=== PATIENT | male | born 1950 | race Caucasian/White ===

== ENCOUNTER 2018-04-21 23:20 | Inpatient (IN) | payer OTHER, MEDICARE ==
[2018-04-21 23:46] LABS: POC GLUCOSE 156 mg/dL (70-99)
[2018-04-22] MEDS ORDERED: DEXTROSE 50% 25 GM / 50ML DISP.SYRIN. IV ×2 (04:45→09:15)
[2018-04-22] MEDS: ACETAMINOPHEN 500 MG TABLET PO ×3 (06:00→17:38)
[2018-04-22 08:31] LABS: POC GLUCOSE 125 mg/dL (70-99)
[2018-04-22] MEDS: amLODIPine BESYLATE 10 MG TABLET PO (09:04)
[2018-04-22] MEDS: DOCUSATE SODIUM 100 MG CAPSULE. PO ×2 (09:04→21:00)
[2018-04-22] MEDS: EZETIMIBE 10 MG TABLET. PO (09:04)
[2018-04-22] MEDS: ASPIRIN CHEWABLE 81 MG TABLET. PO (09:04)
[2018-04-22] MEDS: CARVEDILOL 12.5 MG TABLET. PO ×2 (09:05→16:56)
[2018-04-22] MEDS: CYANOCOBALAMIN (VITAMIN B-12) 1,000 MCG TABLET. PO (09:05)
[2018-04-22] MEDS: FUROSEMIDE 80 MG TABLET. PO ×2 (09:05→16:00)
[2018-04-22] MEDS: POTASSIUM CHLORIDE 20 MEQ TABLET.ER. PO (09:05)
[2018-04-22] MEDS: TRIAMCINOLONE ACETONIDE 0.1% TOPICAL CREAM 15GM TUBE. TP ×2 (09:06→22:13)
[2018-04-22] MEDS: INSULIN GLARGINE 300 UNITS/3 ML INSULN.PEN. SQ ×2 (09:12→22:11)
[2018-04-22] MEDS: IV NORMAL SALINE 1000ML BAG 1,000 ML IV ×2 (09:27→19:19)
[2018-04-22 09:35] LABS: ADD MAN DIFF? NO
[2018-04-22 09:39] LABS: BASO % 1 % (0-3); EOS # 0.2 x10^3/uL (0.0-0.7); EOS % 2 % (0-3); HEMATOCRIT 33.8 % (39.0-53.0); HEMOGLOBIN 11.4 g/dL (13.0-17.5); LYMPH # 2.3 x10^3/uL (1.0-4.8); LYMPH % 24 % (24-48); MEAN CORPUSCULAR HEMOGLOBIN 31 pg (25-35); MEAN CORPUSCULAR HGB CONC 34 g/dL (31-37); MEAN CORPUSCULAR VOLUME 91 fL (79-100); MONO # 0.9 x10^3/uL (0.0-1.1); MONO % 9 % (0-9); NEUT # 6.2 x10^3uL (1.8-7.7); NEUT % 64 % (31-73); PLATELET COUNT 192 x10^3/uL (140-400); RED BLOOD COUNT 3.73 x10^6/uL (4.30-5.70); RED CELL DISTRIBUTION WIDTH 14.5 % (11.5-14.5); WHITE BLOOD COUNT 9.7 x10^3/uL (4.0-11.0)
[2018-04-22 09:47] LABS: INR 1.2 (0.8-1.1); PROTHROMBIN TIME PATIENT 14.5 SEC (11.7-14.0)
[2018-04-22 09:53] LABS: ANION GAP 9 (6-14); BLOOD UREA NITROGEN 51 mg/dL (8-26); BUN/CREATININE RATIO 28 (6-20); CALCIUM 8.7 mg/dL (8.5-10.1); CARBON DIOXIDE 28 mmol/L (21-32); CHLORIDE 101 mmol/L (98-107); CREATININE 1.8 mg/dL (0.7-1.3); GFR 37.9; GLUCOSE 151 mg/dL (70-99); POTASSIUM 4.1 mmol/L (3.5-5.1); SODIUM 138 mmol/L (136-145)
[2018-04-22 09:58] LABS: ALBUMIN 2.8 g/dL (3.4-5.0); ALBUMIN/GLOBULIN RATIO 0.7 (1.0-1.7); ALK PHOS 139 U/L (46-116); ALT (SGPT) 204 U/L (16-63); AST (SGOT) 136 U/L (15-37); LIPASE 81 U/L (73-393); TOTAL BILIRUBIN 2.9 mg/dL (0.2-1.0); TOTAL PROTEIN 6.6 g/dL (6.4-8.2)
[2018-04-22] MEDS: MEROPENEM 500 MG in IV NORMAL SALINE 50ML 50 ML IV ×3 (10:22→22:13)
[2018-04-22 11:30] LABS: POC GLUCOSE 137 mg/dL (70-99)
[2018-04-22] MEDS: INSULIN LISPRO 300 UNITS/3 ML INSULN.PEN. SQ ×2 (11:31→16:56)
[2018-04-22 16:47] LABS: POC GLUCOSE 134 mg/dL (70-99)
[2018-04-22 20:42] LABS: POC GLUCOSE 200 mg/dL (70-99)
[2018-04-22] MEDS: diphenhydrAMINE HCL 25 MG CAPSULE PO (22:03)
[2018-04-22] MEDS: LACTOBACILLUS RHAMNOSUS GG 1 CAPSULE. PO (22:03)
[2018-04-23] MEDS: MEROPENEM 500 MG in IV NORMAL SALINE 50ML 50 ML IV ×3 (05:07→21:18)
[2018-04-23] MEDS: ACETAMINOPHEN 500 MG TABLET PO ×3 (05:07→11:44)
[2018-04-23] MEDS: IV NORMAL SALINE 1000ML BAG 1,000 ML IV ×2 (05:11→19:53)
[2018-04-23 05:15] LABS: HEMATOCRIT 35.7 % (39.0-53.0); MEAN CORPUSCULAR HEMOGLOBIN 30 pg (25-35); MEAN CORPUSCULAR HGB CONC 34 g/dL (31-37); MEAN CORPUSCULAR VOLUME 90 fL (79-100); PLATELET COUNT 207 x10^3/uL (140-400); RED BLOOD COUNT 3.94 x10^6/uL (4.30-5.70); RED CELL DISTRIBUTION WIDTH 14.5 % (11.5-14.5); WHITE BLOOD COUNT 7.2 x10^3/uL (4.0-11.0)
[2018-04-23 05:42] LABS: ALBUMIN 2.6 g/dL (3.4-5.0); ALBUMIN/GLOBULIN RATIO 0.6 (1.0-1.7); ALK PHOS 180 U/L (46-116); ALT (SGPT) 180 U/L (16-63); ANION GAP 7 (6-14); AST (SGOT) 93 U/L (15-37); BLOOD UREA NITROGEN 44 mg/dL (8-26); BUN/CREATININE RATIO 29 (6-20); CALCIUM 8.5 mg/dL (8.5-10.1); CARBON DIOXIDE 30 mmol/L (21-32); CHLORIDE 102 mmol/L (98-107); CREATININE 1.5 mg/dL (0.7-1.3); GFR 46.8; GLUCOSE 93 mg/dL (70-99); POTASSIUM 3.9 mmol/L (3.5-5.1); SODIUM 139 mmol/L (136-145); TOTAL BILIRUBIN 2.6 mg/dL (0.2-1.0); TOTAL PROTEIN 6.7 g/dL (6.4-8.2)
[2018-04-23 07:41] LABS: POC GLUCOSE 66 mg/dL (70-99)
[2018-04-23] MEDS: INSULIN LISPRO 300 UNITS/3 ML INSULN.PEN. SQ ×3 (08:00→17:00)
[2018-04-23] MEDS: LACTOBACILLUS RHAMNOSUS GG 1 CAPSULE. PO ×2 (08:42→21:18)
[2018-04-23] MEDS: CYANOCOBALAMIN (VITAMIN B-12) 1,000 MCG TABLET. PO (08:43)
[2018-04-23] MEDS: POTASSIUM CHLORIDE 20 MEQ TABLET.ER. PO (08:43)
[2018-04-23] MEDS: EZETIMIBE 10 MG TABLET. PO (08:43)
[2018-04-23] MEDS: CARVEDILOL 12.5 MG TABLET. PO ×2 (08:44→18:03)
[2018-04-23] MEDS: FUROSEMIDE 80 MG TABLET. PO ×2 (08:44→18:02)
[2018-04-23] MEDS: amLODIPine BESYLATE 10 MG TABLET PO (08:44)
[2018-04-23] MEDS: SPIRONOLACTONE 25 MG TABLET PO (08:44)
[2018-04-23] MEDS: DOCUSATE SODIUM 100 MG CAPSULE. PO ×2 (08:44→21:18)
[2018-04-23] MEDS: TRIAMCINOLONE ACETONIDE 0.1% TOPICAL CREAM 15GM TUBE. TP ×2 (08:44→21:18)
[2018-04-23] MEDS: ASPIRIN CHEWABLE 81 MG TABLET. PO (08:44)
[2018-04-23] MEDS: INSULIN GLARGINE 300 UNITS/3 ML INSULN.PEN. SQ ×2 (08:52→21:26)
[2018-04-23 10:33] LABS: HEPATITIS A AB(IGM) Reactive (Nonreactive)
[2018-04-23 11:07] LABS: POC GLUCOSE 103 mg/dL (70-99)
[2018-04-23] MEDS: ACETAMINOPHEN 325 MG TABLET. PO (14:59)
[2018-04-23 17:02] LABS: POC GLUCOSE 128 mg/dL (70-99)
[2018-04-23 20:50] LABS: POC GLUCOSE 177 mg/dL (70-99)
[2018-04-23] MEDS: ALBUTEROL SULFATE 2.5 MG/3 ML NEBU. NEB (20:53)
[2018-04-23] MEDS: BUDESONIDE 0.5 MG/2 ML NEBU. NEB (20:53)
[2018-04-23] MEDS: diphenhydrAMINE HCL 25 MG CAPSULE PO (21:18)
[2018-04-24] MEDS: ACETAMINOPHEN 325 MG TABLET. PO (02:00)
[2018-04-24 05:15] LABS: ALBUMIN 2.9 g/dL (3.4-5.0); ALBUMIN/GLOBULIN RATIO 0.6 (1.0-1.7); ALK PHOS 277 U/L (46-116); ALT (SGPT) 196 U/L (16-63); ANION GAP 7 (6-14); AST (SGOT) 120 U/L (15-37); BLOOD UREA NITROGEN 30 mg/dL (8-26); BUN/CREATININE RATIO 25 (6-20); CALCIUM 8.9 mg/dL (8.5-10.1); CARBON DIOXIDE 28 mmol/L (21-32); CHLORIDE 103 mmol/L (98-107); CREATININE 1.2 mg/dL (0.7-1.3); GFR 60.6; GLUCOSE 96 mg/dL (70-99); SODIUM 138 mmol/L (136-145); TOTAL BILIRUBIN 2.9 mg/dL (0.2-1.0); TOTAL PROTEIN 7.4 g/dL (6.4-8.2)
[2018-04-24] MEDS: IV NORMAL SALINE 1000ML BAG 1,000 ML IV ×2 (06:04→12:00)
[2018-04-24] MEDS: MEROPENEM 500 MG in IV NORMAL SALINE 50ML 50 ML IV ×4 (06:05→23:06)
[2018-04-24] MEDS: BUDESONIDE 0.5 MG/2 ML NEBU. NEB ×2 (07:00→17:36)
[2018-04-24] MEDS: ALBUTEROL SULFATE 2.5 MG/3 ML NEBU. NEB ×4 (07:00→17:37)
[2018-04-24] MEDS ORDERED: DEXTROSE ORAL GEL 15 GM TUBE. ×2 (07:51→08:00)
[2018-04-24 07:52] LABS: POC GLUCOSE 90 mg/dL (70-99)
[2018-04-24] MEDS: POTASSIUM CHLORIDE 20 MEQ TABLET.ER. PO (08:00)
[2018-04-24] MEDS: CARVEDILOL 12.5 MG TABLET. PO ×2 (08:00→17:00)
[2018-04-24] MEDS: INSULIN LISPRO 300 UNITS/3 ML INSULN.PEN. SQ ×3 (08:00→17:00)
[2018-04-24] MEDS: TRIAMCINOLONE ACETONIDE 0.1% TOPICAL CREAM 15GM TUBE. TP ×2 (09:00→20:28)
[2018-04-24] MEDS: FUROSEMIDE 80 MG TABLET. PO ×2 (09:00→16:00)
[2018-04-24] MEDS: EZETIMIBE 10 MG TABLET. PO (09:00)
[2018-04-24] MEDS: INSULIN GLARGINE 300 UNITS/3 ML INSULN.PEN. SQ ×2 (09:00→20:43)
[2018-04-24] MEDS: amLODIPine BESYLATE 10 MG TABLET PO (09:00)
[2018-04-24] MEDS: DOCUSATE SODIUM 100 MG CAPSULE. PO ×2 (09:00→20:28)
[2018-04-24] MEDS: SPIRONOLACTONE 25 MG TABLET PO (09:00)
[2018-04-24] MEDS: ASPIRIN CHEWABLE 81 MG TABLET. PO (09:00)
[2018-04-24] MEDS: CYANOCOBALAMIN (VITAMIN B-12) 1,000 MCG TABLET. PO (09:00)
[2018-04-24] MEDS: LACTOBACILLUS RHAMNOSUS GG 1 CAPSULE. PO ×2 (09:00→20:27)
[2018-04-24 11:56] LABS: POC GLUCOSE 105 mg/dL (70-99)
[2018-04-24 17:07] LABS: POC GLUCOSE 154 mg/dL (70-99)
[2018-04-24 20:11] LABS: POC GLUCOSE 160 mg/dL (70-99)
[2018-04-24] MEDS: diphenhydrAMINE HCL 25 MG CAPSULE PO (20:28)
[2018-04-25] MEDS: IV NORMAL SALINE 1000ML BAG 1,000 ML IV ×2 (05:11→09:42)
[2018-04-25] MEDS: MEROPENEM 500 MG in IV NORMAL SALINE 50ML 50 ML IV (05:11)
[2018-04-25 05:25] LABS: HEMATOCRIT 37.6 % (39.0-53.0); HEMOGLOBIN 12.8 g/dL (13.0-17.5); MEAN CORPUSCULAR HEMOGLOBIN 31 pg (25-35); MEAN CORPUSCULAR HGB CONC 34 g/dL (31-37); MEAN CORPUSCULAR VOLUME 91 fL (79-100); PLATELET COUNT 284 x10^3/uL (140-400); RED BLOOD COUNT 4.15 x10^6/uL (4.30-5.70); RED CELL DISTRIBUTION WIDTH 14.7 % (11.5-14.5); WHITE BLOOD COUNT 7.4 x10^3/uL (4.0-11.0)
[2018-04-25 05:40] LABS: ALBUMIN 2.9 g/dL (3.4-5.0); ALBUMIN/GLOBULIN RATIO 0.6 (1.0-1.7); ALK PHOS 340 U/L (46-116); ALT (SGPT) 204 U/L (16-63); ANION GAP 7 (6-14); AST (SGOT) 111 U/L (15-37); BLOOD UREA NITROGEN 25 mg/dL (8-26); BUN/CREATININE RATIO 23 (6-20); CALCIUM 9.2 mg/dL (8.5-10.1); CARBON DIOXIDE 28 mmol/L (21-32); CHLORIDE 104 mmol/L (98-107); CREATININE 1.1 mg/dL (0.7-1.3); GLUCOSE 89 mg/dL (70-99); POTASSIUM 3.7 mmol/L (3.5-5.1); SODIUM 139 mmol/L (136-145); TOTAL BILIRUBIN 2.4 mg/dL (0.2-1.0); TOTAL PROTEIN 7.5 g/dL (6.4-8.2)
[2018-04-25] MEDS: INSULIN LISPRO 300 UNITS/3 ML INSULN.PEN. SQ ×2 (08:00→12:00)
[2018-04-25 08:14] LABS: POC GLUCOSE 138 mg/dL (70-99)
[2018-04-25] MEDS ORDERED: ALBUTEROL SULFATE 2.5 MG/3 ML NEBU. NEB (08:45)
[2018-04-25] MEDS: DOCUSATE SODIUM 100 MG CAPSULE. PO (09:40)
[2018-04-25] MEDS: CYANOCOBALAMIN (VITAMIN B-12) 1,000 MCG TABLET. PO (09:40)
[2018-04-25] MEDS: SPIRONOLACTONE 25 MG TABLET PO (09:40)
[2018-04-25] MEDS: ASPIRIN CHEWABLE 81 MG TABLET. PO (09:40)
[2018-04-25] MEDS: FUROSEMIDE 80 MG TABLET. PO (09:40)
[2018-04-25] MEDS: amLODIPine BESYLATE 10 MG TABLET PO (09:41)
[2018-04-25] MEDS: CARVEDILOL 12.5 MG TABLET. PO (09:41)
[2018-04-25] MEDS: LACTOBACILLUS RHAMNOSUS GG 1 CAPSULE. PO (09:41)
[2018-04-25] MEDS: EZETIMIBE 10 MG TABLET. PO (09:42)
[2018-04-25] MEDS: POTASSIUM CHLORIDE 20 MEQ TABLET.ER. PO (09:42)
[2018-04-25] MEDS: TRIAMCINOLONE ACETONIDE 0.1% TOPICAL CREAM 15GM TUBE. TP (09:43)
[2018-04-25] MEDS: INSULIN GLARGINE 300 UNITS/3 ML INSULN.PEN. SQ (09:48)
[2018-04-25 12:00] LABS: POC GLUCOSE 152 mg/dL (70-99)
== END 2018-04-25 14:30 | disposition home or self-care (01) | DRG 441 ==
LOC: 5 SOUTH 23:20
PROVIDERS: Internal Medicine
PROC: 5A09357 Assistance with Respiratory Ventilation, Less than 24 Consecutive Hours, Continuous Positive Airway Pressure (ICD-10-PCS; principal; 2018-04-24)
PROC: 5A09357 Assistance with Respiratory Ventilation, Less than 24 Consecutive Hours, Continuous Positive Airway Pressure (ICD-10-PCS; 2018-04-25)
DX: B15.9 Hepatitis A without hepatic coma (principal); N17.0 Acute kidney failure with tubular necrosis; I50.32 Chronic diastolic (congestive) heart failure; I69.354 Hemiplegia and hemiparesis following cerebral infarction affecting left non-dominant side; I13.0 Hypertensive heart and chronic kidney disease with heart failure and stage 1 through stage 4 chronic kidney disease, or unspecified chronic kidney disease; Z68.43 Body mass index [BMI] 50.0-59.9, adult; J44.9 Chronic obstructive pulmonary disease, unspecified; E78.00 Pure hypercholesterolemia, unspecified; I25.10 Atherosclerotic heart disease of native coronary artery without angina pectoris; D72.829 Elevated white blood cell count, unspecified; F02.80 Dementia in other diseases classified elsewhere, unspecified severity, without behavioral disturbance, psychotic disturbance, mood disturbance, and anxiety; G30.9 Alzheimer's disease, unspecified; E11.22 Type 2 diabetes mellitus with diabetic chronic kidney disease; N18.3 Chronic kidney disease, stage 3 (moderate); M19.90 Unspecified osteoarthritis, unspecified site; F32.9 Major depressive disorder, single episode, unspecified; K21.9 Gastro-esophageal reflux disease without esophagitis; E66.01 Morbid (severe) obesity due to excess calories; E11.42 Type 2 diabetes mellitus with diabetic polyneuropathy; K82.8 Other specified diseases of gallbladder; R56.9 Unspecified convulsions; K76.0 Fatty (change of) liver, not elsewhere classified; E78.5 Hyperlipidemia, unspecified; R07.89 Other chest pain; G47.33 Obstructive sleep apnea (adult) (pediatric); Z82.49 Family history of ischemic heart disease and other diseases of the circulatory system; I25.2 Old myocardial infarction; Z95.5 Presence of coronary angioplasty implant and graft; Z90.49 Acquired absence of other specified parts of digestive tract; Z88.0 Allergy status to penicillin; Z88.8 Allergy status to other drugs, medicaments and biological substances; Z88.1 Allergy status to other antibiotic agents; Z91.041 Radiographic dye allergy status; Z79.82 Long term (current) use of aspirin; Z79.4 Long term (current) use of insulin; Z79.899 Other long term (current) drug therapy; Z95.1 Presence of aortocoronary bypass graft; Z98.49 Cataract extraction status, unspecified eye; Z87.891 Personal history of nicotine dependence; Z80.9 Family history of malignant neoplasm, unspecified
CPT/HCPCS: 36415; 76705; 78226; 80053; 82962; 83690; 85025; 85027; 85610; 86709; 87040; 87086; 94640; 95811; 96374; A9537; J1815; J2185; J7030; J7613; J7626; Q0163

== ENCOUNTER → 2018-07-06 | Outpatient (CLI) | payer OTHER ==
[2018-04-24 07:00] VITALS: BP 172/78
[~2018-07-06] MED LIST: ACET1TAB33 PO; ACET325T9 PO; ACET500T68 PO; ALBU2.5V14 NEB; ALBU2.5V5 NEB; AMLO10TA6 PO; ASPI-482 PO; ASPI-630 PO; ASPI325T11 PO; BENZ-8 PO; BENZ100C PO; BUDE0.5A NEB; BUDE0.5A3 IH; BUDE10.2 IH; CARV25TA2 PO; CETI10TA16 PO; CLON0.2T PO; CLOP75TA PO; CYAN10005 PO; DIPH25CA58 PO; DOCU-109 PO; DOCU100C28 PO; DONE10TA7 PO; DOXY100T PO; EZET10TA18 PO; FURO20TA3 PO; FURO40TA4 PO; FURO80TA3 PO; GABA-586 PO; GADOBUTROL 7.5 MMOL/7.5 ML VIAL IV ONE; HYDR-2868 PO; HYDR-971 PO; INSU100C4 SQ; INSU100I13 SQ; INSU100I17 SQ; INSU100V13 SQ; ISOS60TA2 PO; LEVE500T56 PO; LEVE750T41 PO; LEVO500T8 PO; LOSA100T7 PO; MAGN200T PO; MELO7.5T29 PO; METF10007 PO; METH-37 PO; MULT-208 PO; NITR0.4T22 SL; OMEP20CA9 PO; OMEP20TA8 PO; ONDA4TAB11 PO; PANT40TA5 PO; PARO40TA3 PO; PHEN100C PO; POLY255P PO; POTA20TA82 PO; PROAIR HFA8.5 GM INH; SPIR25TA5 PO; TRAZ-85 PO; TRIA15CR2 TP; TRIA15CR3 TP
--- NOTE | 2018-07-06 14:27 | KCIC ---
MRI Brain with and without contrast History: Seizures starting in February 2017 Technique: Multiplanar, multi sequential pre and postcontrast MR imaging was performed of the brain. Contrast: 14 cc Gadavist Comparison: None Findings: There is motion degradation. There is no evidence of recent infarct or cytotoxic edema. Ventricular size is within normal limits. There is mild generalized supratentorial involutional change.There is no significant midline shift, intraaxial mass effect, or focal abnormal extra-axial fluid collection. There is minimal T2 and FLAIR hyperintense signal abnormality of the supratentorial white matter bilaterally greatest of the frontal parietal lobes. There is focus of hemosiderin deposition of the left paracentral anterior tolu. There is moderate T2 and FLAIR hyperintense signal abnormality of the tolu. There is no nodular parenchymal or leptomeningeal enhancement. There is preservation of the major intracranial flow-voids at the skull base. The cerebellar tonsils are normal in location. There is no significant abnormality of the pineal gland or pituitary gland. There is severe mucosal thickening of the sphenoid sinus, patchy minimal mucosal thickening of the maxillary sinuses. There has been lens surgery bilaterally. There is mild fluid and thickening bilateral mastoid air cells inferiorly. There is preserved marrow signal of the clivus. Impression: 1. There is no evidence of recent infarct or abnormal intracranial enhancement. Minimal nonspecific T2 and FLAIR hyperintense signal abnormality of the supratentorial parenchyma and to a greater degree of the tolu may be due to chronic microvascular ischemic disease in a patient this age. There is small focus of old microhemorrhage of the left paracentral anterior tolu. There is mild supratentorial involutional change. 2. There is severe sphenoid sinus mucosal thickening. There is mild fluid and thickening of bilateral mastoid air cells. Electronically signed by: Dick Ceja MD (07/06/2018 2:23 PM) [facility] [id number]
== END | disposition home or self-care (01) ==
LOC: KCIC MRI 12:53
PROVIDERS: ATTEND Internal Medicine
DX: G40.89 Other seizures (principal); J32.3 Chronic sphenoidal sinusitis; J44.9 Chronic obstructive pulmonary disease, unspecified; I10 Essential (primary) hypertension; E11.9 Type 2 diabetes mellitus without complications
CPT/HCPCS: 70553

== ENCOUNTER 2018-12-04 21:47 | Inpatient (IN) | payer MEDICARE, OTHER ==
[~2018-12-04] VITALS: Ht 182.9 cm; Wt 174.6 kg
[~2018-12-04 21:47] MED LIST changes: +ALBU2.5V8 INH; -AMLO10TA6 PO; +AMLO10TA8 PO; -GABA-586 PO; +GABA300C18 PO; -GADOBUTROL 7.5 MMOL/7.5 ML VIAL IV ONE; +HYDR-3164 PO; -HYDR-971 PO; +LOSA100T14 PO; -LOSA100T7 PO; +OMEP20CA10 PO; -OMEP20CA9 PO; -POLY255P PO; +POLY255P11 PO; -PROAIR HFA8.5 GM INH; +TRAZ-118 PO; -TRAZ-85 PO
--- NOTE | 2018-12-04 22:07 | PHYS DOC ---
Past Medical History Past Medical History: CHF, COPD, CVA, Diabetes-Type II, High Cholesterol, Heart Disease, Hypertension, [place], Seizure, Stroke, Other Additional Past Medical Histor: SLEEP APNEA,NEUROPATHY, morbid obesity (ALEXANDER DAWKINS APRN) Past Surgical History: Angioplasty, Appendectomy, Other Additional Past Surgical Histo: HERNIA-MULTIPLE,PERICARDIAL WINDOW,CARDIAC STENTS, PTCA (ALEXANDER DAWKINS APRN) Alcohol Use: Sober Drug Use: None (ALEXANDER DAWKINS APRN) Adult General Chief Complaint Chief Complaint: SYNCOPE HPI HPI Patient is a 67 year old male with a history of multiple medical problems including diabetes, hypertension, CHF, kidney disease, among other illnesses who presents to the ED today to be evaluated for syncope and fall. Patient states his legs gave out today when he was ambulating with his walker, he states he fell down and passed out twice. Patient states EMS reported he had "seizure-like activity" too. Patient states he has history of seizure like activities. He states he takes over 20 pills and does not know if he is taking any seizure medications. Patient denies any pain, denies any shortness of breath. He states his legs usually give out and the daughter is always available to help him but today she was not at home. Denies any neck pain. He is morbidly obese (ALEXANDER DAWKINS APRN) Review of Systems Review of Systems Constitutional: Denies fever or chills [] Eyes: Denies change in visual acuity, redness, or eye pain [] HENT: Denies nasal congestion or sore throat [] Respiratory: Denies cough or shortness of breath [] Cardiovascular: No additional information not addressed in HPI [] GI: Denies abdominal pain, nausea, vomiting, bloody stools or diarrhea [] : Denies dysuria or hematuria [] Musculoskeletal: Reports falling. Denies back pain or joint pain [] Integument: Denies rash or skin lesions [] Neurologic: Reports syncope. Denies headache, focal weakness or sensory changes [] All other systems were reviewed and found to be within normal limits, except as documented in this note. (ALEXANDER DAWKINS APRN) Allergies Allergies Allergies Coded Allergies Type Severity Reaction Last Updated Verified Iodinated Contrast- Oral and IV Dye Allergy Intermediate hives 04/23/18 Yes Penicillins Allergy Intermediate "PASSES OUT" 04/22/18 Yes Pvxazwk-Jgg-Sox Reductase Inhibitor Allergy Intermediate 04/22/18 Yes erythromycin base Allergy Intermediate 04/22/18 Yes iodine Allergy Intermediate 04/22/18 Yes lisinopril Allergy Intermediate 04/22/18 Yes niacin Allergy Intermediate 04/22/18 Yes sertraline Allergy Intermediate 04/22/18 Yes simvastatin Allergy Intermediate 04/22/18 Yes fluvastatin Adverse Reaction Intermediate muscle cramping 04/23/18 Yes pravastatin Adverse Reaction Intermediate muscle cramping 04/23/18 Yes rosuvastatin Adverse Reaction Intermediate muscle cramping 04/23/18 Yes (REMY GARZA MD) Physical Exam Physical Exam Constitutional: Morbidly obese patient. Well developed, well nourished, no acute distress, non-toxic appearance. [] HENT: Normocephalic, atraumatic, bilateral external ears normal, oropharynx moist, no oral exudates, nose normal. [] Eyes: PERRLA, EOMI, conjunctiva normal, no discharge. [] Neck: Normal range of motion, no tenderness, supple, no stridor. [] Cardiovascular:Heart rate regular rhythm, no murmur [] Lungs & Thorax: Bilateral breath sounds clear to auscultation [] Abdomen: Morbidly obese abdomen. Two old healed surgical incisions noted on the abdomen one midline lower abdomen and the other one on the right lower abdomen. Bowel sounds normal, soft, no tenderness, no masses, no pulsatile masses. [] Skin: Warm, dry, no erythema, no rash. [] Back: No tenderness, no CVA tenderness. [] Extremities: No tenderness, no cyanosis, no clubbing, ROM intact, no edema. [] Neurologic: Alert and oriented X 3, normal motor function, normal sensory function, no focal deficits noted. Cranial nerves II through XII intact Psychologic: Affect normal, judgement normal, mood normal. [] (ALEXANDER DAWKINS APRN) Current Patient Data Vital Signs Vital Signs Date Time Temp Pulse Resp B/P (MAP) Pulse Ox O2 Delivery O2 Flow Rate FiO2 12/04/18 23:30 94 26 184/72 (109) Room Air 12/04/18 22:57 96 12/04/18 21:50 97.9 97.9 (REMY GARZA MD) Lab Values Laboratory Tests Test 12/04/18 22:00 12/04/18 23:30 White Blood Count 8.9 x10^3/uL (4.0-11.0) Red Blood Count 4.12 x10^6/uL (4.30-5.70) L Hemoglobin 12.4 g/dL (13.0-17.5) L Hematocrit 37.2 % (39.0-53.0) L Mean Corpuscular Volume 90 fL (79-100) Mean Corpuscular Hemoglobin 30 pg (25-35) Mean Corpuscular Hemoglobin Concent 33 g/dL (31-37) Red Cell Distribution Width 13.2 % (11.5-14.5) Platelet Count 237 x10^3/uL (140-400) Neutrophils (%) (Auto) 55 % (31-73) Lymphocytes (%) (Auto) 31 % (24-48) Monocytes (%) (Auto) 10 % (0-9) H Eosinophils (%) (Auto) 3 % (0-3) Basophils (%) (Auto) 1 % (0-3) Neutrophils # (Auto) 4.9 x10^3uL (1.8-7.7) Lymphocytes # (Auto) 2.7 x10^3/uL (1.0-4.8) Monocytes # (Auto) 0.9 x10^3/uL (0.0-1.1) Eosinophils # (Auto) 0.3 x10^3/uL (0.0-0.7) Basophils # (Auto) 0.1 x10^3/uL (0.0-0.2) Prothrombin Time 12.0 SEC (11.7-14.0) Prothrombin Time INR 0.9 (0.8-1.1) Sodium Level 138 mmol/L (136-145) Potassium Level 4.1 mmol/L (3.5-5.1) Chloride Level 100 mmol/L (98-107) Carbon Dioxide Level 32 mmol/L (21-32) Anion Gap 6 (6-14) Blood Urea Nitrogen 29 mg/dL (8-26) H Creatinine 1.2 mg/dL (0.7-1.3) Estimated GFR (Cockcroft-Gault) 60.6 BUN/Creatinine Ratio 24 (6-20) H Glucose Level 357 mg/dL (70-99) H Lactic Acid Level 2.1 mmol/L (0.4-2.0) H Calcium Level 9.1 mg/dL (8.5-10.1) Magnesium Level 1.6 mg/dL (1.8-2.4) L Total Bilirubin 0.4 mg/dL (0.2-1.0) Aspartate Amino Transferase (AST) 13 U/L (15-37) L Alanine Aminotransferase (ALT) 18 U/L (16-63) Alkaline Phosphatase 84 U/L (46-116) Creatine Kinase 34 U/L (39-308) L Creatine Kinase MB (Mass) 0.6 ng/mL (0.0-3.6) Creatine Kinase MB Relative Index % (0-4) Troponin I Quantitative < 0.017 ng/mL (0.000-0.055) VP-Lvt-H-Type Natriuretic Peptide 181 pg/mL (0-124) H Total Protein 6.9 g/dL (6.4-8.2) Albumin 2.9 g/dL (3.4-5.0) L Albumin/Globulin Ratio 0.7 (1.0-1.7) L Lipase 127 U/L (73-393) Thyroid Stimulating Hormone (TSH) 1.510 uIU/mL (0.358-3.74) Ethyl Alcohol Level < 10 mg/dL (0-10) Urine Collection Type Void Urine Color Yellow Urine Clarity Clear Urine pH 5.0 Urine Specific [place] 1.020 Urine Protein 100 mg/dL (NEG-TRACE) Urine Glucose (UA) >=1000 mg/dL (NEG) Urine Ketones (Stick) Negative mg/dL (NEG) Urine Blood Small (NEG) Urine Nitrite Negative (NEG) Urine Bilirubin Negative (NEG) Urine Urobilinogen Dipstick 0.2 mg/dL (0.2 mg/dL) Urine Leukocyte Esterase Negative (NEG) Urine RBC Occ /HPF (0-2) Urine WBC Rare /HPF (0-4) Urine Squamous Epithelial Cells Few /LPF Urine Bacteria Few /HPF (0-FEW) Urine Mucus Mod /LPF Urine Sperm Present /HPF Urine Opiates Screen Neg (NEG) Urine Methadone Screen Neg (NEG) Urine Barbiturates Neg (NEG) Urine Phencyclidine Screen Neg (NEG) Urine Amphetamine/Methamphetamine Neg (NEG) Urine Benzodiazepines Screen Neg (NEG) Urine Cocaine Screen Neg (NEG) Urine Cannabinoids Screen Neg (NEG) Urine Ethyl Alcohol Neg (NEG) Laboratory Tests 12/04/18 22:00 Laboratory Tests 12/04/18 22:00 (REMY GARZA MD) Lab Values Laboratory Tests Test 12/04/18 22:00 White Blood Count 8.9 x10^3/uL (4.0-11.0) Red Blood Count 4.12 x10^6/uL (4.30-5.70) L Hemoglobin 12.4 g/dL (13.0-17.5) L Hematocrit 37.2 % (39.0-53.0) L Mean Corpuscular Volume 90 fL (79-100) Mean Corpuscular Hemoglobin 30 pg (25-35) Mean Corpuscular Hemoglobin Concent 33 g/dL (31-37) Red Cell Distribution Width 13.2 % (11.5-14.5) Platelet Count 237 x10^3/uL (140-400) Neutrophils (%) (Auto) 55 % (31-73) Lymphocytes (%) (Auto) 31 % (24-48) Monocytes (%) (Auto) 10 % (0-9) H Eosinophils (%) (Auto) 3 % (0-3) Basophils (%) (Auto) 1 % (0-3) Neutrophils # (Auto) 4.9 x10^3uL (1.8-7.7) Lymphocytes # (Auto) 2.7 x10^3/uL (1.0-4.8) Monocytes # (Auto) 0.9 x10^3/uL (0.0-1.1) Eosinophils # (Auto) 0.3 x10^3/uL (0.0-0.7) Basophils # (Auto) 0.1 x10^3/uL (0.0-0.2) Prothrombin Time 12.0 SEC (11.7-14.0) Prothrombin Time INR 0.9 (0.8-1.1) Sodium Level 138 mmol/L (136-145) Potassium Level 4.1 mmol/L (3.5-5.1) Chloride Level 100 mmol/L (98-107) Carbon Dioxide Level 32 mmol/L (21-32) Anion Gap 6 (6-14) Blood Urea Nitrogen 29 mg/dL (8-26) H Creatinine 1.2 mg/dL (0.7-1.3) Estimated GFR (Cockcroft-Gault) 60.6 BUN/Creatinine Ratio 24 (6-20) H Glucose Level 357 mg/dL (70-99) H Lactic Acid Level 2.1 mmol/L (0.4-2.0) H Calcium Level 9.1 mg/dL (8.5-10.1) Magnesium Level 1.6 mg/dL (1.8-2.4) L Total Bilirubin 0.4 mg/dL (0.2-1.0) Aspartate Amino Transferase (AST) 13 U/L (15-37) L Alanine Aminotransferase (ALT) 18 U/L (16-63) Alkaline Phosphatase 84 U/L (46-116) Creatine Kinase 34 U/L (39-308) L Creatine Kinase MB (Mass) 0.6 ng/mL (0.0-3.6) Creatine Kinase MB Relative Index % (0-4) Troponin I Quantitative < 0.017 ng/mL (0.000-0.055) VI-Afp-W-Type Natriuretic Peptide 181 pg/mL (0-124) H Total Protein 6.9 g/dL (6.4-8.2) Albumin 2.9 g/dL (3.4-5.0) L Albumin/Globulin Ratio 0.7 (1.0-1.7) L Lipase 127 U/L (73-393) Thyroid Stimulating Hormone (TSH) 1.510 uIU/mL (0.358-3.74) Ethyl Alcohol Level < 10 mg/dL (0-10) Laboratory Tests 12/04/18 22:00 Laboratory Tests 12/04/18 22:00 (ALEXANDER DAWKINS APRN) EKG EKG [] (ALEXANDER DAWKINS APRN) EKG EKG shows a normal sinus rhythm rate of 94 no acute ischemic changes noted interpreted by me the time of encounter. (REMY GARZA MD) Radiology/Procedures Radiology/Procedures [] (ALEXANDER DAWKINS APRN) Impressions: Impression: 1. No acute intracranial abnormality is identified. Electronically signed by: David Ron MD (12/04/2018 10:30 PM) [facility] DICTATED and SIGNED BY: DAVID RON MD DATE: 12/04/182229 Impression: 1. Pericardial cardiac silhouette is enlarged. Accurate evaluation of the left lung base is limited. Electronically signed by: David Ron MD (12/04/2018 10:47 PM) [facility] DICTATED and SIGNED BY: DAVID RON MD DATE: 12/04/182246 (REMY GARZA MD) Course & Med Decision Making Course & Med Decision Making Pertinent Labs and Imaging studies reviewed. (See chart for details) This is a 67-year-old male patient who presents to the ED today to be evaluated after his legs gave out and falling at home, he had a syncope episodes and seizure-like activities post falling. Patient has history of seizure-like activities. 22:[address] Garza (ALEXANDER DAWKINS APRN) Course & Med Decision Making 2315: noted mild elevation of lactic acid. No obvious source of infection identified. In the emergency room the patient did have one episode of or 3 minute period where he really was just not responding that well he remained in sinus rhythm nurse did say that she did perform a sternal rub and he did appear to make some tears but he really did not respond otherwise negative gradually came out of it he really did not have a postictal period but it, but over to see the patient he was alert and oriented and had no signs of tongue biting and he was not postictal. We did a head CT was negative acute. Probably the patient has been falling more at home he fell and fainted twice prior to arrival. In light of that and his abnormal mental status activity here. Admitted overnight for cardiac monitoring, neurology consultation and further evaluation and treatment as needed. He'll be admitted to the hospital service. Further history obtained from the daughter was that the patient was on Keppra last year but it really was not helping and at one point was told that he might be having nonepileptic seizures (REMY GRAZA MD) Dragon Disclaimer Dragon Disclaimer This electronic medical record was generated, in whole or in part, using a voice recognition dictation system. (ALEXANDER DAWKINS APRN) Departure Departure Impression: Primary Impression: Syncopal episodes Disposition: ADMITTED INPATIENT Admitting Physician: Other (REMY GARZA MD) Condition: STABLE Referrals: NON,STAFF (PCP) Problem Qualifiers Primary Impression: Syncopal episodes Syncope type: unspecified Qualified Codes: R55 - Syncope and collapse JUANCHOALEXANDER APRN Dec 04, 2018 22:07 REMY GARZA MD Dec 05, 2018 05:11
[2018-12-04 22:11] LABS: BASO # 0.1 x10^3/uL (0.0-0.2); BASO % 1 % (0-3); EOS # 0.3 x10^3/uL (0.0-0.7); EOS % 3 % (0-3); HEMATOCRIT 37.2 % (39.0-53.0); HEMOGLOBIN 12.4 g/dL (13.0-17.5); LYMPH # 2.7 x10^3/uL (1.0-4.8); LYMPH % 31 % (24-48); MEAN CORPUSCULAR HEMOGLOBIN 30 pg (25-35); MEAN CORPUSCULAR HGB CONC 33 g/dL (31-37); MEAN CORPUSCULAR VOLUME 90 fL (79-100); MONO # 0.9 x10^3/uL (0.0-1.1); MONO % 10 % (0-9); NEUT # 4.9 x10^3uL (1.8-7.7); NEUT % 55 % (31-73); PLATELET COUNT 237 x10^3/uL (140-400); RED BLOOD COUNT 4.12 x10^6/uL (4.30-5.70); RED CELL DISTRIBUTION WIDTH 13.2 % (11.5-14.5); WHITE BLOOD COUNT 8.9 x10^3/uL (4.0-11.0)
[2018-12-04 22:22] LABS: CALCIUM 9.1 mg/dL (8.5-10.1); CREATININE 1.2 mg/dL (0.7-1.3); GFR 60.6; POTASSIUM 4.1 mmol/L (3.5-5.1)
--- NOTE | 2018-12-04 22:32 | RAD ---
CT HEAD WO CONTRAST History: Syncope Comparison: None. Technique: Noncontrast CT imaging was performed of the head. Exposure: One or more of the following individualized dose reduction techniques were utilized for this examination: 1. Automated exposure control 2. Adjustment of the mA and/or kV according to patient size 3. Use of iterative reconstruction technique. Findings: No acute extra-axial or parenchymal hemorrhage is identified. There is no significant intra-axial mass effect, midline shift, or extra-axial fluid collection. The bear-white differentiation of the major vascular territories is preserved. Ventricular size is within normal limits. Mastoid air cells are aerated. There is [id number] sphenoid sinus mucosal thickening. No acute calvarial abnormality is identified. Impression: 1. No acute intracranial abnormality is identified. Electronically signed by: Dick Ceja MD (12/04/2018 10:30 PM) [facility]
[2018-12-04 22:34] LABS: ALBUMIN 2.9 g/dL (3.4-5.0); ALBUMIN/GLOBULIN RATIO 0.7 (1.0-1.7); CREATINE KINASE 34 U/L (39-308); MAGNESIUM 1.6 mg/dL (1.8-2.4); TOTAL BILIRUBIN 0.4 mg/dL (0.2-1.0); TOTAL PROTEIN 6.9 g/dL (6.4-8.2)
--- NOTE | 2018-12-04 22:50 | RAD ---
PORTABLE CHEST 1V History: Syncope Comparison: None. Findings: AP portable view of the chest is submitted. Pericardial cardiac silhouette is enlarged, limited evaluation of the left lung base. There is no obvious pleural fluid. No pneumothorax. Evaluation of the left lung base is limited due to the cardiac silhouette and beam attenuation by soft tissues. Impression: 1. Pericardial cardiac silhouette is enlarged. Accurate evaluation of the left lung base is limited. Electronically signed by: Dick Ceja MD (12/04/2018 10:47 PM) [facility]
[2018-12-04 23:46] LABS: BILIRUBIN,URINE NEGATIVE (NEG); CLARITY,URINE CLEAR; COLOR,URINE YELLOW; NITRITE,URINE NEGATIVE (NEG); PROTEIN,URINE 100 mg/dL (NEG-TRACE); UROBILINOGEN,URINE 0.2 mg/dL (0.2 mg/dL)
[2018-12-04 23:54] LABS: BARBITURATES NEG (NEG); BENZODIAZEPINES NEG (NEG); CANNABINOIDS NEG (NEG); COCAINE NEG (NEG); METHADONE NEG (NEG); OPIATES NEG (NEG); PHENCYCLIDINE NEG (NEG)
[2018-12-04 23:55] LABS: AMPHETAMINE/METHAMPHETAMINE NEG (NEG)
[2018-12-04 23:59] LABS: BACTERIA,URINE FEW /HPF (0-FEW); RBC,URINE OCC /HPF (0-2); SPERM,URINE PRESENT /HPF; SQUAMOUS EPITHELIAL CELL,UR FEW /LPF; WBC,URINE RARE /HPF (0-4)
[2018-12-05] VITALS (9 sets, daily range): BP systolic 130–227; BP diastolic 61–100
[2018-12-05] MEDS ORDERED: IV NORMAL SALINE 1000ML BAG 1,000 ML IV SCH
--- NOTE | 2018-12-05 06:02 | EKG ---
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
[2018-12-05] MEDS ORDERED: DEXTROSE 50% 25 GM / 50ML DISP.SYRIN. IV PRN (06:15)
[2018-12-05] MEDS ORDERED: CETIRIZINE HCL 10 MG TABLET. PO PRN (06:15)
[2018-12-05] MEDS ORDERED: NITROGLYCERIN SUBLINGUAL 0.4 MG BOTTLE OF 25. SL PRN (06:15)
[2018-12-05] MEDS ORDERED: METHOCARBAMOL 500 MG TABLET PO PRN (06:15)
[2018-12-05] MEDS: PANTOPRAZOLE 40 MG TABLET.DR. PO SCH (07:29)
[2018-12-05] MEDS: INSULIN LISPRO 300 UNITS/3 ML INSULN.PEN. SQ SCH ×3 (07:35→17:48)
--- NOTE | 2018-12-05 07:54 | PDOC1 ---
History and Physical Date of Admission Date of Admission DATE: 12/05/18 TIME: 07:52 Identification/Chief Complaint Chief Complaint Syncope Source Source: Chart review, Patient History of Present Illness History of Present Illness 67 yo male with a history of multiple medical problems including diabetes, hypertension, CHF, kidney disease, dementia who presented to the ED to be evaluated for syncope and fall. Patient states his legs gave out today when he was ambulating with his walker, he states he fell down and passed out twice. Patient states EMS reported he had "seizure-like activity" too. Patient states he has history of seizure like activities. He states he takes over 20 pills and does not know if he is taking any seizure medications. Accompanied by daughter, who notes his episodes happen primarily after having a BM or urge to urinate. Patient denies any pain, denies any shortness of breath. He states his legs usually give out and the daughter is always available to help him but yesterday she was not at home. Denies any neck pain. He is morbidly obese Past Medical History Cardiovascular: CAD, CHF, HTN, CO Pulmonary: COPD, Other CENTRAL NERVOUS SYSTEM: CVA, Dementia, Periperal neuropathy, Seizure GI: GERD, Other Heme/Onc: No pertinent hx Hepatobiliary: No pertinent hx Psych: Anxiety, Depression Musculoskeletal: Osteoarthritis Rheumatologic: No pertinent hx Infectious disease: No pertinent hx Renal/: No pertinent hx Endocrine: Diabetes Past Surgical History Past Surgical History: Appendectomy, Cholecystectomy, Cataract Removal, Tonsillectomy, Other Family History Family History: Heart Disease Social History Smoke: No ALCOHOL: none Drugs: None Current Medications Current Medications Current Medications Sodium Chloride 1,000 ml @ 75 mls/hr [id number] IV Last administered on at 00:00; Start 12/05/18 at 00:00; Stop 12/05/18 at 00:01; Status DC Amlodipine Besylate (Norvasc) 10 mg HS PO ; Start 12/05/18 at 21:00 Aspirin (Children'S Aspirin) 81 mg DAILY PO ; Start 12/05/18 at 09:00 Cetirizine HCl (ZyrTEC) 10 mg PRN QHS PRN PO ALLERGIES; Start 12/05/18 at 06:15 Clopidogrel Bisulfate (Plavix) 75 mg DAILY PO ; Start 12/05/18 at 09:00 Cyanocobalamin (Vitamin B-12) 1,000 mcg DAILY PO ; Start 12/05/18 at 09:00 Diphenhydramine HCl (Benadryl) 25 mg QHS PO ; Start 12/05/18 at 21:00 Docusate Sodium (Colace) 100 mg BID PO ; Start 12/05/18 at 09:00 EZETIMIBE (Zetia) 10 mg DAILY PO ; Start 12/05/18 at 09:00 Insulin Glargine (Lantus) 35 units BID SQ ; Start 12/05/18 at 09:00 Methocarbamol (Robaxin) 500 mg PRN QID PRN PO MUSCLE SPASMS; Start 12/05/18 at 06:15 Nitroglycerin (Nitrostat) 0.4 mg PRN Q5MIN PRN SL chest pain; Start 12/05/18 at 06:15 Acetaminophen (Tylenol) 500 mg Q6HRS PO ; Start 12/05/18 at 12:00 Non-Formulary Medication (Albuterol Sulfate (Albuterol Sulfate Conc Neb Soln)) 1 vial Q6HRS NEB ; Start 12/05/18 at 12:00; Status UNV Benzonatate (Tessalon Perle) 100 mg PRN Q8HRS PRN PO COUGH 1ST CHOICE; Start at 09:00 Carvedilol (Coreg) 25 mg BIDWMEALS PO Last administered on 12/05/18at 07:30; Start 12/05/18 at 08:00 Pantoprazole Sodium (Protonix) 40 mg DAILYAC PO Last administered on 12/05/18at 07:29; Start 12/05/18 at 07:30 Paroxetine HCl (Paxil) 60 mg DAILY PO ; Start 12/05/18 at 09:00 Insulin Human Lispro (HumaLOG) 0-9 UNITS TIDWMEALS SQ Last administered on 12/05at 07:35; Start 12/05/18 at 08:00 Dextrose (Dextrose 50%-Water Syringe) 12.5 gm PRN Q15MIN PRN IV SEE COMMENTS; Start 12/05/18 at 06:15 Albuterol Sulfate (Ventolin Neb Soln) 2.5 mg RTQID NEB ; Start 12/05/18 at 08:00 Active Scripts Active Reported Lantus Solostar (Insulin Glargine,Hum.rec.anlog) 100 Unit/1 Ml Insuln.pen 35 Unit SQ BID Triamcinolone Acetonide 0.025% Cream (Triamcinolone Acetonide) 15 Gm Cream..g. 1 David TP BID Furosemide 80 Mg Tablet 1 Tab PO BID Docusate Sodium 100 Mg Capsule 1 Cap PO BID Benadryl (Diphenhydramine Hcl) 25 Mg Capsule 1 Cap PO QHS Carvedilol 25 Mg Tablet 1 Tab PO BID Budesonide 0.5 Mg/2 Ml Ampul.neb 1 Vial NEB BID Amlodipine Besylate 10 Mg Tablet 10 Mg PO DAILY Albuterol Sulfate Conc Neb Soln (Albuterol Sulfate) 2.5 Mg/0.5 Ml Vial.neb 1 Vial NEB Q6HRS Acetaminophen 500 Mg Tablet 1 Tab PO Q6HRS Spironolactone 25 Mg Tablet 25 Mg PO Potassium Chloride 20 Meq Tablet.er 20 Meq PO DAILY Zetia (Ezetimibe) 10 Mg Tablet 1 Tab PO DAILY Vitamin B-12 (Cyanocobalamin (Vitamin B-12)) 1,000 Mcg Tablet 1 Tab PO Aspirin 81 Mg Tab.chew 1 Tab PO DAILY Metformin Hcl 1,000 Mg Tablet 1,000 Mg PO BIDWMEALS NITROGLYCERIN SubLingual (Nitroglycerin) 0.4 Mg Tab.subl 1 Tab SL UD Furosemide 80 Mg Tablet 1 Tab PO DAILY Novolog Flexpen (Insulin Aspart) 100 Unit/1 Ml Insuln.pen 28 Unit SQ DAILYBFRSUP Novolog Flexpen (Insulin Aspart) 100 Unit/1 Ml Insuln.pen 24 Unit SQ BIDACBL Lantus Solostar (Insulin Glargine,Hum.rec.anlog) 100 Unit/1 Ml Insuln.pen 30 Unit SQ BID Robaxin (Methocarbamol) 500 Mg Tablet 500 Mg PO PRN QID PRN Paroxetine Hcl 40 Mg Tablet 1.5 Tab PO DAILY Cetirizine Hcl 10 Mg Tablet 1 Tab PO PRN QHS Omeprazole 20 Mg Capsule.dr 1 Cap PO DAILY Vitamin B-12 (Cyanocobalamin (Vitamin B-12)) 1,000 Mcg Tablet 1 Tab PO DAILY Spironolactone 25 Mg Tablet 1 Tab PO DAILY Zetia (Ezetimibe) 10 Mg Tablet 1 Tab PO DAILY Albuterol Sulfate Conc Neb Soln (Albuterol Sulfate) 2.5 Mg/0.5 Ml Vial.neb 3 Mg NEB TID PRN Tessalon Perle (Benzonatate) 100 Mg Capsule 100 Mg PO Q8HRS PRN Clopidogrel (Clopidogrel Bisulfate) 75 Mg Tablet 75 Mg PO DAILY Amlodipine Besylate 10 Mg Tablet 10 Mg PO HS Carvedilol 25 Mg Tablet 25 Mg PO BIDWMEALS Allergies Allergies: Coded Allergies: Iodinated Contrast- Oral and IV Dye (Verified Allergy, Intermediate, hives , 04/23/18) Penicillins (Verified Allergy, Intermediate, "PASSES OUT", 04/22/18) Utvhorv-Zit-Zjq Reductase Inhibitor (Verified Allergy, Intermediate, ) erythromycin base (Verified Allergy, Intermediate, 04/22/18) iodine (Verified Allergy, Intermediate, 04/22/18) lisinopril (Verified Allergy, Intermediate, 04/22/18) niacin (Verified Allergy, Intermediate, 04/22/18) sertraline (Verified Allergy, Intermediate, 04/22/18) simvastatin (Verified Allergy, Intermediate, 04/22/18) fluvastatin (Verified Adverse Reaction, Intermediate, muscle cramping, 04/23) pravastatin (Verified Adverse Reaction, Intermediate, muscle cramping, 04/23) rosuvastatin (Verified Adverse Reaction, Intermediate, muscle cramping, 04/23/18) ROS General: YES: Fatigue, Malaise; No: Chills, Night Sweats, Appetite, Other PSYCHOLOGICAL ROS: YES: Concentration difficultie, Depression, Memory difficulties; No: Anxiety, Behavioral Disorder, Decreased libido, Disorientation, Hallucinations, Hostility, Irritablity, Mood Swings, Obsessive thoughts, Physical abuse, Sexual abuse, Sleep disturbances, Suicidal ideation, Other Eyes: No Blurry vision, No Decreased vision, No Double vision, No Dry eyes, No Excessive tearing, No Eye Pain, No Itchy Eyes, No Loss of vision, No Photophobia , No Scotomata, No Uses contacts, No Uses glasses, No Other HEENT: No: Heacaches, Visual Changes, Hearing change, Nasal congestion, Nasal discharge, Oral lesions, Sinus pain, Sore Throat, Epistaxis, Sneezing, Snoring, Tinnitus, Vertigo, Vocal changes, Other ALLERGY AND IMMUNOLOGY: No: Hives, Insect Bite Sensitivity, Itchy/Watery Eyes, Nasal Congestion, Post Nasal Drip, Seasonal Allergies, Other Hematological and Lymphatic: No: Bleeding Problems, Blood Clots, Blood Transfusions, Brusing, Night Sweats, Pallor, Swollen Lymph Nodes, Other ENDOCRINE: No: Breast Changes, Galactorrhea, Hair Pattern Changes, Hot Flashes , Malaise/lethargy, Mood Swings, Palpitations, Polydipsia/polyuria, Skin Changes , Temperature Intolerance, Unexpected Weight Changes, Other Breast: No New/Changing Breast Lumps, No Nipple changes, No Nipple discharge, No Other Respiratory: No: Cough, Hemoptysis, Orthopnea, Pleuritic Pain, Shortness of breath, SOB with excertion, Sputum Changes, Stridor, Tachypnea, Wheezing, Other Cardiovascular: yes Edema; No Chest Pain, No Palpitations, No Orthopnea, No Paroxysmal Noc. Dyspnea, No Lt Headedness, No Other Gastrointestinal: No Nausea, No Vomiting, No Abdominal Pain, No Diarrhea, No Constipation, No Melena, No Hematochezia, No Other Genitourinary: No Dysuria, No Frequency, No Incontinence, No Hematuria, No Retention, No Discharge, No Urgency, No Pain, No Flank Pain, No Other, No , No , No , No , No , No , No Musculoskeletal: Yes Gait Disturbance; No Joint Pain, No Joint Stiffness, No Joint Swelling, No Muscle Pain, No Muscular Weakness, No Pain In:, No Swelling In:, No Other Neurological: Yes Dizziness, Yes Gait Disturbance; No Behavorial Changes, No Bowel/Bladder ControlChng, No Confusion, No Headaches, No Impaired Coord/balance, No Memory Loss, No Numbness/Tingling, No Seizures, No Speech Problems, No Tremors, No Visual Changes, No Weakness, No Other Skin: No Dry Skin, No Eczema, No Hair Changes, No Lumps, No Mole Changes, No Mottling, No Nail Changes, No Pruritus, No Rash, No Skin Lesion Changes, No Other, No Acne Physical Exam General: Alert, Cooperative, No acute distress HEENT: Atraumatic, PERRLA, EOMI, Mucous membr. moist/pink Lungs: Clear to auscultation, Normal air movement Heart: S1S2, RRR, no gallops, no murmurs Extremities: No clubbing, No cyanosis, No edema, Normal pulses, No tenderness/ swelling Skin: No rashes, No breakdown, No significant lesion Neuro: Normal gait, Normal speech, Strength at 5/5 X4 ext, Normal tone, Sensation intact, Cranial nerves 3-12 NL, Reflexes 2+ Psych/Mental Status: Mental status NL, Mood NL Vitals Vitals Vital Signs Date Time Temp Pulse Resp B/P (MAP) Pulse Ox O2 Delivery O2 Flow Rate FiO2 12/05/18 07:30 84 142/65 12/05/18 07:11 97.5 18 94 Room Air 97.5 Labs Labs Laboratory Tests Test 12/04/18 22:00 12/04/18 23:30 12/05/18 04:00 12/05/18 05:53 White Blood Count 8.9 x10^3/uL (4.0-11.0) Red Blood Count 4.12 x10^6/uL (4.30-5.70) Hemoglobin 12.4 g/dL (13.0-17.5) Hematocrit 37.2 % (39.0-53.0) Mean Corpuscular Volume 90 fL (79-100) Mean Corpuscular Hemoglobin 30 pg (25-35) Mean Corpuscular Hemoglobin Concent 33 g/dL (31-37) Red Cell Distribution Width 13.2 % (11.5-14.5) Platelet Count 237 x10^3/uL (140-400) Neutrophils (%) (Auto) 55 % (31-73) Lymphocytes (%) (Auto) 31 % (24-48) Monocytes (%) (Auto) 10 % (0-9) Eosinophils (%) (Auto) 3 % (0-3) Basophils (%) (Auto) 1 % (0-3) Neutrophils # (Auto) 4.9 x10^3uL (1.8-7.7) Lymphocytes # (Auto) 2.7 x10^3/uL (1.0-4.8) Monocytes # (Auto) 0.9 x10^3/uL (0.0-1.1) Eosinophils # (Auto) 0.3 x10^3/uL (0.0-0.7) Basophils # (Auto) 0.1 x10^3/uL (0.0-0.2) Prothrombin Time 12.0 SEC (11.7-14.0) Prothromb Time International Ratio 0.9 (0.8-1.1) Sodium Level 138 mmol/L (136-145) Potassium Level 4.1 mmol/L (3.5-5.1) Chloride Level 100 mmol/L (98-107) Carbon Dioxide Level 32 mmol/L (21-32) Anion Gap 6 (6-14) Blood Urea Nitrogen 29 mg/dL (8-26) Creatinine 1.2 mg/dL (0.7-1.3) Estimated GFR (Cockcroft-Gault) 60.6 BUN/Creatinine Ratio 24 (6-20) Glucose Level 357 mg/dL (70-99) Lactic Acid Level 2.1 mmol/L (0.4-2.0) 0.8 mmol/L (0.4-2.0) Calcium Level 9.1 mg/dL (8.5-10.1) Magnesium Level 1.6 mg/dL (1.8-2.4) Total Bilirubin 0.4 mg/dL (0.2-1.0) Aspartate Amino Transf (AST/SGOT) 13 U/L (15-37) Alanine Aminotransferase (ALT/SGPT) 18 U/L (16-63) Alkaline Phosphatase 84 U/L (46-116) Creatine Kinase 34 U/L (39-308) Creatine Kinase MB (Mass) 0.6 ng/mL (0.0-3.6) Creatine Kinase MB Relative Index % (0-4) Troponin I Quantitative < 0.017 ng/mL (0.000-0.055) WP-Lgq-P-Type Natriuretic Peptide 181 pg/mL (0-124) Total Protein 6.9 g/dL (6.4-8.2) Albumin 2.9 g/dL (3.4-5.0) Albumin/Globulin Ratio 0.7 (1.0-1.7) Lipase 127 U/L (73-393) Thyroid Stimulating Hormone (TSH) 1.510 uIU/mL (0.358-3.74) Ethyl Alcohol Level < 10 mg/dL (0-10) Urine Collection Type Void Urine Color Yellow Urine Clarity Clear Urine pH 5.0 Urine Specific Ewell 1.020 Urine Protein 100 mg/dL (NEG-TRACE) Urine Glucose (UA) >=1000 mg/dL (NEG) Urine Ketones (Stick) Negative mg/dL (NEG) Urine Blood Small (NEG) Urine Nitrite Negative (NEG) Urine Bilirubin Negative (NEG) Urine Urobilinogen Dipstick 0.2 mg/dL (0.2 mg/dL) Urine Leukocyte Esterase Negative (NEG) Urine RBC Occ /HPF (0-2) Urine WBC Rare /HPF (0-4) Urine Squamous Epithelial Cells Few /LPF Urine Bacteria Few /HPF (0-FEW) Urine Mucus Mod /LPF Urine Sperm Present /HPF Urine Opiates Screen Neg (NEG) Urine Methadone Screen Neg (NEG) Urine Barbiturates Neg (NEG) Urine Phencyclidine Screen Neg (NEG) Urine Amphetamine/Methamphetamine Neg (NEG) Urine Benzodiazepines Screen Neg (NEG) Urine Cocaine Screen Neg (NEG) Urine Cannabinoids Screen Neg (NEG) Urine Ethyl Alcohol Neg (NEG) Glucose (Fingerstick) 369 mg/dL (70-99) Laboratory Tests Test 12/04/18 22:00 12/04/18 23:30 12/05/18 04:00 12/05/18 05:53 White Blood Count 8.9 x10^3/uL (4.0-11.0) Red Blood Count 4.12 x10^6/uL (4.30-5.70) Hemoglobin 12.4 g/dL (13.0-17.5) Hematocrit 37.2 % (39.0-53.0) Mean Corpuscular Volume 90 fL (79-100) Mean Corpuscular Hemoglobin 30 pg (25-35) Mean Corpuscular Hemoglobin Concent 33 g/dL (31-37) Red Cell Distribution Width 13.2 % (11.5-14.5) Platelet Count 237 x10^3/uL (140-400) Neutrophils (%) (Auto) 55 % (31-73) Lymphocytes (%) (Auto) 31 % (24-48) Monocytes (%) (Auto) 10 % (0-9) Eosinophils (%) (Auto) 3 % (0-3) Basophils (%) (Auto) 1 % (0-3) Neutrophils # (Auto) 4.9 x10^3uL (1.8-7.7) Lymphocytes # (Auto) 2.7 x10^3/uL (1.0-4.8) Monocytes # (Auto) 0.9 x10^3/uL (0.0-1.1) Eosinophils # (Auto) 0.3 x10^3/uL (0.0-0.7) Basophils # (Auto) 0.1 x10^3/uL (0.0-0.2) Prothrombin Time 12.0 SEC (11.7-14.0) Prothromb Time International Ratio 0.9 (0.8-1.1) Sodium Level 138 mmol/L (136-145) Potassium Level 4.1 mmol/L (3.5-5.1) Chloride Level 100 mmol/L (98-107) Carbon Dioxide Level 32 mmol/L (21-32) Anion Gap 6 (6-14) Blood Urea Nitrogen 29 mg/dL (8-26) Creatinine 1.2 mg/dL (0.7-1.3) Estimated GFR (Cockcroft-Gault) 60.6 BUN/Creatinine Ratio 24 (6-20) Glucose Level 357 mg/dL (70-99) Lactic Acid Level 2.1 mmol/L (0.4-2.0) 0.8 mmol/L (0.4-2.0) Calcium Level 9.1 mg/dL (8.5-10.1) Magnesium Level 1.6 mg/dL (1.8-2.4) Total Bilirubin 0.4 mg/dL (0.2-1.0) Aspartate Amino Transf (AST/SGOT) 13 U/L (15-37) Alanine Aminotransferase (ALT/SGPT) 18 U/L (16-63) Alkaline Phosphatase 84 U/L (46-116) Creatine Kinase 34 U/L (39-308) Creatine Kinase MB (Mass) 0.6 ng/mL (0.0-3.6) Creatine Kinase MB Relative Index % (0-4) Troponin I Quantitative < 0.017 ng/mL (0.000-0.055) GL-Gfh-A-Type Natriuretic Peptide 181 pg/mL (0-124) Total Protein 6.9 g/dL (6.4-8.2) Albumin 2.9 g/dL (3.4-5.0) Albumin/Globulin Ratio 0.7 (1.0-1.7) Lipase 127 U/L (73-393) Thyroid Stimulating Hormone (TSH) 1.510 uIU/mL (0.358-3.74) Ethyl Alcohol Level < 10 mg/dL (0-10) Urine Collection Type Void Urine Color Yellow Urine Clarity Clear Urine pH 5.0 Urine Specific Ewell 1.020 Urine Protein 100 mg/dL (NEG-TRACE) Urine Glucose (UA) >=1000 mg/dL (NEG) Urine Ketones (Stick) Negative mg/dL (NEG) Urine Blood Small (NEG) Urine Nitrite Negative (NEG) Urine Bilirubin Negative (NEG) Urine Urobilinogen Dipstick 0.2 mg/dL (0.2 mg/dL) Urine Leukocyte Esterase Negative (NEG) Urine RBC Occ /HPF (0-2) Urine WBC Rare /HPF (0-4) Urine Squamous Epithelial Cells Few /LPF Urine Bacteria Few /HPF (0-FEW) Urine Mucus Mod /LPF Urine Sperm Present /HPF Urine Opiates Screen Neg (NEG) Urine Methadone Screen Neg (NEG) Urine Barbiturates Neg (NEG) Urine Phencyclidine Screen Neg (NEG) Urine Amphetamine/Methamphetamine Neg (NEG) Urine Benzodiazepines Screen Neg (NEG) Urine Cocaine Screen Neg (NEG) Urine Cannabinoids Screen Neg (NEG) Urine Ethyl Alcohol Neg (NEG) Glucose (Fingerstick) 369 mg/dL (70-99) Images Images CT head - 1. No acute intracranial abnormality is identified. VTE Prophylaxis Ordered VTE Prophylaxis Devices: Yes VTE Pharmacological Prophylaxi: Yes Assessment/Plan Assessment/Plan A/P: Syncopal episode - previously diagnosed with psychogenic nonepileptic seizures. This is almost assuredly Vasovagal syncope. He needs stability in the restroom. Will r/o cardiac or carotid etiology as well. May need a loop recorder if this is cardiac History of psychogenic nonepileptic seizures - seen at [place], no organic epilepsy. Has been off keppra for some time. 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 PT to see Diabetes - will place on basal bolus plus regimen Hypertension - cont meds. Check orthostatics and holding parameters CHF - diastolic, does not seem to be in exacerbation, however, his lasix and aldactone have bee held recently. Cardiology to see, will get echo Alzheimer disease - on aricept. I will hold this in light of his admitting diagnosis of falls. Would be better off this med considering this may be a side effect FEN - ADA cardiac diet PPX - lovenox FULL CODE Inpatient for recurrent syncopal episodes at least 2 midnights CATERINA BAIRES MD Dec 05, 2018 07:54
[2018-12-05] MEDS: ALBUTEROL SULFATE 2.5 MG/3 ML NEBU. NEB SCH ×2 (08:00→11:33)
[2018-12-05] MEDS ORDERED: CARVEDILOL 12.5 MG TABLET. PO SCH (08:00)
[2018-12-05] MEDS: CLOPIDOGREL BISULFATE 75 MG TABLET PO SCH (08:53)
[2018-12-05] MEDS: ASPIRIN CHEWABLE 81 MG TABLET. PO SCH (08:54)
[2018-12-05] MEDS: DOCUSATE SODIUM 100 MG CAPSULE. PO SCH ×2 (08:54→20:05)
[2018-12-05] MEDS: PARoxetine 20 MG TABLET PO SCH (08:54)
[2018-12-05] MEDS: CYANOCOBALAMIN (VITAMIN B-12) 1,000 MCG TABLET. PO SCH (08:54)
[2018-12-05] MEDS: INSULIN GLARGINE 300 UNITS/3 ML INSULN.PEN. SQ SCH ×2 (09:00→20:22)
[2018-12-05] MEDS ORDERED: BENZONATATE 100 MG CAPSULE. PO PRN (09:00)
[2018-12-05] MEDS ORDERED: EZETIMIBE 10 MG TABLET. PO SCH (09:00)
[2018-12-05] MEDS ORDERED: GABA600T7 PO (10:03)
[2018-12-05] MEDS ORDERED: METO-247 PO (10:03)
[2018-12-05] MEDS ORDERED: MAGN400T3 PO (10:03)
[2018-12-05] MEDS ORDERED: CINN500C2 PO (10:12)
[2018-12-05] MEDS ORDERED: CHOL10003 PO (10:12)
[2018-12-05] MEDS ORDERED: CLON0.2T PO (10:12)
[2018-12-05] MEDS ORDERED: DONE10TA7 PO (10:35)
[2018-12-05] MEDS ORDERED: LOSA100T14 PO (10:35)
[2018-12-05] MEDS ORDERED: SAXA5TAB PO (10:35)
[2018-12-05] MEDS ORDERED: TAMS0.4C97 PO (10:35)
[2018-12-05] MEDS ORDERED: NON FORMULARY ITEM (Albuterol Sulfate (Albuterol Sulfate Conc Neb Soln) 1 VIAL) NEB SCH (12:00)
--- NOTE | 2018-12-05 12:17 | PDOC2 ---
NEUROLOGY CONSULT Date of Admission Date of Admission DATE: 12/05/18 TIME: 12:08 Reason for Consult Reason for Consult: Syncope Referring Physician Referring Physician: Dr. Stoner Source Source: Chart review, Patient History of Present Illness History of Present Illness The patient is a 67-year-old right-handed male who fainted 2 or 3 times yesterday. He had fallen, having used his walker, which he has been requiring for about 2 years. He could not get up so paramedics came. When they sat him up , he fainted at least twice and may have had some seizure-like activity. I last saw him in March 2018. His daughter told me then that the patient had been evaluated at [facility], [facility], and on a 24 hour EEG at the [facility], he was found to have psychogenic nonepileptic seizures. In the past he has been on levetiracetam and he also had a phenytoin prescription from Dr. Sanchez, which he never filled. Currently he is not on any anticonvulsants. Seizure activity is described as tremulousness without full- body convulsion, tongue biting, incontinence, or prolonged postictal state. He also carries a diagnosis of Alzheimer's disease. Past Medical History Cardiovascular: CAD, CHF, HTN, [place] Pulmonary: COPD, Other (Sleep apnea) CENTRAL NERVOUS SYSTEM: CVA, Dementia, Periperal neuropathy, Seizure ( nonepileptic) GI: GERD, Other ( hiatal hernia) Hepatobiliary: Hep A/B/C Psych: Anxiety, Depression Musculoskeletal: Osteoarthritis ENT: Other ( hearing aids) Endocrine: Diabetes Past Surgical History Past Surgical History: Appendectomy, Cholecystectomy, CABG, Cataract Removal, Hernia Repair ( ventral), Tonsillectomy, Other ( oral surgery, pericardial window, coronary stent) Family History Family History: Cancer Social History Social History , lives with daughter, no alcohol or tobacco Current Medications Current Medications Current Medications Sodium Chloride 1,000 ml @ 75 mls/hr [id number] IV Last administered on at 00:00; Start 12/05/18 at 00:00; Stop 12/05/18 at 00:01; Status DC Amlodipine Besylate (Norvasc) 10 mg HS PO ; Start 12/05/18 at 21:00 Aspirin (Children'S Aspirin) 81 mg DAILY PO Last administered on 12/05/18 08: 54; Start 12/05/18 at 09:00 Cetirizine HCl (ZyrTEC) 10 mg PRN QHS PRN PO ALLERGIES; Start 12/05/18 at 06:15 Clopidogrel Bisulfate (Plavix) 75 mg DAILY PO Last administered on 12/05/18at 08 :53; Start 12/05/18 at 09:00 Cyanocobalamin (Vitamin B-12) 1,000 mcg DAILY PO Last administered on at 08:54; Start 12/05/18 at 09:00 Diphenhydramine HCl (Benadryl) 25 mg QHS PO ; Start 12/05/18 at 21:00 Docusate Sodium (Colace) 100 mg BID PO Last administered on 12/05/18 08:54; Start 12/05/18 at 09:00 EZETIMIBE (Zetia) 10 mg DAILY PO Last administered on 12/05/18 08:53; Start at 09:00 Insulin Glargine (Lantus) 35 units BID SQ Last administered on 12/05/18at 09:00 ; Start 12/05/18 at 09:00 Methocarbamol (Robaxin) 500 mg PRN QID PRN PO MUSCLE SPASMS; Start 12/05/18 at 06:15 Nitroglycerin (Nitrostat) 0.4 mg PRN Q5MIN PRN SL chest pain; Start 12/05/18 at 06:15 Acetaminophen (Tylenol) 500 mg Q6HRS PO ; Start 12/05/18 at 12:00 Non-Formulary Medication (Albuterol Sulfate (Albuterol Sulfate Conc Neb Soln)) 1 vial Q6HRS NEB ; Start 12/05/18 at 12:00; Status UNV Benzonatate (Tessalon Perle) 100 mg PRN Q8HRS PRN PO COUGH 1ST CHOICE; Start at 09:00 Carvedilol (Coreg) 25 mg BIDWMEALS PO Last administered on 12/05/18at 07:30; Start 12/05/18 at 08:00 Pantoprazole Sodium (Protonix) 40 mg DAILYAC PO Last administered on 12/05/18at 07:29; Start 12/05/18 at 07:30 Paroxetine HCl (Paxil) 60 mg DAILY PO Last administered on 12/05/18at 08:54; Start 12/05/18 at 09:00 Insulin Human Lispro (HumaLOG) 0-9 UNITS TIDWMEALS SQ Last administered on 12/05at 07:35; Start 12/05/18 at 08:00 Dextrose (Dextrose 50%-Water Syringe) 12.5 gm PRN Q15MIN PRN IV SEE COMMENTS; Start 12/05/18 at 06:15 Albuterol Sulfate (Ventolin Neb Soln) 2.5 mg RTQID NEB Last administered on at 11:33; Start 12/05/18 at 08:00 Active Scripts Active Reported Flomax (Tamsulosin Hcl) 0.4 Mg Cap.er.24h 0.4 Mg PO DAILY Onglyza (Saxagliptin Hcl) 5 Mg Tablet 2.5 Mg PO DAILY Losartan Potassium 100 Mg Tablet 100 Mg PO DAILY Donepezil Hcl 10 Mg Tablet 10 Mg PO HS Clonidine Hcl 0.2 Mg Tablet 0.2 Mg PO TID PRN PRN Cinnamon (Cinnamon Bark) 500 Mg Capsule 100 Mg PO DAILY Vitamin D3 (Cholecalciferol (Vitamin D3)) 1,000 Unit Tablet 1 Tab PO DAILY Metoprolol Succinate ( Xl ) (Metoprolol Succinate) 100 Mg Tab.er.24h 50 Mg PO DAILY Magnesium Oxide 400 Mg Tablet 1 Tab PO DAILY Gabapentin 600 Mg Tablet 600 Mg PO TID Lantus Solostar (Insulin Glargine,Hum.rec.anlog) 100 Unit/1 Ml Insuln.pen 35 Unit SQ BID Furosemide 80 Mg Tablet 40 Mg PO DAILY Docusate Sodium 100 Mg Capsule 1 Cap PO BID Benadryl (Diphenhydramine Hcl) 25 Mg Capsule 1 Cap PO QHS Budesonide 0.5 Mg/2 Ml Ampul.neb 1 Vial NEB BID Amlodipine Besylate 10 Mg Tablet 10 Mg PO DAILY Albuterol Sulfate Conc Neb Soln (Albuterol Sulfate) 2.5 Mg/0.5 Ml Vial.neb 1 Vial NEB Q6HRS Acetaminophen 500 Mg Tablet 1 Tab PO Q6HRS Aspirin 81 Mg Tab.chew 1 Tab PO DAILY Metformin Hcl 1,000 Mg Tablet 500 Mg PO BIDWMEALS NITROGLYCERIN SubLingual (Nitroglycerin) 0.4 Mg Tab.subl 1 Tab SL UD Novolog Flexpen (Insulin Aspart) 100 Unit/1 Ml Insuln.pen 28 Unit SQ DAILYBFRSUP Novolog Flexpen (Insulin Aspart) 100 Unit/1 Ml Insuln.pen 24 Unit SQ BIDACBL Lantus Solostar (Insulin Glargine,Hum.rec.anlog) 100 Unit/1 Ml Insuln.pen 30 Unit SQ BID Robaxin (Methocarbamol) 500 Mg Tablet 500 Mg PO PRN QID PRN Cetirizine Hcl 10 Mg Tablet 1 Tab PO PRN QHS Omeprazole 20 Mg Capsule.dr 1 Cap PO DAILY Albuterol Sulfate Conc Neb Soln (Albuterol Sulfate) 2.5 Mg/0.5 Ml Vial.neb 3 Mg NEB TID PRN Tessalon Perle (Benzonatate) 100 Mg Capsule 100 Mg PO Q4HRS PRN Clopidogrel (Clopidogrel Bisulfate) 75 Mg Tablet 75 Mg PO DAILY Allergies Allergies: Coded Allergies: Iodinated Contrast- Oral and IV Dye (Verified Allergy, Intermediate, hives , 04/23/18) Penicillins (Verified Allergy, Intermediate, "PASSES OUT", 04/22/18) Yirdigy-Pli-Ixj Reductase Inhibitor (Verified Allergy, Intermediate, ) erythromycin base (Verified Allergy, Intermediate, 04/22/18) iodine (Verified Allergy, Intermediate, 04/22/18) lisinopril (Verified Allergy, Intermediate, 04/22/18) niacin (Verified Allergy, Intermediate, 04/22/18) sertraline (Verified Allergy, Intermediate, 04/22/18) simvastatin (Verified Allergy, Intermediate, 04/22/18) fluvastatin (Verified Adverse Reaction, Intermediate, muscle cramping, 04/23) pravastatin (Verified Adverse Reaction, Intermediate, muscle cramping, 04/23) rosuvastatin (Verified Adverse Reaction, Intermediate, muscle cramping, 04/23/18) ROS Review of System Negative for fever, chills, weight loss, shortness of breath, chest pain, indigestion, hematochezia, melena, and dysuria. Full 14-point review of systems is negative. Physical Exam Physical Examination General: Well-developed, well-nourished white male in no acute distress HEENT: Normocephalic andatraumatic. Temporal arteriespulsatile and nontender. Neck: Supple without bruit, no meningismus Musculoskeletal: Stability:see neurologic. Gait exam:see neurologic. Tone:see neurologic. Strength:see neurologic. Neurological: Mental Status:intact, orientation, memory, attention span/concentration, language, fund of knowledge normal. Cranial Nerves:Pupils equal and reactive to light, extraocular movements areintact, visual wade are full to confrontation. Facial sensation is normal. There is no facial asymmetry. Vestibulo-ocular reflex is intact. Palate elevates and tongue protrudes in midline. All other cranial related problems are negative except as mentioned before.Reflexes:1+ and symmetric with flexor plantar responses. Motor:5/5 strength with normal tone and bulk. Coordination:Finger-nose finger and heel-to -wilhelm testing are normal. Rapid alternating movements and fine finger movements are intact. Gait:not tested. Sensory: stocking loss Vitals VITALS Vital Signs Date Time Temp Pulse Resp B/P (MAP) Pulse Ox O2 Delivery O2 Flow Rate FiO2 12/05/18 11:35 97 Room Air 12/05/18 11:12 97.8 80 19 152/80 (104) 97.8 Labs Labs Laboratory Tests Test 12/04/18 22:00 12/04/18 23:30 12/05/18 04:00 12/05/18 05:53 White Blood Count 8.9 x10^3/uL (4.0-11.0) Red Blood Count 4.12 x10^6/uL (4.30-5.70) Hemoglobin 12.4 g/dL (13.0-17.5) Hematocrit 37.2 % (39.0-53.0) Mean Corpuscular Volume 90 fL (79-100) Mean Corpuscular Hemoglobin 30 pg (25-35) Mean Corpuscular Hemoglobin Concent 33 g/dL (31-37) Red Cell Distribution Width 13.2 % (11.5-14.5) Platelet Count 237 x10^3/uL (140-400) Neutrophils (%) (Auto) 55 % (31-73) Lymphocytes (%) (Auto) 31 % (24-48) Monocytes (%) (Auto) 10 % (0-9) Eosinophils (%) (Auto) 3 % (0-3) Basophils (%) (Auto) 1 % (0-3) Neutrophils # (Auto) 4.9 x10^3uL (1.8-7.7) Lymphocytes # (Auto) 2.7 x10^3/uL (1.0-4.8) Monocytes # (Auto) 0.9 x10^3/uL (0.0-1.1) Eosinophils # (Auto) 0.3 x10^3/uL (0.0-0.7) Basophils # (Auto) 0.1 x10^3/uL (0.0-0.2) Prothrombin Time 12.0 SEC (11.7-14.0) Prothromb Time International Ratio 0.9 (0.8-1.1) Sodium Level 138 mmol/L (136-145) Potassium Level 4.1 mmol/L (3.5-5.1) Chloride Level 100 mmol/L (98-107) Carbon Dioxide Level 32 mmol/L (21-32) Anion Gap 6 (6-14) Blood Urea Nitrogen 29 mg/dL (8-26) Creatinine 1.2 mg/dL (0.7-1.3) Estimated GFR (Cockcroft-Gault) 60.6 BUN/Creatinine Ratio 24 (6-20) Glucose Level 357 mg/dL (70-99) Lactic Acid Level 2.1 mmol/L (0.4-2.0) 0.8 mmol/L (0.4-2.0) Calcium Level 9.1 mg/dL (8.5-10.1) Magnesium Level 1.6 mg/dL (1.8-2.4) Total Bilirubin 0.4 mg/dL (0.2-1.0) Aspartate Amino Transf (AST/SGOT) 13 U/L (15-37) Alanine Aminotransferase (ALT/SGPT) 18 U/L (16-63) Alkaline Phosphatase 84 U/L (46-116) Creatine Kinase 34 U/L (39-308) Creatine Kinase MB (Mass) 0.6 ng/mL (0.0-3.6) Creatine Kinase MB Relative Index % (0-4) Troponin I Quantitative < 0.017 ng/mL (0.000-0.055) XB-Avo-P-Type Natriuretic Peptide 181 pg/mL (0-124) Total Protein 6.9 g/dL (6.4-8.2) Albumin 2.9 g/dL (3.4-5.0) Albumin/Globulin Ratio 0.7 (1.0-1.7) Lipase 127 U/L (73-393) Thyroid Stimulating Hormone (TSH) 1.510 uIU/mL (0.358-3.74) Ethyl Alcohol Level < 10 mg/dL (0-10) Urine Collection Type Void Urine Color Yellow Urine Clarity Clear Urine pH 5.0 Urine Specific [place] 1.020 Urine Protein 100 mg/dL (NEG-TRACE) Urine Glucose (UA) >=1000 mg/dL (NEG) Urine Ketones (Stick) Negative mg/dL (NEG) Urine Blood Small (NEG) Urine Nitrite Negative (NEG) Urine Bilirubin Negative (NEG) Urine Urobilinogen Dipstick 0.2 mg/dL (0.2 mg/dL) Urine Leukocyte Esterase Negative (NEG) Urine RBC Occ /HPF (0-2) Urine WBC Rare /HPF (0-4) Urine Squamous Epithelial Cells Few /LPF Urine Bacteria Few /HPF (0-FEW) Urine Mucus Mod /LPF Urine Sperm Present /HPF Urine Opiates Screen Neg (NEG) Urine Methadone Screen Neg (NEG) Urine Barbiturates Neg (NEG) Urine Phencyclidine Screen Neg (NEG) Urine Amphetamine/Methamphetamine Neg (NEG) Urine Benzodiazepines Screen Neg (NEG) Urine Cocaine Screen Neg (NEG) Urine Cannabinoids Screen Neg (NEG) Urine Ethyl Alcohol Neg (NEG) Glucose (Fingerstick) 369 mg/dL (70-99) Test 12/05/18 11:04 Glucose (Fingerstick) 303 mg/dL (70-99) Laboratory Tests Test 12/04/18 22:00 12/04/18 23:30 12/05/18 04:00 12/05/18 05:53 White Blood Count 8.9 x10^3/uL (4.0-11.0) Red Blood Count 4.12 x10^6/uL (4.30-5.70) Hemoglobin 12.4 g/dL (13.0-17.5) Hematocrit 37.2 % (39.0-53.0) Mean Corpuscular Volume 90 fL (79-100) Mean Corpuscular Hemoglobin 30 pg (25-35) Mean Corpuscular Hemoglobin Concent 33 g/dL (31-37) Red Cell Distribution Width 13.2 % (11.5-14.5) Platelet Count 237 x10^3/uL (140-400) Neutrophils (%) (Auto) 55 % (31-73) Lymphocytes (%) (Auto) 31 % (24-48) Monocytes (%) (Auto) 10 % (0-9) Eosinophils (%) (Auto) 3 % (0-3) Basophils (%) (Auto) 1 % (0-3) Neutrophils # (Auto) 4.9 x10^3uL (1.8-7.7) Lymphocytes # (Auto) 2.7 x10^3/uL (1.0-4.8) Monocytes # (Auto) 0.9 x10^3/uL (0.0-1.1) Eosinophils # (Auto) 0.3 x10^3/uL (0.0-0.7) Basophils # (Auto) 0.1 x10^3/uL (0.0-0.2) Prothrombin Time 12.0 SEC (11.7-14.0) Prothromb Time International Ratio 0.9 (0.8-1.1) Sodium Level 138 mmol/L (136-145) Potassium Level 4.1 mmol/L (3.5-5.1) Chloride Level 100 mmol/L (98-107) Carbon Dioxide Level 32 mmol/L (21-32) Anion Gap 6 (6-14) Blood Urea Nitrogen 29 mg/dL (8-26) Creatinine 1.2 mg/dL (0.7-1.3) Estimated GFR (Cockcroft-Gault) 60.6 BUN/Creatinine Ratio 24 (6-20) Glucose Level 357 mg/dL (70-99) Lactic Acid Level 2.1 mmol/L (0.4-2.0) 0.8 mmol/L (0.4-2.0) Calcium Level 9.1 mg/dL (8.5-10.1) Magnesium Level 1.6 mg/dL (1.8-2.4) Total Bilirubin 0.4 mg/dL (0.2-1.0) Aspartate Amino Transf (AST/SGOT) 13 U/L (15-37) Alanine Aminotransferase (ALT/SGPT) 18 U/L (16-63) Alkaline Phosphatase 84 U/L (46-116) Creatine Kinase 34 U/L (39-308) Creatine Kinase MB (Mass) 0.6 ng/mL (0.0-3.6) Creatine Kinase MB Relative Index % (0-4) Troponin I Quantitative < 0.017 ng/mL (0.000-0.055) YL-Ogm-H-Type Natriuretic Peptide 181 pg/mL (0-124) Total Protein 6.9 g/dL (6.4-8.2) Albumin 2.9 g/dL (3.4-5.0) Albumin/Globulin Ratio 0.7 (1.0-1.7) Lipase 127 U/L (73-393) Thyroid Stimulating Hormone (TSH) 1.510 uIU/mL (0.358-3.74) Ethyl Alcohol Level < 10 mg/dL (0-10) Urine Collection Type Void Urine Color Yellow Urine Clarity Clear Urine pH 5.0 Urine Specific [place] 1.020 Urine Protein 100 mg/dL (NEG-TRACE) Urine Glucose (UA) >=1000 mg/dL (NEG) Urine Ketones (Stick) Negative mg/dL (NEG) Urine Blood Small (NEG) Urine Nitrite Negative (NEG) Urine Bilirubin Negative (NEG) Urine Urobilinogen Dipstick 0.2 mg/dL (0.2 mg/dL) Urine Leukocyte Esterase Negative (NEG) Urine RBC Occ /HPF (0-2) Urine WBC Rare /HPF (0-4) Urine Squamous Epithelial Cells Few /LPF Urine Bacteria Few /HPF (0-FEW) Urine Mucus Mod /LPF Urine Sperm Present /HPF Urine Opiates Screen Neg (NEG) Urine Methadone Screen Neg (NEG) Urine Barbiturates Neg (NEG) Urine Phencyclidine Screen Neg (NEG) Urine Amphetamine/Methamphetamine Neg (NEG) Urine Benzodiazepines Screen Neg (NEG) Urine Cocaine Screen Neg (NEG) Urine Cannabinoids Screen Neg (NEG) Urine Ethyl Alcohol Neg (NEG) Glucose (Fingerstick) 369 mg/dL (70-99) Test 12/05/18 11:04 Glucose (Fingerstick) 303 mg/dL (70-99) Images Images CT HEAD WO CONTRAST No acute extra-axial or parenchymal hemorrhage is identified. There is no significant intra-axial mass effect, midline shift, or extra-axial fluid collection. The bear-white differentiation of the major vascular territories is preserved. Ventricular size is within normal limits. Mastoid air cells are aerated. There is [id number] sphenoid sinus mucosal thickening. No acute calvarial abnormality is identified. Impression: 1. No acute intracranial abnormality is identified. Assessment/Plan Assessment/Plan Impression: Vasovagal syncope, perhaps he just got up to quit after his fall. History of psychogenic nonepileptic seizures. I doubt that he has organic epilepsy. Diabetic neuropathy Long-standing multifactorial gait disorder. Recommendations: No need for additional neurological studies. Okay for discharge as soon as later today. Follow up with neurology as needed, again he has seen Dr. Sanchez in the office in the past. Thank you for letting me help of the patient's care. ROSA M VASQUEZ MD Dec 05, 2018 12:17
[2018-12-05] MEDS: TAMSULOSIN 0.4 MG CAP.ER.24H. PO SCH (12:39)
[2018-12-05] MEDS: LOSARTAN POTASSIUM 50 MG TABLET. PO SCH (12:39)
[2018-12-05] MEDS: ACETAMINOPHEN 500 MG TABLET PO SCH ×3 (12:39→23:26)
[2018-12-05] MEDS: MAGNESIUM OXIDE 400 MG TABLET PO SCH (12:39)
[2018-12-05] MEDS ORDERED: ALBUTEROL SULFATE 2.5 MG/3 ML NEBU. NEB PRN (13:00)
--- NOTE | 2018-12-05 13:19 | CARD ---
MR#: [id number] Date of Study: 12/05/2018 Ordering Physician: CATERINA BAIRES, Referring Physician: ACTERINA BAIRES, Tech: Tish Light [facility] APPROVED REPORT EXAM: LIMITED Two-dimensional and M-mode echocardiogram. Other Information Quality : AverageHR: 82bpm Rhythm : NSR INDICATION Dyspnea 2D DIMENSIONS RVDd3.5 (2.9-3.5cm)Left Atrium(2D)4.3 (1.6-4.0cm) IVSd1.2 (0.7-1.1cm)Aortic Root(2D)3.2 (2.0-3.7cm) LVDd4.6 (3.9-5.9cm)PWd1.3 (0.7-1.1cm) LVDs2.8 (2.5-4.0cm)FS (%) 38.0 % SV65.7 ml M-Mode DIMENSIONS Left Atrium(MM)4.13 (2.5-4.0cm)Aortic Root3.18 (2.2-3.7cm) Tricuspid Valve TR P. [id number] TR Peak [id number] LEFT VENTRICLE Limited ECHO. The left ventricle is normal size. There is mild concentric left ventricular hypertroph y. The left ventricular systolic function is normal and the ejection fraction is within normal range. The Ejection Fraction is 60-65%. There is normal LV segmental wall motion. RIGHT VENTRICLE The right ventricle is normal size. There is normal right ventricular wall thickness. The right ventr icular systolic function is normal. ATRIA The left atrium is mildly dilated. The right atrium size is normal. The interatrial septum is intact with no evidence for an atrial septal defect or patent foramen ovale as noted on 2-D or Doppler imagi ng. AORTIC VALVE The aortic valve is calcified but opens well. The aortic valve is trileaflet. MITRAL VALVE The mitral valve is normal in structure and function. There is no evidence of mitral valve prolapse. TRICUSPID VALVE The tricuspid valve is normal in structure and function. Doppler and Color Flow revealed trace tricus pid regurgitation. The PA pressure was estimated at 16 mmHg. There is no tricuspid valve prolapse or vegetation. There is no tricuspid valve stenosis. PULMONIC VALVE The pulmonic valve is not well visualized. GREAT VESSELS The aortic root is normal in size. The IVC is normal in size and collapses >50% with inspiration. PERICARDIAL EFFUSION There is a trace loculated anterior pericardial effusion with no hemodynamic significance. Critical Notification Critical Value: No <Conclusion> Limited ECHO. The left ventricle is normal size. The left ventricular systolic function is normal and the ejection fraction is within normal range. The Ejection Fraction is 60-65%. There is mild concentric left ventricular hypertrophy. The aortic valve is calcified but opens well. The aortic valve is trileaflet. Doppler and Color Flow revealed trace tricuspid regurgitation. The PA pressure was estimated at 16 mmHg. There is a trace loculated anterior pericardial effusion with no hemodynamic significance. Signed by : Manuelito Lackey MD Electronically Approved : 12/05/2018 13:19:18
--- NOTE | 2018-12-05 13:43 | PDOC2 ---
CARDIAC CONSULT DATE OF CONSULT Date of Consult DATE: 12/05/18 TIME: 13:34 REASON FOR CONSULT Reason for Consult: syncope REFERRING PHYSICIAN Referring Physician: stephanie SOURCE Source: Chart review, Patient HISTORY OF PRESENT ILLNESS HISTORY OF PRESENT ILLNESS This ia a67 yo male admitted for complains of fall and passing out. Pt has had this problem and mainly noted with vasovagal syncope. His BP is table at high end but no significant orthostasis so far. He has been passing out with unsuccessful outpt event5 monitoring in the past due to mechanical issue with complains that his monitor pack wont stick to his skin and no LINQ has been introcude nor any discussion of pacer. He was walking with his walker at home when he felt his legs got weak and then tried to stand up and passed out. He has a life alert and triggered this and as he was being helped up by EMS to sit on his chair walker he passed out. He then passed again in ED. He was trying to have a BM this afternoon and felt that his left face was wet and asked for help and when staff got to the bathroom he was passed ot. He regained consciousness and helped to bed but he got weak on his legs and almost fell and then passed out x2 again. No rhythm issues was noted. No CP, palpitations, SOA. No nausea or vomiting. But what he has at times is vertigo before passing out. He has been evaluated by neuro and also suspects vasovagal syncope. PAST MEDICAL HISTORY Past Medical History Cardiovascular: CAD (s/p PCI/stent to RCA in [place] June 2017), vasovagal syncope Pulmonary: COPD, BRIAN CENTRAL NERVOUS SYSTEM: CVA, Dementia GI: Hernia Heme/Onc: No pertinent hx Hepatobiliary: recent hepatitis A Psych: No pertinent hx Musculoskeletal: Osteoarthritis, Morbid obesity Rheumatologic: No pertinent hx Infectious disease: No pertinent hx Renal/: No pertinent hx Endocrine: Diabetes PAST SURGICAL HISTORY Past Surgical History Appendectomy, Hernia Repair, Tonsillectomy, PCI/stent FAMILY HISTORY Family History: Hypertension SOCIAL HISTORY Smoke: No ALCOHOL: none Drugs: None Lives: with Family CURRENT MEDICATIONS CURRENT MEDICATIONS Current Medications Medications (Trade) Dose Ordered Sig/Berna Route PRN Reason Start Time Stop Time Status Last Admin Dose Admin Sodium Chloride 1,000 ml @ 75 mls/hr [id number] IV 12/05/18 00:00 12/05/18 00:01 DC 12/05/18 00:00 Aspirin (Children'S Aspirin) 81 mg DAILY PO 12/05/18 09:00 12/05/18 08:54 Clopidogrel Bisulfate (Plavix) 75 mg DAILY PO 12/05/18 09:00 12/05/18 08:53 Cyanocobalamin (Vitamin B-12) 1,000 mcg DAILY PO 12/05/18 09:00 12/05/18 08:54 Docusate Sodium (Colace) 100 mg BID PO 12/05/18 09:00 12/05/18 08:54 EZETIMIBE (Zetia) 10 mg DAILY PO 12/05/18 09:00 12/05/18 12:29 DC 12/05/18 08:53 Insulin Glargine (Lantus) 35 units BID SQ 12/05/18 09:00 12/05/18 09:00 Acetaminophen (Tylenol) 500 mg Q6HRS PO 12/05/18 12:00 12/05/18 12:39 Carvedilol (Coreg) 25 mg BIDWMEALS PO 12/05/18 08:00 12/05/18 12:29 DC 12/05/18 07:30 Pantoprazole Sodium (Protonix) 40 mg DAILYAC PO 12/05/18 07:30 12/05/18 07:29 Paroxetine HCl (Paxil) 60 mg DAILY PO 12/05/18 09:00 12/05/18 08:54 Insulin Human Lispro (HumaLOG) 0-9 UNITS TIDWMEALS SQ 12/05/18 08:00 12/05/18 12:45 Albuterol Sulfate (Ventolin Neb Soln) 2.5 mg RTQID NEB 12/05/18 08:00 12/05/18 12:48 DC 12/05/18 11:33 Tamsulosin HCl (Flomax) 0.4 mg DAILY PO 12/05/18 13:00 12/05/18 12:39 Losartan Potassium (Cozaar) 100 mg DAILY PO 12/05/18 13:00 12/05/18 12:39 Magnesium Oxide (Magnesium Oxide) 400 mg DAILY PO 12/05/18 13:00 12/05/18 12:39 ALLERGIES ALLERGIES: Coded Allergies: Iodinated Contrast- Oral and IV Dye (Verified Allergy, Intermediate, hives , 04/23/18) Penicillins (Verified Allergy, Intermediate, "PASSES OUT", 04/22/18) Qquvhdt-Aaz-Vdy Reductase Inhibitor (Verified Allergy, Intermediate, ) erythromycin base (Verified Allergy, Intermediate, 04/22/18) iodine (Verified Allergy, Intermediate, 04/22/18) lisinopril (Verified Allergy, Intermediate, 04/22/18) niacin (Verified Allergy, Intermediate, 04/22/18) sertraline (Verified Allergy, Intermediate, 04/22/18) simvastatin (Verified Allergy, Intermediate, 04/22/18) fluvastatin (Verified Adverse Reaction, Intermediate, muscle cramping, 04/23) pravastatin (Verified Adverse Reaction, Intermediate, muscle cramping, 04/23) rosuvastatin (Verified Adverse Reaction, Intermediate, muscle cramping, 04/23/18) ROS Review of System 14 point ROS evaluated with pertinent positives noted per HPI PHYSICAL EXAM General: Alert, Oriented X3, Cooperative, No acute distress HEENT: Atraumatic, Mucous membr. moist/pink Lungs: Clear to auscultation, Normal air movement Heart: Regular rate (SR), Normal S1, Normal S2, Other (distnat heart sounds) Abdomen: Soft, Other (obese) Extremities: No cyanosis, No edema Skin: No breakdown, No significant lesion Neuro: Normal speech, Sensation intact Psych/Mental Status: Mental status NL, Mood NL MUSCULOSKELETAL: Osteoarthritic changes both hands VITALS VITALS Vital Signs Date Time Temp Pulse Resp B/P (MAP) Pulse Ox O2 Delivery O2 Flow Rate FiO2 12/05/18 12:39 80 152/80 12/05/18 11:35 97 Room Air 12/05/18 11:12 97.8 19 97.8 LABS Lab: Laboratory Tests Test 12/04/18 22:00 12/04/18 23:30 12/05/18 04:00 12/05/18 05:53 White Blood Count 8.9 x10^3/uL (4.0-11.0) Red Blood Count 4.12 x10^6/uL (4.30-5.70) Hemoglobin 12.4 g/dL (13.0-17.5) Hematocrit 37.2 % (39.0-53.0) Mean Corpuscular Volume 90 fL (79-100) Mean Corpuscular Hemoglobin 30 pg (25-35) Mean Corpuscular Hemoglobin Concent 33 g/dL (31-37) Red Cell Distribution Width 13.2 % (11.5-14.5) Platelet Count 237 x10^3/uL (140-400) Neutrophils (%) (Auto) 55 % (31-73) Lymphocytes (%) (Auto) 31 % (24-48) Monocytes (%) (Auto) 10 % (0-9) Eosinophils (%) (Auto) 3 % (0-3) Basophils (%) (Auto) 1 % (0-3) Neutrophils # (Auto) 4.9 x10^3uL (1.8-7.7) Lymphocytes # (Auto) 2.7 x10^3/uL (1.0-4.8) Monocytes # (Auto) 0.9 x10^3/uL (0.0-1.1) Eosinophils # (Auto) 0.3 x10^3/uL (0.0-0.7) Basophils # (Auto) 0.1 x10^3/uL (0.0-0.2) Prothrombin Time 12.0 SEC (11.7-14.0) Prothromb Time International Ratio 0.9 (0.8-1.1) Sodium Level 138 mmol/L (136-145) Potassium Level 4.1 mmol/L (3.5-5.1) Chloride Level 100 mmol/L (98-107) Carbon Dioxide Level 32 mmol/L (21-32) Anion Gap 6 (6-14) Blood Urea Nitrogen 29 mg/dL (8-26) Creatinine 1.2 mg/dL (0.7-1.3) Estimated GFR (Cockcroft-Gault) 60.6 BUN/Creatinine Ratio 24 (6-20) Glucose Level 357 mg/dL (70-99) Lactic Acid Level 2.1 mmol/L (0.4-2.0) 0.8 mmol/L (0.4-2.0) Calcium Level 9.1 mg/dL (8.5-10.1) Magnesium Level 1.6 mg/dL (1.8-2.4) Total Bilirubin 0.4 mg/dL (0.2-1.0) Aspartate Amino Transf (AST/SGOT) 13 U/L (15-37) Alanine Aminotransferase (ALT/SGPT) 18 U/L (16-63) Alkaline Phosphatase 84 U/L (46-116) Creatine Kinase 34 U/L (39-308) Creatine Kinase MB (Mass) 0.6 ng/mL (0.0-3.6) Creatine Kinase MB Relative Index % (0-4) Troponin I Quantitative < 0.017 ng/mL (0.000-0.055) VQ-Zna-V-Type Natriuretic Peptide 181 pg/mL (0-124) Total Protein 6.9 g/dL (6.4-8.2) Albumin 2.9 g/dL (3.4-5.0) Albumin/Globulin Ratio 0.7 (1.0-1.7) Lipase 127 U/L (73-393) Thyroid Stimulating Hormone (TSH) 1.510 uIU/mL (0.358-3.74) Ethyl Alcohol Level < 10 mg/dL (0-10) Urine Collection Type Void Urine Color Yellow Urine Clarity Clear Urine pH 5.0 Urine Specific [place] 1.020 Urine Protein 100 mg/dL (NEG-TRACE) Urine Glucose (UA) >=1000 mg/dL (NEG) Urine Ketones (Stick) Negative mg/dL (NEG) Urine Blood Small (NEG) Urine Nitrite Negative (NEG) Urine Bilirubin Negative (NEG) Urine Urobilinogen Dipstick 0.2 mg/dL (0.2 mg/dL) Urine Leukocyte Esterase Negative (NEG) Urine RBC Occ /HPF (0-2) Urine WBC Rare /HPF (0-4) Urine Squamous Epithelial Cells Few /LPF Urine Bacteria Few /HPF (0-FEW) Urine Mucus Mod /LPF Urine Sperm Present /HPF Urine Opiates Screen Neg (NEG) Urine Methadone Screen Neg (NEG) Urine Barbiturates Neg (NEG) Urine Phencyclidine Screen Neg (NEG) Urine Amphetamine/Methamphetamine Neg (NEG) Urine Benzodiazepines Screen Neg (NEG) Urine Cocaine Screen Neg (NEG) Urine Cannabinoids Screen Neg (NEG) Urine Ethyl Alcohol Neg (NEG) Glucose (Fingerstick) 369 mg/dL (70-99) Test 12/05/18 11:04 Glucose (Fingerstick) 303 mg/dL (70-99) ECHOCARDIOGRAM ECHOCARDIOGRAM <Conclusion> Technically difficult study. Optison echo contrast used. The left ventricular systolic function is normal. The Ejection Fraction is 55-60%. There is normal LV segmental wall motion. Transmitral Doppler flow pattern is Grade I-abnormal relaxation pattern. There is no evidence of significant pericardial effusion. DATE: 01/08/18 1059 HEART CATH HEART CATH CORONARY ANGIOGRAPHY: LM is a large caliber vessel with normal angiographic appearance. LAD is a small to moderate caliber vessel with mild luminal irregularities. D1 is a moderate caliber vessel with mild luminal irregularities. LCx is a moderate caliber co-dominant vessel with normal angiographic appearance. OM1 is a moderate caliber vessel with normal angiographic appearance. RCA is a large caliber dominant vessel with a patent mid stent. The remainder of the vessel has mild luminal irregularities. RPDA is a moderate caliber hyperdominant vessel that feeds the apex with normal angiographic appearance. Conclusion 1. Mildly elevated left ventricular filling pressure. 2. One vessel CAD Recommendations No clear evidence of chest pain related to cardiac pathology Aggressive medical therapy with weight loss and exercise program. DATE: 11/13/17 1225 ASSESSMENT/PLAN ASSESSMENT/PLAN 1. Multiple vasovagal syncope with possible chronotropic incompetence 2. Nontraumatic mechanical fall 3. HTN: controlled. No impressive orthostasis 4. CAD: Past PCI/RCA clinically stable 5. COPD 6. DM2/HLP 7. BRIAN with CPAP 8. Morbid obesity 9. IV dye and statin allergy Recommendations 1. Negative for CSH. will transfer to and will ambulate and note chronotropic response. 2. Will likely need PPM with CLS capability, will discuss with primary truck manager. 3. Will recheck for orthostasis GUILLERMO WILSON APRN Dec 05, 2018 13:43
--- NOTE | 2018-12-05 14:44 | NUR ---
at approximately 1400 this RN and an Aide placed pt on a bedside commode. 10 mins later the pt called to get cleaned up. when aide went into the room the pt was unresponsive on commode. pt was breathing and had a pulse but sternal rub would not arouse the patient. pt did wake and 2 RN's and an aide got him back to bed where he had 2 more syncopal episodes.
--- NOTE | 2018-12-05 14:50 | NUR ---
SW following for discharge planning. Chart reviewed and DW RN. Pt lives at home with family. RN reported pt has home health and SW through the [facility]. SW requested for PT/OT eval and Tx order to assess dc needs. Will continue to follow.
--- NOTE | 2018-12-05 15:14 | RAD ---
Exam : Carotid Duplex with Grayscale Ultrasound and Spectral and Color Doppler Analysis 12/05/2018 3:07 PM Clinical Indications: SYNCOPE Comparison study: None available. PQRS Compliance Statement - Stenosis calculations for CT, MR and conventional angiography are based upon measurement of the distal ICA diameter in accordance with the NASCET methodology. Stenosis calculations for carotid ultrasound studies are derived from validated velocity criteria which are known to correlate with the NASCET methodology. Findings: The common, internal and external carotid arteries were examined by grayscale, color and spectral Doppler ultrasound. Minimal diffuse atherosclerotic vascular disease is seen, predominantly mild intimal thickening. No high-grade visual stenosis is identified. Visualization of the internal carotid arteries is somewhat limited by relatively high carotid bifurcation bilaterally. The following are the velocities and ratios in the carotid arteries on both sides: RIGHT ICA PV: 76cm/sec RIGHT CCA PV: 127cm/sec RIGHT ICA ED: 26cm/sec RIGHT IC/CCPV: Less than 2 RIGHT VERTEBRAL: antegrade flow LEFT ICA PV: 89cm/sec LEFT CCA PV: 172cm/sec LEFT ICA ED: 22cm/sec LEFT IC/CCPV: Less than 2 LEFT VERTEBRAL: antegrade flow <50% ICA Stenosis: PSV < 125cm/s (EDV < 40cm/s; SVR < 2.0) 50-69% ICA Stenosis: PSV < 125-229cm/s (EDV 40-99cm/s; SVR 2.0-3.9) >70% ICA Stenosis: PSV > 230cm/s (EDV >100cm/s; SVR >4.0) Impression: 1. Mild diffuse atherosclerotic vascular disease. 2. Likely less than 50% stenosis of the bilateral internal carotid arteries 3. Elevated velocity within the left proximal common carotid artery. While less specific than internal carotid artery values, mild or moderate proximal left common carotid artery stenosis is difficult to exclude. Consider follow-up CT angiography. Electronically signed by: Malro Mo MD (12/05/2018 3:11 PM) [id number]
[2018-12-05] MEDS ORDERED: ENOXAPARIN 40 MG/0.4 ML SYRINGE. SQ SCH (16:00)
[2018-12-05] MEDS: ENOXAPARIN 40 MG/0.4 ML SYRINGE. SQ SCH (16:36)
--- NOTE | 2018-12-05 17:30 | NUR ---
Patient had syncopal episode this evening around 1730 while moving in bed attempting to go to chair. Patient laid back down because he knew it was going to happen & passed out for about 20 seconds. Patient remained breathing & had heartbeat. Chris Islas, cardiology P[employer] MACHINE OPERATOR notified. Will keep patient NPO at midnight & continue to monitor.
[2018-12-05] MEDS: amLODIPine BESYLATE 10 MG TABLET PO SCH (20:05)
[2018-12-05] MEDS: diphenhydrAMINE HCL 25 MG CAPSULE PO SCH (20:05)
[2018-12-05] MEDS ORDERED: cloNIDine HCL 0.3 MG TABLET PO PRN (23:00)
[2018-12-06] VITALS (7 sets, daily range): BP systolic 131–179; BP diastolic 60–79
[2018-12-06] MEDS: ENOXAPARIN 40 MG/0.4 ML SYRINGE. SQ SCH ×2 (04:04→18:10)
[2018-12-06] MEDS: ACETAMINOPHEN 500 MG TABLET PO SCH ×4 (05:59→23:54)
[2018-12-06] MEDS: INSULIN LISPRO 300 UNITS/3 ML INSULN.PEN. SQ SCH ×3 (08:00→17:00)
[2018-12-06] MEDS: DOCUSATE SODIUM 100 MG CAPSULE. PO SCH ×2 (08:35→20:07)
[2018-12-06] MEDS: PANTOPRAZOLE 40 MG TABLET.DR. PO SCH (08:35)
[2018-12-06] MEDS: CYANOCOBALAMIN (VITAMIN B-12) 1,000 MCG TABLET. PO SCH (08:35)
[2018-12-06] MEDS: MAGNESIUM OXIDE 400 MG TABLET PO SCH (08:35)
[2018-12-06] MEDS: PARoxetine 20 MG TABLET PO SCH (08:35)
[2018-12-06] MEDS: CLOPIDOGREL BISULFATE 75 MG TABLET PO SCH (08:35)
[2018-12-06] MEDS: METOPROLOL SUCC 24HR ER 50 MG TAB.ER.24H. PO SCH (08:35)
[2018-12-06] MEDS: TAMSULOSIN 0.4 MG CAP.ER.24H. PO SCH (08:35)
[2018-12-06] MEDS: ASPIRIN CHEWABLE 81 MG TABLET. PO SCH (08:36)
[2018-12-06] MEDS: LOSARTAN POTASSIUM 50 MG TABLET. PO SCH (08:36)
[2018-12-06] MEDS: INSULIN GLARGINE 300 UNITS/3 ML INSULN.PEN. SQ SCH ×2 (08:44→20:13)
[2018-12-06] MEDS ORDERED: CINNAMON BARK PO SCH (09:00)
--- NOTE | 2018-12-06 11:34 | PDOC ---
PROGRESS NOTES Chief Complaint Chief Complaint He was walking with his walker at home when he felt his legs got weak and then tried to stand up and passed out. He has a life alert and triggered this and as he was being helped up by EMS to sit on his chair walker he passed out. He then passed again in ED. He was trying to have a BM History of Present Illness History of Present Illness Assessment/Plan Syncopal episode - previously diagnosed with psychogenic nonepileptic seizures. possible Vasovagal syncope. He needs stability in the restroom. Will r/o cardiac or carotid etiology as well. May need a loop recorder History of psychogenic nonepileptic seizures - seen at [place], no organic epilepsy. Has been off keppra for some time. Consult neurology Seizure activity is described as tremulousness ,NO tongue biting, incontinence , or postictal state Diabetic neuropathy - plays a role in his gait Long-standing multifactorial gait disorder - diabetic neuropathy related. PT to see Diabetes - will place on basal bolus plus regimen Hypertension - cont meds. Check orthostatics and holding parameters CHF - diastolic, does not seem to be in exacerbation, however, his lasix and aldactone have bee held recently. echo Alzheimer disease - on aricept. I will hold this in light of his admitting diagnosis of falls. Would be better off this med considering this may be a side effect Elevated velocity within the left proximal common carotid artery. mild or moderate proximal left common carotid artery stenosis is difficult to exclude. Consider follow-up CT angiography. however he is allergic to iv dye Patient may need a pacemaker placement. We will keep nothing by mouth UNTIL DECISION TODAY FEN - ADA cardiac diet PPX - lovenox FULL CODE Inpatient for recurrent syncopal episodes at least 2 midnights neurology consult 43 MIN visit time, chart review, pt exam,> 50% time in exam, chart review pt exam, pt care coordination Vitals Vitals Vital Signs Date Time Temp Pulse Resp B/P (MAP) Pulse Ox O2 Delivery O2 Flow Rate FiO2 12/06/18 11:14 97.9 62 17 146/67 (93) 96 Room Air 97.9 Physical Exam General: Alert, Oriented X3, Cooperative, No acute distress, Other (i do not hear a carotid bruit today on the left) Heart: Regular rate (SR), Normal S1, Normal S2, Other (distnat heart sounds) Lungs: Clear, Other Abdomen: Normal bowel sounds, Soft, Other (obese) Extremities: No clubbing, No cyanosis, No edema Skin: No breakdown, No significant lesion Labs LABS <Conclusion> Limited ECHO. The left ventricle is normal size. The left ventricular systolic function is normal and the ejection fraction is within normal range. The Ejection Fraction is 60-65%. There is mild concentric left ventricular hypertrophy. The aortic valve is calcified but opens well. The aortic valve is trileaflet. Doppler and Color Flow revealed trace tricuspid regurgitation. The PA pressure was estimated at 16 mmHg. There is a trace loculated anterior pericardial effusion with no hemodynamic significance. Signed by : Manuelito Lackey MD Electronically Approved : 12/05/2018 13:19:18 PQRS Compliance Statement - Stenosis calculations for CT, MR and conventional angiography are based upon measurement of the distal ICA diameter in accordance with the NASCET methodology. Stenosis calculations for carotid ultrasound studies are derived from validated velocity criteria which are known to correlate with the NASCET methodology. Findings: The common, internal and external carotid arteries were examined by grayscale, color and spectral Doppler ultrasound. Minimal diffuse atherosclerotic vascular disease is seen, predominantly mild intimal thickening. No high-grade visual stenosis is identified. Visualization of the internal carotid arteries is somewhat limited by relatively high carotid bifurcation bilaterally. The following are the velocities and ratios in the carotid arteries on both sides: RIGHT ICA PV: 76cm/sec RIGHT CCA PV: 127cm/sec RIGHT ICA ED: 26cm/sec RIGHT IC/CCPV: Less than 2 RIGHT VERTEBRAL: antegrade flow LEFT ICA PV: 89cm/sec LEFT CCA PV: 172cm/sec LEFT ICA ED: 22cm/sec LEFT IC/CCPV: Less than 2 LEFT VERTEBRAL: antegrade flow <50% ICA Stenosis: PSV < 125cm/s (EDV < 40cm/s; SVR < 2.0) 50-69% ICA Stenosis: PSV < 125-229cm/s (EDV 40-99cm/s; SVR 2.0-3.9) >70% ICA Stenosis: PSV > 230cm/s (EDV >100cm/s; SVR >4.0) Impression: 1. Mild diffuse atherosclerotic vascular disease. 2. Likely less than 50% stenosis of the bilateral internal carotid arteries 3. Elevated velocity within the left proximal common carotid artery. While less specific than internal carotid artery values, mild or moderate proximal left common carotid artery stenosis is difficult to exclude. Consider follow-up CT angiography. Electronically signed by: Marlo Mo MD (12/05/2018 3:11 PM) [id number] Laboratory Tests Test 12/05/18 16:34 12/05/18 20:10 12/06/18 07:11 12/06/18 11:26 Glucose (Fingerstick) 243 mg/dL (70-99) 274 mg/dL (70-99) 146 mg/dL (70-99) 130 mg/dL (70-99) Comment Review of Relevant I have reviewed the following items yuliya (where applicable) has been applied. Labs Laboratory Tests Test 12/04/18 22:00 12/04/18 23:30 12/05/18 04:00 12/05/18 05:53 White Blood Count 8.9 x10^3/uL (4.0-11.0) Red Blood Count 4.12 x10^6/uL (4.30-5.70) Hemoglobin 12.4 g/dL (13.0-17.5) Hematocrit 37.2 % (39.0-53.0) Mean Corpuscular Volume 90 fL (79-100) Mean Corpuscular Hemoglobin 30 pg (25-35) Mean Corpuscular Hemoglobin Concent 33 g/dL (31-37) Red Cell Distribution Width 13.2 % (11.5-14.5) Platelet Count 237 x10^3/uL (140-400) Neutrophils (%) (Auto) 55 % (31-73) Lymphocytes (%) (Auto) 31 % (24-48) Monocytes (%) (Auto) 10 % (0-9) Eosinophils (%) (Auto) 3 % (0-3) Basophils (%) (Auto) 1 % (0-3) Neutrophils # (Auto) 4.9 x10^3uL (1.8-7.7) Lymphocytes # (Auto) 2.7 x10^3/uL (1.0-4.8) Monocytes # (Auto) 0.9 x10^3/uL (0.0-1.1) Eosinophils # (Auto) 0.3 x10^3/uL (0.0-0.7) Basophils # (Auto) 0.1 x10^3/uL (0.0-0.2) Prothrombin Time 12.0 SEC (11.7-14.0) Prothromb Time International Ratio 0.9 (0.8-1.1) Sodium Level 138 mmol/L (136-145) Potassium Level 4.1 mmol/L (3.5-5.1) Chloride Level 100 mmol/L (98-107) Carbon Dioxide Level 32 mmol/L (21-32) Anion Gap 6 (6-14) Blood Urea Nitrogen 29 mg/dL (8-26) Creatinine 1.2 mg/dL (0.7-1.3) Estimated GFR (Cockcroft-Gault) 60.6 BUN/Creatinine Ratio 24 (6-20) Glucose Level 357 mg/dL (70-99) Lactic Acid Level 2.1 mmol/L (0.4-2.0) 0.8 mmol/L (0.4-2.0) Calcium Level 9.1 mg/dL (8.5-10.1) Magnesium Level 1.6 mg/dL (1.8-2.4) Total Bilirubin 0.4 mg/dL (0.2-1.0) Aspartate Amino Transf (AST/SGOT) 13 U/L (15-37) Alanine Aminotransferase (ALT/SGPT) 18 U/L (16-63) Alkaline Phosphatase 84 U/L (46-116) Creatine Kinase 34 U/L (39-308) Creatine Kinase MB (Mass) 0.6 ng/mL (0.0-3.6) Creatine Kinase MB Relative Index % (0-4) Troponin I Quantitative < 0.017 ng/mL (0.000-0.055) [id number]-Type Natriuretic Peptide 181 pg/mL (0-124) Total Protein 6.9 g/dL (6.4-8.2) Albumin 2.9 g/dL (3.4-5.0) Albumin/Globulin Ratio 0.7 (1.0-1.7) Lipase 127 U/L (73-393) Thyroid Stimulating Hormone (TSH) 1.510 uIU/mL (0.358-3.74) Ethyl Alcohol Level < 10 mg/dL (0-10) Urine Collection Type Void Urine Color Yellow Urine Clarity Clear Urine pH 5.0 Urine Specific [place] 1.020 Urine Protein 100 mg/dL (NEG-TRACE) Urine Glucose (UA) >=1000 mg/dL (NEG) Urine Ketones (Stick) Negative mg/dL (NEG) Urine Blood Small (NEG) Urine Nitrite Negative (NEG) Urine Bilirubin Negative (NEG) Urine Urobilinogen Dipstick 0.2 mg/dL (0.2 mg/dL) Urine Leukocyte Esterase Negative (NEG) Urine RBC Occ /HPF (0-2) Urine WBC Rare /HPF (0-4) Urine Squamous Epithelial Cells Few /LPF Urine Bacteria Few /HPF (0-FEW) Urine Mucus Mod /LPF Urine Sperm Present /HPF Urine Opiates Screen Neg (NEG) Urine Methadone Screen Neg (NEG) Urine Barbiturates Neg (NEG) Urine Phencyclidine Screen Neg (NEG) Urine Amphetamine/Methamphetamine Neg (NEG) Urine Benzodiazepines Screen Neg (NEG) Urine Cocaine Screen Neg (NEG) Urine Cannabinoids Screen Neg (NEG) Urine Ethyl Alcohol Neg (NEG) Glucose (Fingerstick) 369 mg/dL (70-99) Test 12/05/18 11:04 12/05/18 16:34 12/05/18 20:10 12/06/18 07:11 Glucose (Fingerstick) 303 mg/dL (70-99) 243 mg/dL (70-99) 274 mg/dL (70-99) 146 mg/dL (70-99) Test 12/06/18 11:26 Glucose (Fingerstick) 130 mg/dL (70-99) Laboratory Tests Test 12/05/18 16:34 12/05/18 20:10 12/06/18 07:11 12/06/18 11:26 Glucose (Fingerstick) 243 mg/dL (70-99) 274 mg/dL (70-99) 146 mg/dL (70-99) 130 mg/dL (70-99) Medications Current Medications Sodium Chloride 1,000 ml @ 75 mls/hr [id number] IV Last administered on at 00:00; Start 12/05/18 at 00:00; Stop 12/05/18 at 00:01; Status DC Amlodipine Besylate (Norvasc) 10 mg HS PO Last administered on 12/05/18at 20:05 ; Start 12/05/18 at 21:00 Aspirin (Children'S Aspirin) 81 mg DAILY PO Last administered on 12/06/18at 08: 36; Start 12/05/18 at 09:00 Cetirizine HCl (ZyrTEC) 10 mg PRN QHS PRN PO ALLERGIES; Start 12/05/18 at 06:15 Clopidogrel Bisulfate (Plavix) 75 mg DAILY PO Last administered on 12/06/18at 08 :35; Start 12/05/18 at 09:00 Cyanocobalamin (Vitamin B-12) 1,000 mcg DAILY PO Last administered on 08:35; Start 12/05/18 at 09:00 Diphenhydramine HCl (Benadryl) 25 mg QHS PO Last administered on 12/05/18at 20: 05; Start 12/05/18 at 21:00 Docusate Sodium (Colace) 100 mg BID PO Last administered on 12/06/18 08:35; Start 12/05/18 at 09:00 EZETIMIBE (Zetia) 10 mg DAILY PO Last administered on 12/05/18at 08:53; Start at 09:00; Stop 12/05/18 at 12:29; Status DC Insulin Glargine (Lantus) 35 units BID SQ Last administered on 12/05/18at 20:22 ; Start 12/05/18 at 09:00 Methocarbamol (Robaxin) 500 mg PRN QID PRN PO MUSCLE SPASMS; Start 12/05/18 at 06:15; Stop 12/05/18 at 12:29; Status DC Nitroglycerin (Nitrostat) 0.4 mg PRN Q5MIN PRN SL chest pain; Start 12/05/18 at 06:15 Acetaminophen (Tylenol) 500 mg Q6HRS PO Last administered on 12/06/18at 05:59; Start 12/05/18 at 12:00 Non-Formulary Medication (Albuterol Sulfate (Albuterol Sulfate Conc Neb Soln)) 1 vial Q6HRS NEB ; Start 12/05/18 at 12:00; Status UNV Benzonatate (Tessalon Perle) 100 mg PRN Q8HRS PRN PO COUGH 1ST CHOICE; Start at 09:00 Carvedilol (Coreg) 25 mg BIDWMEALS PO Last administered on 12/05/18at 07:30; Start 12/05/18 at 08:00; Stop 12/05/18 at 12:29; Status DC Pantoprazole Sodium (Protonix) 40 mg DAILYAC PO Last administered on 12/06/18 08:35; Start 12/05/18 at 07:30 Paroxetine HCl (Paxil) 60 mg DAILY PO Last administered on 12/06/18at 08:35; Start 12/05/18 at 09:00 Insulin Human Lispro (HumaLOG) 0-9 UNITS TIDWMEALS SQ Last administered on 12/05at 17:48; Start 12/05/18 at 08:00 Dextrose (Dextrose 50%-Water Syringe) 12.5 gm PRN Q15MIN PRN IV SEE COMMENTS; Start 12/05/18 at 06:15 Albuterol Sulfate (Ventolin Neb Soln) 2.5 mg RTQID NEB Last administered on at 11:33; Start 12/05/18 at 08:00; Stop 12/05/18 at 12:48; Status DC Metoprolol Succinate (Toprol Xl) 50 mg DAILY PO Last administered on 12/06/18at 08:35; Start 12/06/18 at 09:00 Tamsulosin HCl (Flomax) 0.4 mg DAILY PO Last administered on 12/06/18 08:35; Start 12/05/18 at 13:00 Non-Formulary Medication (Cinnamon Bark (Cinnamon)) 100 mg DAILY PO ; Start at 09:00; Status UNV Losartan Potassium (Cozaar) 100 mg DAILY PO Last administered on 12/06/18at 08: 36; Start 12/05/18 at 13:00 Magnesium Oxide (Magnesium Oxide) 400 mg DAILY PO Last administered on at 08:35; Start 12/05/18 at 13:00 Albuterol Sulfate (Ventolin Neb Soln) 2.5 mg PRN QID PRN NEB SHORTNESS OF BREATH; Start 12/05/18 at 13:00 Enoxaparin Sodium (Lovenox 40mg Syringe) 40 mg Q24H SQ ; Start 12/05/18 at 16:00 ; Status Cancel Enoxaparin Sodium (Lovenox 40mg Syringe) 40 mg Q12H SQ Last administered on at 04:04; Start 12/05/18 at 16:00 Clonidine HCl (Catapres) 0.3 mg PRN Q8HRS PRN PO HYPERTENSION, SEE COMMENTS Last administered on 12/05/18at 23:26; Start 12/05/18 at 23:00 Active Scripts Active Reported Flomax (Tamsulosin Hcl) 0.4 Mg Cap.er.24h 0.4 Mg PO DAILY Onglyza (Saxagliptin Hcl) 5 Mg Tablet 2.5 Mg PO DAILY Losartan Potassium 100 Mg Tablet 100 Mg PO DAILY Donepezil Hcl 10 Mg Tablet 10 Mg PO HS Clonidine Hcl 0.2 Mg Tablet 0.2 Mg PO TID PRN PRN Cinnamon (Cinnamon Bark) 500 Mg Capsule 100 Mg PO DAILY Vitamin D3 (Cholecalciferol (Vitamin D3)) 1,000 Unit Tablet 1 Tab PO DAILY Metoprolol Succinate ( Xl ) (Metoprolol Succinate) 100 Mg Tab.er.24h 50 Mg PO DAILY Magnesium Oxide 400 Mg Tablet 1 Tab PO DAILY Gabapentin 600 Mg Tablet 600 Mg PO TID Lantus Solostar (Insulin Glargine,Hum.rec.anlog) 100 Unit/1 Ml Insuln.pen 35 Unit SQ BID Furosemide 80 Mg Tablet 40 Mg PO DAILY Docusate Sodium 100 Mg Capsule 1 Cap PO BID Benadryl (Diphenhydramine Hcl) 25 Mg Capsule 1 Cap PO QHS Budesonide 0.5 Mg/2 Ml Ampul.neb 1 Vial NEB BID Amlodipine Besylate 10 Mg Tablet 10 Mg PO DAILY Albuterol Sulfate Conc Neb Soln (Albuterol Sulfate) 2.5 Mg/0.5 Ml Vial.neb 1 Vial NEB Q6HRS Aspirin 81 Mg Tab.chew 1 Tab PO DAILY Metformin Hcl 1,000 Mg Tablet 500 Mg PO BIDWMEALS NITROGLYCERIN SubLingual (Nitroglycerin) 0.4 Mg Tab.subl 1 Tab SL UD Novolog Flexpen (Insulin Aspart) 100 Unit/1 Ml Insuln.pen 28 Unit SQ DAILYBFRSUP Novolog Flexpen (Insulin Aspart) 100 Unit/1 Ml Insuln.pen 24 Unit SQ BIDACBL Lantus Solostar (Insulin Glargine,Hum.rec.anlog) 100 Unit/1 Ml Insuln.pen 30 Unit SQ BID Robaxin (Methocarbamol) 500 Mg Tablet 500 Mg PO PRN QID PRN Cetirizine Hcl 10 Mg Tablet 1 Tab PO PRN QHS Omeprazole 20 Mg Capsule.dr 1 Cap PO DAILY Albuterol Sulfate Conc Neb Soln (Albuterol Sulfate) 2.5 Mg/0.5 Ml Vial.neb 3 Mg NEB TID PRN Tessalon Perle (Benzonatate) 100 Mg Capsule 100 Mg PO Q4HRS PRN Clopidogrel (Clopidogrel Bisulfate) 75 Mg Tablet 75 Mg PO DAILY Vitals/I & O Vital Sign - Last 24 Hours 12/05/18 12/05/18 12/05/18 12/05/18 11:35 12:39 14:00 14:04 Pulse 80 83 82 Resp 18 B/P (MAP) 152/80 162/68 (99) 137/67 (90) Pulse Ox 97 96 95 O2 Delivery Room Air Room Air Room Air 12/05/18 12/05/18 12/05/18 12/05/18 14:08 17:00 19:33 20:00 Temp 98.0 98.0 Pulse 89 80 Resp 18 B/P (MAP) 130/61 (84) 188/77 (114) Pulse Ox 95 95 O2 Delivery Room Air Room Air Room Air Room Air 12/05/18 12/05/18 12/05/18 12/06/18 20:05 22:22 23:26 00:40 Temp 98.2 98.2 Pulse 80 87 87 71 Resp 18 B/P (MAP) 188/77 227/100 (142) 227/100 159/75 (103) Pulse Ox 96 O2 Delivery Room Air 12/06/18 12/06/18 12/06/18 12/06/18 03:06 07:00 08:10 08:35 Temp 97.9 97.9 Pulse 71 66 75 Resp 17 18 B/P (MAP) 150/71 (97) 145/66 (92) Pulse Ox 96 98 O2 Delivery Room Air Room Air Room Air 12/06/18 12/06/18 08:36 11:14 Temp 97.9 97.9 Pulse 75 62 Resp 17 B/P (MAP) 146/67 (93) Pulse Ox 96 O2 Delivery Room Air Intake and Output 12/05/18 12/05/18 12/06/18 14:59 22:59 06:59 Intake Total 740 ml 400 ml Output Total 400 ml 0 ml 400 ml Balance 340 ml 400 ml -400 ml ИРИНА FUNES MD Dec 06, 2018 11:34
[2018-12-06 12:18] LABS: BASO # 0.1 x10^3/uL (0.0-0.2); BASO % 1 % (0-3); EOS # 0.4 x10^3/uL (0.0-0.7); EOS % 5 % (0-3); HEMATOCRIT 38.4 % (39.0-53.0); HEMOGLOBIN 12.8 g/dL (13.0-17.5); LYMPH # 3.1 x10^3/uL (1.0-4.8); LYMPH % 37 % (24-48); MEAN CORPUSCULAR HEMOGLOBIN 30 pg (25-35); MEAN CORPUSCULAR HGB CONC 33 g/dL (31-37); MEAN CORPUSCULAR VOLUME 90 fL (79-100); MONO # 0.6 x10^3/uL (0.0-1.1); MONO % 7 % (0-9); NEUT # 4.2 x10^3uL (1.8-7.7); NEUT % 50 % (31-73); PLATELET COUNT 231 x10^3/uL (140-400); RED BLOOD COUNT 4.25 x10^6/uL (4.30-5.70); RED CELL DISTRIBUTION WIDTH 13.3 % (11.5-14.5); WHITE BLOOD COUNT 8.3 x10^3/uL (4.0-11.0)
[2018-12-06 12:41] LABS: ALBUMIN 2.9 g/dL (3.4-5.0); ALBUMIN/GLOBULIN RATIO 0.7 (1.0-1.7); CALCIUM 8.6 mg/dL (8.5-10.1); CREATININE 1.4 mg/dL (0.7-1.3); GFR 50.7; POTASSIUM 4.2 mmol/L (3.5-5.1); TOTAL BILIRUBIN 0.3 mg/dL (0.2-1.0); TOTAL PROTEIN 7.3 g/dL (6.4-8.2)
--- NOTE | 2018-12-06 12:55 | PDOC ---
CARDIO Progress Notes Date and Time Date of Service 12/06/18 Time of Evaluation 1220 Subjective Subjective: No Chest Pain, No shortness of breath, No Palpitations Vitals Vitals Vital Signs Date Time Temp Pulse Resp B/P (MAP) Pulse Ox O2 Delivery O2 Flow Rate FiO2 12/06/18 11:14 97.9 62 17 146/67 (93) 96 Room Air 97.9 Weight Weight [ ] Input and Output Intake and Output Intake and Output 12/06/18 06:59 Intake Total 1140 ml Output Total 800 ml Balance 340 ml Intake Oral 1140 ml Output Urine Total 800 ml # Voids 2 # Bowel Movements 1 Laboratory Labs Laboratory Tests Test 12/05/18 16:34 12/05/18 20:10 12/06/18 07:11 12/06/18 11:26 Glucose (Fingerstick) 243 mg/dL (70-99) 274 mg/dL (70-99) 146 mg/dL (70-99) 130 mg/dL (70-99) Test 12/06/18 12:00 White Blood Count 8.3 x10^3/uL (4.0-11.0) Red Blood Count 4.25 x10^6/uL (4.30-5.70) Hemoglobin 12.8 g/dL (13.0-17.5) Hematocrit 38.4 % (39.0-53.0) Mean Corpuscular Volume 90 fL (79-100) Mean Corpuscular Hemoglobin 30 pg (25-35) Mean Corpuscular Hemoglobin Concent 33 g/dL (31-37) Red Cell Distribution Width 13.3 % (11.5-14.5) Platelet Count 231 x10^3/uL (140-400) Neutrophils (%) (Auto) 50 % (31-73) Lymphocytes (%) (Auto) 37 % (24-48) Monocytes (%) (Auto) 7 % (0-9) Eosinophils (%) (Auto) 5 % (0-3) Basophils (%) (Auto) 1 % (0-3) Neutrophils # (Auto) 4.2 x10^3uL (1.8-7.7) Lymphocytes # (Auto) 3.1 x10^3/uL (1.0-4.8) Monocytes # (Auto) 0.6 x10^3/uL (0.0-1.1) Eosinophils # (Auto) 0.4 x10^3/uL (0.0-0.7) Basophils # (Auto) 0.1 x10^3/uL (0.0-0.2) Sodium Level 140 mmol/L (136-145) Potassium Level 4.2 mmol/L (3.5-5.1) Chloride Level 103 mmol/L (98-107) Carbon Dioxide Level 31 mmol/L (21-32) Anion Gap 6 (6-14) Blood Urea Nitrogen 35 mg/dL (8-26) Creatinine 1.4 mg/dL (0.7-1.3) Estimated GFR (Cockcroft-Gault) 50.7 BUN/Creatinine Ratio 25 (6-20) Glucose Level 167 mg/dL (70-99) Calcium Level 8.6 mg/dL (8.5-10.1) Total Bilirubin 0.3 mg/dL (0.2-1.0) Aspartate Amino Transf (AST/SGOT) 15 U/L (15-37) Alanine Aminotransferase (ALT/SGPT) 20 U/L (16-63) Alkaline Phosphatase 75 U/L (46-116) Total Protein 7.3 g/dL (6.4-8.2) Albumin 2.9 g/dL (3.4-5.0) Albumin/Globulin Ratio 0.7 (1.0-1.7) Physical Exam HEENT: Neck Supple W Full Motion Chest: Symmetric LUNGS: Clear to Auscultation Heart: S1S2, RRR, no gallops, no murmurs Abdomen: Soft N/T, Other (obese) Extremities: No Calf Tenderness Neurology: alert, oriented, follow commands Assessment Assessment 1. Syncope, orthostatic hypotension. Staff assisted patient out of bed this morning. Patient had witnessed syncopal episode. NO acute events on telemetry. SBP dropped from 150 sitting to 120 standing. 2. HTN: controlled. allow for higher baseline given orthostatic hypotension with subsequent syncopal episode 3. CAD: Past PCI/RCA clinically stable. Echo showed preserved LV systolic function with an RF of 60-65%. 4. COPD 5. 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 BRIAN with CPAP 7. Morbid obesity 8. [place] 9. H/o psychogenic nonepileptic seizures. Neuro following Recommendations Change positions slowly Compression stockings Consider Midodrine Outpatient event monitor ELVIRA GOULD APRN Dec 06, 2018 12:55
--- NOTE | 2018-12-06 14:43 | PDOC ---
PROGRESS NOTES Assessment He had an episode here, I discussed with nurse, no convulsive activity, no significant blood pressure changes, patient simply said he was dizzy while standing up and then lost consciousness. I suspect psychogenic nonepileptic seizures. Episode at home, vasovagal syncope, perhaps he just got up too quickly after his fall. History of psychogenic nonepileptic seizures. I doubt that he has organic epilepsy. Diabetic neuropathy Long-standing multifactorial gait disorder. Note carotid Doppler results, not clinically relevant. A unilateral carotid lesion would not cause this problem. The internal carotid artery flow is normal. Plan No need for additional neurological studies. Okay for discharge Follow up with neurology as needed, again he has seen Dr. Sanchez in the office in the past. Subjective Describes episode of loss of consciousness as described above. Objective Vital Signs Date Time Temp Pulse Resp B/P (MAP) Pulse Ox O2 Delivery O2 Flow Rate FiO2 12/06/18 11:14 97.9 62 17 146/67 (93) 96 Room Air 97.9 Intake and Output 12/06/18 07:00 Intake Total 1140 ml Output Total 800 ml Balance 340 ml Intake Oral 1140 ml Output Urine Total 800 ml # Voids 2 # Bowel Movements 1 PHYSICAL EXAM Alert. Oriented to time, place and person. PERRL. EOMI. CN: no focal findings. Muscle tone: normal. Muscle strength: 5/5 DTR: 1+ Plantar reflex: flexor Gait: not examined in bed. Sensory exam: stocking loss. No cerebellar signs elicited. Review of Relevant I have reviewed the following items yuliya (where applicable) has been applied. Labs Laboratory Tests Test 12/04/18 22:00 12/04/18 23:30 12/05/18 04:00 12/05/18 05:53 White Blood Count 8.9 x10^3/uL (4.0-11.0) Red Blood Count 4.12 x10^6/uL (4.30-5.70) Hemoglobin 12.4 g/dL (13.0-17.5) Hematocrit 37.2 % (39.0-53.0) Mean Corpuscular Volume 90 fL (79-100) Mean Corpuscular Hemoglobin 30 pg (25-35) Mean Corpuscular Hemoglobin Concent 33 g/dL (31-37) Red Cell Distribution Width 13.2 % (11.5-14.5) Platelet Count 237 x10^3/uL (140-400) Neutrophils (%) (Auto) 55 % (31-73) Lymphocytes (%) (Auto) 31 % (24-48) Monocytes (%) (Auto) 10 % (0-9) Eosinophils (%) (Auto) 3 % (0-3) Basophils (%) (Auto) 1 % (0-3) Neutrophils # (Auto) 4.9 x10^3uL (1.8-7.7) Lymphocytes # (Auto) 2.7 x10^3/uL (1.0-4.8) Monocytes # (Auto) 0.9 x10^3/uL (0.0-1.1) Eosinophils # (Auto) 0.3 x10^3/uL (0.0-0.7) Basophils # (Auto) 0.1 x10^3/uL (0.0-0.2) Prothrombin Time 12.0 SEC (11.7-14.0) Prothromb Time International Ratio 0.9 (0.8-1.1) Sodium Level 138 mmol/L (136-145) Potassium Level 4.1 mmol/L (3.5-5.1) Chloride Level 100 mmol/L (98-107) Carbon Dioxide Level 32 mmol/L (21-32) Anion Gap 6 (6-14) Blood Urea Nitrogen 29 mg/dL (8-26) Creatinine 1.2 mg/dL (0.7-1.3) Estimated GFR (Cockcroft-Gault) 60.6 BUN/Creatinine Ratio 24 (6-20) Glucose Level 357 mg/dL (70-99) Lactic Acid Level 2.1 mmol/L (0.4-2.0) 0.8 mmol/L (0.4-2.0) Calcium Level 9.1 mg/dL (8.5-10.1) Magnesium Level 1.6 mg/dL (1.8-2.4) Total Bilirubin 0.4 mg/dL (0.2-1.0) Aspartate Amino Transf (AST/SGOT) 13 U/L (15-37) Alanine Aminotransferase (ALT/SGPT) 18 U/L (16-63) Alkaline Phosphatase 84 U/L (46-116) Creatine Kinase 34 U/L (39-308) Creatine Kinase MB (Mass) 0.6 ng/mL (0.0-3.6) Creatine Kinase MB Relative Index % (0-4) Troponin I Quantitative < 0.017 ng/mL (0.000-0.055) CU-Rzc-[id number]-Type Natriuretic Peptide 181 pg/mL (0-124) Total Protein 6.9 g/dL (6.4-8.2) Albumin 2.9 g/dL (3.4-5.0) Albumin/Globulin Ratio 0.7 (1.0-1.7) Lipase 127 U/L (73-393) Thyroid Stimulating Hormone (TSH) 1.510 uIU/mL (0.358-3.74) Ethyl Alcohol Level < 10 mg/dL (0-10) Urine Collection Type Void Urine Color Yellow Urine Clarity Clear Urine pH 5.0 Urine Specific [place] 1.020 Urine Protein 100 mg/dL (NEG-TRACE) Urine Glucose (UA) >=1000 mg/dL (NEG) Urine Ketones (Stick) Negative mg/dL (NEG) Urine Blood Small (NEG) Urine Nitrite Negative (NEG) Urine Bilirubin Negative (NEG) Urine Urobilinogen Dipstick 0.2 mg/dL (0.2 mg/dL) Urine Leukocyte Esterase Negative (NEG) Urine RBC Occ /HPF (0-2) Urine WBC Rare /HPF (0-4) Urine Squamous Epithelial Cells Few /LPF Urine Bacteria Few /HPF (0-FEW) Urine Mucus Mod /LPF Urine Sperm Present /HPF Urine Opiates Screen Neg (NEG) Urine Methadone Screen Neg (NEG) Urine Barbiturates Neg (NEG) Urine Phencyclidine Screen Neg (NEG) Urine Amphetamine/Methamphetamine Neg (NEG) Urine Benzodiazepines Screen Neg (NEG) Urine Cocaine Screen Neg (NEG) Urine Cannabinoids Screen Neg (NEG) Urine Ethyl Alcohol Neg (NEG) Glucose (Fingerstick) 369 mg/dL (70-99) Test 12/05/18 11:04 12/05/18 16:34 12/05/18 20:10 12/06/18 07:11 Glucose (Fingerstick) 303 mg/dL (70-99) 243 mg/dL (70-99) 274 mg/dL (70-99) 146 mg/dL (70-99) Test 12/06/18 11:26 12/06/18 12:00 Glucose (Fingerstick) 130 mg/dL (70-99) White Blood Count 8.3 x10^3/uL (4.0-11.0) Red Blood Count 4.25 x10^6/uL (4.30-5.70) Hemoglobin 12.8 g/dL (13.0-17.5) Hematocrit 38.4 % (39.0-53.0) Mean Corpuscular Volume 90 fL (79-100) Mean Corpuscular Hemoglobin 30 pg (25-35) Mean Corpuscular Hemoglobin Concent 33 g/dL (31-37) Red Cell Distribution Width 13.3 % (11.5-14.5) Platelet Count 231 x10^3/uL (140-400) Neutrophils (%) (Auto) 50 % (31-73) Lymphocytes (%) (Auto) 37 % (24-48) Monocytes (%) (Auto) 7 % (0-9) Eosinophils (%) (Auto) 5 % (0-3) Basophils (%) (Auto) 1 % (0-3) Neutrophils # (Auto) 4.2 x10^3uL (1.8-7.7) Lymphocytes # (Auto) 3.1 x10^3/uL (1.0-4.8) Monocytes # (Auto) 0.6 x10^3/uL (0.0-1.1) Eosinophils # (Auto) 0.4 x10^3/uL (0.0-0.7) Basophils # (Auto) 0.1 x10^3/uL (0.0-0.2) Sodium Level 140 mmol/L (136-145) Potassium Level 4.2 mmol/L (3.5-5.1) Chloride Level 103 mmol/L (98-107) Carbon Dioxide Level 31 mmol/L (21-32) Anion Gap 6 (6-14) Blood Urea Nitrogen 35 mg/dL (8-26) Creatinine 1.4 mg/dL (0.7-1.3) Estimated GFR (Cockcroft-Gault) 50.7 BUN/Creatinine Ratio 25 (6-20) Glucose Level 167 mg/dL (70-99) Calcium Level 8.6 mg/dL (8.5-10.1) Total Bilirubin 0.3 mg/dL (0.2-1.0) Aspartate Amino Transf (AST/SGOT) 15 U/L (15-37) Alanine Aminotransferase (ALT/SGPT) 20 U/L (16-63) Alkaline Phosphatase 75 U/L (46-116) Total Protein 7.3 g/dL (6.4-8.2) Albumin 2.9 g/dL (3.4-5.0) Albumin/Globulin Ratio 0.7 (1.0-1.7) Laboratory Tests Test 12/05/18 16:34 12/05/18 20:10 12/06/18 07:11 12/06/18 11:26 Glucose (Fingerstick) 243 mg/dL (70-99) 274 mg/dL (70-99) 146 mg/dL (70-99) 130 mg/dL (70-99) Test 12/06/18 12:00 White Blood Count 8.3 x10^3/uL (4.0-11.0) Red Blood Count 4.25 x10^6/uL (4.30-5.70) Hemoglobin 12.8 g/dL (13.0-17.5) Hematocrit 38.4 % (39.0-53.0) Mean Corpuscular Volume 90 fL (79-100) Mean Corpuscular Hemoglobin 30 pg (25-35) Mean Corpuscular Hemoglobin Concent 33 g/dL (31-37) Red Cell Distribution Width 13.3 % (11.5-14.5) Platelet Count 231 x10^3/uL (140-400) Neutrophils (%) (Auto) 50 % (31-73) Lymphocytes (%) (Auto) 37 % (24-48) Monocytes (%) (Auto) 7 % (0-9) Eosinophils (%) (Auto) 5 % (0-3) Basophils (%) (Auto) 1 % (0-3) Neutrophils # (Auto) 4.2 x10^3uL (1.8-7.7) Lymphocytes # (Auto) 3.1 x10^3/uL (1.0-4.8) Monocytes # (Auto) 0.6 x10^3/uL (0.0-1.1) Eosinophils # (Auto) 0.4 x10^3/uL (0.0-0.7) Basophils # (Auto) 0.1 x10^3/uL (0.0-0.2) Sodium Level 140 mmol/L (136-145) Potassium Level 4.2 mmol/L (3.5-5.1) Chloride Level 103 mmol/L (98-107) Carbon Dioxide Level 31 mmol/L (21-32) Anion Gap 6 (6-14) Blood Urea Nitrogen 35 mg/dL (8-26) Creatinine 1.4 mg/dL (0.7-1.3) Estimated GFR (Cockcroft-Gault) 50.7 BUN/Creatinine Ratio 25 (6-20) Glucose Level 167 mg/dL (70-99) Calcium Level 8.6 mg/dL (8.5-10.1) Total Bilirubin 0.3 mg/dL (0.2-1.0) Aspartate Amino Transf (AST/SGOT) 15 U/L (15-37) Alanine Aminotransferase (ALT/SGPT) 20 U/L (16-63) Alkaline Phosphatase 75 U/L (46-116) Total Protein 7.3 g/dL (6.4-8.2) Albumin 2.9 g/dL (3.4-5.0) Albumin/Globulin Ratio 0.7 (1.0-1.7) Medications Current Medications Sodium Chloride 1,000 ml @ 75 mls/hr [id number] IV Last administered on at 00:00; Start 12/05/18 at 00:00; Stop 12/05/18 at 00:01; Status DC Amlodipine Besylate (Norvasc) 10 mg HS PO Last administered on 12/05/18at 20:05 ; Start 12/05/18 at 21:00 Aspirin (Children'S Aspirin) 81 mg DAILY PO Last administered on 12/06/18at 08: 36; Start 12/05/18 at 09:00 Cetirizine HCl (ZyrTEC) 10 mg PRN QHS PRN PO ALLERGIES; Start 12/05/18 at 06:15 Clopidogrel Bisulfate (Plavix) 75 mg DAILY PO Last administered on 12/06/18at 08 :35; Start 12/05/18 at 09:00 Cyanocobalamin (Vitamin B-12) 1,000 mcg DAILY PO Last administered on at 08:35; Start 12/05/18 at 09:00 Diphenhydramine HCl (Benadryl) 25 mg QHS PO Last administered on 12/05/18 20: 05; Start 12/05/18 at 21:00 Docusate Sodium (Colace) 100 mg BID PO Last administered on 12/06/18 08:35; Start 12/05/18 at 09:00 EZETIMIBE (Zetia) 10 mg DAILY PO Last administered on 12/05/18 08:53; Start at 09:00; Stop 12/05/18 at 12:29; Status DC Insulin Glargine (Lantus) 35 units BID SQ Last administered on 12/05/18 20:22 ; Start 12/05/18 at 09:00 Methocarbamol (Robaxin) 500 mg PRN QID PRN PO MUSCLE SPASMS; Start 12/05/18 at 06:15; Stop 12/05/18 at 12:29; Status DC Nitroglycerin (Nitrostat) 0.4 mg PRN Q5MIN PRN SL chest pain; Start 12/05/18 at 06:15 Acetaminophen (Tylenol) 500 mg Q6HRS PO Last administered on 12/06/18 05:59; Start 12/05/18 at 12:00 Non-Formulary Medication (Albuterol Sulfate (Albuterol Sulfate Conc Neb Soln)) 1 vial Q6HRS NEB ; Start 12/05/18 at 12:00; Status UNV Benzonatate (Tessalon Perle) 100 mg PRN Q8HRS PRN PO COUGH 1ST CHOICE Last administered on 12/06/18 13:19; Start 12/05/18 at 09:00 Carvedilol (Coreg) 25 mg BIDWMEALS PO Last administered on 12/05/18 07:30; Start 12/05/18 at 08:00; Stop 12/05/18 at 12:29; Status DC Pantoprazole Sodium (Protonix) 40 mg DAILYAC PO Last administered on 12/06/18 08:35; Start 12/05/18 at 07:30 Paroxetine HCl (Paxil) 60 mg DAILY PO Last administered on 12/06/18 08:35; Start 12/05/18 at 09:00 Insulin Human Lispro (HumaLOG) 0-9 UNITS TIDWMEALS SQ Last administered on 12/05at 17:48; Start 12/05/18 at 08:00 Dextrose (Dextrose 50%-Water Syringe) 12.5 gm PRN Q15MIN PRN IV SEE COMMENTS; Start 12/05/18 at 06:15 Albuterol Sulfate (Ventolin Neb Soln) 2.5 mg RTQID NEB Last administered on at 11:33; Start 12/05/18 at 08:00; Stop 12/05/18 at 12:48; Status DC Metoprolol Succinate (Toprol Xl) 50 mg DAILY PO Last administered on 12/06/18at 08:35; Start 12/06/18 at 09:00 Tamsulosin HCl (Flomax) 0.4 mg DAILY PO Last administered on 12/06/18at 08:35; Start 12/05/18 at 13:00 Non-Formulary Medication (Cinnamon Bark (Cinnamon)) 100 mg DAILY PO ; Start at 09:00; Status UNV Losartan Potassium (Cozaar) 100 mg DAILY PO Last administered on 12/06/18at 08: 36; Start 12/05/18 at 13:00 Magnesium Oxide (Magnesium Oxide) 400 mg DAILY PO Last administered on at 08:35; Start 12/05/18 at 13:00 Albuterol Sulfate (Ventolin Neb Soln) 2.5 mg PRN QID PRN NEB SHORTNESS OF BREATH; Start 12/05/18 at 13:00 Enoxaparin Sodium (Lovenox 40mg Syringe) 40 mg Q24H SQ ; Start 12/05/18 at 16:00 ; Status Cancel Enoxaparin Sodium (Lovenox 40mg Syringe) 40 mg Q12H SQ Last administered on at 04:04; Start 12/05/18 at 16:00 Clonidine HCl (Catapres) 0.3 mg PRN Q8HRS PRN PO HYPERTENSION, SEE COMMENTS Last administered on 12/05/18at 23:26; Start 12/05/18 at 23:00 Active Scripts Active Reported Flomax (Tamsulosin Hcl) 0.4 Mg Cap.er.24h 0.4 Mg PO DAILY Onglyza (Saxagliptin Hcl) 5 Mg Tablet 2.5 Mg PO DAILY Losartan Potassium 100 Mg Tablet 100 Mg PO DAILY Donepezil Hcl 10 Mg Tablet 10 Mg PO HS Clonidine Hcl 0.2 Mg Tablet 0.2 Mg PO TID PRN PRN Cinnamon (Cinnamon Bark) 500 Mg Capsule 100 Mg PO DAILY Vitamin D3 (Cholecalciferol (Vitamin D3)) 1,000 Unit Tablet 1 Tab PO DAILY Metoprolol Succinate ( Xl ) (Metoprolol Succinate) 100 Mg Tab.er.24h 50 Mg PO DAILY Magnesium Oxide 400 Mg Tablet 1 Tab PO DAILY Gabapentin 600 Mg Tablet 600 Mg PO TID Lantus Solostar (Insulin Glargine,Hum.rec.anlog) 100 Unit/1 Ml Insuln.pen 35 Unit SQ BID Furosemide 80 Mg Tablet 40 Mg PO DAILY Docusate Sodium 100 Mg Capsule 1 Cap PO BID Benadryl (Diphenhydramine Hcl) 25 Mg Capsule 1 Cap PO QHS Budesonide 0.5 Mg/2 Ml Ampul.neb 1 Vial NEB BID Amlodipine Besylate 10 Mg Tablet 10 Mg PO DAILY Albuterol Sulfate Conc Neb Soln (Albuterol Sulfate) 2.5 Mg/0.5 Ml Vial.neb 1 Vial NEB Q6HRS Aspirin 81 Mg Tab.chew 1 Tab PO DAILY Metformin Hcl 1,000 Mg Tablet 500 Mg PO BIDWMEALS NITROGLYCERIN SubLingual (Nitroglycerin) 0.4 Mg Tab.subl 1 Tab SL UD Novolog Flexpen (Insulin Aspart) 100 Unit/1 Ml Insuln.pen 28 Unit SQ DAILYBFRSUP Novolog Flexpen (Insulin Aspart) 100 Unit/1 Ml Insuln.pen 24 Unit SQ BIDACBL Lantus Solostar (Insulin Glargine,Hum.rec.anlog) 100 Unit/1 Ml Insuln.pen 30 Unit SQ BID Robaxin (Methocarbamol) 500 Mg Tablet 500 Mg PO PRN QID PRN Cetirizine Hcl 10 Mg Tablet 1 Tab PO PRN QHS Omeprazole 20 Mg Capsule.dr 1 Cap PO DAILY Albuterol Sulfate Conc Neb Soln (Albuterol Sulfate) 2.5 Mg/0.5 Ml Vial.neb 3 Mg NEB TID PRN Tessalon Perle (Benzonatate) 100 Mg Capsule 100 Mg PO Q4HRS PRN Clopidogrel (Clopidogrel Bisulfate) 75 Mg Tablet 75 Mg PO DAILY Vitals/I & O Vital Sign - Last 24 Hours 12/05/18 12/05/18 12/05/18 12/05/18 17:00 19:33 20:00 20:05 Temp 98.0 98.0 Pulse 80 80 Resp 18 B/P (MAP) 188/77 (114) 188/77 Pulse Ox 95 O2 Delivery Room Air Room Air Room Air 12/05/18 12/05/18 12/06/18 12/06/18 22:22 23:26 00:40 03:06 Temp 98.2 98.2 Pulse 87 87 71 71 Resp 18 17 B/P (MAP) 227/100 (142) 227/100 159/75 (103) 150/71 (97) Pulse Ox 96 96 O2 Delivery Room Air Room Air 12/06/18 12/06/18 12/06/18 12/06/18 07:00 08:10 08:35 08:36 Temp 97.9 97.9 Pulse 66 75 75 Resp 18 B/P (MAP) 145/66 (92) Pulse Ox 98 O2 Delivery Room Air Room Air 12/06/18 11:14 Temp 97.9 97.9 Pulse 62 Resp 17 B/P (MAP) 146/67 (93) Pulse Ox 96 O2 Delivery Room Air Intake and Output 12/05/18 12/05/18 12/06/18 15:00 23:00 07:00 Intake Total 740 ml 400 ml Output Total 400 ml 0 ml 400 ml Balance 340 ml 400 ml -400 ml ROSA M VASQUEZ MD Dec 06, 2018 14:43
[2018-12-06] MEDS: amLODIPine BESYLATE 10 MG TABLET PO SCH (20:07)
[2018-12-06] MEDS: diphenhydrAMINE HCL 25 MG CAPSULE PO SCH (20:07)
[2018-12-07 02:53] VITALS: BP 141/66
[2018-12-07] MEDS: ENOXAPARIN 40 MG/0.4 ML SYRINGE. SQ SCH ×2 (04:14→15:33)
[2018-12-07] MEDS: ACETAMINOPHEN 500 MG TABLET PO SCH ×2 (04:50→12:00)
[2018-12-07 07:05] VITALS: BP 164/75
[2018-12-07] MEDS: PANTOPRAZOLE 40 MG TABLET.DR. PO SCH (07:40)
[2018-12-07] MEDS: INSULIN LISPRO 300 UNITS/3 ML INSULN.PEN. SQ SCH ×2 (08:00→12:00)
[2018-12-07] MEDS: INSULIN GLARGINE 300 UNITS/3 ML INSULN.PEN. SQ SCH (09:00)
--- NOTE | 2018-12-07 09:14 | PDOC ---
PROGRESS NOTES Assessment Psychogenic nonepileptic seizures. I doubt that he has organic epilepsy. No episode since yesterday Diabetic neuropathy Long-standing multifactorial gait disorder. Note carotid Doppler results, not clinically relevant. A unilateral carotid lesion would not cause this problem. The internal carotid artery flow is normal. Plan Okay for discharge No need for additional neurological studies. Follow up with neurology as needed, again he has seen Dr. Sanchez in the office in the past. Discussed with Ms. Orellana, cardiology Objective Vital Signs Date Time Temp Pulse Resp B/P (MAP) Pulse Ox O2 Delivery O2 Flow Rate FiO2 12/07/18 08:26 Room Air 12/07/18 07:05 98.0 60 22 164/75 (104) 97 98.0 Intake and Output 12/07/18 06:59 Intake Total 700 ml Output Total 975 ml Balance -275 ml Intake Oral 700 ml Output Urine Total 975 ml # Voids 3 # Bowel Movements 1 PHYSICAL EXAM Alert. Oriented to time, place and person. PERRL. EOMI. CN: no focal findings. Muscle tone: normal. Muscle strength: 5/5 DTR: 1+ Plantar reflex: flexor Gait: not examined in bed. Sensory exam: stocking loss. No cerebellar signs elicited. Review of Relevant I have reviewed the following items yuliya (where applicable) has been applied. Labs Laboratory Tests Test 12/05/18 11:04 12/05/18 16:34 12/05/18 20:10 12/06/18 07:11 Glucose (Fingerstick) 303 mg/dL (70-99) 243 mg/dL (70-99) 274 mg/dL (70-99) 146 mg/dL (70-99) Test 12/06/18 11:26 12/06/18 12:00 12/06/18 16:51 12/06/18 20:09 Glucose (Fingerstick) 130 mg/dL (70-99) 149 mg/dL (70-99) 208 mg/dL (70-99) White Blood Count 8.3 x10^3/uL (4.0-11.0) Red Blood Count 4.25 x10^6/uL (4.30-5.70) Hemoglobin 12.8 g/dL (13.0-17.5) Hematocrit 38.4 % (39.0-53.0) Mean Corpuscular Volume 90 fL (79-100) Mean Corpuscular Hemoglobin 30 pg (25-35) Mean Corpuscular Hemoglobin Concent 33 g/dL (31-37) Red Cell Distribution Width 13.3 % (11.5-14.5) Platelet Count 231 x10^3/uL (140-400) Neutrophils (%) (Auto) 50 % (31-73) Lymphocytes (%) (Auto) 37 % (24-48) Monocytes (%) (Auto) 7 % (0-9) Eosinophils (%) (Auto) 5 % (0-3) Basophils (%) (Auto) 1 % (0-3) Neutrophils # (Auto) 4.2 x10^3uL (1.8-7.7) Lymphocytes # (Auto) 3.1 x10^3/uL (1.0-4.8) Monocytes # (Auto) 0.6 x10^3/uL (0.0-1.1) Eosinophils # (Auto) 0.4 x10^3/uL (0.0-0.7) Basophils # (Auto) 0.1 x10^3/uL (0.0-0.2) Sodium Level 140 mmol/L (136-145) Potassium Level 4.2 mmol/L (3.5-5.1) Chloride Level 103 mmol/L (98-107) Carbon Dioxide Level 31 mmol/L (21-32) Anion Gap 6 (6-14) Blood Urea Nitrogen 35 mg/dL (8-26) Creatinine 1.4 mg/dL (0.7-1.3) Estimated GFR (Cockcroft-Gault) 50.7 BUN/Creatinine Ratio 25 (6-20) Glucose Level 167 mg/dL (70-99) Calcium Level 8.6 mg/dL (8.5-10.1) Total Bilirubin 0.3 mg/dL (0.2-1.0) Aspartate Amino Transf (AST/SGOT) 15 U/L (15-37) Alanine Aminotransferase (ALT/SGPT) 20 U/L (16-63) Alkaline Phosphatase 75 U/L (46-116) Total Protein 7.3 g/dL (6.4-8.2) Albumin 2.9 g/dL (3.4-5.0) Albumin/Globulin Ratio 0.7 (1.0-1.7) Test 3/22/19 07:39 Glucose (Fingerstick) 97 mg/dL (70-99) Laboratory Tests Test 12/06/18 11:26 12/06/18 12:00 12/06/18 16:51 12/06/18 20:09 Glucose (Fingerstick) 130 mg/dL (70-99) 149 mg/dL (70-99) 208 mg/dL (70-99) White Blood Count 8.3 x10^3/uL (4.0-11.0) Red Blood Count 4.25 x10^6/uL (4.30-5.70) Hemoglobin 12.8 g/dL (13.0-17.5) Hematocrit 38.4 % (39.0-53.0) Mean Corpuscular Volume 90 fL (79-100) Mean Corpuscular Hemoglobin 30 pg (25-35) Mean Corpuscular Hemoglobin Concent 33 g/dL (31-37) Red Cell Distribution Width 13.3 % (11.5-14.5) Platelet Count 231 x10^3/uL (140-400) Neutrophils (%) (Auto) 50 % (31-73) Lymphocytes (%) (Auto) 37 % (24-48) Monocytes (%) (Auto) 7 % (0-9) Eosinophils (%) (Auto) 5 % (0-3) Basophils (%) (Auto) 1 % (0-3) Neutrophils # (Auto) 4.2 x10^3uL (1.8-7.7) Lymphocytes # (Auto) 3.1 x10^3/uL (1.0-4.8) Monocytes # (Auto) 0.6 x10^3/uL (0.0-1.1) Eosinophils # (Auto) 0.4 x10^3/uL (0.0-0.7) Basophils # (Auto) 0.1 x10^3/uL (0.0-0.2) Sodium Level 140 mmol/L (136-145) Potassium Level 4.2 mmol/L (3.5-5.1) Chloride Level 103 mmol/L (98-107) Carbon Dioxide Level 31 mmol/L (21-32) Anion Gap 6 (6-14) Blood Urea Nitrogen 35 mg/dL (8-26) Creatinine 1.4 mg/dL (0.7-1.3) Estimated GFR (Cockcroft-Gault) 50.7 BUN/Creatinine Ratio 25 (6-20) Glucose Level 167 mg/dL (70-99) Calcium Level 8.6 mg/dL (8.5-10.1) Total Bilirubin 0.3 mg/dL (0.2-1.0) Aspartate Amino Transf (AST/SGOT) 15 U/L (15-37) Alanine Aminotransferase (ALT/SGPT) 20 U/L (16-63) Alkaline Phosphatase 75 U/L (46-116) Total Protein 7.3 g/dL (6.4-8.2) Albumin 2.9 g/dL (3.4-5.0) Albumin/Globulin Ratio 0.7 (1.0-1.7) Test 12/07/18 07:39 Glucose (Fingerstick) 97 mg/dL (70-99) Medications Current Medications Sodium Chloride 1,000 ml @ 75 mls/hr [id number] IV Last administered on 00:00; Start 12/05/18 at 00:00; Stop 12/05/18 at 00:01; Status DC Amlodipine Besylate (Norvasc) 10 mg HS PO Last administered on 12/06/18 20:07 ; Start 12/05/18 at 21:00 Aspirin (Children'S Aspirin) 81 mg DAILY PO Last administered on 12/06/18at 08: 36; Start 12/05/18 at 09:00 Cetirizine HCl (ZyrTEC) 10 mg PRN QHS PRN PO ALLERGIES; Start 12/05/18 at 06:15 Clopidogrel Bisulfate (Plavix) 75 mg DAILY PO Last administered on 12/06/18 08 :35; Start 12/05/18 at 09:00 Cyanocobalamin (Vitamin B-12) 1,000 mcg DAILY PO Last administered on 08:35; Start 12/05/18 at 09:00 Diphenhydramine HCl (Benadryl) 25 mg QHS PO Last administered on 12/06/18 20: 07; Start 12/05/18 at 21:00 Docusate Sodium (Colace) 100 mg BID PO Last administered on 12/06/18 20:07; Start 12/05/18 at 09:00 EZETIMIBE (Zetia) 10 mg DAILY PO Last administered on 12/05/18at 08:53; Start at 09:00; Stop 12/05/18 at 12:29; Status DC Insulin Glargine (Lantus) 35 units BID SQ Last administered on 12/06/18at 20:13 ; Start 12/05/18 at 09:00 Methocarbamol (Robaxin) 500 mg PRN QID PRN PO MUSCLE SPASMS; Start 12/05/18 at 06:15; Stop 12/05/18 at 12:29; Status DC Nitroglycerin (Nitrostat) 0.4 mg PRN Q5MIN PRN SL chest pain; Start 12/05/18 at 06:15 Acetaminophen (Tylenol) 500 mg Q6HRS PO Last administered on 12/06/18at 23:54; Start 12/05/18 at 12:00 Non-Formulary Medication (Albuterol Sulfate (Albuterol Sulfate Conc Neb Soln)) 1 vial Q6HRS NEB ; Start 12/05/18 at 12:00; Status UNV Benzonatate (Tessalon Perle) 100 mg PRN Q8HRS PRN PO COUGH 1ST CHOICE Last administered on 12/06/18at 13:19; Start 12/05/18 at 09:00 Carvedilol (Coreg) 25 mg BIDWMEALS PO Last administered on 12/05/18at 07:30; Start 12/05/18 at 08:00; Stop 12/05/18 at 12:29; Status DC Pantoprazole Sodium (Protonix) 40 mg DAILYAC PO Last administered on 12/07/18at 07:40; Start 12/05/18 at 07:30 Paroxetine HCl (Paxil) 60 mg DAILY PO Last administered on 12/06/18at 08:35; Start 12/05/18 at 09:00 Insulin Human Lispro (HumaLOG) 0-9 UNITS TIDWMEALS SQ Last administered on 12/05at 17:48; Start 12/05/18 at 08:00 Dextrose (Dextrose 50%-Water Syringe) 12.5 gm PRN Q15MIN PRN IV SEE COMMENTS; Start 12/05/18 at 06:15 Albuterol Sulfate (Ventolin Neb Soln) 2.5 mg RTQID NEB Last administered on at 11:33; Start 12/05/18 at 08:00; Stop 12/05/18 at 12:48; Status DC Metoprolol Succinate (Toprol Xl) 50 mg DAILY PO Last administered on 12/06/18at 08:35; Start 12/06/18 at 09:00 Tamsulosin HCl (Flomax) 0.4 mg DAILY PO Last administered on 12/06/18at 08:35; Start 12/05/18 at 13:00 Non-Formulary Medication (Cinnamon Bark (Cinnamon)) 100 mg DAILY PO ; Start at 09:00; Status UNV Losartan Potassium (Cozaar) 100 mg DAILY PO Last administered on 12/06/18at 08: 36; Start 12/05/18 at 13:00 Magnesium Oxide (Magnesium Oxide) 400 mg DAILY PO Last administered on at 08:35; Start 12/05/18 at 13:00 Albuterol Sulfate (Ventolin Neb Soln) 2.5 mg PRN QID PRN NEB SHORTNESS OF BREATH; Start 12/05/18 at 13:00 Enoxaparin Sodium (Lovenox 40mg Syringe) 40 mg Q24H SQ ; Start 12/05/18 at 16:00 ; Status Cancel Enoxaparin Sodium (Lovenox 40mg Syringe) 40 mg Q12H SQ Last administered on at 04:14; Start 12/05/18 at 16:00 Clonidine HCl (Catapres) 0.3 mg PRN Q8HRS PRN PO HYPERTENSION, SEE COMMENTS Last administered on 12/05/18at 23:26; Start 12/05/18 at 23:00 Active Scripts Active Reported Flomax (Tamsulosin Hcl) 0.4 Mg Cap.er.24h 0.4 Mg PO DAILY Onglyza (Saxagliptin Hcl) 5 Mg Tablet 2.5 Mg PO DAILY Losartan Potassium 100 Mg Tablet 100 Mg PO DAILY Donepezil Hcl 10 Mg Tablet 10 Mg PO HS Clonidine Hcl 0.2 Mg Tablet 0.2 Mg PO TID PRN PRN Cinnamon (Cinnamon Bark) 500 Mg Capsule 100 Mg PO DAILY Vitamin D3 (Cholecalciferol (Vitamin D3)) 1,000 Unit Tablet 1 Tab PO DAILY Metoprolol Succinate ( Xl ) (Metoprolol Succinate) 100 Mg Tab.er.24h 50 Mg PO DAILY Magnesium Oxide 400 Mg Tablet 1 Tab PO DAILY Gabapentin 600 Mg Tablet 600 Mg PO TID Lantus Solostar (Insulin Glargine,Hum.rec.anlog) 100 Unit/1 Ml Insuln.pen 35 Unit SQ BID Furosemide 80 Mg Tablet 40 Mg PO DAILY Docusate Sodium 100 Mg Capsule 1 Cap PO BID Benadryl (Diphenhydramine Hcl) 25 Mg Capsule 1 Cap PO QHS Budesonide 0.5 Mg/2 Ml Ampul.neb 1 Vial NEB BID Amlodipine Besylate 10 Mg Tablet 10 Mg PO DAILY Albuterol Sulfate Conc Neb Soln (Albuterol Sulfate) 2.5 Mg/0.5 Ml Vial.neb 1 Vial NEB Q6HRS Aspirin 81 Mg Tab.chew 1 Tab PO DAILY Metformin Hcl 1,000 Mg Tablet 500 Mg PO BIDWMEALS NITROGLYCERIN SubLingual (Nitroglycerin) 0.4 Mg Tab.subl 1 Tab SL UD Novolog Flexpen (Insulin Aspart) 100 Unit/1 Ml Insuln.pen 28 Unit SQ DAILYBFRSUP Novolog Flexpen (Insulin Aspart) 100 Unit/1 Ml Insuln.pen 24 Unit SQ BIDACBL Lantus Solostar (Insulin Glargine,Hum.rec.anlog) 100 Unit/1 Ml Insuln.pen 30 Unit SQ BID Robaxin (Methocarbamol) 500 Mg Tablet 500 Mg PO PRN QID PRN Cetirizine Hcl 10 Mg Tablet 1 Tab PO PRN QHS Omeprazole 20 Mg Capsule.dr 1 Cap PO DAILY Albuterol Sulfate Conc Neb Soln (Albuterol Sulfate) 2.5 Mg/0.5 Ml Vial.neb 3 Mg NEB TID PRN Tessalon Perle (Benzonatate) 100 Mg Capsule 100 Mg PO Q4HRS PRN Clopidogrel (Clopidogrel Bisulfate) 75 Mg Tablet 75 Mg PO DAILY Vitals/I & O Vital Sign - Last 24 Hours 12/06/18 12/06/18 12/06/18 12/06/18 11:14 15:00 19:55 20:00 Temp 97.9 97.9 98.1 97.9 97.9 98.1 Pulse 62 65 74 Resp 17 20 20 B/P (MAP) 146/67 (93) 131/60 (83) 179/79 (112) Pulse Ox 96 96 98 O2 Delivery Room Air Room Air Room Air Room Air 12/06/18 12/06/18 12/07/18 12/07/18 20:07 22:57 02:53 07:05 Temp 98.0 98.1 98.0 98.0 98.1 98.0 Pulse 74 58 62 60 Resp 18 17 22 B/P (MAP) 179/79 160/72 (101) 141/66 (91) 164/75 (104) Pulse Ox 97 96 97 O2 Delivery Room Air Room Air BiPAP/CPAP 12/07/18 08:26 O2 Delivery Room Air Intake and Output 12/06/18 12/06/18 12/07/18 14:59 22:59 06:59 Intake Total 700 ml Output Total 375 ml 600 ml Balance -375 ml 100 ml ROSA M VASQUEZ MD Dec 07, 2018 09:14
[2018-12-07] MEDS: MAGNESIUM OXIDE 400 MG TABLET PO SCH (09:28)
[2018-12-07] MEDS: METOPROLOL SUCC 24HR ER 50 MG TAB.ER.24H. PO SCH (09:28)
[2018-12-07] MEDS: DOCUSATE SODIUM 100 MG CAPSULE. PO SCH (09:28)
[2018-12-07] MEDS: TAMSULOSIN 0.4 MG CAP.ER.24H. PO SCH (09:28)
[2018-12-07] MEDS: ASPIRIN CHEWABLE 81 MG TABLET. PO SCH (09:28)
[2018-12-07] MEDS: CLOPIDOGREL BISULFATE 75 MG TABLET PO SCH (09:28)
[2018-12-07] MEDS: LOSARTAN POTASSIUM 50 MG TABLET. PO SCH (09:29)
[2018-12-07] MEDS: CYANOCOBALAMIN (VITAMIN B-12) 1,000 MCG TABLET. PO SCH (09:29)
[2018-12-07] MEDS: PARoxetine 20 MG TABLET PO SCH (09:29)
--- NOTE | 2018-12-07 10:42 | PDOC ---
PROGRESS NOTES Chief Complaint Chief Complaint He was walking with his walker at home when he felt his legs got weak and then tried to stand up and passed out. He has a life alert and triggered this and as he was being helped up by EMS to sit on his chair walker he passed out. He then passed again in ED. He was trying to have a BM History of Present Illness History of Present Illness Assessment/Plan Syncopal episode - previously diagnosed with psychogenic nonepileptic seizures. possible Vasovagal syncope. He needs stability in the restroom. Will r/o cardiac or carotid etiology as well. May need a loop recorder History of psychogenic nonepileptic seizures - seen at [place], no organic epilepsy. Has been off keppra for some time. Consult neurology Seizure activity is described as tremulousness ,NO tongue biting, incontinence , or postictal state Diabetic neuropathy - plays a role in his gait Long-standing multifactorial gait disorder - diabetic neuropathy related. PT to see Diabetes - will place on basal bolus plus regimen Hypertension - cont meds. Check orthostatics and holding parameters CHF - diastolic, does not seem to be in exacerbation, however, his lasix and aldactone have bee held recently. echo Alzheimer disease - on aricept. I will hold this in light of his admitting diagnosis of falls. Would be better off this med considering this may be a side effect Elevated velocity within the left proximal common carotid artery. mild or moderate proximal left common carotid artery stenosis is difficult to exclude. Consider follow-up CT angiography. however he is allergic to iv dye Patient may need a pacemaker placement. We will keep nothing by mouth UNTIL DECISION TODAY FEN - ADA cardiac diet PPX - lovenox FULL CODE Inpatient for recurrent syncopal episodes at least 2 midnights neurology consult 43 MIN visit time, chart review, pt exam,> 50% time in exam, chart review pt exam, pt care coordination Vitals Vitals Vital Signs Date Time Temp Pulse Resp B/P (MAP) Pulse Ox O2 Delivery O2 Flow Rate FiO2 12/07/18 09:29 67 164/75 12/07/18 08:26 Room Air 12/07/18 07:05 98.0 22 97 98.0 Physical Exam General: Alert, Oriented X3, Cooperative, No acute distress, Other (i do not hear a carotid bruit today on the left) Heart: Regular rate (SR), Normal S1, Normal S2, Other (distnat heart sounds) Lungs: Clear, Other Abdomen: Normal bowel sounds, Soft, No tenderness, Other (obese) Extremities: No clubbing, No cyanosis, No edema Skin: No breakdown, No significant lesion Labs LABS Laboratory Tests Test 12/06/18 11:26 12/06/18 12:00 12/06/18 16:51 12/06/18 20:09 Glucose (Fingerstick) 130 mg/dL (70-99) 149 mg/dL (70-99) 208 mg/dL (70-99) White Blood Count 8.3 x10^3/uL (4.0-11.0) Red Blood Count 4.25 x10^6/uL (4.30-5.70) Hemoglobin 12.8 g/dL (13.0-17.5) Hematocrit 38.4 % (39.0-53.0) Mean Corpuscular Volume 90 fL (79-100) Mean Corpuscular Hemoglobin 30 pg (25-35) Mean Corpuscular Hemoglobin Concent 33 g/dL (31-37) Red Cell Distribution Width 13.3 % (11.5-14.5) Platelet Count 231 x10^3/uL (140-400) Neutrophils (%) (Auto) 50 % (31-73) Lymphocytes (%) (Auto) 37 % (24-48) Monocytes (%) (Auto) 7 % (0-9) Eosinophils (%) (Auto) 5 % (0-3) Basophils (%) (Auto) 1 % (0-3) Neutrophils # (Auto) 4.2 x10^3uL (1.8-7.7) Lymphocytes # (Auto) 3.1 x10^3/uL (1.0-4.8) Monocytes # (Auto) 0.6 x10^3/uL (0.0-1.1) Eosinophils # (Auto) 0.4 x10^3/uL (0.0-0.7) Basophils # (Auto) 0.1 x10^3/uL (0.0-0.2) Sodium Level 140 mmol/L (136-145) Potassium Level 4.2 mmol/L (3.5-5.1) Chloride Level 103 mmol/L (98-107) Carbon Dioxide Level 31 mmol/L (21-32) Anion Gap 6 (6-14) Blood Urea Nitrogen 35 mg/dL (8-26) Creatinine 1.4 mg/dL (0.7-1.3) Estimated GFR (Cockcroft-Gault) 50.7 BUN/Creatinine Ratio 25 (6-20) Glucose Level 167 mg/dL (70-99) Calcium Level 8.6 mg/dL (8.5-10.1) Total Bilirubin 0.3 mg/dL (0.2-1.0) Aspartate Amino Transf (AST/SGOT) 15 U/L (15-37) Alanine Aminotransferase (ALT/SGPT) 20 U/L (16-63) Alkaline Phosphatase 75 U/L (46-116) Total Protein 7.3 g/dL (6.4-8.2) Albumin 2.9 g/dL (3.4-5.0) Albumin/Globulin Ratio 0.7 (1.0-1.7) Test 12/07/18 07:39 Glucose (Fingerstick) 97 mg/dL (70-99) Comment Review of Relevant I have reviewed the following items yuliya (where applicable) has been applied. Labs Laboratory Tests Test 12/05/18 11:04 12/05/18 16:34 12/05/18 20:10 12/06/18 07:11 Glucose (Fingerstick) 303 mg/dL (70-99) 243 mg/dL (70-99) 274 mg/dL (70-99) 146 mg/dL (70-99) Test 12/06/18 11:26 12/06/18 12:00 12/06/18 16:51 12/06/18 20:09 Glucose (Fingerstick) 130 mg/dL (70-99) 149 mg/dL (70-99) 208 mg/dL (70-99) White Blood Count 8.3 x10^3/uL (4.0-11.0) Red Blood Count 4.25 x10^6/uL (4.30-5.70) Hemoglobin 12.8 g/dL (13.0-17.5) Hematocrit 38.4 % (39.0-53.0) Mean Corpuscular Volume 90 fL (79-100) Mean Corpuscular Hemoglobin 30 pg (25-35) Mean Corpuscular Hemoglobin Concent 33 g/dL (31-37) Red Cell Distribution Width 13.3 % (11.5-14.5) Platelet Count 231 x10^3/uL (140-400) Neutrophils (%) (Auto) 50 % (31-73) Lymphocytes (%) (Auto) 37 % (24-48) Monocytes (%) (Auto) 7 % (0-9) Eosinophils (%) (Auto) 5 % (0-3) Basophils (%) (Auto) 1 % (0-3) Neutrophils # (Auto) 4.2 x10^3uL (1.8-7.7) Lymphocytes # (Auto) 3.1 x10^3/uL (1.0-4.8) Monocytes # (Auto) 0.6 x10^3/uL (0.0-1.1) Eosinophils # (Auto) 0.4 x10^3/uL (0.0-0.7) Basophils # (Auto) 0.1 x10^3/uL (0.0-0.2) Sodium Level 140 mmol/L (136-145) Potassium Level 4.2 mmol/L (3.5-5.1) Chloride Level 103 mmol/L (98-107) Carbon Dioxide Level 31 mmol/L (21-32) Anion Gap 6 (6-14) Blood Urea Nitrogen 35 mg/dL (8-26) Creatinine 1.4 mg/dL (0.7-1.3) Estimated GFR (Cockcroft-Gault) 50.7 BUN/Creatinine Ratio 25 (6-20) Glucose Level 167 mg/dL (70-99) Calcium Level 8.6 mg/dL (8.5-10.1) Total Bilirubin 0.3 mg/dL (0.2-1.0) Aspartate Amino Transf (AST/SGOT) 15 U/L (15-37) Alanine Aminotransferase (ALT/SGPT) 20 U/L (16-63) Alkaline Phosphatase 75 U/L (46-116) Total Protein 7.3 g/dL (6.4-8.2) Albumin 2.9 g/dL (3.4-5.0) Albumin/Globulin Ratio 0.7 (1.0-1.7) Test 12/07/18 07:39 Glucose (Fingerstick) 97 mg/dL (70-99) Laboratory Tests Test 3/21/19 11:26 12/06/18 12:00 12/06/18 16:51 12/06/18 20:09 Glucose (Fingerstick) 130 mg/dL (70-99) 149 mg/dL (70-99) 208 mg/dL (70-99) White Blood Count 8.3 x10^3/uL (4.0-11.0) Red Blood Count 4.25 x10^6/uL (4.30-5.70) Hemoglobin 12.8 g/dL (13.0-17.5) Hematocrit 38.4 % (39.0-53.0) Mean Corpuscular Volume 90 fL (79-100) Mean Corpuscular Hemoglobin 30 pg (25-35) Mean Corpuscular Hemoglobin Concent 33 g/dL (31-37) Red Cell Distribution Width 13.3 % (11.5-14.5) Platelet Count 231 x10^3/uL (140-400) Neutrophils (%) (Auto) 50 % (31-73) Lymphocytes (%) (Auto) 37 % (24-48) Monocytes (%) (Auto) 7 % (0-9) Eosinophils (%) (Auto) 5 % (0-3) Basophils (%) (Auto) 1 % (0-3) Neutrophils # (Auto) 4.2 x10^3uL (1.8-7.7) Lymphocytes # (Auto) 3.1 x10^3/uL (1.0-4.8) Monocytes # (Auto) 0.6 x10^3/uL (0.0-1.1) Eosinophils # (Auto) 0.4 x10^3/uL (0.0-0.7) Basophils # (Auto) 0.1 x10^3/uL (0.0-0.2) Sodium Level 140 mmol/L (136-145) Potassium Level 4.2 mmol/L (3.5-5.1) Chloride Level 103 mmol/L (98-107) Carbon Dioxide Level 31 mmol/L (21-32) Anion Gap 6 (6-14) Blood Urea Nitrogen 35 mg/dL (8-26) Creatinine 1.4 mg/dL (0.7-1.3) Estimated GFR (Cockcroft-Gault) 50.7 BUN/Creatinine Ratio 25 (6-20) Glucose Level 167 mg/dL (70-99) Calcium Level 8.6 mg/dL (8.5-10.1) Total Bilirubin 0.3 mg/dL (0.2-1.0) Aspartate Amino Transf (AST/SGOT) 15 U/L (15-37) Alanine Aminotransferase (ALT/SGPT) 20 U/L (16-63) Alkaline Phosphatase 75 U/L (46-116) Total Protein 7.3 g/dL (6.4-8.2) Albumin 2.9 g/dL (3.4-5.0) Albumin/Globulin Ratio 0.7 (1.0-1.7) Test 12/07/18 07:39 Glucose (Fingerstick) 97 mg/dL (70-99) Medications Current Medications Sodium Chloride 1,000 ml @ 75 mls/hr [id number] IV Last administered on 00:00; Start 12/05/18 at 00:00; Stop 12/05/18 at 00:01; Status DC Amlodipine Besylate (Norvasc) 10 mg HS PO Last administered on 12/06/18 20:07 ; Start 12/05/18 at 21:00 Aspirin (Children'S Aspirin) 81 mg DAILY PO Last administered on 12/07/18 09: 28; Start 12/05/18 at 09:00 Cetirizine HCl (ZyrTEC) 10 mg PRN QHS PRN PO ALLERGIES; Start 12/05/18 at 06:15 Clopidogrel Bisulfate (Plavix) 75 mg DAILY PO Last administered on 12/07/18 09 :28; Start 12/05/18 at 09:00 Cyanocobalamin (Vitamin B-12) 1,000 mcg DAILY PO Last administered on 09:29; Start 12/05/18 at 09:00 Diphenhydramine HCl (Benadryl) 25 mg QHS PO Last administered on 12/06/18 20: 07; Start 12/05/18 at 21:00 Docusate Sodium (Colace) 100 mg BID PO Last administered on 12/07/18 09:28; Start 12/05/18 at 09:00 EZETIMIBE (Zetia) 10 mg DAILY PO Last administered on 12/05/18 08:53; Start at 09:00; Stop 12/05/18 at 12:29; Status DC Insulin Glargine (Lantus) 35 units BID SQ Last administered on 12/06/18at 20:13 ; Start 12/05/18 at 09:00 Methocarbamol (Robaxin) 500 mg PRN QID PRN PO MUSCLE SPASMS; Start 12/05/18 at 06:15; Stop 12/05/18 at 12:29; Status DC Nitroglycerin (Nitrostat) 0.4 mg PRN Q5MIN PRN SL chest pain; Start 12/05/18 at 06:15 Acetaminophen (Tylenol) 500 mg Q6HRS PO Last administered on 12/06/18at 23:54; Start 12/05/18 at 12:00 Non-Formulary Medication (Albuterol Sulfate (Albuterol Sulfate Conc Neb Soln)) 1 vial Q6HRS NEB ; Start 12/05/18 at 12:00; Status UNV Benzonatate (Tessalon Perle) 100 mg PRN Q8HRS PRN PO COUGH 1ST CHOICE Last administered on 12/06/18at 13:19; Start 12/05/18 at 09:00 Carvedilol (Coreg) 25 mg BIDWMEALS PO Last administered on 12/05/18at 07:30; Start 12/05/18 at 08:00; Stop 12/05/18 at 12:29; Status DC Pantoprazole Sodium (Protonix) 40 mg DAILYAC PO Last administered on 12/07/18at 07:40; Start 12/05/18 at 07:30 Paroxetine HCl (Paxil) 60 mg DAILY PO Last administered on 12/07/18at 09:29; Start 12/05/18 at 09:00 Insulin Human Lispro (HumaLOG) 0-9 UNITS TIDWMEALS SQ Last administered on 12/05at 17:48; Start 12/05/18 at 08:00 Dextrose (Dextrose 50%-Water Syringe) 12.5 gm PRN Q15MIN PRN IV SEE COMMENTS; Start 12/05/18 at 06:15 Albuterol Sulfate (Ventolin Neb Soln) 2.5 mg RTQID NEB Last administered on at 11:33; Start 12/05/18 at 08:00; Stop 12/05/18 at 12:48; Status DC Metoprolol Succinate (Toprol Xl) 50 mg DAILY PO Last administered on 12/07/18at 09:28; Start 12/06/18 at 09:00 Tamsulosin HCl (Flomax) 0.4 mg DAILY PO Last administered on 12/07/18at 09:28; Start 12/05/18 at 13:00 Non-Formulary Medication (Cinnamon Bark (Cinnamon)) 100 mg DAILY PO ; Start at 09:00; Status UNV Losartan Potassium (Cozaar) 100 mg DAILY PO Last administered on 12/07/18 09: 29; Start 12/05/18 at 13:00 Magnesium Oxide (Magnesium Oxide) 400 mg DAILY PO Last administered on at 09:28; Start 12/05/18 at 13:00 Albuterol Sulfate (Ventolin Neb Soln) 2.5 mg PRN QID PRN NEB SHORTNESS OF BREATH; Start 12/05/18 at 13:00 Enoxaparin Sodium (Lovenox 40mg Syringe) 40 mg Q24H SQ ; Start 12/05/18 at 16:00 ; Status Cancel Enoxaparin Sodium (Lovenox 40mg Syringe) 40 mg Q12H SQ Last administered on at 04:14; Start 12/05/18 at 16:00 Clonidine HCl (Catapres) 0.3 mg PRN Q8HRS PRN PO HYPERTENSION, SEE COMMENTS Last administered on 12/05/18at 23:26; Start 12/05/18 at 23:00 Active Scripts Active Reported Flomax (Tamsulosin Hcl) 0.4 Mg Cap.er.24h 0.4 Mg PO DAILY Onglyza (Saxagliptin Hcl) 5 Mg Tablet 2.5 Mg PO DAILY Losartan Potassium 100 Mg Tablet 100 Mg PO DAILY Donepezil Hcl 10 Mg Tablet 10 Mg PO HS Clonidine Hcl 0.2 Mg Tablet 0.2 Mg PO TID PRN PRN Cinnamon (Cinnamon Bark) 500 Mg Capsule 100 Mg PO DAILY Vitamin D3 (Cholecalciferol (Vitamin D3)) 1,000 Unit Tablet 1 Tab PO DAILY Metoprolol Succinate ( Xl ) (Metoprolol Succinate) 100 Mg Tab.er.24h 50 Mg PO DAILY Magnesium Oxide 400 Mg Tablet 1 Tab PO DAILY Gabapentin 600 Mg Tablet 600 Mg PO TID Lantus Solostar (Insulin Glargine,Hum.rec.anlog) 100 Unit/1 Ml Insuln.pen 35 Unit SQ BID Furosemide 80 Mg Tablet 40 Mg PO DAILY Docusate Sodium 100 Mg Capsule 1 Cap PO BID Benadryl (Diphenhydramine Hcl) 25 Mg Capsule 1 Cap PO QHS Budesonide 0.5 Mg/2 Ml Ampul.neb 1 Vial NEB BID Amlodipine Besylate 10 Mg Tablet 10 Mg PO DAILY Albuterol Sulfate Conc Neb Soln (Albuterol Sulfate) 2.5 Mg/0.5 Ml Vial.neb 1 Vial NEB Q6HRS Aspirin 81 Mg Tab.chew 1 Tab PO DAILY Metformin Hcl 1,000 Mg Tablet 500 Mg PO BIDWMEALS NITROGLYCERIN SubLingual (Nitroglycerin) 0.4 Mg Tab.subl 1 Tab SL UD Novolog Flexpen (Insulin Aspart) 100 Unit/1 Ml Insuln.pen 28 Unit SQ DAILYBFRSUP Novolog Flexpen (Insulin Aspart) 100 Unit/1 Ml Insuln.pen 24 Unit SQ BIDACBL Lantus Solostar (Insulin Glargine,Hum.rec.anlog) 100 Unit/1 Ml Insuln.pen 30 Unit SQ BID Robaxin (Methocarbamol) 500 Mg Tablet 500 Mg PO PRN QID PRN Cetirizine Hcl 10 Mg Tablet 1 Tab PO PRN QHS Omeprazole 20 Mg Capsule.dr 1 Cap PO DAILY Albuterol Sulfate Conc Neb Soln (Albuterol Sulfate) 2.5 Mg/0.5 Ml Vial.neb 3 Mg NEB TID PRN Tessalon Perle (Benzonatate) 100 Mg Capsule 100 Mg PO Q4HRS PRN Clopidogrel (Clopidogrel Bisulfate) 75 Mg Tablet 75 Mg PO DAILY Vitals/I & O Vital Sign - Last 24 Hours 12/06/18 12/06/18 12/06/18 12/06/18 11:14 15:00 19:55 20:00 Temp 97.9 97.9 98.1 97.9 97.9 98.1 Pulse 62 65 74 Resp 17 20 20 B/P (MAP) 146/67 (93) 131/60 (83) 179/79 (112) Pulse Ox 96 96 98 O2 Delivery Room Air Room Air Room Air Room Air 12/06/18 12/06/18 12/07/18 12/07/18 20:07 22:57 02:53 07:05 Temp 98.0 98.1 98.0 98.0 98.1 98.0 Pulse 74 58 62 60 Resp 18 17 22 B/P (MAP) 179/79 160/72 (101) 141/66 (91) 164/75 (104) Pulse Ox 97 96 97 O2 Delivery Room Air Room Air BiPAP/CPAP 12/07/18 12/07/18 12/07/18 08:26 09:28 09:29 Pulse 67 67 B/P (MAP) 164/75 164/75 O2 Delivery Room Air Intake and Output 12/06/18 12/06/18 12/07/18 15:00 23:00 07:00 Intake Total 700 ml Output Total 375 ml 600 ml Balance -375 ml 100 ml ИРИНА FUNES MD Dec 07, 2018 10:42
--- NOTE | 2018-12-07 10:46 | NUR ---
SS following up with discharge planning. PT/OT recommended group home unit. SS met with pt to discuss group home unit and discharge planning. Pt declined group home unit and home healthcare. [facility] reported [facility] and [facility], doctor, and PT/OT [facility]. Pt reported that he will discharge to home.
[2018-12-07 11:00] VITALS: BP 173/78
[2018-12-07 12:20] VITALS: BP 153/81
--- NOTE | 2018-12-07 14:18 | PDOC3 ---
Discharge Summary Date of Admission: Dec 05, 2018 Date of Discharge: Dec 07, 2018 Follow-Up: 3-5 days Admitting Diagnosis comment: DISCHARGE DX Syncopal episode - previously diagnosed with psychogenic nonepileptic seizures. possible Vasovagal syncope. He needs stability in the restroom. Will r/o cardiac or carotid etiology as well. May need a loop recorder History of psychogenic nonepileptic seizures - seen at [facility], no organic epilepsy. Has been off keppra for some time. Consult neurology Seizure activity is described as tremulousness ,NO tongue biting, incontinence , or postictal state Diabetic neuropathy - plays a role in his gait Long-standing multifactorial gait disorder - diabetic neuropathy related. PT to see Diabetes - will place on basal bolus plus regimen Hypertension - cont meds. Check orthostatics and holding parameters CHF - diastolic, does not seem to be in exacerbation, however, his lasix and aldactone have bee held recently. echo Alzheimer disease - on aricept. Elevated velocity within the left proximal common carotid artery. mild or moderate proximal left common carotid artery stenosis is difficult to exclude. Consider follow-up CT angiography. however he is allergic to iv dye Patient may need a pacemaker placement. We will keep nothing by mouth UNTIL DECISION TODAY FEN - ADA cardiac diet PPX - lovenox FULL CODE Inpatient for recurrent syncopal episodes at least 2 midnights neurology consult 43 MIN visit time, chart review, pt exam,> 50% time in exam, chart review pt exam, pt care coordination Vitals Vitals Vital Signs Date Time Temp Pulse Resp B/P (MAP) Pulse Ox O2 Delivery O2 Flow Rate FiO2 12/07/18 09:29 67 164/75 12/07/18 08:26 Room Air 12/07/18 07:05 98.0 22 97 98.0 Physical Exam General: Alert, Oriented X3, Cooperative, No acute distress, Other (i do not hear a carotid bruit today on the left) Heart: Regular rate (SR), Normal S1, Normal S2, Other (distnat heart sounds) Lungs: Clear, Other Abdomen: Normal bowel sounds, Soft, No tenderness, Other (obese) Extremities: No clubbing, No cyanosis, No edema Skin: No breakdown, No significant lesion Brief Hospital Course Mr. Boyd is a 67 old [sex] who presented with [SYNCOPE ] CONDITION AT DISCHARGE: Improved Discharge Medications Current Medications Sodium Chloride 1,000 ml @ 75 mls/hr [id number] IV Last administered on 00:00; Start 12/05/18 at 00:00; Stop 12/05/18 at 00:01; Status DC Amlodipine Besylate (Norvasc) 10 mg HS PO Last administered on 12/06/18 20:07 ; Start 12/05/18 at 21:00 Aspirin (Children'S Aspirin) 81 mg DAILY PO Last administered on 12/07/18 09: 28; Start 12/05/18 at 09:00 Cetirizine HCl (ZyrTEC) 10 mg PRN QHS PRN PO ALLERGIES; Start 12/05/18 at 06:15 Clopidogrel Bisulfate (Plavix) 75 mg DAILY PO Last administered on 12/07/18 09 :28; Start 12/05/18 at 09:00 Cyanocobalamin (Vitamin B-12) 1,000 mcg DAILY PO Last administered on 09:29; Start 12/05/18 at 09:00 Diphenhydramine HCl (Benadryl) 25 mg QHS PO Last administered on 12/06/18 20: 07; Start 12/05/18 at 21:00 Docusate Sodium (Colace) 100 mg BID PO Last administered on 12/07/18 09:28; Start 12/05/18 at 09:00 EZETIMIBE (Zetia) 10 mg DAILY PO Last administered on 12/05/18at 08:53; Start at 09:00; Stop 12/05/18 at 12:29; Status DC Insulin Glargine (Lantus) 35 units BID SQ Last administered on 12/06/18 20:13 ; Start 12/05/18 at 09:00 Methocarbamol (Robaxin) 500 mg PRN QID PRN PO MUSCLE SPASMS; Start 12/05/18 at 06:15; Stop 12/05/18 at 12:29; Status DC Nitroglycerin (Nitrostat) 0.4 mg PRN Q5MIN PRN SL chest pain; Start 12/05/18 at 06:15 Acetaminophen (Tylenol) 500 mg Q6HRS PO Last administered on 3/21/19at 23:54; Start 12/05/18 at 12:00 Non-Formulary Medication (Albuterol Sulfate (Albuterol Sulfate Conc Neb Soln)) 1 vial Q6HRS NEB ; Start 12/05/18 at 12:00; Status UNV Benzonatate (Tessalon Perle) 100 mg PRN Q8HRS PRN PO COUGH 1ST CHOICE Last administered on 12/06/18at 13:19; Start 12/05/18 at 09:00 Carvedilol (Coreg) 25 mg BIDWMEALS PO Last administered on 12/05/18 07:30; Start 12/05/18 at 08:00; Stop 12/05/18 at 12:29; Status DC Pantoprazole Sodium (Protonix) 40 mg DAILYAC PO Last administered on 12/07/18 07:40; Start 12/05/18 at 07:30 Paroxetine HCl (Paxil) 60 mg DAILY PO Last administered on 12/07/18 09:29; Start 12/05/18 at 09:00 Insulin Human Lispro (HumaLOG) 0-9 UNITS TIDWMEALS SQ Last administered on 12/05at 17:48; Start 12/05/18 at 08:00 Dextrose (Dextrose 50%-Water Syringe) 12.5 gm PRN Q15MIN PRN IV SEE COMMENTS; Start 12/05/18 at 06:15 Albuterol Sulfate (Ventolin Neb Soln) 2.5 mg RTQID NEB Last administered on at 11:33; Start 12/05/18 at 08:00; Stop 12/05/18 at 12:48; Status DC Metoprolol Succinate (Toprol Xl) 50 mg DAILY PO Last administered on 12/07/18 09:28; Start 12/06/18 at 09:00 Tamsulosin HCl (Flomax) 0.4 mg DAILY PO Last administered on 12/07/18 09:28; Start 12/05/18 at 13:00 Non-Formulary Medication (Cinnamon Bark (Cinnamon)) 100 mg DAILY PO ; Start at 09:00; Status UNV Losartan Potassium (Cozaar) 100 mg DAILY PO Last administered on 12/07/18at 09: 29; Start 12/05/18 at 13:00 Magnesium Oxide (Magnesium Oxide) 400 mg DAILY PO Last administered on at 09:28; Start 12/05/18 at 13:00 Albuterol Sulfate (Ventolin Neb Soln) 2.5 mg PRN QID PRN NEB SHORTNESS OF BREATH; Start 12/05/18 at 13:00 Enoxaparin Sodium (Lovenox 40mg Syringe) 40 mg Q24H SQ ; Start 12/05/18 at 16:00 ; Status Cancel Enoxaparin Sodium (Lovenox 40mg Syringe) 40 mg Q12H SQ Last administered on at 04:14; Start 12/05/18 at 16:00 Clonidine HCl (Catapres) 0.3 mg PRN Q8HRS PRN PO HYPERTENSION, SEE COMMENTS Last administered on 12/05/18at 23:26; Start 12/05/18 at 23:00 Active Scripts Active Reported Flomax (Tamsulosin Hcl) 0.4 Mg Cap.er.24h 0.4 Mg PO DAILY Onglyza (Saxagliptin Hcl) 5 Mg Tablet 2.5 Mg PO DAILY Losartan Potassium 100 Mg Tablet 100 Mg PO DAILY Donepezil Hcl 10 Mg Tablet 10 Mg PO HS Clonidine Hcl 0.2 Mg Tablet 0.2 Mg PO TID PRN PRN Cinnamon (Cinnamon Bark) 500 Mg Capsule 100 Mg PO DAILY Vitamin D3 (Cholecalciferol (Vitamin D3)) 1,000 Unit Tablet 1 Tab PO DAILY Metoprolol Succinate ( Xl ) (Metoprolol Succinate) 100 Mg Tab.er.24h 50 Mg PO DAILY Magnesium Oxide 400 Mg Tablet 1 Tab PO DAILY Gabapentin 600 Mg Tablet 600 Mg PO TID Lantus Solostar (Insulin Glargine,Hum.rec.anlog) 100 Unit/1 Ml Insuln.pen 35 Unit SQ BID Furosemide 80 Mg Tablet 40 Mg PO DAILY Docusate Sodium 100 Mg Capsule 1 Cap PO BID Benadryl (Diphenhydramine Hcl) 25 Mg Capsule 1 Cap PO QHS Budesonide 0.5 Mg/2 Ml Ampul.neb 1 Vial NEB BID Amlodipine Besylate 10 Mg Tablet 10 Mg PO DAILY Albuterol Sulfate Conc Neb Soln (Albuterol Sulfate) 2.5 Mg/0.5 Ml Vial.neb 1 Vial NEB Q6HRS Aspirin 81 Mg Tab.chew 1 Tab PO DAILY Metformin Hcl 1,000 Mg Tablet 500 Mg PO BIDWMEALS NITROGLYCERIN SubLingual (Nitroglycerin) 0.4 Mg Tab.subl 1 Tab SL UD Novolog Flexpen (Insulin Aspart) 100 Unit/1 Ml Insuln.pen 28 Unit SQ DAILYBFRSUP Novolog Flexpen (Insulin Aspart) 100 Unit/1 Ml Insuln.pen 24 Unit SQ BIDACBL Lantus Solostar (Insulin Glargine,Hum.rec.anlog) 100 Unit/1 Ml Insuln.pen 30 Unit SQ BID Robaxin (Methocarbamol) 500 Mg Tablet 500 Mg PO PRN QID PRN Cetirizine Hcl 10 Mg Tablet 1 Tab PO PRN QHS Omeprazole 20 Mg Capsule.dr 1 Cap PO DAILY Albuterol Sulfate Conc Neb Soln (Albuterol Sulfate) 2.5 Mg/0.5 Ml Vial.neb 3 Mg NEB TID PRN Tessalon Perle (Benzonatate) 100 Mg Capsule 100 Mg PO Q4HRS PRN Clopidogrel (Clopidogrel Bisulfate) 75 Mg Tablet 75 Mg PO DAILY Vital Signs Vital Signs Date Time Temp Pulse Resp B/P (MAP) Pulse Ox O2 Delivery O2 Flow Rate FiO2 12/07/18 12:20 64 153/81 (105) 12/07/18 11:00 98.1 20 98 Room Air 98.1 Labs Laboratory Tests Test 12/05/18 16:34 12/05/18 20:10 12/06/18 07:11 12/06/18 11:26 Glucose (Fingerstick) 243 mg/dL (70-99) 274 mg/dL (70-99) 146 mg/dL (70-99) 130 mg/dL (70-99) Test 12/06/18 12:00 12/06/18 16:51 12/06/18 20:09 12/07/18 07:39 White Blood Count 8.3 x10^3/uL (4.0-11.0) Red Blood Count 4.25 x10^6/uL (4.30-5.70) Hemoglobin 12.8 g/dL (13.0-17.5) Hematocrit 38.4 % (39.0-53.0) Mean Corpuscular Volume 90 fL (79-100) Mean Corpuscular Hemoglobin 30 pg (25-35) Mean Corpuscular Hemoglobin Concent 33 g/dL (31-37) Red Cell Distribution Width 13.3 % (11.5-14.5) Platelet Count 231 x10^3/uL (140-400) Neutrophils (%) (Auto) 50 % (31-73) Lymphocytes (%) (Auto) 37 % (24-48) Monocytes (%) (Auto) 7 % (0-9) Eosinophils (%) (Auto) 5 % (0-3) Basophils (%) (Auto) 1 % (0-3) Neutrophils # (Auto) 4.2 x10^3uL (1.8-7.7) Lymphocytes # (Auto) 3.1 x10^3/uL (1.0-4.8) Monocytes # (Auto) 0.6 x10^3/uL (0.0-1.1) Eosinophils # (Auto) 0.4 x10^3/uL (0.0-0.7) Basophils # (Auto) 0.1 x10^3/uL (0.0-0.2) Sodium Level 140 mmol/L (136-145) Potassium Level 4.2 mmol/L (3.5-5.1) Chloride Level 103 mmol/L (98-107) Carbon Dioxide Level 31 mmol/L (21-32) Anion Gap 6 (6-14) Blood Urea Nitrogen 35 mg/dL (8-26) Creatinine 1.4 mg/dL (0.7-1.3) Estimated GFR (Cockcroft-Gault) 50.7 BUN/Creatinine Ratio 25 (6-20) Glucose Level 167 mg/dL (70-99) Calcium Level 8.6 mg/dL (8.5-10.1) Total Bilirubin 0.3 mg/dL (0.2-1.0) Aspartate Amino Transf (AST/SGOT) 15 U/L (15-37) Alanine Aminotransferase (ALT/SGPT) 20 U/L (16-63) Alkaline Phosphatase 75 U/L (46-116) Total Protein 7.3 g/dL (6.4-8.2) Albumin 2.9 g/dL (3.4-5.0) Albumin/Globulin Ratio 0.7 (1.0-1.7) Glucose (Fingerstick) 149 mg/dL (70-99) 208 mg/dL (70-99) 97 mg/dL (70-99) Test 12/07/18 12:11 Glucose (Fingerstick) 143 mg/dL (70-99) Laboratory Tests Test 12/06/18 16:51 12/06/18 20:09 12/07/18 07:39 12/07/18 12:11 Glucose (Fingerstick) 149 mg/dL (70-99) 208 mg/dL (70-99) 97 mg/dL (70-99) 143 mg/dL (70-99) Allergies Allergies Coded Allergies Type Severity Reaction Last Updated Verified Iodinated Contrast- Oral and IV Dye Allergy Intermediate hives 04/23/18 Yes Penicillins Allergy Intermediate "PASSES OUT" 04/22/18 Yes [id number] Reductase Inhibitor Allergy Intermediate 04/22/18 Yes erythromycin base Allergy Intermediate 04/22/18 Yes iodine Allergy Intermediate 04/22/18 Yes lisinopril Allergy Intermediate 04/22/18 Yes niacin Allergy Intermediate 04/22/18 Yes sertraline Allergy Intermediate 04/22/18 Yes simvastatin Allergy Intermediate 04/22/18 Yes fluvastatin Adverse Reaction Intermediate muscle cramping 04/23/18 Yes pravastatin Adverse Reaction Intermediate muscle cramping 04/23/18 Yes rosuvastatin Adverse Reaction Intermediate muscle cramping 04/23/18 Yes Disposition/Orders: D/C to Home Patient Instructions D/C PLANNING 37 MIN ИРИНА FUNES MD Dec 07, 2018 14:18
[2018-12-07] MEDS ORDERED: INSU100I11 SQ (14:22)
[2018-12-07] MEDS ORDERED: PARO20TA3 PO (14:22)
--- NOTE | 2018-12-07 14:22 | PDOC ---
CARDIO Progress Notes Date and Time Date of Service 12/07/18 Time of Evaluation 1215 Subjective Subjective: No Chest Pain, No shortness of breath, No Palpitations, Other (no further syncopal episodes today) Vitals Vitals Vital Signs Date Time Temp Pulse Resp B/P (MAP) Pulse Ox O2 Delivery O2 Flow Rate FiO2 12/07/18 12:20 64 153/81 (105) 12/07/18 11:00 98.1 20 98 Room Air 98.1 Weight Weight [ ] Input and Output Intake and Output Intake and Output 12/07/18 07:00 Intake Total 700 ml Output Total 975 ml Balance -275 ml Intake Oral 700 ml Output Urine Total 975 ml # Voids 3 # Bowel Movements 1 Laboratory Labs Laboratory Tests Test 12/06/18 16:51 12/06/18 20:09 12/07/18 07:39 12/07/18 12:11 Glucose (Fingerstick) 149 mg/dL (70-99) 208 mg/dL (70-99) 97 mg/dL (70-99) 143 mg/dL (70-99) Physical Exam HEENT: Neck Supple W Full Motion Chest: Symmetric LUNGS: Clear to Auscultation Heart: S1S2, RRR, no gallops, no murmurs Abdomen: Soft N/T, Other (obese) Extremities: No Calf Tenderness Neurology: alert, oriented, follow commands Assessment Assessment 1. Syncope, mild orthostatic hypotension. Had witnessed syncopal event 12/06- no acute events on telemetry correlating with syncopal event; PPM not warranted. 2. HTN: controlled. allow for higher baseline given orthostatic hypotension with subsequent syncopal episode 3. CAD: Past PCI/RCA clinically stable. Echo showed preserved LV systolic function with an RF of 60-65%. 4. COPD 5. 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 BRIAN with CPAP 7. Morbid obesity 8. [place] 9. Psychogenic nonepileptic seizures. As per neurology ELVIRA GOULD APRN Dec 07, 2018 14:22
--- NOTE | 2018-12-07 14:24 | SNU/HH DC ---
DISCHARGE WITH HOME HEALTH DISCHARGE INFORMATION: Condition on Discharge: Stable CODE STATUS: Code Status: Full HOME HEALTH: Face to Face: I certify this patient is under my care and that I, or a nurse practitioner or physician's triage assistant working with me, had a face to face encounter that meets the physician face to face encounter requirements with this patient on []. Medical Complications: Dementia Correction For: Assess Cardiopulm Status, Medication Management Physical Therapy For: Evalulation/Treatment Occupational Therapy For: Evaluation/Treatment Speech Language Pathology For: Evaluation/Treatment Home Health Aide For: Self-care POWDER WORKER For: Community Resources Pt Meets Homebound Status: Poor cognition POST DISCHARGE ORDERS: Activity Instructions for Disc: No restrictions, Activity as tolerated Weight Bearing Status after Di: No restrictions, As tolerated DIET AFTER DISCHARGE: ADA Wound/Incision Care: No wound care needed CHECKS AFTER DISCHARGE: Checks after discharge: Check blood press - daily, Check blood sugar, ac/hs, Check your Temp as needed, Weigh Yourself Daily TREATMENT/EQUIPMENT ORDERS: Adaptive Equipment Issued: [place] CERTIFICATION STATEMENT: Certification Statement: Certification Statement: Based on the above finding, I certify that this patient is confined to the home and needs intermittent fpc care, physical therapy and/or speech therapy, or continues to need occupational therapy.~ This patient is under my care, and I have initiated the establishment of the plan of care.~ This patient will be followed by myself or a community physician who will periodically review the plan of care. Home Meds Active Scripts Insulin Lispro (HUMALOG) 100 Unit/1 Ml Insuln.pen, 0 UNITS SQ TIDWMEALS for DIABETES for 14 Days, #1 EACH Prov:ИРИНА FUNES MD 12/07/18 Paroxetine Hcl (PAROXETINE HCL) 20 Mg Tablet, 40 MG PO DAILY for DEPRESSION for 30 Days, #60 TAB Prov:ИРИНА FUNES MD 12/07/18 Reported Medications Tamsulosin Hcl (FLOMAX) 0.4 Mg Cap.er.24h, 0.4 MG PO DAILY for bph, TAB 12/05/18 Saxagliptin Hcl (ONGLYZA) 5 Mg Tablet, 2.5 MG PO DAILY for diabetes, TAB 12/05/18 Losartan Potassium (LOSARTAN POTASSIUM) 100 Mg Tablet, 100 MG PO DAILY for HYPERTENSION, TAB 12/05/18 Donepezil Hcl (DONEPEZIL HCL) 10 Mg Tablet, 10 MG PO HS for dementia, TAB 12/05/18 Clonidine Hcl (CLONIDINE HCL) 0.2 Mg Tablet, 0.2 MG PO TID PRN PRN for high blood pressure, TAB 12/05/18 Cholecalciferol (Vitamin D3) (VITAMIN D3) 1,000 Unit Tablet, 1 TAB PO DAILY for supplement, #30 TAB 5 Refills 12/05/18 Metoprolol Succinate (METOPROLOL SUCCINATE ( XL )) 100 Mg Tab.er.24h, 50 MG PO DAILY for FOR HYPERTENSION, #30 TAB 0 Refills 12/05/18 Magnesium Oxide (MAGNESIUM OXIDE) 400 Mg Tablet, 1 TAB PO DAILY for replacement preparations, #30 TAB 5 Refills 12/05/18 Gabapentin (GABAPENTIN) 600 Mg Tablet, 600 MG PO TID for NEUROGENIC PAIN, TAB 12/05/18 Insulin Glargine,Hum.rec.anlog (LANTUS SOLOSTAR) 100 Unit/1 Ml Insuln.pen, 35 UNIT SQ BID, #15 ML 3 Refills 04/22/18 Furosemide (FUROSEMIDE) 80 Mg Tablet, 40 MG PO DAILY for fluid retention, #180 TAB 3 Refills 04/22/18 Docusate Sodium (DOCUSATE SODIUM) 100 Mg Capsule, 1 CAP PO BID, #30 CAP 04/22/18 Diphenhydramine Hcl (BENADRYL) 25 Mg Capsule, 1 CAP PO QHS, #30 CAP 1 Refill 04/22/18 Budesonide (BUDESONIDE) 0.5 Mg/2 Ml Ampul.neb, 1 VIAL NEB BID, #120 ML 3 Refills 04/22/18 Amlodipine Besylate (AMLODIPINE BESYLATE) 10 Mg Tablet, 10 MG PO DAILY, TAB 04/22/18 Albuterol Sulfate (ALBUTEROL SULFATE CONC NEB SOLN) 2.5 Mg/0.5 Ml Vial.neb, 1 VIAL NEB Q6HRS, #120 VIAL 5 Refills 04/22/18 Aspirin (ASPIRIN) 81 Mg Tab.chew, 1 TAB PO DAILY, #30 TAB 3 Refills 04/22/18 Metformin Hcl (METFORMIN HCL) 1,000 Mg Tablet, 500 MG PO BIDWMEALS for high blood sugar, TAB 02/16/18 Nitroglycerin (NITROGLYCERIN SubLingual) 0.4 Mg Tab.subl, 1 TAB SL UD, #25 TAB 3 Refills 02/16/18 Cetirizine Hcl (CETIRIZINE HCL) 10 Mg Tablet, 1 TAB PO PRN QHS, #30 TAB 5 Refills 01/28/18 Omeprazole (OMEPRAZOLE) 20 Mg Capsule.dr, 1 CAP PO DAILY, #30 CAP 5 Refills 01/07/18 Albuterol Sulfate (ALBUTEROL SULFATE CONC NEB SOLN) 2.5 Mg/0.5 Ml Vial.neb, 3 MG NEB TID PRN for SHORTNESS OF BREATH, EACH 0 Refills 08/05/17 Benzonatate (TESSALON PERLE) 100 Mg Capsule, 100 MG PO Q4HRS PRN for COUGH, CAP 08/05/17 Clopidogrel Bisulfate (CLOPIDOGREL) 75 Mg Tablet, 75 MG PO DAILY for TO PREVENT BLOOD CLOTS, #30 TAB 0 Refills 04/29/17 Discontinued Reported Medications Cinnamon Bark (CINNAMON) 500 Mg Capsule, 100 MG PO DAILY for supplement, CAP 12/05/18 Insulin Aspart (NOVOLOG FLEXPEN) 100 Unit/1 Ml Insuln.pen, 28 UNIT SQ DAILYBFRSUP, SYR 01/28/18 Insulin Aspart (NOVOLOG FLEXPEN) 100 Unit/1 Ml Insuln.pen, 24 UNIT SQ BIDACBL, SYR 01/28/18 Insulin Glargine,Hum.rec.anlog (LANTUS SOLOSTAR) 100 Unit/1 Ml Insuln.pen, 30 UNIT SQ BID, #15 ML 3 Refills 01/28/18 Methocarbamol (ROBAXIN) 500 Mg Tablet, 500 MG PO PRN QID PRN for MUSCLE SPASMS, TAB 01/28/18 Triamcinolone Acetonide (TRIAMCINOLONE ACETONIDE 0.025% CREAM) 15 Gm Cream..g., 1 ANDREI TP BID, #30 GM 04/22/18 Carvedilol (CARVEDILOL) 25 Mg Tablet, 1 TAB PO BID, #180 TAB 1 Refill 04/22/18 Acetaminophen (ACETAMINOPHEN) 500 Mg Tablet, 1 TAB PO Q6HRS, #60 TAB 04/22/18 Spironolactone (SPIRONOLACTONE) 25 Mg Tablet, 25 MG PO, TAB 04/22/18 Potassium Chloride (POTASSIUM CHLORIDE) 20 Meq Tablet.er, 20 MEQ PO DAILY, TAB.SR 04/22/18 Ezetimibe (ZETIA) 10 Mg Tablet, 1 TAB PO DAILY, #30 TAB 5 Refills 04/22/18 Cyanocobalamin (Vitamin B-12) (VITAMIN B-12) 1,000 Mcg Tablet, 1 TAB PO, #30 TAB 2 Refills 04/22/18 Furosemide (FUROSEMIDE) 80 Mg Tablet, 1 TAB PO DAILY, #30 TAB 5 Refills 02/16/18 Paroxetine Hcl (PAROXETINE HCL) 40 Mg Tablet, 1.5 TAB PO DAILY, #30 TAB 5 Refills 01/28/18 Cyanocobalamin (Vitamin B-12) (VITAMIN B-12) 1,000 Mcg Tablet, 1 TAB PO DAILY, # 30 TAB 2 Refills 11/06/17 Spironolactone (SPIRONOLACTONE) 25 Mg Tablet, 1 TAB PO DAILY, #90 TAB 1 Refill 11/06/17 Ezetimibe (ZETIA) 10 Mg Tablet, 1 TAB PO DAILY, #30 TAB 5 Refills 11/06/17 Amlodipine Besylate (AMLODIPINE BESYLATE) 10 Mg Tablet, 10 MG PO HS, TAB 04/29/17 Carvedilol (CARVEDILOL) 25 Mg Tablet, 25 MG PO BIDWMEALS, TAB 04/10/17 ИРИНА FUNES MD Dec 07, 2018 14:24
[2018-12-07 15:30] VITALS: BP 145/86
--- NOTE | 2018-12-07 18:00 | NUR ---
Discharge Note: MAGDY JACKSON [address] Discharge instructions and discharge home medications reviewed with Patient and a copy given. All questions have been answered and understanding verbalized. The following instructions and handouts were given: SYNCOPE Discontinued lines and drains: Peripheral IV intact. Patient discharged to Home or Self Care with WHEELCHAIR [facility] [facility] via Wheelchair
== END 2018-12-07 18:01 | disposition home health service (06) | DRG 682 ==
LOC: ER 21:47 → 6 SOUTH 23:45 → 2 NORTH 12-05 17:07
PROVIDERS: ADMIT Internal Medicine; ATTEND Internal Medicine
PROC: 5A09357 Assistance with Respiratory Ventilation, Less than 24 Consecutive Hours, Continuous Positive Airway Pressure (ICD-10-PCS; principal; 2018-12-07)
DX: N17.9 Acute kidney failure, unspecified (principal); R65.11 Systemic inflammatory response syndrome (SIRS) of non-infectious origin with acute organ dysfunction; Z68.43 Body mass index [BMI] 50.0-59.9, adult; I50.30 Unspecified diastolic (congestive) heart failure; I95.1 Orthostatic hypotension; I11.0 Hypertensive heart disease with heart failure; E11.40 Type 2 diabetes mellitus with diabetic neuropathy, unspecified; E66.01 Morbid (severe) obesity due to excess calories; F44.5 Conversion disorder with seizures or convulsions; J44.9 Chronic obstructive pulmonary disease, unspecified; E78.00 Pure hypercholesterolemia, unspecified; I25.2 Old myocardial infarction; G47.33 Obstructive sleep apnea (adult) (pediatric); I25.10 Atherosclerotic heart disease of native coronary artery without angina pectoris; K21.9 Gastro-esophageal reflux disease without esophagitis; M19.90 Unspecified osteoarthritis, unspecified site; F32.9 Major depressive disorder, single episode, unspecified; F41.9 Anxiety disorder, unspecified; F02.80 Dementia in other diseases classified elsewhere, unspecified severity, without behavioral disturbance, psychotic disturbance, mood disturbance, and anxiety; G30.9 Alzheimer's disease, unspecified; E78.5 Hyperlipidemia, unspecified; W18.39XA Other fall on same level, initial encounter; Z86.73 Personal history of transient ischemic attack (TIA), and cerebral infarction without residual deficits; Z95.5 Presence of coronary angioplasty implant and graft; Z95.1 Presence of aortocoronary bypass graft; Z88.0 Allergy status to penicillin; Z88.8 Allergy status to other drugs, medicaments and biological substances; Z88.1 Allergy status to other antibiotic agents; Z91.041 Radiographic dye allergy status; Z82.49 Family history of ischemic heart disease and other diseases of the circulatory system; Z90.49 Acquired absence of other specified parts of digestive tract; Z79.899 Other long term (current) drug therapy; Y93.89 Activity, other specified; Y92.89 Other specified places as the place of occurrence of the external cause; Y99.8 Other external cause status
CPT/HCPCS: 36415; 70450; 71045; 80053; 80307; 81001; 82553; 82962; 83605; 83690; 83735; 83880; 84443; 84484; 85025; 85610; 93005; 93308; 93880; 94640; 94760; G0480; J1650; J1815; J7030; J7613; Q0163; 97116; 97530; 97535; 99285-25

== ENCOUNTER 2019-01-31 12:45 | Inpatient (IN) | payer MEDICARE, OTHER ==
[~2019-01-31] VITALS: Ht 182.9 cm; Wt 178.0 kg
[~2019-01-31 12:45] MED LIST changes: +CHOL10003 PO; +CINN500C2 PO; +GABA600T7 PO; +INSU100I11 SQ; +MAGN400T3 PO; +METO-247 PO; +PARO20TA3 PO; +SAXA5TAB PO; +TAMS0.4C97 PO
[2019-01-31] MEDS ORDERED: IV NORMAL SALINE 1000ML BAG 1,000 ML IV ONE (13:00)
[2019-01-31 13:17] LABS: BASO # 0.1 x10^3/uL (0.0-0.2); BASO % 1 % (0-3); EOS # 0.4 x10^3/uL (0.0-0.7); EOS % 3 % (0-3); HEMATOCRIT 32.7 % (39.0-53.0); HEMOGLOBIN 10.6 g/dL (13.0-17.5); LYMPH # 3.9 x10^3/uL (1.0-4.8); LYMPH % 31 % (24-48); MEAN CORPUSCULAR HEMOGLOBIN 30 pg (25-35); MEAN CORPUSCULAR HGB CONC 33 g/dL (31-37); MEAN CORPUSCULAR VOLUME 93 fL (79-100); MONO # 1.1 x10^3/uL (0.0-1.1); MONO % 8 % (0-9); NEUT # 7.3 x10^3uL (1.8-7.7); NEUT % 57 % (31-73); PLATELET COUNT 318 x10^3/uL (140-400); RED CELL DISTRIBUTION WIDTH 13.7 % (11.5-14.5); WHITE BLOOD COUNT 12.7 x10^3/uL (4.0-11.0)
--- NOTE | 2019-01-31 13:19 | PHYS DOC ---
Past Medical History Past Medical History: CHF, COPD, CVA, Diabetes-Type II, High Cholesterol, Heart Disease, Hypertension, [place], Renal Disease, Seizure, Stroke, Other Additional Past Medical Histor: SLEEP APNEA,NEUROPATHY, morbid obesity Past Surgical History: Angioplasty, Appendectomy, Other Additional Past Surgical Histo: HERNIA-MULTIPLE,PERICARDIAL WINDOW,CARDIAC STENTS, PTCA Alcohol Use: Sober Drug Use: None Adult General Chief Complaint Chief Complaint: SEIZURE HPI HPI Patient is a 68 year old male BIBA for evaluation of recurrent seizures. He has had a total of 7 clonic episodes lasting 1-2 minutes with rapid recovery since 1130 this morning 3 of which were witnessed in the ED. Patient received 10 mg of midazolam in the field. Patient states that in 2014 he had a CVA and began to experience seizures in 2016 for which he was prescribed Keppra after having inpa tient evaluation by a neurologist. 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 His most recent hospitalization was November of this year for seizure like activity. During our conversation, the patient's upper body began to shake from [id number], his eye lids began to flutter, and he exhibited general tremulousness. The patient was responding to my questions during this event and following commands such as raising extremities during the neurologic evaluation. The activity subsided in roughly a minute without any lethargy or altered level of consciousness. Patient denies headache, fever, chills, dizziness, or focal neurological deficit at this time. He states that he did not bite his tongue, lip, or cheek and did not lose bowel or bladder continence. Review of Systems Review of Systems Constitutional: Denies fever or chills [] Eyes: Denies blurred vision or diplopia [] Respiratory: Denies cough or shortness of breath [] Cardiovascular: Denies chest pain or palpitations [] GI: Denies abdominal pain, nausea, vomiting, or diarrhea [] Musculoskeletal: Denies back pain or joint pain [] Integument: Denies rash or skin lesions [] Neurologic: Denies headache, focal weakness or sensory changes [] Endocrine: Denies polyuria or polydipsia [] All other systems were reviewed and found to be within normal limits, except as documented in this note. Current Medications Current Medications Current Medications Medications (Trade) Dose Ordered Sig/Berna Start Time Stop Time Status Last Admin Dose Admin Dextrose (Dextrose 50%-Water Syringe) 12.5 gm PRN Q15MIN PRN 01/31/19 17:30 Insulin Human Lispro (HumaLOG) 0-5 UNITS TIDWMEALS 02/01/19 08:00 Lorazepam (Ativan Inj) 1 mg 1X ONCE 01/31/19 13:00 01/31/19 13:01 DC 01/31/19 13:43 1 MG Ondansetron HCl (Zofran) 4 mg PRN Q8HRS PRN 01/31/19 17:30 02/01/19 17:29 Sodium Chloride 1,000 ml @ 1,000 mls/hr 1X ONCE 01/31/19 13:00 01/31/19 13:59 DC 01/31/19 13:41 1,000 MLS/HR Allergies Allergies Allergies Coded Allergies Type Severity Reaction Last Updated Verified Iodinated Contrast- Oral and IV Dye Allergy Intermediate hives 04/23/18 Yes Penicillins Allergy Intermediate "PASSES OUT" 04/22/18 Yes Uriamuv-Vup-Ayu Reductase Inhibitor Allergy Intermediate 04/22/18 Yes erythromycin base Allergy Intermediate 04/22/18 Yes iodine Allergy Intermediate 04/22/18 Yes lisinopril Allergy Intermediate 04/22/18 Yes niacin Allergy Intermediate 04/22/18 Yes sertraline Allergy Intermediate 04/22/18 Yes simvastatin Allergy Intermediate 04/22/18 Yes fluvastatin Adverse Reaction Intermediate muscle cramping 04/23/18 Yes pravastatin Adverse Reaction Intermediate muscle cramping 04/23/18 Yes rosuvastatin Adverse Reaction Intermediate muscle cramping 04/23/18 Yes Physical Exam Physical Exam Constitutional: Morbidly obese male, non toxic appearing. [] HENT: Normocephalic, atraumatic, oropharynx without trauma or bleeding. [] Eyes: Pupils 2 mm b/l, appear to react to light b/l, EOMI without nystagmus, no redness or discharge. [] Neck: Supple and nontender. [] Cardiovascular:Heart rate regular rhythm, no murmur [] Lungs & Thorax: Bilateral breath sounds clear to auscultation [] Abdomen: Protuberant but nontender. No evidence of loss of bladder or bowel. [] Extremities: Radial pulses +2 b/l, no cyanosis.[] Neurologic: Alert and oriented to person, place, date of and president. Unable to identify date. Normal motor function, normal sensory function, no focal deficits noted. See HPI regarding seizure like activity during physical exam [] Psychologic: Affect flat, mood normal. [] Current Patient Data Vital Signs Vital Signs Date Time Temp Pulse Resp B/P (MAP) Pulse Ox O2 Delivery O2 Flow Rate FiO2 01/31/19 17:00 62 99 01/31/19 16:30 12 01/31/19 12:50 97.9 167/67 (100) Nasal Cannula 97.9 Lab Values Laboratory Tests Test 01/31/19 13:01 01/31/19 14:54 01/31/19 15:03 01/31/19 17:20 White Blood Count 12.7 x10^3/uL (4.0-11.0) H Red Blood Count 3.50 x10^6/uL (4.30-5.70) L Hemoglobin 10.6 g/dL (13.0-17.5) L Hematocrit 32.7 % (39.0-53.0) L Mean Corpuscular Volume 93 fL (79-100) Mean Corpuscular Hemoglobin 30 pg (25-35) Mean Corpuscular Hemoglobin Concent 33 g/dL (31-37) Red Cell Distribution Width 13.7 % (11.5-14.5) Platelet Count 318 x10^3/uL (140-400) Neutrophils (%) (Auto) 57 % (31-73) Lymphocytes (%) (Auto) 31 % (24-48) Monocytes (%) (Auto) 8 % (0-9) Eosinophils (%) (Auto) 3 % (0-3) Basophils (%) (Auto) 1 % (0-3) Neutrophils # (Auto) 7.3 x10^3uL (1.8-7.7) Lymphocytes # (Auto) 3.9 x10^3/uL (1.0-4.8) Monocytes # (Auto) 1.1 x10^3/uL (0.0-1.1) Eosinophils # (Auto) 0.4 x10^3/uL (0.0-0.7) Basophils # (Auto) 0.1 x10^3/uL (0.0-0.2) Prothrombin Time 12.9 SEC (11.7-14.0) Prothrombin Time INR 1.0 (0.8-1.1) PTT 34 SEC (24-38) Sodium Level 144 mmol/L (136-145) Potassium Level 4.6 mmol/L (3.5-5.1) Chloride Level 104 mmol/L (98-107) Carbon Dioxide Level 34 mmol/L (21-32) H Anion Gap 6 (6-14) Blood Urea Nitrogen 51 mg/dL (8-26) H Creatinine 1.7 mg/dL (0.7-1.3) H Estimated GFR (Cockcroft-Gault) 40.4 BUN/Creatinine Ratio 30 (6-20) H Glucose Level 57 mg/dL (70-99) L Lactic Acid Level 1.1 mmol/L (0.4-2.0) Calcium Level 8.9 mg/dL (8.5-10.1) Total Bilirubin 0.2 mg/dL (0.2-1.0) Aspartate Amino Transferase (AST) 17 U/L (15-37) Alanine Aminotransferase (ALT) 18 U/L (16-63) Alkaline Phosphatase 92 U/L (46-116) Creatine Kinase 50 U/L (39-308) Creatine Kinase MB (Mass) 0.5 ng/mL (0.0-3.6) Creatine Kinase MB Relative Index % (0-4) Troponin I Quantitative < 0.017 ng/mL (0.000-0.055) Total Protein 7.2 g/dL (6.4-8.2) Albumin 3.0 g/dL (3.4-5.0) L Albumin/Globulin Ratio 0.7 (1.0-1.7) L Glucose (Fingerstick) 49 mg/dL (70-99) L 73 mg/dL (70-99) Urine Opiates Screen Neg (NEG) Urine Methadone Screen Neg (NEG) Urine Barbiturates Neg (NEG) Urine Phencyclidine Screen Neg (NEG) Urine Amphetamine/Methamphetamine Neg (NEG) Urine Benzodiazepines Screen Pos (NEG) Urine Cocaine Screen Neg (NEG) Urine Cannabinoids Screen Neg (NEG) Urine Ethyl Alcohol Neg (NEG) Laboratory Tests 01/31/19 13:01 Laboratory Tests 01/31/19 13:01 EKG EKG @1301: First degree AV block with MN of 224 ms. Rate of 67. Left axis deviation present. Q waves present in III and aVF. No T wave inversion. No ST segment elevation or depression. [] Radiology/Procedures Radiology/Procedures PROCEDURE: CT HEAD WO CONTRAST CT head without contrast dated 01/31/2019. Comparison made to 12/04/2018. CLINICAL INDICATION: Seizure. TECHNIQUE: Contiguous axial imaging of the head was performed from skull base to vertex. No contrast administered. FINDINGS: Ventricles and sulci are mildly prominent for age. No midline shift or mass effect. Mild patchy low density in the deep/subcortical periventricular white matter. No hemorrhage or extra-axial collection. Posterior fossa and brainstem unremarkable. Visualized paranasal sinuses and mastoid air cells are clear. No apparent calvarial abnormality. IMPRESSION: 1. No evidence of acute intracranial hemorrhage or mass. 2. Mild chronic small vessel ischemic changes and atrophy. Electronically signed by: Kobi Arnold MD (01/31/2019 1:31 PM) [id number][] Course & Med Decision Making Course & Med Decision Making Pertinent Labs and Imaging studies reviewed. (See chart for details) [] Dragon Disclaimer Dragon Disclaimer This electronic medical record was generated, in whole or in part, using a voice recognition dictation system. Departure Departure Impression: Primary Impression: Seizure-like activity Additional Impression: Hypoglycemia Disposition: 09 ADMITTED INPATIENT Admitting Physician: Other (Riffel) Condition: GUARDED Referrals: UNKNOWN PCP NAME (PCP) Critical Care Time Critical care time was 30 minutes which includes time at bedside, spent in di scussion of patient's care with specialists and/or family members, with interpretation of laboratory and/or radiological studies and is exclusive of procedures. Problem Qualifiers KOBI MUNIZ DO January 31, 2019 13:19
[2019-01-31 13:30] LABS: PROTHROMBIN TIME PATIENT 12.9 SEC (11.7-14.0)
--- NOTE | 2019-01-31 13:32 | EKG ---
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
--- NOTE | 2019-01-31 13:34 | RAD ---
CT head without contrast dated 01/31/2019. Comparison made to 12/04/2018. CLINICAL INDICATION: Seizure. TECHNIQUE: Contiguous axial imaging of the head was performed from skull base to vertex. No contrast administered. FINDINGS: Ventricles and sulci are mildly prominent for age. No midline shift or mass effect. Mild patchy low density in the deep/subcortical periventricular white matter. No hemorrhage or extra-axial collection. Posterior fossa and brainstem unremarkable. Visualized paranasal sinuses and mastoid air cells are clear. No apparent calvarial abnormality. IMPRESSION: 1. No evidence of acute intracranial hemorrhage or mass. 2. Mild chronic small vessel ischemic changes and atrophy. Electronically signed by: Kobi Arnold MD (01/31/2019 1:31 PM) [id number]
[2019-01-31 13:36] LABS: CREATINE KINASE 50 U/L (39-308)
[2019-01-31 14:04] LABS: CALCIUM 8.9 mg/dL (8.5-10.1); CREATININE 1.7 mg/dL (0.7-1.3); GFR 40.4; POTASSIUM 4.6 mmol/L (3.5-5.1)
[2019-01-31 14:08] LABS: ALBUMIN/GLOBULIN RATIO 0.7 (1.0-1.7); TOTAL BILIRUBIN 0.2 mg/dL (0.2-1.0); TOTAL PROTEIN 7.2 g/dL (6.4-8.2)
[2019-01-31] MEDS ORDERED: DEXTROSE 50% 25 GM / 50ML DISP.SYRIN. IV ONE (15:00)
[2019-01-31 15:18] LABS: BARBITURATES NEG (NEG); BENZODIAZEPINES POS (NEG); CANNABINOIDS NEG (NEG); COCAINE NEG (NEG); METHADONE NEG (NEG); OPIATES NEG (NEG); PHENCYCLIDINE NEG (NEG)
[2019-01-31 15:19] LABS: AMPHETAMINE/METHAMPHETAMINE NEG (NEG)
[2019-01-31] MEDS ORDERED: ONDANSETRON PF 4 MG/2 ML VIAL. IV PRN ×2 (17:30→20:30)
--- NOTE | 2019-01-31 17:40 | PDOC1 ---
History and Physical Date of Admission Date of Admission DATE: 01/31/19 TIME: 17:37 Identification/Chief Complaint Chief Complaint Seizure, hypoglycemia Source Source: Patient History of Present Illness History of Present Illness 67 yo male with a history of multiple medical problems including diabetes, hypertension, CHF, kidney disease, dementia, depression, peripheral neuropathy, GERD, CVA, seizures, COPD, DM2 who presented to the ED after he has had a total of 7 clonic episodes lasting 1-2 minutes with rapid recovery since 1130 this morning 3 of which were witnessed in the ED. Patient received 10 mg of midazolam in the field. Patient states that in 2014 he had a CVA and began to experience seizures in 2016 for which he was prescribed Keppra after having inpatient evaluation by a neurologist. 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 His most recent hospitalization was November of this year for seizure like activity, seen by neurology at that time. Lactate was WNL this time. Patient denies any pain, denies any shortness of breath. He states his legs usually give out and the daughter is always available to help him but yesterday she was not at home. Denies any neck pain. He is morbidly obese EKG - : First degree AV block with ID of 224 ms. Rate of 67. Left axis deviation present. Q waves present in III and aVF. No T wave inversion. No ST segment elevation or depression Past Medical History Cardiovascular: CAD, CHF, HTN, [place] Pulmonary: COPD, Other CENTRAL NERVOUS SYSTEM: CVA, Dementia, Periperal neuropathy, Seizure GI: GERD, Other Heme/Onc: No pertinent hx Hepatobiliary: Hep A/B/C Psych: Anxiety, Depression Musculoskeletal: Osteoarthritis Rheumatologic: No pertinent hx Infectious disease: No pertinent hx Renal/: No pertinent hx Endocrine: Diabetes Past Surgical History Past Surgical History: Appendectomy, Cholecystectomy, CABG, Cataract Removal, Hernia Repair, Tonsillectomy, Other Family History Family History: Hypertension Social History Smoke: No ALCOHOL: none Drugs: None Current Problem List Problem List Problems Medical Problems: (1) Hypoglycemia Status: Acute (2) Seizure-like activity Status: Acute Current Medications Current Medications Current Medications Lorazepam (Ativan Inj) 1 mg 1X ONCE IV Last administered on 01/31/19at 13:43; Start 01/31/19 at 13:00; Stop 01/31/19 at 13:01; Status DC Sodium Chloride 1,000 ml @ 1,000 mls/hr 1X ONCE IV Last administered on 01/31/19at 13:41; Start 01/31/19 at 13:00; Stop 01/31/19 at 13:59; Status DC Dextrose (Dextrose 50%-Water Syringe) 25 gm 1X ONCE IV Last administered on 01/31/19at 14:55; Start 01/31/19 at 15:00; Stop 01/31/19 at 15:01; Status DC Ondansetron HCl (Zofran) 4 mg PRN Q8HRS PRN IV NAUSEA/VOMITING; Start 01/31/19 at 17:30; Stop 02/01/19 at 17:29 Insulin Human Lispro (HumaLOG) 0-5 UNITS TIDWMEALS SQ ; Start 02/01/19 at 08:00 Dextrose (Dextrose 50%-Water Syringe) 12.5 gm PRN Q15MIN PRN IV SEE COMMENTS; Start 01/31/19 at 17:30 Active Scripts Active Humalog (Insulin Lispro) 100 Unit/1 Ml Insuln.pen 0 Units SQ TIDWMEALS 14 Days Paroxetine Hcl 20 Mg Tablet 40 Mg PO DAILY 30 Days Reported Flomax (Tamsulosin Hcl) 0.4 Mg Cap.er.24h 0.4 Mg PO DAILY Onglyza (Saxagliptin Hcl) 5 Mg Tablet 2.5 Mg PO DAILY Losartan Potassium 100 Mg Tablet 100 Mg PO DAILY Donepezil Hcl 10 Mg Tablet 10 Mg PO HS Clonidine Hcl 0.2 Mg Tablet 0.2 Mg PO TID PRN PRN Vitamin D3 (Cholecalciferol (Vitamin D3)) 1,000 Unit Tablet 1 Tab PO DAILY Metoprolol Succinate ( Xl ) (Metoprolol Succinate) 100 Mg Tab.er.24h 50 Mg PO DAILY Magnesium Oxide 400 Mg Tablet 1 Tab PO DAILY Gabapentin 600 Mg Tablet 600 Mg PO TID Lantus Solostar (Insulin Glargine,Hum.rec.anlog) 100 Unit/1 Ml Insuln.pen 35 Unit SQ BID Furosemide 80 Mg Tablet 40 Mg PO DAILY Docusate Sodium 100 Mg Capsule 1 Cap PO BID Benadryl (Diphenhydramine Hcl) 25 Mg Capsule 1 Cap PO QHS Budesonide 0.5 Mg/2 Ml Ampul.neb 1 Vial NEB BID Amlodipine Besylate 10 Mg Tablet 10 Mg PO DAILY Albuterol Sulfate Conc Neb Soln (Albuterol Sulfate) 2.5 Mg/0.5 Ml Vial.neb 1 Vial NEB Q6HRS Aspirin 81 Mg Tab.chew 1 Tab PO DAILY Metformin Hcl 1,000 Mg Tablet 500 Mg PO BIDWMEALS NITROGLYCERIN SubLingual (Nitroglycerin) 0.4 Mg Tab.subl 1 Tab SL UD Cetirizine Hcl 10 Mg Tablet 1 Tab PO PRN QHS Omeprazole 20 Mg Capsule.dr 1 Cap PO DAILY Albuterol Sulfate Conc Neb Soln (Albuterol Sulfate) 2.5 Mg/0.5 Ml Vial.neb 3 Mg NEB TID PRN Tessalon Perle (Benzonatate) 100 Mg Capsule 100 Mg PO Q4HRS PRN Clopidogrel (Clopidogrel Bisulfate) 75 Mg Tablet 75 Mg PO DAILY Allergies Allergies: Coded Allergies: Iodinated Contrast- Oral and IV Dye (Verified Allergy, Intermediate, hives, 04/23/18) Penicillins (Verified Allergy, Intermediate, "PASSES OUT", 04/22/18) Pkcjjti-Kyc-Hug Reductase Inhibitor (Verified Allergy, Intermediate, 04/22/18) erythromycin base (Verified Allergy, Intermediate, 04/22/18) iodine (Verified Allergy, Intermediate, 04/22/18) lisinopril (Verified Allergy, Intermediate, 04/22/18) niacin (Verified Allergy, Intermediate, 04/22/18) sertraline (Verified Allergy, Intermediate, 04/22/18) simvastatin (Verified Allergy, Intermediate, 04/22/18) fluvastatin (Verified Adverse Reaction, Intermediate, muscle cramping, 04/23/18) pravastatin (Verified Adverse Reaction, Intermediate, muscle cramping, 04/23/18) rosuvastatin (Verified Adverse Reaction, Intermediate, muscle cramping, 04/23/18) ROS General: YES: Fatigue, Malaise, Appetite PSYCHOLOGICAL ROS: YES: Anxiety, Behavioral Disorder, Concentration difficultie , Disorientation, Memory difficulties; No: Decreased libido, Depression, Hallucinations, Hostility, Irritablity, Mood Swings, Obsessive thoughts, Physical abuse, Sexual abuse, Sleep disturbances, Suicidal ideation, Other Eyes: No Blurry vision, No Decreased vision, No Double vision, No Dry eyes, No Excessive tearing, No Eye Pain, No Itchy Eyes, No Loss of vision, No Photophobia, No Scotomata, No Uses contacts, No Uses glasses, No Other HEENT: No: Heacaches, Visual Changes, Hearing change, Nasal congestion, Nasal discharge, Oral lesions, Sinus pain, Sore Throat, Epistaxis, Sneezing, Snoring, Tinnitus, Vertigo, Vocal changes, Other ALLERGY AND IMMUNOLOGY: No: Hives, Insect Bite Sensitivity, Itchy/Watery Eyes, Nasal Congestion, Post Nasal Drip, Seasonal Allergies, Other Hematological and Lymphatic: No: Bleeding Problems, Blood Clots, Blood Transfusions, Brusing, Night Sweats, Pallor, Swollen Lymph Nodes, Other ENDOCRINE: No: Breast Changes, Galactorrhea, Hair Pattern Changes, Hot Flashes, Malaise/lethargy, Mood Swings, Palpitations, Polydipsia/polyuria, Skin Changes, Temperature Intolerance, Unexpected Weight Changes, Other Breast: No New/Changing Breast Lumps, No Nipple changes, No Nipple discharge, No Other Respiratory: No: Cough, Hemoptysis, Orthopnea, Pleuritic Pain, Shortness of breath, SOB with excertion, Sputum Changes, Stridor, Tachypnea, Wheezing, Other Cardiovascular: No Chest Pain, No Palpitations, No Orthopnea, No Paroxysmal Noc. Dyspnea, No Edema, No Lt Headedness, No Other Gastrointestinal: No Nausea, No Vomiting, No Abdominal Pain, No Diarrhea, No Constipation, No Melena, No Hematochezia, No Other Genitourinary: No Dysuria, No Frequency, No Incontinence, No Hematuria, No Retention, No Discharge, No Urgency, No Pain, No Flank Pain, No Other, No , No , No , No , No , No , No Musculoskeletal: No Gait Disturbance, No Joint Pain, No Joint Stiffness, No Joint Swelling, No Muscle Pain, No Muscular Weakness, No Pain In:, No Swelling In:, No Other Neurological: Yes Confusion, Yes Memory Loss, Yes Seizures; No Behavorial Changes, No Bowel/Bladder ControlChng, No Dizziness, No Gait Disturbance, No Headaches, No Impaired Coord/balance, No Numbness/Tingling, No Speech Problems, No Tremors, No Visual Changes, No Weakness, No Other Skin: No Dry Skin, No Eczema, No Hair Changes, No Lumps, No Mole Changes, No Mottling, No Nail Changes, No Pruritus, No Rash, No Skin Lesion Changes, No Other, No Acne Physical Exam General: Alert, Cooperative, No acute distress HEENT: Atraumatic, PERRLA, EOMI, Mucous membr. moist/pink Lungs: Clear to auscultation, Normal air movement Heart: S1S2, RRR, no gallops, no murmurs Abdomen: Normal bowel sounds, Soft, No tenderness, No hepatosplenomegaly, No masses Extremities: No clubbing, No cyanosis, No edema, Normal pulses, No tenderness/swelling Skin: No rashes, No breakdown, No significant lesion Neuro: Strength at 5/5 X4 ext, Cranial nerves 3-12 NL, Reflexes 2+ Vitals Vitals Vital Signs Date Time Temp Pulse Resp B/P (MAP) Pulse Ox O2 Delivery O2 Flow Rate FiO2 01/31/19 17:00 62 99 01/31/19 16:30 12 01/31/19 12:50 97.9 167/67 (100) Nasal Cannula 97.9 Labs Labs Laboratory Tests Test 01/31/19 13:01 01/31/19 14:54 01/31/19 15:03 White Blood Count 12.7 x10^3/uL (4.0-11.0) Red Blood Count 3.50 x10^6/uL (4.30-5.70) Hemoglobin 10.6 g/dL (13.0-17.5) Hematocrit 32.7 % (39.0-53.0) Mean Corpuscular Volume 93 fL (79-100) Mean Corpuscular Hemoglobin 30 pg (25-35) Mean Corpuscular Hemoglobin Concent 33 g/dL (31-37) Red Cell Distribution Width 13.7 % (11.5-14.5) Platelet Count 318 x10^3/uL (140-400) Neutrophils (%) (Auto) 57 % (31-73) Lymphocytes (%) (Auto) 31 % (24-48) Monocytes (%) (Auto) 8 % (0-9) Eosinophils (%) (Auto) 3 % (0-3) Basophils (%) (Auto) 1 % (0-3) Neutrophils # (Auto) 7.3 x10^3uL (1.8-7.7) Lymphocytes # (Auto) 3.9 x10^3/uL (1.0-4.8) Monocytes # (Auto) 1.1 x10^3/uL (0.0-1.1) Eosinophils # (Auto) 0.4 x10^3/uL (0.0-0.7) Basophils # (Auto) 0.1 x10^3/uL (0.0-0.2) Prothrombin Time 12.9 SEC (11.7-14.0) Prothromb Time International Ratio 1.0 (0.8-1.1) Activated Partial Thromboplast Time 34 SEC (24-38) Sodium Level 144 mmol/L (136-145) Potassium Level 4.6 mmol/L (3.5-5.1) Chloride Level 104 mmol/L (98-107) Carbon Dioxide Level 34 mmol/L (21-32) Anion Gap 6 (6-14) Blood Urea Nitrogen 51 mg/dL (8-26) Creatinine 1.7 mg/dL (0.7-1.3) Estimated GFR (Cockcroft-Gault) 40.4 BUN/Creatinine Ratio 30 (6-20) Glucose Level 57 mg/dL (70-99) Lactic Acid Level 1.1 mmol/L (0.4-2.0) Calcium Level 8.9 mg/dL (8.5-10.1) Total Bilirubin 0.2 mg/dL (0.2-1.0) Aspartate Amino Transf (AST/SGOT) 17 U/L (15-37) Alanine Aminotransferase (ALT/SGPT) 18 U/L (16-63) Alkaline Phosphatase 92 U/L (46-116) Creatine Kinase 50 U/L (39-308) Creatine Kinase MB (Mass) 0.5 ng/mL (0.0-3.6) Creatine Kinase MB Relative Index % (0-4) Troponin I Quantitative < 0.017 ng/mL (0.000-0.055) Total Protein 7.2 g/dL (6.4-8.2) Albumin 3.0 g/dL (3.4-5.0) Albumin/Globulin Ratio 0.7 (1.0-1.7) Glucose (Fingerstick) 49 mg/dL (70-99) Urine Opiates Screen Neg (NEG) Urine Methadone Screen Neg (NEG) Urine Barbiturates Neg (NEG) Urine Phencyclidine Screen Neg (NEG) Urine Amphetamine/Methamphetamine Neg (NEG) Urine Benzodiazepines Screen Pos (NEG) Urine Cocaine Screen Neg (NEG) Urine Cannabinoids Screen Neg (NEG) Urine Ethyl Alcohol Neg (NEG) Laboratory Tests Test 01/31/19 13:01 01/31/19 14:54 01/31/19 15:03 White Blood Count 12.7 x10^3/uL (4.0-11.0) Red Blood Count 3.50 x10^6/uL (4.30-5.70) Hemoglobin 10.6 g/dL (13.0-17.5) Hematocrit 32.7 % (39.0-53.0) Mean Corpuscular Volume 93 fL (79-100) Mean Corpuscular Hemoglobin 30 pg (25-35) Mean Corpuscular Hemoglobin Concent 33 g/dL (31-37) Red Cell Distribution Width 13.7 % (11.5-14.5) Platelet Count 318 x10^3/uL (140-400) Neutrophils (%) (Auto) 57 % (31-73) Lymphocytes (%) (Auto) 31 % (24-48) Monocytes (%) (Auto) 8 % (0-9) Eosinophils (%) (Auto) 3 % (0-3) Basophils (%) (Auto) 1 % (0-3) Neutrophils # (Auto) 7.3 x10^3uL (1.8-7.7) Lymphocytes # (Auto) 3.9 x10^3/uL (1.0-4.8) Monocytes # (Auto) 1.1 x10^3/uL (0.0-1.1) Eosinophils # (Auto) 0.4 x10^3/uL (0.0-0.7) Basophils # (Auto) 0.1 x10^3/uL (0.0-0.2) Prothrombin Time 12.9 SEC (11.7-14.0) Prothromb Time International Ratio 1.0 (0.8-1.1) Activated Partial Thromboplast Time 34 SEC (24-38) Sodium Level 144 mmol/L (136-145) Potassium Level 4.6 mmol/L (3.5-5.1) Chloride Level 104 mmol/L (98-107) Carbon Dioxide Level 34 mmol/L (21-32) Anion Gap 6 (6-14) Blood Urea Nitrogen 51 mg/dL (8-26) Creatinine 1.7 mg/dL (0.7-1.3) Estimated GFR (Cockcroft-Gault) 40.4 BUN/Creatinine Ratio 30 (6-20) Glucose Level 57 mg/dL (70-99) Lactic Acid Level 1.1 mmol/L (0.4-2.0) Calcium Level 8.9 mg/dL (8.5-10.1) Total Bilirubin 0.2 mg/dL (0.2-1.0) Aspartate Amino Transf (AST/SGOT) 17 U/L (15-37) Alanine Aminotransferase (ALT/SGPT) 18 U/L (16-63) Alkaline Phosphatase 92 U/L (46-116) Creatine Kinase 50 U/L (39-308) Creatine Kinase MB (Mass) 0.5 ng/mL (0.0-3.6) Creatine Kinase MB Relative Index % (0-4) Troponin I Quantitative < 0.017 ng/mL (0.000-0.055) Total Protein 7.2 g/dL (6.4-8.2) Albumin 3.0 g/dL (3.4-5.0) Albumin/Globulin Ratio 0.7 (1.0-1.7) Glucose (Fingerstick) 49 mg/dL (70-99) Urine Opiates Screen Neg (NEG) Urine Methadone Screen Neg (NEG) Urine Barbiturates Neg (NEG) Urine Phencyclidine Screen Neg (NEG) Urine Amphetamine/Methamphetamine Neg (NEG) Urine Benzodiazepines Screen Pos (NEG) Urine Cocaine Screen Neg (NEG) Urine Cannabinoids Screen Neg (NEG) Urine Ethyl Alcohol Neg (NEG) Images Images CT Head - 1. No evidence of acute intracranial hemorrhage or mass. 2. Mild chronic small vessel ischemic changes and atrophy. VTE Prophylaxis Ordered VTE Prophylaxis Devices: Yes VTE Pharmacological Prophylaxi: Yes Assessment/Plan Assessment/Plan A/P: Seizure episode - previously diagnosed with psychogenic nonepileptic seizures. This is almost assuredly 2/2 hypoglycemia this time History of psychogenic nonepileptic seizures - seen at [place], no organic epilepsy. Has been off keppra for some time. Will consult neurology Diabetic neuropathy - plays a role in his gait Long-standing multifactorial gait disorder - diabetic neuropathy related. PT to see Diabetes - will place on basal bolus plus regimen, Hypoglycemia - D5 overnight, back on insulin in AM Hypertension - cont meds. Check orthostatics and holding parameters CHF - diastolic, does not seem to be in exacerbation, however, his lasix and aldactone have bee held recently. Seen by cards and had recent echo showing grade 1 diastolic dysfunction Alzheimer disease - on aricept. I will hold this in light of his admitting diagnosis of falls. Would be better off this med considering this may be a side effect [place] on CKD - Baseline cr is 1.2, now is Cr 1.7, likely vasomotor nephropathy. will give some IVF, D5 overnight. His [place] may contribute to his hypoglycemia Protein calorie malnutrition - mild, will get import/export agent involved FEN - ADA cardiac diet PPX - heparin FULL CODE Inpatient for recurrent seizure-like episodes at least 2 midnights CATERINA BAIRES MD January 31, 2019 17:40
[2019-01-31] MEDS ORDERED: NITROGLYCERIN SUBLINGUAL 0.4 MG BOTTLE OF 25. SL SCH (20:30)
[2019-01-31] MEDS ORDERED: ACETAMINOPHEN 325 MG TABLET. PO PRN (20:30)
[2019-01-31] MEDS ORDERED: CETIRIZINE HCL 10 MG TABLET. PO PRN (20:30)
[2019-01-31] MEDS: DOCUSATE SODIUM 100 MG CAPSULE. PO SCH (21:00)
[2019-01-31] MEDS: SENNOSIDES/DOCUSATE 8.6/50MG TABLET. PO SCH (21:00)
[2019-01-31 21:23] VITALS: BP 143/72
[2019-01-31] MEDS: diphenhydrAMINE HCL 25 MG CAPSULE PO SCH (22:17)
[2019-01-31] MEDS: IV DEXTROSE 5 %-0.45 % NACL 1,000 ML IV SCH (22:17)
[2019-01-31] MEDS: HEPARIN for SUB-Q USE 5,000 UNIT/ML VIAL. SQ SCH (22:23)
[2019-01-31 22:53] VITALS: BP 148/59
--- NOTE | 2019-01-31 23:04 | NUR ---
Around 2254, Pat BROWN was about to check v/s, pt wasn't in the room. Security and open hearth stockyard supervisor notified. Addendum: 01/31/19 at 2313 by FELA MAK RN Above note was incorrectly entered, wrong pt.
[2019-02-01 03:00] VITALS: BP 133/64
[2019-02-01 05:10] LABS: BASO # 0.1 x10^3/uL (0.0-0.2); BASO % 1 % (0-3); EOS # 0.4 x10^3/uL (0.0-0.7); EOS % 4 % (0-3); HEMOGLOBIN 10.5 g/dL (13.0-17.5); LYMPH # 2.7 x10^3/uL (1.0-4.8); LYMPH % 30 % (24-48); MEAN CORPUSCULAR HEMOGLOBIN 31 pg (25-35); MEAN CORPUSCULAR HGB CONC 33 g/dL (31-37); MEAN CORPUSCULAR VOLUME 93 fL (79-100); MONO # 0.8 x10^3/uL (0.0-1.1); MONO % 8 % (0-9); NEUT # 5.2 x10^3uL (1.8-7.7); NEUT % 57 % (31-73); PLATELET COUNT 303 x10^3/uL (140-400); RED BLOOD COUNT 3.45 x10^6/uL (4.30-5.70); WHITE BLOOD COUNT 9.2 x10^3/uL (4.0-11.0)
[2019-02-01 05:58] LABS: CALCIUM 8.5 mg/dL (8.5-10.1); CREATININE 1.5 mg/dL (0.7-1.3); GFR 46.7; POTASSIUM 4.4 mmol/L (3.5-5.1)
[2019-02-01 06:32] VITALS: BP 132/67
[2019-02-01] MEDS: DEXTROSE 50% 25 GM / 50ML DISP.SYRIN. IV PRN (07:06)
--- NOTE | 2019-02-01 07:30 | EKG ---
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
[2019-02-01] MEDS: BUDESONIDE 0.5 MG/2 ML NEBU. NEB SCH ×2 (08:00→19:48)
[2019-02-01] MEDS: INSULIN LISPRO 300 UNITS/3 ML INSULN.PEN. SQ SCH ×3 (08:00→20:16)
--- NOTE | 2019-02-01 08:01 | NUR ---
Rapid Response called at 0710. Prior to arrival, patient's glucose 41, dextrose given by RN on 5N. When DEDICATED LOCAL TRUCK DRIVER arrived, glu 112. See labs. Patient was initially not responsive. VS WNL. Stable airway. After ~2-3 min, patient aroused. Was able to answer questions appropriately. After a few minutes, patient had several short episodes of seizure-like activity. Patient's primary RN called Dr. Stoner and Dr. Sanchez. Orders for Ativan, Keppra, D10 IVF received. Patient's VS remained stable and was a/o x4 when seizure activity stopped. Rails on bed are padded. Patient a/o x4 when RN left room. Ativan 1mg given IVP. Glu remains 90-[address] Stoner told RN that he would be on unit shortly. EKG WNL, Patient stable at this time. Remains in room 506. See assessments, VS, EMAR.
--- NOTE | 2019-02-01 08:25 | NUR ---
This RN was notified by STEPHANIE Edmonds that glucose this morning was 41. Dextrose was given while bedside handover was being done with on coming RN, Anne Marie. Pt was responsive, answering questions appropriately. He was still talking when he just started to have some seizure activity lasting for like 30 secs and then stopped talking and wasnt responding. v/s within normal limits. Rapid was called. Dr Sanchez and Dr Stoner were paged. This RN talked to Dr Sanchez while the rapid team was in the room and orders were received. See rapid notes. Pt had been oriented post seizure episodes. Dr Stoner ordered present fluids to be increased to 100cc/hr. Pt had a lunch box last night in as much as his glucose was in the low side. (see labs) No seizure activity noted during the night. Pt also had benadryl last night as he takes it at home too. Placed pt on oxygen due to hx of sleep apnea and he doesnt have his machine. Glucose was checked @ around 0300am or so, and it was 109. Pt was alert and oriented when rounded @ 0600 and pt even asked for coffee.
--- NOTE | 2019-02-01 08:54 | PDOC ---
PROGRESS NOTES Chief Complaint Chief Complaint A/P: Seizure episode - previously diagnosed with psychogenic nonepileptic seizures. This is almost assuredly 2/2 hypoglycemia this time History of psychogenic nonepileptic seizures - seen at [facility], no organic epilepsy. Has been off keppra for some time. Will consult neurology Diabetic neuropathy - plays a role in his gait Long-standing multifactorial gait disorder - diabetic neuropathy related. PT to see Diabetes - will place on basal bolus plus regimen, Hypoglycemia - D5 overnight, back on insulin in AM Hypertension - cont meds. Check orthostatics and holding parameters CHF - diastolic, does not seem to be in exacerbation, however, his lasix and aldactone have bee held recently. Seen by cards and had recent echo showing grade 1 diastolic dysfunction Alzheimer disease - on aricept. I will hold this in light of his admitting diagnosis of falls. Would be better off this med considering this may be a side effect [place] on CKD - Baseline cr is 1.2, now is Cr 1.7-->1.5 overnight, likely vasomotor nephropathy. will give some IVF, D5 overnight. His [place] may contribute to his hypoglycemia Protein calorie malnutrition - mild, will get paper tester involved FEN - ADA cardiac diet PPX - heparin FULL CODE Inpatient for recurrent seizure-like episodes at least 2 midnights History of Present Illness History of Present Illness 67 yo male with a history of multiple medical problems including diabetes, hypertension, CHF, kidney disease, dementia, depression, peripheral neuropathy, GERD, CVA, seizures, COPD, DM2 who presented to the ED after he has had a total of 7 clonic episodes lasting 1-2 minutes with rapid recovery since 1130 this morning 3 of which were witnessed in the ED. Patient received 10 mg of midazolam in the field. Patient states that in 2014 he had a CVA and began to experience seizures in 2017 for which he was prescribed Keppra after having inpatient evaluation by a neurologist. 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 His most recent hospitalization was November of this year for seizure like activity, seen by neurology at that time. Lactate was WNL this time. Patient denies any pain, denies any shortness of breath. He states his legs usually give out and the daughter is always available to help him but yesterday she was not at home. Denies any neck pain. He is morbidly obese EKG - : First degree AV block with MO of 224 ms. Rate of 67. Left axis deviation present. Q waves present in III and aVF. No T wave inversion. No ST segment elevation or depression Overnight had glucose controlled on D5 gtt, however, had low glucose 41 this m orning, corrected to >100, did have some shaking activity x2 noted by nursing staff x 4 total episodes, was given ativan when the last episode lasted greater than 2 minutes. Lactate was 0.9. Plan: Consult neurology Increase D5 infusion to 100cc/hr Poc glucose now and Q4 hours Vitals Vitals Vital Signs Date Time Temp Pulse Resp B/P (MAP) Pulse Ox O2 Delivery O2 Flow Rate FiO2 02/01/19 06:32 97.5 65 18 132/67 (88) 97 Nasal Cannula 2.0 97.5 Physical Exam General: Alert, Cooperative, No acute distress Lungs: Clear, Other Abdomen: Normal bowel sounds, Soft, No tenderness, No hepatosplenomegaly, No masses Extremities: No clubbing, No cyanosis, No edema, Normal pulses, No tenderness/swelling Skin: No rashes, No breakdown, No significant lesion Labs LABS Laboratory Tests Test 01/31/19 13:01 01/31/19 14:54 01/31/19 15:03 01/31/19 17:20 White Blood Count 12.7 x10^3/uL (4.0-11.0) Red Blood Count 3.50 x10^6/uL (4.30-5.70) Hemoglobin 10.6 g/dL (13.0-17.5) Hematocrit 32.7 % (39.0-53.0) Mean Corpuscular Volume 93 fL (79-100) Mean Corpuscular Hemoglobin 30 pg (25-35) Mean Corpuscular Hemoglobin Concent 33 g/dL (31-37) Red Cell Distribution Width 13.7 % (11.5-14.5) Platelet Count 318 x10^3/uL (140-400) Neutrophils (%) (Auto) 57 % (31-73) Lymphocytes (%) (Auto) 31 % (24-48) Monocytes (%) (Auto) 8 % (0-9) Eosinophils (%) (Auto) 3 % (0-3) Basophils (%) (Auto) 1 % (0-3) Neutrophils # (Auto) 7.3 x10^3uL (1.8-7.7) Lymphocytes # (Auto) 3.9 x10^3/uL (1.0-4.8) Monocytes # (Auto) 1.1 x10^3/uL (0.0-1.1) Eosinophils # (Auto) 0.4 x10^3/uL (0.0-0.7) Basophils # (Auto) 0.1 x10^3/uL (0.0-0.2) Prothrombin Time 12.9 SEC (11.7-14.0) Prothromb Time International Ratio 1.0 (0.8-1.1) Activated Partial Thromboplast Time 34 SEC (24-38) Sodium Level 144 mmol/L (136-145) Potassium Level 4.6 mmol/L (3.5-5.1) Chloride Level 104 mmol/L (98-107) Carbon Dioxide Level 34 mmol/L (21-32) Anion Gap 6 (6-14) Blood Urea Nitrogen 51 mg/dL (8-26) Creatinine 1.7 mg/dL (0.7-1.3) Estimated GFR (Cockcroft-Gault) 40.4 BUN/Creatinine Ratio 30 (6-20) Glucose Level 57 mg/dL (70-99) Lactic Acid Level 1.1 mmol/L (0.4-2.0) Calcium Level 8.9 mg/dL (8.5-10.1) Total Bilirubin 0.2 mg/dL (0.2-1.0) Aspartate Amino Transf (AST/SGOT) 17 U/L (15-37) Alanine Aminotransferase (ALT/SGPT) 18 U/L (16-63) Alkaline Phosphatase 92 U/L (46-116) Creatine Kinase 50 U/L (39-308) Creatine Kinase MB (Mass) 0.5 ng/mL (0.0-3.6) Creatine Kinase MB Relative Index % (0-4) Troponin I Quantitative < 0.017 ng/mL (0.000-0.055) Total Protein 7.2 g/dL (6.4-8.2) Albumin 3.0 g/dL (3.4-5.0) Albumin/Globulin Ratio 0.7 (1.0-1.7) Glucose (Fingerstick) 49 mg/dL (70-99) 73 mg/dL (70-99) Urine Opiates Screen Neg (NEG) Urine Methadone Screen Neg (NEG) Urine Barbiturates Neg (NEG) Urine Phencyclidine Screen Neg (NEG) Urine Amphetamine/Methamphetamine Neg (NEG) Urine Benzodiazepines Screen Pos (NEG) Urine Cocaine Screen Neg (NEG) Urine Cannabinoids Screen Neg (NEG) Urine Ethyl Alcohol Neg (NEG) Test 01/31/19 18:41 01/31/19 21:17 02/01/19 02:28 02/01/19 03:55 Glucose (Fingerstick) 98 mg/dL (70-99) 78 mg/dL (70-99) 109 mg/dL (70-99) White Blood Count 9.2 x10^3/uL (4.0-11.0) Red Blood Count 3.45 x10^6/uL (4.30-5.70) Hemoglobin 10.5 g/dL (13.0-17.5) Hematocrit 32.0 % (39.0-53.0) Mean Corpuscular Volume 93 fL (79-100) Mean Corpuscular Hemoglobin 31 pg (25-35) Mean Corpuscular Hemoglobin Concent 33 g/dL (31-37) Red Cell Distribution Width 14.0 % (11.5-14.5) Platelet Count 303 x10^3/uL (140-400) Neutrophils (%) (Auto) 57 % (31-73) Lymphocytes (%) (Auto) 30 % (24-48) Monocytes (%) (Auto) 8 % (0-9) Eosinophils (%) (Auto) 4 % (0-3) Basophils (%) (Auto) 1 % (0-3) Neutrophils # (Auto) 5.2 x10^3uL (1.8-7.7) Lymphocytes # (Auto) 2.7 x10^3/uL (1.0-4.8) Monocytes # (Auto) 0.8 x10^3/uL (0.0-1.1) Eosinophils # (Auto) 0.4 x10^3/uL (0.0-0.7) Basophils # (Auto) 0.1 x10^3/uL (0.0-0.2) Sodium Level 144 mmol/L (136-145) Potassium Level 4.4 mmol/L (3.5-5.1) Chloride Level 105 mmol/L (98-107) Carbon Dioxide Level 34 mmol/L (21-32) Anion Gap 5 (6-14) Blood Urea Nitrogen 48 mg/dL (8-26) Creatinine 1.5 mg/dL (0.7-1.3) Estimated GFR (Cockcroft-Gault) 46.7 Glucose Level 89 mg/dL (70-99) Calcium Level 8.5 mg/dL (8.5-10.1) Thyroid Stimulating Hormone (TSH) 0.824 uIU/mL (0.358-3.74) Test 02/01/19 07:00 02/01/19 07:15 02/01/19 07:29 02/01/19 07:38 Glucose (Fingerstick) 41 mg/dL (70-99) 112 mg/dL (70-99) 97 mg/dL (70-99) 95 mg/dL (70-99) Test 02/01/19 07:49 02/01/19 07:50 Glucose (Fingerstick) 99 mg/dL (70-99) Lactic Acid Level 0.6 mmol/L (0.4-2.0) Ammonia 20 mcmol/L (11-34) Assessment and Plan Assessmemt and Plan Problems Medical Problems: (1) Hypoglycemia Status: Acute (2) Seizure-like activity Status: Acute Comment Review of Relevant I have reviewed the following items yuliya (where applicable) has been applied. Labs Laboratory Tests Test 01/31/19 13:01 01/31/19 14:54 01/31/19 15:03 01/31/19 17:20 White Blood Count 12.7 x10^3/uL (4.0-11.0) Red Blood Count 3.50 x10^6/uL (4.30-5.70) Hemoglobin 10.6 g/dL (13.0-17.5) Hematocrit 32.7 % (39.0-53.0) Mean Corpuscular Volume 93 fL (79-100) Mean Corpuscular Hemoglobin 30 pg (25-35) Mean Corpuscular Hemoglobin Concent 33 g/dL (31-37) Red Cell Distribution Width 13.7 % (11.5-14.5) Platelet Count 318 x10^3/uL (140-400) Neutrophils (%) (Auto) 57 % (31-73) Lymphocytes (%) (Auto) 31 % (24-48) Monocytes (%) (Auto) 8 % (0-9) Eosinophils (%) (Auto) 3 % (0-3) Basophils (%) (Auto) 1 % (0-3) Neutrophils # (Auto) 7.3 x10^3uL (1.8-7.7) Lymphocytes # (Auto) 3.9 x10^3/uL (1.0-4.8) Monocytes # (Auto) 1.1 x10^3/uL (0.0-1.1) Eosinophils # (Auto) 0.4 x10^3/uL (0.0-0.7) Basophils # (Auto) 0.1 x10^3/uL (0.0-0.2) Prothrombin Time 12.9 SEC (11.7-14.0) Prothromb Time International Ratio 1.0 (0.8-1.1) Activated Partial Thromboplast Time 34 SEC (24-38) Sodium Level 144 mmol/L (136-145) Potassium Level 4.6 mmol/L (3.5-5.1) Chloride Level 104 mmol/L (98-107) Carbon Dioxide Level 34 mmol/L (21-32) Anion Gap 6 (6-14) Blood Urea Nitrogen 51 mg/dL (8-26) Creatinine 1.7 mg/dL (0.7-1.3) Estimated GFR (Cockcroft-Gault) 40.4 BUN/Creatinine Ratio 30 (6-20) Glucose Level 57 mg/dL (70-99) Lactic Acid Level 1.1 mmol/L (0.4-2.0) Calcium Level 8.9 mg/dL (8.5-10.1) Total Bilirubin 0.2 mg/dL (0.2-1.0) Aspartate Amino Transf (AST/SGOT) 17 U/L (15-37) Alanine Aminotransferase (ALT/SGPT) 18 U/L (16-63) Alkaline Phosphatase 92 U/L (46-116) Creatine Kinase 50 U/L (39-308) Creatine Kinase MB (Mass) 0.5 ng/mL (0.0-3.6) Creatine Kinase MB Relative Index % (0-4) Troponin I Quantitative < 0.017 ng/mL (0.000-0.055) Total Protein 7.2 g/dL (6.4-8.2) Albumin 3.0 g/dL (3.4-5.0) Albumin/Globulin Ratio 0.7 (1.0-1.7) Glucose (Fingerstick) 49 mg/dL (70-99) 73 mg/dL (70-99) Urine Opiates Screen Neg (NEG) Urine Methadone Screen Neg (NEG) Urine Barbiturates Neg (NEG) Urine Phencyclidine Screen Neg (NEG) Urine Amphetamine/Methamphetamine Neg (NEG) Urine Benzodiazepines Screen Pos (NEG) Urine Cocaine Screen Neg (NEG) Urine Cannabinoids Screen Neg (NEG) Urine Ethyl Alcohol Neg (NEG) Test 01/31/19 18:41 01/31/19 21:17 02/01/19 02:28 02/01/19 03:55 Glucose (Fingerstick) 98 mg/dL (70-99) 78 mg/dL (70-99) 109 mg/dL (70-99) White Blood Count 9.2 x10^3/uL (4.0-11.0) Red Blood Count 3.45 x10^6/uL (4.30-5.70) Hemoglobin 10.5 g/dL (13.0-17.5) Hematocrit 32.0 % (39.0-53.0) Mean Corpuscular Volume 93 fL (79-100) Mean Corpuscular Hemoglobin 31 pg (25-35) Mean Corpuscular Hemoglobin Concent 33 g/dL (31-37) Red Cell Distribution Width 14.0 % (11.5-14.5) Platelet Count 303 x10^3/uL (140-400) Neutrophils (%) (Auto) 57 % (31-73) Lymphocytes (%) (Auto) 30 % (24-48) Monocytes (%) (Auto) 8 % (0-9) Eosinophils (%) (Auto) 4 % (0-3) Basophils (%) (Auto) 1 % (0-3) Neutrophils # (Auto) 5.2 x10^3uL (1.8-7.7) Lymphocytes # (Auto) 2.7 x10^3/uL (1.0-4.8) Monocytes # (Auto) 0.8 x10^3/uL (0.0-1.1) Eosinophils # (Auto) 0.4 x10^3/uL (0.0-0.7) Basophils # (Auto) 0.1 x10^3/uL (0.0-0.2) Sodium Level 144 mmol/L (136-145) Potassium Level 4.4 mmol/L (3.5-5.1) Chloride Level 105 mmol/L (98-107) Carbon Dioxide Level 34 mmol/L (21-32) Anion Gap 5 (6-14) Blood Urea Nitrogen 48 mg/dL (8-26) Creatinine 1.5 mg/dL (0.7-1.3) Estimated GFR (Cockcroft-Gault) 46.7 Glucose Level 89 mg/dL (70-99) Calcium Level 8.5 mg/dL (8.5-10.1) Thyroid Stimulating Hormone (TSH) 0.824 uIU/mL (0.358-3.74) Test 02/01/19 07:00 02/01/19 07:15 02/01/19 07:29 02/01/19 07:38 Glucose (Fingerstick) 41 mg/dL (70-99) 112 mg/dL (70-99) 97 mg/dL (70-99) 95 mg/dL (70-99) Test 02/01/19 07:49 02/01/19 07:50 Glucose (Fingerstick) 99 mg/dL (70-99) Lactic Acid Level 0.6 mmol/L (0.4-2.0) Ammonia 20 mcmol/L (11-34) Laboratory Tests Test 01/31/19 13:01 01/31/19 14:54 01/31/19 15:03 01/31/19 17:20 White Blood Count 12.7 x10^3/uL (4.0-11.0) Red Blood Count 3.50 x10^6/uL (4.30-5.70) Hemoglobin 10.6 g/dL (13.0-17.5) Hematocrit 32.7 % (39.0-53.0) Mean Corpuscular Volume 93 fL (79-100) Mean Corpuscular Hemoglobin 30 pg (25-35) Mean Corpuscular Hemoglobin Concent 33 g/dL (31-37) Red Cell Distribution Width 13.7 % (11.5-14.5) Platelet Count 318 x10^3/uL (140-400) Neutrophils (%) (Auto) 57 % (31-73) Lymphocytes (%) (Auto) 31 % (24-48) Monocytes (%) (Auto) 8 % (0-9) Eosinophils (%) (Auto) 3 % (0-3) Basophils (%) (Auto) 1 % (0-3) Neutrophils # (Auto) 7.3 x10^3uL (1.8-7.7) Lymphocytes # (Auto) 3.9 x10^3/uL (1.0-4.8) Monocytes # (Auto) 1.1 x10^3/uL (0.0-1.1) Eosinophils # (Auto) 0.4 x10^3/uL (0.0-0.7) Basophils # (Auto) 0.1 x10^3/uL (0.0-0.2) Prothrombin Time 12.9 SEC (11.7-14.0) Prothromb Time International Ratio 1.0 (0.8-1.1) Activated Partial Thromboplast Time 34 SEC (24-38) Sodium Level 144 mmol/L (136-145) Potassium Level 4.6 mmol/L (3.5-5.1) Chloride Level 104 mmol/L (98-107) Carbon Dioxide Level 34 mmol/L (21-32) Anion Gap 6 (6-14) Blood Urea Nitrogen 51 mg/dL (8-26) Creatinine 1.7 mg/dL (0.7-1.3) Estimated GFR (Cockcroft-Gault) 40.4 BUN/Creatinine Ratio 30 (6-20) Glucose Level 57 mg/dL (70-99) Lactic Acid Level 1.1 mmol/L (0.4-2.0) Calcium Level 8.9 mg/dL (8.5-10.1) Total Bilirubin 0.2 mg/dL (0.2-1.0) Aspartate Amino Transf (AST/SGOT) 17 U/L (15-37) Alanine Aminotransferase (ALT/SGPT) 18 U/L (16-63) Alkaline Phosphatase 92 U/L (46-116) Creatine Kinase 50 U/L (39-308) Creatine Kinase MB (Mass) 0.5 ng/mL (0.0-3.6) Creatine Kinase MB Relative Index % (0-4) Troponin I Quantitative < 0.017 ng/mL (0.000-0.055) Total Protein 7.2 g/dL (6.4-8.2) Albumin 3.0 g/dL (3.4-5.0) Albumin/Globulin Ratio 0.7 (1.0-1.7) Glucose (Fingerstick) 49 mg/dL (70-99) 73 mg/dL (70-99) Urine Opiates Screen Neg (NEG) Urine Methadone Screen Neg (NEG) Urine Barbiturates Neg (NEG) Urine Phencyclidine Screen Neg (NEG) Urine Amphetamine/Methamphetamine Neg (NEG) Urine Benzodiazepines Screen Pos (NEG) Urine Cocaine Screen Neg (NEG) Urine Cannabinoids Screen Neg (NEG) Urine Ethyl Alcohol Neg (NEG) Test 01/31/19 18:41 01/31/19 21:17 02/01/19 02:28 02/01/19 03:55 Glucose (Fingerstick) 98 mg/dL (70-99) 78 mg/dL (70-99) 109 mg/dL (70-99) White Blood Count 9.2 x10^3/uL (4.0-11.0) Red Blood Count 3.45 x10^6/uL (4.30-5.70) Hemoglobin 10.5 g/dL (13.0-17.5) Hematocrit 32.0 % (39.0-53.0) Mean Corpuscular Volume 93 fL (79-100) Mean Corpuscular Hemoglobin 31 pg (25-35) Mean Corpuscular Hemoglobin Concent 33 g/dL (31-37) Red Cell Distribution Width 14.0 % (11.5-14.5) Platelet Count 303 x10^3/uL (140-400) Neutrophils (%) (Auto) 57 % (31-73) Lymphocytes (%) (Auto) 30 % (24-48) Monocytes (%) (Auto) 8 % (0-9) Eosinophils (%) (Auto) 4 % (0-3) Basophils (%) (Auto) 1 % (0-3) Neutrophils # (Auto) 5.2 x10^3uL (1.8-7.7) Lymphocytes # (Auto) 2.7 x10^3/uL (1.0-4.8) Monocytes # (Auto) 0.8 x10^3/uL (0.0-1.1) Eosinophils # (Auto) 0.4 x10^3/uL (0.0-0.7) Basophils # (Auto) 0.1 x10^3/uL (0.0-0.2) Sodium Level 144 mmol/L (136-145) Potassium Level 4.4 mmol/L (3.5-5.1) Chloride Level 105 mmol/L (98-107) Carbon Dioxide Level 34 mmol/L (21-32) Anion Gap 5 (6-14) Blood Urea Nitrogen 48 mg/dL (8-26) Creatinine 1.5 mg/dL (0.7-1.3) Estimated GFR (Cockcroft-Gault) 46.7 Glucose Level 89 mg/dL (70-99) Calcium Level 8.5 mg/dL (8.5-10.1) Thyroid Stimulating Hormone (TSH) 0.824 uIU/mL (0.358-3.74) Test 02/01/19 07:00 02/01/19 07:15 02/01/19 07:29 02/01/19 07:38 Glucose (Fingerstick) 41 mg/dL (70-99) 112 mg/dL (70-99) 97 mg/dL (70-99) 95 mg/dL (70-99) Test 02/01/19 07:49 02/01/19 07:50 Glucose (Fingerstick) 99 mg/dL (70-99) Lactic Acid Level 0.6 mmol/L (0.4-2.0) Ammonia 20 mcmol/L (11-34) Medications Current Medications Lorazepam (Ativan Inj) 1 mg 1X ONCE IV Last administered on 01/31/19at 13:43; Start 01/31/19 at 13:00; Stop 01/31/19 at 13:01; Status DC Sodium Chloride 1,000 ml @ 1,000 mls/hr 1X ONCE IV Last administered on 01/31/19at 13:41; Start 01/31/19 at 13:00; Stop 01/31/19 at 13:59; Status DC Dextrose (Dextrose 50%-Water Syringe) 25 gm 1X ONCE IV Last administered on 01/31/19at 14:55; Start 01/31/19 at 15:00; Stop 01/31/19 at 15:01; Status DC Ondansetron HCl (Zofran) 4 mg PRN Q8HRS PRN IV NAUSEA/VOMITING; Start 01/31/19 at 17:30; Stop 02/01/19 at 17:29 Insulin Human Lispro (HumaLOG) 0-5 UNITS TIDWMEALS SQ ; Start 02/01/19 at 08:00 Dextrose (Dextrose 50%-Water Syringe) 12.5 gm PRN Q15MIN PRN IV SEE COMMENTS Last administered on 02/01/19at 07:06; Start 01/31/19 at 17:30 Dextrose/Sodium Chloride 1,000 ml @ 100 mls/hr Q10H IV Last administered on 01/31/19at 22:17; Start 01/31/19 at 20:17 Ondansetron HCl (Zofran) 4 mg PRN Q6HRS PRN IV NAUSEA/VOMITING; Start 01/31/19 at 20:30 Acetaminophen (Tylenol) 650 mg PRN Q6HRS PRN PO Headaches, Temp > 101.5F; Start 01/31/19 at 20:30 Senna/Docusate Sodium (Senna Plus) 1 tab BID PO ; Start 01/31/19 at 21:00 Heparin Sodium (Porcine) (Heparin Sodium) 5,000 unit Q12HR SQ Last administered on 01/31/19at 22:23; Start 01/31/19 at 21:00 Amlodipine Besylate (Norvasc) 10 mg DAILY PO ; Start 02/01/19 at 09:00 Aspirin (Children'S Aspirin) 81 mg DAILY PO ; Start 02/01/19 at 09:00 Cetirizine HCl (ZyrTEC) 10 mg PRN QHS PRN PO ALLERGIES; Start 01/31/19 at 20:30 Vitamin D (Vitamin D3) 1,000 unit DAILY PO ; Start 02/01/19 at 09:00 Clonidine HCl (Catapres) 0.2 mg TID PRN PRN PO high blood pressure; Start 01/31/19 at 20:30 Clopidogrel Bisulfate (Plavix) 75 mg DAILY PO ; Start 02/01/19 at 09:00 Diphenhydramine HCl (Benadryl) 25 mg QHS PO Last administered on 01/31/19at 22:17; Start 01/31/19 at 21:00 Docusate Sodium (Colace) 100 mg BID PO ; Start 01/31/19 at 21:00 Insulin Glargine (Lantus) 30 units DAILY SQ ; Start 02/01/19 at 09:00 Metoprolol Succinate (Toprol Xl) 50 mg DAILY PO ; Start 02/01/19 at 09:00 Nitroglycerin (Nitrostat) 0.4 mg PRN Q5MIN SL ; Start 01/31/19 at 20:30 Tamsulosin HCl (Flomax) 0.4 mg DAILY PO ; Start 02/01/19 at 09:00 Paroxetine HCl (Paxil) 40 mg DAILY PO ; Start 02/01/19 at 09:00 Budesonide (Pulmicort) 0.5 mg RTBID NEB ; Start 02/01/19 at 08:00 Levetiracetam (Keppra) 500 mg BID PO ; Start 02/01/19 at 09:00 Lorazepam (Ativan Inj) 1 mg PRN Q4HRS PRN IV ANXIETY / AGITATION Last administered on 02/01/19at 07:49; Start 02/01/19 at 07:45 Active Scripts Active Humalog (Insulin Lispro) 100 Unit/1 Ml Insuln.pen 0 Units SQ TIDWMEALS 14 Days Paroxetine Hcl 20 Mg Tablet 40 Mg PO DAILY 30 Days Reported Flomax (Tamsulosin Hcl) 0.4 Mg Cap.er.24h 0.4 Mg PO DAILY Onglyza (Saxagliptin Hcl) 5 Mg Tablet 2.5 Mg PO DAILY Losartan Potassium 100 Mg Tablet 100 Mg PO DAILY Donepezil Hcl 10 Mg Tablet 10 Mg PO HS Clonidine Hcl 0.2 Mg Tablet 0.2 Mg PO TID PRN PRN Vitamin D3 (Cholecalciferol (Vitamin D3)) 1,000 Unit Tablet 1 Tab PO DAILY Metoprolol Succinate ( Xl ) (Metoprolol Succinate) 100 Mg Tab.er.24h 50 Mg PO DAILY Magnesium Oxide 400 Mg Tablet 1 Tab PO DAILY Gabapentin 600 Mg Tablet 600 Mg PO TID Lantus Solostar (Insulin Glargine,Hum.rec.anlog) 100 Unit/1 Ml Insuln.pen 35 Unit SQ BID Furosemide 80 Mg Tablet 40 Mg PO DAILY Docusate Sodium 100 Mg Capsule 1 Cap PO BID Benadryl (Diphenhydramine Hcl) 25 Mg Capsule 1 Cap PO QHS Budesonide 0.5 Mg/2 Ml Ampul.neb 1 Vial NEB BID Amlodipine Besylate 10 Mg Tablet 10 Mg PO DAILY Albuterol Sulfate Conc Neb Soln (Albuterol Sulfate) 2.5 Mg/0.5 Ml Vial.neb 1 Vial NEB Q6HRS Aspirin 81 Mg Tab.chew 1 Tab PO DAILY Metformin Hcl 1,000 Mg Tablet 500 Mg PO BIDWMEALS NITROGLYCERIN SubLingual (Nitroglycerin) 0.4 Mg Tab.subl 1 Tab SL UD Cetirizine Hcl 10 Mg Tablet 1 Tab PO PRN QHS Omeprazole 20 Mg Capsule.dr 1 Cap PO DAILY Albuterol Sulfate Conc Neb Soln (Albuterol Sulfate) 2.5 Mg/0.5 Ml Vial.neb 3 Mg NEB TID PRN Tessalon Perle (Benzonatate) 100 Mg Capsule 100 Mg PO Q4HRS PRN Clopidogrel (Clopidogrel Bisulfate) 75 Mg Tablet 75 Mg PO DAILY Vitals/I & O Vital Sign - Last 24 Hours 01/31/19 01/31/19 01/31/19 01/31/19 12:50 13:30 14:30 15:00 Temp 97.9 97.9 Pulse 68 67 66 68 Resp 22 17 20 B/P (MAP) 167/67 (100) Pulse Ox 97 99 97 O2 Delivery Nasal Cannula 01/31/19 01/31/19 01/31/19 01/31/19 15:30 16:00 16:30 17:00 Pulse 64 64 62 62 Resp 24 16 12 Pulse Ox 99 99 99 99 01/31/19 01/31/19 01/31/19 01/31/19 17:30 18:00 18:30 19:00 Pulse 64 62 62 62 Resp 12 13 11 14 Pulse Ox 99 99 99 99 01/31/19 01/31/19 01/31/19 01/31/19 19:30 20:00 20:30 21:10 Pulse 60 60 62 Resp 16 16 16 Pulse Ox 99 99 99 O2 Delivery Nasal Cannula O2 Flow Rate 2.0 01/31/19 01/31/19 02/01/19 02/01/19 21:23 22:53 03:00 06:32 Temp 97.6 98.1 98.1 97.5 97.6 98.1 98.1 97.5 Pulse 62 62 58 65 Resp 19 19 20 18 B/P (MAP) 143/72 (95) 148/59 (88) 133/64 (87) 132/67 (88) Pulse Ox 96 96 97 97 O2 Delivery Room Air Room Air Nasal Cannula Nasal Cannula O2 Flow Rate 2.0 2.0 Intake and Output 01/31/19 01/31/19 02/01/19 15:00 23:00 07:00 Intake Total 1000 ml 240 ml Output Total 850 ml Balance 1000 ml -610 ml CATERINA BAIRES MD February 01, 2019 08:53
[2019-02-01] MEDS ORDERED: INSULIN GLARGINE 300 UNITS/3 ML INSULN.PEN. SQ SCH ×2 (09:00→21:00)
--- NOTE | 2019-02-01 09:30 | NUR ---
Patient had additional 3 "episodes" of poss seizure activity lasting less than 30 seconds, without apnea.
[2019-02-01] MEDS: levETIRAcetam 500 MG TABLET PO SCH ×2 (09:46→20:34)
[2019-02-01] MEDS: PARoxetine 20 MG TABLET PO SCH (09:47)
[2019-02-01] MEDS: METOPROLOL SUCC 24HR ER 50 MG TAB.ER.24H. PO SCH (09:49)
[2019-02-01] MEDS: SENNOSIDES/DOCUSATE 8.6/50MG TABLET. PO SCH ×2 (09:49→20:39)
[2019-02-01] MEDS: CHOLECALCIFEROL (VITAMIN D3) 1,000 UNIT TABLET PO SCH (09:49)
[2019-02-01] MEDS: CLOPIDOGREL BISULFATE 75 MG TABLET PO SCH (09:49)
[2019-02-01] MEDS: DOCUSATE SODIUM 100 MG CAPSULE. PO SCH ×2 (09:49→20:39)
[2019-02-01] MEDS: TAMSULOSIN 0.4 MG CAP.ER.24H. PO SCH (09:49)
[2019-02-01] MEDS: ASPIRIN CHEWABLE 81 MG TABLET. PO SCH (09:49)
[2019-02-01] MEDS: amLODIPine BESYLATE 10 MG TABLET PO SCH (09:50)
[2019-02-01] MEDS: HEPARIN for SUB-Q USE 5,000 UNIT/ML VIAL. SQ SCH ×2 (09:53→20:39)
[2019-02-01 11:00] VITALS: BP 144/72
[2019-02-01 11:01] LABS: BARBITURATES NEG (NEG); BENZODIAZEPINES POS (NEG); CANNABINOIDS NEG (NEG); COCAINE NEG (NEG); METHADONE NEG (NEG); OPIATES NEG (NEG); PHENCYCLIDINE NEG (NEG)
[2019-02-01 11:02] LABS: AMPHETAMINE/METHAMPHETAMINE NEG (NEG)
--- NOTE | 2019-02-01 12:50 | NUR ---
SW following for discharge planning. Chart reviewed. Pt lives at home with family and [facility]. Will continue to follow.
[2019-02-01] MEDS: IV DEXTROSE 5 %-0.45 % NACL 1,000 ML IV SCH ×2 (13:12→22:56)
--- NOTE | 2019-02-01 14:00 | NUR ---
Patient has been given another dose of Ativan (second since admission to unit), for seizure activity, which started, then progressed in intensity (similar behavior to previous notes by this nurse.( Patient had gotten up to chair at bedside after incontinent episode in bed). Patient layed upper body over bed table, eyes closed. Dr Sanchez and Dr Stoner called, Dr Sanchez to unit,no additional orders at that time. Patient transferred back to bed with gait belt, and pushed self up in bed with cuing. FS glucose checked, WNL Reinforced safety to patient, to call for assist. bed alarm set. Bedside commode has been obtained for patient.
[2019-02-01 15:00] VITALS: BP 121/39
--- NOTE | 2019-02-01 15:00 | NUR ---
Have spoke with patient's daughter, who will bring CPAP up for patient (Patient doesn't remember his settings) Her daughter graduates in [place] today, so would be late if tonight. Have also received phone call from social work at [facility] in [place] who related that patient is now a resident, and had moved in this past month (Had been there for rehab last year). Her name is Blessing, phone# [phone]
--- NOTE | 2019-02-01 15:48 | PDOC2 ---
NEUROLOGY CONSULT Date of Admission Date of Admission DATE: 02/01/19 TIME: 15:39 Reason for Consult Reason for Consult: IMPRESSION: Non epileptic seizure like episodes. DM. COPD. CHF. BRIAN Cellulitis, LE. Old CVA. Obesity. RECOMMENDATIONS/PLAN: EEG. Keppra 500 mg bid x 1 week. Treat medical diseases. HISTORY OF THE PRESENT ILLNESS: This is a 68-year-old male patient who was brought to the ER of [facility] on 01/31/19 for evaluation of recurrent seizures. He has had a total of 7 clonic episodes lasting 1-2 minutes with rapid recovery since 11:30 am and 3 of which were witnessed in the ED. Patient received 10 mg of midazolam in the field. Patient s tates that in 2014 he had a CVA and began to experience seizures in 2016 for which he was prescribed Keppra after having inpatient evaluation by a neurologist. 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 His most recent hospitalization was November 2018 for seizure like activity. At ER, he was observed upper body shaking from [id number], his eye lids began to flutter, and he exhibited general tremulousness. The patient was responding to questions during this event and following commands such as raising extremities during the neurologic evaluation. The activity subsided in roughly a minute without altered level of consciousness nor postictal state. Patient denies headache, fever, chills, dizziness, or focal neurological deficit at this time. He states that he did not bite his tongue, lip, or cheek and did not lose bowel or bladder continence PAST MEDICAL HISTORY Past Medical History Cardiovascular: Other (pericarditis likely from infection per pt prompting pericardial window; chronic lymphedema), CAD, HTN, HLP Pulmonary: COPD, Other (BRIAN) CENTRAL NERVOUS SYSTEM: CVA, Dementia GI: Other (ventral hernia) Heme/Onc: No pertinent hx Hepatobiliary: No pertinent hx Psych: No pertinent hx Musculoskeletal: Osteoarthritis, Other (morbid obesity) Rheumatologic: No pertinent hx Infectious disease: No pertinent hx ENT: No pertinent hx Renal/: No pertinent hx Endocrine: Diabetes (2) Dermatology: Other (foot venous stasis blisters) PAST SURGICAL HISTORY PCI/stent 3 weeks ago Appendectomy, Hernia Repair (9 ventral repairs), Tonsillectomy, Other (pericardial window; LHC) FAMILY HISTORY Heart Disease (mother) SOCIAL HISTORY Social History Smoke: No (quit >30 pk yr) ALCOHOL: none Drugs: None 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 ALLERGY: Reviewed. MEDICATIONS: Refer to [facility] REVIEW OF SYSTEMS: Constitutional: No malnutrition, weight loss, cachexia. Head: No traumatic brain or head injury. Skin: No edema, or rash. Ear: No infection. Eyes: No vision loss, or diplopia. Nose: No bleeding or purulent discharges. Hearing: Hearing decrease. Neck: No injury. Cardiac: CHF Pulmonary: BRIAN. GI: No GI Ulcer, GI bleeding Urinary/genital: UTI. Endocrine: Obesity. Skeletomuscular: No muscular atrophy, deformity. Neurological: see HP. Psychiatric: Denies drug use/abuse. Otherwise, not [id number] review of systems. PHYSICAL EXAMINATION: General appearance in no acute distress. HEENT: Normocephalic and nontraumatic. Eyes, nose, ears, and throat are unremarkable. Neck is supple. No lymphadenopathy. No Crepitus. Cardiovascular: S1, S2, regular rate and rhythm. Pulmonary: Clear to auscultation bilaterally. Abdomen: Bowel sounds are positive. Extremities: No rash, lesions, or edema. No restriction of range of motion NEUROLOGICAL EXAMINATION: Awake. Oriented to time, place and person, but reaction was slow. PERRL. EOMI. CN: no focal findings. Muscle tone: within normal. Muscle strength: 5- UE, 4- LE DTR: 2 Plantar reflex: Flexor response bilaterally Gait: not examined in bed. Sensory exam: no abnormal findings. No cerebellar signs elicited. F-T-N test accurate. PAST MEDICAL HISTORY: Please see above. PAST SURGERY HISTORY: Pacemaker Placement, S/P CABG, Tonsillectomy, Appendectomy, Cholecystectomy, Hysterectomy, Hernia Repair, Neck, Shoulder, Knee surgery, No major surgery recently. ALLERGY: NKDA Unknown MEDICATIONS: Refer to [facility] FAMILY HISTORY: HTN, HLD, DM, CAD, PD, Dementia, Non contributory. SOCIAL HISTORY: Lives alone. Lives in long term. Denies smoking, drinking, and illicit drug use. He She smokes pack of cigarettes a day for years. He She drinks OZ alcohol a day for years. REVIEW OF SYSTEMS: Constitutional: No malnutrition, weight loss, cachexia. Head: No traumatic brain or head injury. Skin: No edema, or rash. Ear: No infection, tinnitus. Eyes: No vision loss or color blindness. Nose: No bleeding or purulent discharges. Hearing: No hearing decrease. Neck: No injury. Breast: No history of cancer, masses,or discharges. Cardiac: No ND, arrhythmia,claudication, CAD, s/p CABG, AFib, Pacemaker Placement, HTN, HLD. Pulmonary: No pneumonia, COPD. GI: No GI ulcer, GI bleeding, GERD. Urinary/genital: No dysuria, hematuria, incontinence, urinary retention, UTI. Endocrinologic: No cousin face, craniofacial dysmorphism, polydactyly, goiter,Diabetes Mellitus, hypothyroidism, obesity, morbid obesity. Skeletomuscular: No muscular atrophy, deformity, Generalized weakness. Neurological: see HP. Psychiatric: Denies drug use/abuse. Otherwise, not [id number] review of systems. PHYSICAL EXAMINATION: General appearance is in no acute distress. HEENT: Normocephalic and nontraumatic. Eyes, nose, ears, and throat are unremarkable. Neck is supple. No lymphadenopathy. No bruits are heard over the carotid artery. No crepitus. Cardiovascular: S1, S2, regular rate and rhythm. Pulmonary: Clear to auscultation bilaterally. Abdomen: Bowel sounds are positive. Abdomen is soft, nontender, and nondistended. Extremities: No rash, lesions, or edema. No restriction of range of motion NEUROLOGICAL EXAMINATION: Alert Oriented to time, place and person. PERRL. EOMI. CN: no focal findings. Muscle tone: within normal. Muscle strength: 5 DTR: 2 Plantar reflex: Flexor/Neutral response bilaterally Gait: not examined in bed. At baseline normal. Sensory exam: no abnormal findings. No cerebellar signs elicited. F-T-N test accurate. Current Medications Current Medications Current Medications Lorazepam (Ativan Inj) 1 mg 1X ONCE IV Last administered on 01/31/19at 13:43; Start 01/31/19 at 13:00; Stop 01/31/19 at 13:01; Status DC Sodium Chloride 1,000 ml @ 1,000 mls/hr 1X ONCE IV Last administered on 01/31/19at 13:41; Start 01/31/19 at 13:00; Stop 01/31/19 at 13:59; Status DC Dextrose (Dextrose 50%-Water Syringe) 25 gm 1X ONCE IV Last administered on at 14:55; Start 01/31/19 at 15:00; Stop 01/31/19 at 15:01; Status DC Ondansetron HCl (Zofran) 4 mg PRN Q8HRS PRN IV NAUSEA/VOMITING; Start 01/31/19 at 17:30; Stop 02/01/19 at 13:29; Status DC Insulin Human Lispro (HumaLOG) 0-5 UNITS TIDWMEALS SQ ; Start 02/01/19 at 08:00 Dextrose (Dextrose 50%-Water Syringe) 12.5 gm PRN Q15MIN PRN IV SEE COMMENTS Last administered on 02/01/19at 07:06; Start 01/31/19 at 17:30 Dextrose/Sodium Chloride 1,000 ml @ 100 mls/hr Q10H IV Last administered on 02/01/19at 13:12; Start 01/31/19 at 20:17 Ondansetron HCl (Zofran) 4 mg PRN Q6HRS PRN IV NAUSEA/VOMITING; Start 01/31/19 at 20:30 Acetaminophen (Tylenol) 650 mg PRN Q6HRS PRN PO Headaches, Temp > 101.5F; Start 01/31/19 at 20:30 Senna/Docusate Sodium (Senna Plus) 1 tab BID PO Last administered on 02/01/19at 09:49; Start 01/31/19 at 21:00 Heparin Sodium (Porcine) (Heparin Sodium) 5,000 unit Q12HR SQ Last administered on 02/01/19at 09:53; Start 01/31/19 at 21:00 Amlodipine Besylate (Norvasc) 10 mg DAILY PO Last administered on 02/01/19at 09:50; Start 02/01/19 at 09:00 Aspirin (Children'S Aspirin) 81 mg DAILY PO Last administered on 02/01/19at 09:4 9; Start 02/01/19 at 09:00 Cetirizine HCl (ZyrTEC) 10 mg PRN QHS PRN PO ALLERGIES; Start 01/31/19 at 20:30 Vitamin D (Vitamin D3) 1,000 unit DAILY PO Last administered on 02/01/19at 09:49; Start 02/01/19 at 09:00 Clonidine HCl (Catapres) 0.2 mg TID PRN PRN PO high blood pressure; Start 01/31/19 at 20:30 Clopidogrel Bisulfate (Plavix) 75 mg DAILY PO Last administered on 02/01/19at 09:49; Start 02/01/19 at 09:00 Diphenhydramine HCl (Benadryl) 25 mg QHS PO Last administered on 01/31/19at 22:17; Start 01/31/19 at 21:00 Docusate Sodium (Colace) 100 mg BID PO Last administered on 02/01/19at 09:49; Start 01/31/19 at 21:00 Insulin Glargine (Lantus) 30 units DAILY SQ ; Start 02/01/19 at 09:00; Stop 02/01/19 at 09:00; Status DC Metoprolol Succinate (Toprol Xl) 50 mg DAILY PO Last administered on 02/01/19at 09:49; Start 02/01/19 at 09:00 Nitroglycerin (Nitrostat) 0.4 mg PRN Q5MIN SL ; Start 01/31/19 at 20:30 Tamsulosin HCl (Flomax) 0.4 mg DAILY PO Last administered on 02/01/19at 09:49; Start 02/01/19 at 09:00 Paroxetine HCl (Paxil) 40 mg DAILY PO Last administered on 02/01/19at 09:47; Start 02/01/19 at 09:00 Budesonide (Pulmicort) 0.5 mg RTBID NEB ; Start 02/01/19 at 08:00 Levetiracetam (Keppra) 500 mg BID PO Last administered on 02/01/19at 09:46; Start 02/01/19 at 09:00 Lorazepam (Ativan Inj) 1 mg PRN Q4HRS PRN IV ANXIETY / AGITATION Last administered on 02/01/19at 13:21; Start 02/01/19 at 07:45; Stop 02/01/19 at 13:46; Status DC Insulin Glargine (Lantus) 15 units QHS SQ ; Start 02/01/19 at 21:00; Stop 02/01/19 at 21:00; Status DC Lorazepam (Ativan Inj) 1 mg PRN Q4HRS PRN IV SEIZURES > 2 MINUTES; Start 02/01/19 at 14:00 Lorazepam (Ativan Inj) 2 mg PRN Q4HRS PRN IV SEIZURES > 2 MINUTES; Start 02/01/19 at 14:00 Insulin Glargine (Lantus) 15 units QHS SQ ; Start 02/02/19 at 21:00 Active Scripts Active Humalog (Insulin Lispro) 100 Unit/1 Ml Insuln.pen 0 Units SQ TIDWMEALS 14 Days Paroxetine Hcl 20 Mg Tablet 40 Mg PO DAILY 30 Days Reported Flomax (Tamsulosin Hcl) 0.4 Mg Cap.er.24h 0.4 Mg PO DAILY Onglyza (Saxagliptin Hcl) 5 Mg Tablet 2.5 Mg PO DAILY Losartan Potassium 100 Mg Tablet 100 Mg PO DAILY Donepezil Hcl 10 Mg Tablet 10 Mg PO HS Clonidine Hcl 0.2 Mg Tablet 0.2 Mg PO TID PRN PRN Vitamin D3 (Cholecalciferol (Vitamin D3)) 1,000 Unit Tablet 1 Tab PO DAILY Metoprolol Succinate ( Xl ) (Metoprolol Succinate) 100 Mg Tab.er.24h 50 Mg PO DAILY Magnesium Oxide 400 Mg Tablet 1 Tab PO DAILY Gabapentin 600 Mg Tablet 600 Mg PO TID Lantus Solostar (Insulin Glargine,Hum.rec.anlog) 100 Unit/1 Ml Insuln.pen 35 Unit SQ BID Furosemide 80 Mg Tablet 40 Mg PO DAILY Docusate Sodium 100 Mg Capsule 1 Cap PO BID Benadryl (Diphenhydramine Hcl) 25 Mg Capsule 1 Cap PO QHS Budesonide 0.5 Mg/2 Ml Ampul.neb 1 Vial NEB BID Amlodipine Besylate 10 Mg Tablet 10 Mg PO DAILY Albuterol Sulfate Conc Neb Soln (Albuterol Sulfate) 2.5 Mg/0.5 Ml Vial.neb 1 Vial NEB Q6HRS Aspirin 81 Mg Tab.chew 1 Tab PO DAILY Metformin Hcl 1,000 Mg Tablet 500 Mg PO BIDWMEALS NITROGLYCERIN SubLingual (Nitroglycerin) 0.4 Mg Tab.subl 1 Tab SL UD Cetirizine Hcl 10 Mg Tablet 1 Tab PO PRN QHS Omeprazole 20 Mg Capsule.dr 1 Cap PO DAILY Albuterol Sulfate Conc Neb Soln (Albuterol Sulfate) 2.5 Mg/0.5 Ml Vial.neb 3 Mg NEB TID PRN Tessalon Perle (Benzonatate) 100 Mg Capsule 100 Mg PO Q4HRS PRN Clopidogrel (Clopidogrel Bisulfate) 75 Mg Tablet 75 Mg PO DAILY Allergies Allergies: Allergies Coded Allergies Type Severity Reaction Last Updated Verified Iodinated Contrast- Oral and IV Dye Allergy Intermediate hives 04/23/18 Yes Penicillins Allergy Intermediate "PASSES OUT" 04/22/18 Yes [id number] Reductase Inhibitor Allergy Intermediate 04/22/18 Yes erythromycin base Allergy Intermediate 04/22/18 Yes iodine Allergy Intermediate 04/22/18 Yes lisinopril Allergy Intermediate 04/22/18 Yes niacin Allergy Intermediate 04/22/18 Yes sertraline Allergy Intermediate 04/22/18 Yes simvastatin Allergy Intermediate 04/22/18 Yes fluvastatin Adverse Reaction Intermediate muscle cramping 04/23/18 Yes pravastatin Adverse Reaction Intermediate muscle cramping 04/23/18 Yes rosuvastatin Adverse Reaction Intermediate muscle cramping 04/23/18 Yes ROS Review of System The patient denies any associated fevers, chills, headache, ear pain, rhinorrhea, sore throat, stiff neck, productive cough, chest pain, shortness of breath, back or flank pain, abdominal pain, nausea, vomiting, diarrhea, constipation, dysuria, rash, numbness, weakness, tingling, incontinence, difficulty ambulating, or diaphoresis. Physical Exam Physical Exam General: Well developed, well nourished, no acute distress, well appearing HEENT: Pupils equally round and reactive to light, EOMI, no discharge, normal conjunctiva Neck: Supple, no nuchal rigidity, no JVD, trachea midline, no tenderness Cardiac: RRR, no murmurs, no gallops, no rubs Chest/Lungs: CTAB, no wheeze, no rhonchi, no crackles Abdomen: soft, non-distended, no guarding, no peritoneal signs, non-tender Back: No tenderness Extremities: no edema, pulses intact, non-tender,capillary refill <3 sec bilateral upper and lower extremities, Neuro: Alert and oriented x 4, no focal deficits, normal speech Vitals Vitals: Vital Signs Date Time Temp Pulse Resp B/P (MAP) Pulse Ox O2 Delivery O2 Flow Rate FiO2 02/01/19 11:00 98.9 110 17 144/72 (96) 97 Room Air 98.9 02/01/19 06:32 2.0 Labs Labs Laboratory Tests Test 5/16/19 13:01 01/31/19 14:54 01/31/19 15:03 01/31/19 17:20 White Blood Count 12.7 x10^3/uL (4.0-11.0) Red Blood Count 3.50 x10^6/uL (4.30-5.70) Hemoglobin 10.6 g/dL (13.0-17.5) Hematocrit 32.7 % (39.0-53.0) Mean Corpuscular Volume 93 fL (79-100) Mean Corpuscular Hemoglobin 30 pg (25-35) Mean Corpuscular Hemoglobin Concent 33 g/dL (31-37) Red Cell Distribution Width 13.7 % (11.5-14.5) Platelet Count 318 x10^3/uL (140-400) Neutrophils (%) (Auto) 57 % (31-73) Lymphocytes (%) (Auto) 31 % (24-48) Monocytes (%) (Auto) 8 % (0-9) Eosinophils (%) (Auto) 3 % (0-3) Basophils (%) (Auto) 1 % (0-3) Neutrophils # (Auto) 7.3 x10^3uL (1.8-7.7) Lymphocytes # (Auto) 3.9 x10^3/uL (1.0-4.8) Monocytes # (Auto) 1.1 x10^3/uL (0.0-1.1) Eosinophils # (Auto) 0.4 x10^3/uL (0.0-0.7) Basophils # (Auto) 0.1 x10^3/uL (0.0-0.2) Prothrombin Time 12.9 SEC (11.7-14.0) Prothromb Time International Ratio 1.0 (0.8-1.1) Activated Partial Thromboplast Time 34 SEC (24-38) Sodium Level 144 mmol/L (136-145) Potassium Level 4.6 mmol/L (3.5-5.1) Chloride Level 104 mmol/L (98-107) Carbon Dioxide Level 34 mmol/L (21-32) Anion Gap 6 (6-14) Blood Urea Nitrogen 51 mg/dL (8-26) Creatinine 1.7 mg/dL (0.7-1.3) Estimated GFR (Cockcroft-Gault) 40.4 BUN/Creatinine Ratio 30 (6-20) Glucose Level 57 mg/dL (70-99) Lactic Acid Level 1.1 mmol/L (0.4-2.0) Calcium Level 8.9 mg/dL (8.5-10.1) Total Bilirubin 0.2 mg/dL (0.2-1.0) Aspartate Amino Transf (AST/SGOT) 17 U/L (15-37) Alanine Aminotransferase (ALT/SGPT) 18 U/L (16-63) Alkaline Phosphatase 92 U/L (46-116) Creatine Kinase 50 U/L (39-308) Creatine Kinase MB (Mass) 0.5 ng/mL (0.0-3.6) Creatine Kinase MB Relative Index % (0-4) Troponin I Quantitative < 0.017 ng/mL (0.000-0.055) Total Protein 7.2 g/dL (6.4-8.2) Albumin 3.0 g/dL (3.4-5.0) Albumin/Globulin Ratio 0.7 (1.0-1.7) Glucose (Fingerstick) 49 mg/dL (70-99) 73 mg/dL (70-99) Urine Opiates Screen Neg (NEG) Urine Methadone Screen Neg (NEG) Urine Barbiturates Neg (NEG) Urine Phencyclidine Screen Neg (NEG) Urine Amphetamine/Methamphetamine Neg (NEG) Urine Benzodiazepines Screen Pos (NEG) Urine Cocaine Screen Neg (NEG) Urine Cannabinoids Screen Neg (NEG) Urine Ethyl Alcohol Neg (NEG) Test 01/31/19 18:41 01/31/19 21:17 02/01/19 02:28 02/01/19 03:55 Glucose (Fingerstick) 98 mg/dL (70-99) 78 mg/dL (70-99) 109 mg/dL (70-99) White Blood Count 9.2 x10^3/uL (4.0-11.0) Red Blood Count 3.45 x10^6/uL (4.30-5.70) Hemoglobin 10.5 g/dL (13.0-17.5) Hematocrit 32.0 % (39.0-53.0) Mean Corpuscular Volume 93 fL (79-100) Mean Corpuscular Hemoglobin 31 pg (25-35) Mean Corpuscular Hemoglobin Concent 33 g/dL (31-37) Red Cell Distribution Width 14.0 % (11.5-14.5) Platelet Count 303 x10^3/uL (140-400) Neutrophils (%) (Auto) 57 % (31-73) Lymphocytes (%) (Auto) 30 % (24-48) Monocytes (%) (Auto) 8 % (0-9) Eosinophils (%) (Auto) 4 % (0-3) Basophils (%) (Auto) 1 % (0-3) Neutrophils # (Auto) 5.2 x10^3uL (1.8-7.7) Lymphocytes # (Auto) 2.7 x10^3/uL (1.0-4.8) Monocytes # (Auto) 0.8 x10^3/uL (0.0-1.1) Eosinophils # (Auto) 0.4 x10^3/uL (0.0-0.7) Basophils # (Auto) 0.1 x10^3/uL (0.0-0.2) Sodium Level 144 mmol/L (136-145) Potassium Level 4.4 mmol/L (3.5-5.1) Chloride Level 105 mmol/L (98-107) Carbon Dioxide Level 34 mmol/L (21-32) Anion Gap 5 (6-14) Blood Urea Nitrogen 48 mg/dL (8-26) Creatinine 1.5 mg/dL (0.7-1.3) Estimated GFR (Cockcroft-Gault) 46.7 Glucose Level 89 mg/dL (70-99) Calcium Level 8.5 mg/dL (8.5-10.1) Thyroid Stimulating Hormone (TSH) 0.824 uIU/mL (0.358-3.74) Test 02/01/19 07:00 02/01/19 07:15 02/01/19 07:29 02/01/19 07:38 Glucose (Fingerstick) 41 mg/dL (70-99) 112 mg/dL (70-99) 97 mg/dL (70-99) 95 mg/dL (70-99) Test 02/01/19 07:49 02/01/19 07:50 02/01/19 10:05 02/01/19 10:12 Glucose (Fingerstick) 99 mg/dL (70-99) 112 mg/dL (70-99) Glucose Level 101 mg/dL (70-99) Lactic Acid Level 0.6 mmol/L (0.4-2.0) Ammonia 20 mcmol/L (11-34) Urine Opiates Screen Neg (NEG) Urine Methadone Screen Neg (NEG) Urine Barbiturates Neg (NEG) Urine Phencyclidine Screen Neg (NEG) Urine Amphetamine/Methamphetamine Neg (NEG) Urine Benzodiazepines Screen Pos (NEG) Urine Cocaine Screen Neg (NEG) Urine Cannabinoids Screen Neg (NEG) Urine Ethyl Alcohol Neg (NEG) Test 02/01/19 11:17 02/01/19 13:18 Glucose (Fingerstick) 105 mg/dL (70-99) 126 mg/dL (70-99) Laboratory Tests Test 01/31/19 17:20 01/31/19 18:41 01/31/19 21:17 02/01/19 02:28 Glucose (Fingerstick) 73 mg/dL (70-99) 98 mg/dL (70-99) 78 mg/dL (70-99) 109 mg/dL (70-99) Test 02/01/19 03:55 02/01/19 07:00 02/01/19 07:15 02/01/19 07:29 White Blood Count 9.2 x10^3/uL (4.0-11.0) Red Blood Count 3.45 x10^6/uL (4.30-5.70) Hemoglobin 10.5 g/dL (13.0-17.5) Hematocrit 32.0 % (39.0-53.0) Mean Corpuscular Volume 93 fL (79-100) Mean Corpuscular Hemoglobin 31 pg (25-35) Mean Corpuscular Hemoglobin Concent 33 g/dL (31-37) Red Cell Distribution Width 14.0 % (11.5-14.5) Platelet Count 303 x10^3/uL (140-400) Neutrophils (%) (Auto) 57 % (31-73) Lymphocytes (%) (Auto) 30 % (24-48) Monocytes (%) (Auto) 8 % (0-9) Eosinophils (%) (Auto) 4 % (0-3) Basophils (%) (Auto) 1 % (0-3) Neutrophils # (Auto) 5.2 x10^3uL (1.8-7.7) Lymphocytes # (Auto) 2.7 x10^3/uL (1.0-4.8) Monocytes # (Auto) 0.8 x10^3/uL (0.0-1.1) Eosinophils # (Auto) 0.4 x10^3/uL (0.0-0.7) Basophils # (Auto) 0.1 x10^3/uL (0.0-0.2) Sodium Level 144 mmol/L (136-145) Potassium Level 4.4 mmol/L (3.5-5.1) Chloride Level 105 mmol/L (98-107) Carbon Dioxide Level 34 mmol/L (21-32) Anion Gap 5 (6-14) Blood Urea Nitrogen 48 mg/dL (8-26) Creatinine 1.5 mg/dL (0.7-1.3) Estimated GFR (Cockcroft-Gault) 46.7 Glucose Level 89 mg/dL (70-99) Calcium Level 8.5 mg/dL (8.5-10.1) Thyroid Stimulating Hormone (TSH) 0.824 uIU/mL (0.358-3.74) Glucose (Fingerstick) 41 mg/dL (70-99) 112 mg/dL (70-99) 97 mg/dL (70-99) Test 02/01/19 07:38 02/01/19 07:49 02/01/19 07:50 02/01/19 10:05 Glucose (Fingerstick) 95 mg/dL (70-99) 99 mg/dL (70-99) 112 mg/dL (70-99) Glucose Level 101 mg/dL (70-99) Lactic Acid Level 0.6 mmol/L (0.4-2.0) Ammonia 20 mcmol/L (11-34) Test 02/01/19 10:12 02/01/19 11:17 02/01/19 13:18 Urine Opiates Screen Neg (NEG) Urine Methadone Screen Neg (NEG) Urine Barbiturates Neg (NEG) Urine Phencyclidine Screen Neg (NEG) Urine Amphetamine/Methamphetamine Neg (NEG) Urine Benzodiazepines Screen Pos (NEG) Urine Cocaine Screen Neg (NEG) Urine Cannabinoids Screen Neg (NEG) Urine Ethyl Alcohol Neg (NEG) Glucose (Fingerstick) 105 mg/dL (70-99) 126 mg/dL (70-99) NANCY TINAJERO MD February 01, 2019 15:48
[2019-02-01 19:00] VITALS: BP 161/78
[2019-02-01] MEDS: diphenhydrAMINE HCL 25 MG CAPSULE PO SCH (20:34)
[2019-02-01 23:02] VITALS: BP 171/72
[2019-02-01] MEDS: cloNIDine HCL 0.2 MG TABLET PO PRN (23:12)
[2019-02-02 04:11] VITALS: BP 124/59
[2019-02-02 05:29] LABS: BASO # 0.1 x10^3/uL (0.0-0.2); BASO % 1 % (0-3); EOS # 0.4 x10^3/uL (0.0-0.7); EOS % 4 % (0-3); HEMATOCRIT 31.5 % (39.0-53.0); HEMOGLOBIN 10.4 g/dL (13.0-17.5); LYMPH # 2.4 x10^3/uL (1.0-4.8); LYMPH % 27 % (24-48); MEAN CORPUSCULAR HEMOGLOBIN 31 pg (25-35); MEAN CORPUSCULAR HGB CONC 33 g/dL (31-37); MEAN CORPUSCULAR VOLUME 93 fL (79-100); MONO # 0.8 x10^3/uL (0.0-1.1); MONO % 9 % (0-9); NEUT # 5.4 x10^3uL (1.8-7.7); NEUT % 60 % (31-73); PLATELET COUNT 297 x10^3/uL (140-400); RED BLOOD COUNT 3.39 x10^6/uL (4.30-5.70); RED CELL DISTRIBUTION WIDTH 13.7 % (11.5-14.5); WHITE BLOOD COUNT 9.1 x10^3/uL (4.0-11.0)
[2019-02-02 06:11] LABS: CALCIUM 8.8 mg/dL (8.5-10.1); CREATININE 1.3 mg/dL (0.7-1.3); GFR 55.1; POTASSIUM 4.5 mmol/L (3.5-5.1)
[2019-02-02 07:00] VITALS: BP 162/60
[2019-02-02] MEDS: INSULIN LISPRO 300 UNITS/3 ML INSULN.PEN. SQ SCH ×3 (07:55→17:00)
[2019-02-02] MEDS: IV DEXTROSE 5 %-0.45 % NACL 1,000 ML IV SCH ×2 (08:09→19:33)
--- NOTE | 2019-02-02 08:53 | PDOC ---
PROGRESS NOTES Chief Complaint Chief Complaint A/P: Seizure episode - previously diagnosed with psychogenic nonepileptic seizures. This is almost assuredly 2/2 hypoglycemia this time History of psychogenic nonepileptic seizures - seen at [facility], no organic epilepsy. Has been off keppra for some time. Will consult neurology Diabetic neuropathy - plays a role in his gait Long-standing multifactorial gait disorder - diabetic neuropathy related. PT to see Diabetes - will place on basal bolus plus regimen, Hypoglycemia - D5 overnight, back on insulin in AM Hypertension - cont meds. Check orthostatics and holding parameters CHF - diastolic, does not seem to be in exacerbation, however, his lasix and aldactone have bee held recently. Seen by cards and had recent echo showing grade 1 diastolic dysfunction Alzheimer disease - on aricept. I will hold this in light of his admitting diagnosis of falls. Would be better off this med considering this may be a side effect [place] on CKD - Baseline cr is 1.2, now is Cr 1.7-->1.5 overnight, likely vasomotor nephropathy. will give some IVF, D5 overnight. 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 Patient received 10 mg of midazolam in the field. Patient states that in 2014 he had a CVA and began to experience seizures in 2017 for which he was prescribed Keppra after having inpatient evaluation by a neurologist. 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 His most recent hospitalization was November of this year for seizure like activity, seen by neurology at that time. Lactate was WNL this time. Patient denies any pain, denies any shortness of breath. He states his legs usually give out and the daughter is always available to help him but yesterday she was not at home. Denies any neck pain. He is morbidly obese EKG - : First degree AV block with CA of 224 ms. Rate of 67. Left axis deviation present. Q waves present in III and aVF. No T wave inversion. No ST segment elevation or depression 02/01: D5 gtt, still had glucose 41. Did have some shaking activity x2 noted by nursing staff x 4 total episodes, was given ativan when the last episode lasted greater than 2 minutes. Lactate was 0.9. Started on Keppra 500mg BID per Neuro Overnight no events, glucose in low 100s. Still on D5 at 100cc/hr. No further shaking activity. He states he wants to SNF in [place] if possible. Still feeling weak Plan: Consult neurology Increase D5 infusion to 100cc/hr Poc glucose now and Q4 hours Vitals Vitals Vital Signs Date Time Temp Pulse Resp B/P (MAP) Pulse Ox O2 Delivery O2 Flow Rate FiO2 02/02/19 04:11 97.9 61 20 124/59 (80) 98 Nasal Cannula 97.9 02/01/19 20:00 2.0 Physical Exam General: Alert, Cooperative, No acute distress Lungs: Clear, Other Abdomen: Normal bowel sounds, Soft, No tenderness, No hepatosplenomegaly, No masses Extremities: No clubbing, No cyanosis, No edema, Normal pulses, No tendern ess/swelling Skin: No rashes, No breakdown, No significant lesion Labs LABS Laboratory Tests Test 02/01/19 10:05 02/01/19 10:12 02/01/19 11:17 02/01/19 13:18 Glucose (Fingerstick) 112 mg/dL (70-99) 105 mg/dL (70-99) 126 mg/dL (70-99) Urine Opiates Screen Neg (NEG) Urine Methadone Screen Neg (NEG) Urine Barbiturates Neg (NEG) Urine Phencyclidine Screen Neg (NEG) Urine Amphetamine/Methamphetamine Neg (NEG) Urine Benzodiazepines Screen Pos (NEG) Urine Cocaine Screen Neg (NEG) Urine Cannabinoids Screen Neg (NEG) Urine Ethyl Alcohol Neg (NEG) Test 02/01/19 17:00 02/01/19 20:09 02/02/19 05:10 Glucose (Fingerstick) 127 mg/dL (70-99) 141 mg/dL (70-99) White Blood Count 9.1 x10^3/uL (4.0-11.0) Red Blood Count 3.39 x10^6/uL (4.30-5.70) Hemoglobin 10.4 g/dL (13.0-17.5) Hematocrit 31.5 % (39.0-53.0) Mean Corpuscular Volume 93 fL (79-100) Mean Corpuscular Hemoglobin 31 pg (25-35) Mean Corpuscular Hemoglobin Concent 33 g/dL (31-37) Red Cell Distribution Width 13.7 % (11.5-14.5) Platelet Count 297 x10^3/uL (140-400) Neutrophils (%) (Auto) 60 % (31-73) Lymphocytes (%) (Auto) 27 % (24-48) Monocytes (%) (Auto) 9 % (0-9) Eosinophils (%) (Auto) 4 % (0-3) Basophils (%) (Auto) 1 % (0-3) Neutrophils # (Auto) 5.4 x10^3uL (1.8-7.7) Lymphocytes # (Auto) 2.4 x10^3/uL (1.0-4.8) Monocytes # (Auto) 0.8 x10^3/uL (0.0-1.1) Eosinophils # (Auto) 0.4 x10^3/uL (0.0-0.7) Basophils # (Auto) 0.1 x10^3/uL (0.0-0.2) Sodium Level 142 mmol/L (136-145) Potassium Level 4.5 mmol/L (3.5-5.1) Chloride Level 105 mmol/L (98-107) Carbon Dioxide Level 31 mmol/L (21-32) Anion Gap 6 (6-14) Blood Urea Nitrogen 37 mg/dL (8-26) Creatinine 1.3 mg/dL (0.7-1.3) Estimated GFR (Cockcroft-Gault) 55.1 Glucose Level 113 mg/dL (70-99) Calcium Level 8.8 mg/dL (8.5-10.1) Assessment and Plan Assessmemt and Plan Problems Medical Problems: (1) Hypoglycemia Status: Acute (2) Seizure-like activity Status: Acute Comment Review of Relevant I have reviewed the following items yuliya (where applicable) has been applied. Labs Laboratory Tests Test 01/31/19 13:01 5/16/19 14:54 01/31/19 15:03 01/31/19 17:20 White Blood Count 12.7 x10^3/uL (4.0-11.0) Red Blood Count 3.50 x10^6/uL (4.30-5.70) Hemoglobin 10.6 g/dL (13.0-17.5) Hematocrit 32.7 % (39.0-53.0) Mean Corpuscular Volume 93 fL (79-100) Mean Corpuscular Hemoglobin 30 pg (25-35) Mean Corpuscular Hemoglobin Concent 33 g/dL (31-37) Red Cell Distribution Width 13.7 % (11.5-14.5) Platelet Count 318 x10^3/uL (140-400) Neutrophils (%) (Auto) 57 % (31-73) Lymphocytes (%) (Auto) 31 % (24-48) Monocytes (%) (Auto) 8 % (0-9) Eosinophils (%) (Auto) 3 % (0-3) Basophils (%) (Auto) 1 % (0-3) Neutrophils # (Auto) 7.3 x10^3uL (1.8-7.7) Lymphocytes # (Auto) 3.9 x10^3/uL (1.0-4.8) Monocytes # (Auto) 1.1 x10^3/uL (0.0-1.1) Eosinophils # (Auto) 0.4 x10^3/uL (0.0-0.7) Basophils # (Auto) 0.1 x10^3/uL (0.0-0.2) Prothrombin Time 12.9 SEC (11.7-14.0) Prothromb Time International Ratio 1.0 (0.8-1.1) Activated Partial Thromboplast Time 34 SEC (24-38) Sodium Level 144 mmol/L (136-145) Potassium Level 4.6 mmol/L (3.5-5.1) Chloride Level 104 mmol/L (98-107) Carbon Dioxide Level 34 mmol/L (21-32) Anion Gap 6 (6-14) Blood Urea Nitrogen 51 mg/dL (8-26) Creatinine 1.7 mg/dL (0.7-1.3) Estimated GFR (Cockcroft-Gault) 40.4 BUN/Creatinine Ratio 30 (6-20) Glucose Level 57 mg/dL (70-99) Lactic Acid Level 1.1 mmol/L (0.4-2.0) Calcium Level 8.9 mg/dL (8.5-10.1) Total Bilirubin 0.2 mg/dL (0.2-1.0) Aspartate Amino Transf (AST/SGOT) 17 U/L (15-37) Alanine Aminotransferase (ALT/SGPT) 18 U/L (16-63) Alkaline Phosphatase 92 U/L (46-116) Creatine Kinase 50 U/L (39-308) Creatine Kinase MB (Mass) 0.5 ng/mL (0.0-3.6) Creatine Kinase MB Relative Index % (0-4) Troponin I Quantitative < 0.017 ng/mL (0.000-0.055) Total Protein 7.2 g/dL (6.4-8.2) Albumin 3.0 g/dL (3.4-5.0) Albumin/Globulin Ratio 0.7 (1.0-1.7) Glucose (Fingerstick) 49 mg/dL (70-99) 73 mg/dL (70-99) Urine Opiates Screen Neg (NEG) Urine Methadone Screen Neg (NEG) Urine Barbiturates Neg (NEG) Urine Phencyclidine Screen Neg (NEG) Urine Amphetamine/Methamphetamine Neg (NEG) Urine Benzodiazepines Screen Pos (NEG) Urine Cocaine Screen Neg (NEG) Urine Cannabinoids Screen Neg (NEG) Urine Ethyl Alcohol Neg (NEG) Test 01/31/19 18:41 01/31/19 21:17 02/01/19 02:28 02/01/19 03:55 Glucose (Fingerstick) 98 mg/dL (70-99) 78 mg/dL (70-99) 109 mg/dL (70-99) White Blood Count 9.2 x10^3/uL (4.0-11.0) Red Blood Count 3.45 x10^6/uL (4.30-5.70) Hemoglobin 10.5 g/dL (13.0-17.5) Hematocrit 32.0 % (39.0-53.0) Mean Corpuscular Volume 93 fL (79-100) Mean Corpuscular Hemoglobin 31 pg (25-35) Mean Corpuscular Hemoglobin Concent 33 g/dL (31-37) Red Cell Distribution Width 14.0 % (11.5-14.5) Platelet Count 303 x10^3/uL (140-400) Neutrophils (%) (Auto) 57 % (31-73) Lymphocytes (%) (Auto) 30 % (24-48) Monocytes (%) (Auto) 8 % (0-9) Eosinophils (%) (Auto) 4 % (0-3) Basophils (%) (Auto) 1 % (0-3) Neutrophils # (Auto) 5.2 x10^3uL (1.8-7.7) Lymphocytes # (Auto) 2.7 x10^3/uL (1.0-4.8) Monocytes # (Auto) 0.8 x10^3/uL (0.0-1.1) Eosinophils # (Auto) 0.4 x10^3/uL (0.0-0.7) Basophils # (Auto) 0.1 x10^3/uL (0.0-0.2) Sodium Level 144 mmol/L (136-145) Potassium Level 4.4 mmol/L (3.5-5.1) Chloride Level 105 mmol/L (98-107) Carbon Dioxide Level 34 mmol/L (21-32) Anion Gap 5 (6-14) Blood Urea Nitrogen 48 mg/dL (8-26) Creatinine 1.5 mg/dL (0.7-1.3) Estimated GFR (Cockcroft-Gault) 46.7 Glucose Level 89 mg/dL (70-99) Calcium Level 8.5 mg/dL (8.5-10.1) Thyroid Stimulating Hormone (TSH) 0.824 uIU/mL (0.358-3.74) Test 02/01/19 07:00 02/01/19 07:15 02/01/19 07:29 02/01/19 07:38 Glucose (Fingerstick) 41 mg/dL (70-99) 112 mg/dL (70-99) 97 mg/dL (70-99) 95 mg/dL (70-99) Test 02/01/19 07:49 02/01/19 07:50 02/01/19 10:05 02/01/19 10:12 Glucose (Fingerstick) 99 mg/dL (70-99) 112 mg/dL (70-99) Glucose Level 101 mg/dL (70-99) Lactic Acid Level 0.6 mmol/L (0.4-2.0) Ammonia 20 mcmol/L (11-34) Urine Opiates Screen Neg (NEG) Urine Methadone Screen Neg (NEG) Urine Barbiturates Neg (NEG) Urine Phencyclidine Screen Neg (NEG) Urine Amphetamine/Methamphetamine Neg (NEG) Urine Benzodiazepines Screen Pos (NEG) Urine Cocaine Screen Neg (NEG) Urine Cannabinoids Screen Neg (NEG) Urine Ethyl Alcohol Neg (NEG) Test 02/01/19 11:17 02/01/19 13:18 02/01/19 17:00 02/01/19 20:09 Glucose (Fingerstick) 105 mg/dL (70-99) 126 mg/dL (70-99) 127 mg/dL (70-99) 141 mg/dL (70-99) Test 02/02/19 05:10 White Blood Count 9.1 x10^3/uL (4.0-11.0) Red Blood Count 3.39 x10^6/uL (4.30-5.70) Hemoglobin 10.4 g/dL (13.0-17.5) Hematocrit 31.5 % (39.0-53.0) Mean Corpuscular Volume 93 fL (79-100) Mean Corpuscular Hemoglobin 31 pg (25-35) Mean Corpuscular Hemoglobin Concent 33 g/dL (31-37) Red Cell Distribution Width 13.7 % (11.5-14.5) Platelet Count 297 x10^3/uL (140-400) Neutrophils (%) (Auto) 60 % (31-73) Lymphocytes (%) (Auto) 27 % (24-48) Monocytes (%) (Auto) 9 % (0-9) Eosinophils (%) (Auto) 4 % (0-3) Basophils (%) (Auto) 1 % (0-3) Neutrophils # (Auto) 5.4 x10^3uL (1.8-7.7) Lymphocytes # (Auto) 2.4 x10^3/uL (1.0-4.8) Monocytes # (Auto) 0.8 x10^3/uL (0.0-1.1) Eosinophils # (Auto) 0.4 x10^3/uL (0.0-0.7) Basophils # (Auto) 0.1 x10^3/uL (0.0-0.2) Sodium Level 142 mmol/L (136-145) Potassium Level 4.5 mmol/L (3.5-5.1) Chloride Level 105 mmol/L (98-107) Carbon Dioxide Level 31 mmol/L (21-32) Anion Gap 6 (6-14) Blood Urea Nitrogen 37 mg/dL (8-26) Creatinine 1.3 mg/dL (0.7-1.3) Estimated GFR (Cockcroft-Gault) 55.1 Glucose Level 113 mg/dL (70-99) Calcium Level 8.8 mg/dL (8.5-10.1) Laboratory Tests Test 02/01/19 10:05 02/01/19 10:12 02/01/19 11:17 02/01/19 13:18 Glucose (Fingerstick) 112 mg/dL (70-99) 105 mg/dL (70-99) 126 mg/dL (70-99) Urine Opiates Screen Neg (NEG) Urine Methadone Screen Neg (NEG) Urine Barbiturates Neg (NEG) Urine Phencyclidine Screen Neg (NEG) Urine Amphetamine/Methamphetamine Neg (NEG) Urine Benzodiazepines Screen Pos (NEG) Urine Cocaine Screen Neg (NEG) Urine Cannabinoids Screen Neg (NEG) Urine Ethyl Alcohol Neg (NEG) Test 02/01/19 17:00 02/01/19 20:09 02/02/19 05:10 Glucose (Fingerstick) 127 mg/dL (70-99) 141 mg/dL (70-99) White Blood Count 9.1 x10^3/uL (4.0-11.0) Red Blood Count 3.39 x10^6/uL (4.30-5.70) Hemoglobin 10.4 g/dL (13.0-17.5) Hematocrit 31.5 % (39.0-53.0) Mean Corpuscular Volume 93 fL (79-100) Mean Corpuscular Hemoglobin 31 pg (25-35) Mean Corpuscular Hemoglobin Concent 33 g/dL (31-37) Red Cell Distribution Width 13.7 % (11.5-14.5) Platelet Count 297 x10^3/uL (140-400) Neutrophils (%) (Auto) 60 % (31-73) Lymphocytes (%) (Auto) 27 % (24-48) Monocytes (%) (Auto) 9 % (0-9) Eosinophils (%) (Auto) 4 % (0-3) Basophils (%) (Auto) 1 % (0-3) Neutrophils # (Auto) 5.4 x10^3uL (1.8-7.7) Lymphocytes # (Auto) 2.4 x10^3/uL (1.0-4.8) Monocytes # (Auto) 0.8 x10^3/uL (0.0-1.1) Eosinophils # (Auto) 0.4 x10^3/uL (0.0-0.7) Basophils # (Auto) 0.1 x10^3/uL (0.0-0.2) Sodium Level 142 mmol/L (136-145) Potassium Level 4.5 mmol/L (3.5-5.1) Chloride Level 105 mmol/L (98-107) Carbon Dioxide Level 31 mmol/L (21-32) Anion Gap 6 (6-14) Blood Urea Nitrogen 37 mg/dL (8-26) Creatinine 1.3 mg/dL (0.7-1.3) Estimated GFR (Cockcroft-Gault) 55.1 Glucose Level 113 mg/dL (70-99) Calcium Level 8.8 mg/dL (8.5-10.1) Medications Current Medications Lorazepam (Ativan Inj) 1 mg 1X ONCE IV Last administered on 01/31/19at 13:43; Start 01/31/19 at 13:00; Stop 01/31/19 at 13:01; Status DC Sodium Chloride 1,000 ml @ 1,000 mls/hr 1X ONCE IV Last administered on 01/31/19at 13:41; Start 01/31/19 at 13:00; Stop 01/31/19 at 13:59; Status DC Dextrose (Dextrose 50%-Water Syringe) 25 gm 1X ONCE IV Last administered on 01/31/19at 14:55; Start 01/31/19 at 15:00; Stop 01/31/19 at 15:01; Status DC Ondansetron HCl (Zofran) 4 mg PRN Q8HRS PRN IV NAUSEA/VOMITING; Start 01/31/19 at 17:30; Stop 02/01/19 at 13:29; Status DC Insulin Human Lispro (HumaLOG) 0-5 UNITS TIDWMEALS SQ ; Start 02/01/19 at 08:00 Dextrose (Dextrose 50%-Water Syringe) 12.5 gm PRN Q15MIN PRN IV SEE COMMENTS Last administered on 02/01/19at 07:06; Start 01/31/19 at 17:30 Dextrose/Sodium Chloride 1,000 ml @ 100 mls/hr Q10H IV Last administered on 02/01/19at 22:56; Start 01/31/19 at 20:17 Ondansetron HCl (Zofran) 4 mg PRN Q6HRS PRN IV NAUSEA/VOMITING; Start 01/31/19 at 20:30 Acetaminophen (Tylenol) 650 mg PRN Q6HRS PRN PO Headaches, Temp > 101.5F; Start 01/31/19 at 20:30 Senna/Docusate Sodium (Senna Plus) 1 tab BID PO Last administered on 02/01/19at 09:49; Start 01/31/19 at 21:00 Heparin Sodium (Porcine) (Heparin Sodium) 5,000 unit Q12HR SQ Last administered on 02/01/19at 20:39; Start 01/31/19 at 21:00 Amlodipine Besylate (Norvasc) 10 mg DAILY PO Last administered on 02/01/19at 09:50; Start 02/01/19 at 09:00 Aspirin (Children'S Aspirin) 81 mg DAILY PO Last administered on 02/01/19at 09:49; Start 02/01/19 at 09:00 Cetirizine HCl (ZyrTEC) 10 mg PRN QHS PRN PO ALLERGIES; Start 01/31/19 at 20:30 Vitamin D (Vitamin D3) 1,000 unit DAILY PO Last administered on 02/01/19at 09:49; Start 02/01/19 at 09:00 Clonidine HCl (Catapres) 0.2 mg TID PRN PRN PO high blood pressure Last administered on 02/01/19at 23:12; Start 01/31/19 at 20:30 Clopidogrel Bisulfate (Plavix) 75 mg DAILY PO Last administered on 02/01/19at 09:49; Start 02/01/19 at 09:00 Diphenhydramine HCl (Benadryl) 25 mg QHS PO Last administered on 02/01/19at 20:34; Start 01/31/19 at 21:00 Docusate Sodium (Colace) 100 mg BID PO Last administered on 02/01/19at 09:49; Start 01/31/19 at 21:00 Insulin Glargine (Lantus) 30 units DAILY SQ ; Start 02/01/19 at 09:00; Stop 02/01/19 at 09:00; Status DC Metoprolol Succinate (Toprol Xl) 50 mg DAILY PO Last administered on 02/01/19at 09:49; Start 02/01/19 at 09:00 Nitroglycerin (Nitrostat) 0.4 mg PRN Q5MIN SL ; Start 01/31/19 at 20:30 Tamsulosin HCl (Flomax) 0.4 mg DAILY PO Last administered on 02/01/19at 09:49; Start 02/01/19 at 09:00 Paroxetine HCl (Paxil) 40 mg DAILY PO Last administered on 02/01/19at 09:47; Start 02/01/19 at 09:00 Budesonide (Pulmicort) 0.5 mg RTBID NEB Last administered on 02/01/19at 19:48; Start 02/01/19 at 08:00 Levetiracetam (Keppra) 500 mg BID PO Last administered on 02/01/19at 20:34; Start 02/01/19 at 09:00 Lorazepam (Ativan Inj) 1 mg PRN Q4HRS PRN IV ANXIETY / AGITATION Last administered on 02/01/19at 13:21; Start 02/01/19 at 07:45; Stop 02/01/19 at 13:46; Status DC Insulin Glargine (Lantus) 15 units QHS SQ ; Start 02/01/19 at 21:00; Stop 02/01/19 at 21:00; Status DC Lorazepam (Ativan Inj) 1 mg PRN Q4HRS PRN IV SEIZURES > 2 MINUTES; Start 02/01/19 at 14:00 Lorazepam (Ativan Inj) 2 mg PRN Q4HRS PRN IV SEIZURES > 2 MINUTES; Start 02/01/19 at 14:00 Insulin Glargine (Lantus) 15 units QHS SQ ; Start 02/02/19 at 21:00; Stop 02/02/19 at 21:00; Status DC Insulin Glargine (Lantus) 8 units QHS SQ ; Start 02/02/19 at 21:00; Status UNV Active Scripts Active Humalog (Insulin Lispro) 100 Unit/1 Ml Insuln.pen 0 Units SQ TIDWMEALS 14 Days Paroxetine Hcl 20 Mg Tablet 40 Mg PO DAILY 30 Days Reported Flomax (Tamsulosin Hcl) 0.4 Mg Cap.er.24h 0.4 Mg PO DAILY Onglyza (Saxagliptin Hcl) 5 Mg Tablet 2.5 Mg PO DAILY Losartan Potassium 100 Mg Tablet 100 Mg PO DAILY Donepezil Hcl 10 Mg Tablet 10 Mg PO HS Clonidine Hcl 0.2 Mg Tablet 0.2 Mg PO TID PRN PRN Vitamin D3 (Cholecalciferol (Vitamin D3)) 1,000 Unit Tablet 1 Tab PO DAILY Metoprolol Succinate ( Xl ) (Metoprolol Succinate) 100 Mg Tab.er.24h 50 Mg PO DAILY Magnesium Oxide 400 Mg Tablet 1 Tab PO DAILY Gabapentin 600 Mg Tablet 600 Mg PO TID Lantus Solostar (Insulin Glargine,Hum.rec.anlog) 100 Unit/1 Ml Insuln.pen 35 Unit SQ BID Furosemide 80 Mg Tablet 40 Mg PO DAILY Docusate Sodium 100 Mg Capsule 1 Cap PO BID Benadryl (Diphenhydramine Hcl) 25 Mg Capsule 1 Cap PO QHS Budesonide 0.5 Mg/2 Ml Ampul.neb 1 Vial NEB BID Amlodipine Besylate 10 Mg Tablet 10 Mg PO DAILY Albuterol Sulfate Conc Neb Soln (Albuterol Sulfate) 2.5 Mg/0.5 Ml Vial.neb 1 Vial NEB Q6HRS Aspirin 81 Mg Tab.chew 1 Tab PO DAILY NITROGLYCERIN SubLingual (Nitroglycerin) 0.4 Mg Tab.subl 1 Tab SL UD Cetirizine Hcl 10 Mg Tablet 1 Tab PO PRN QHS Omeprazole 20 Mg Capsule.dr 1 Cap PO DAILY Albuterol Sulfate Conc Neb Soln (Albuterol Sulfate) 2.5 Mg/0.5 Ml Vial.neb 3 Mg NEB TID PRN Tessalon Perle (Benzonatate) 100 Mg Capsule 100 Mg PO Q4HRS PRN Clopidogrel (Clopidogrel Bisulfate) 75 Mg Tablet 75 Mg PO DAILY Vitals/I & O Vital Sign - Last 24 Hours 02/01/19 02/01/19 02/01/19 02/01/19 09:49 09:50 11:00 15:00 Temp 98.9 98.1 98.9 98.1 Pulse 65 65 110 69 Resp 17 16 B/P (MAP) 132/67 132/67 144/72 (96) 121/39 (66) Pulse Ox 97 94 O2 Delivery Room Air Nasal Cannula O2 Flow Rate 2.0 02/01/19 02/01/19 02/01/19 02/01/19 19:00 19:50 20:00 23:02 Temp 97.6 99.0 97.6 99.0 Pulse 72 74 Resp 20 20 B/P (MAP) 161/78 (105) 171/72 (105) Pulse Ox 97 100 96 O2 Delivery Nasal Cannula Nasal Cannula Nasal Cannula O2 Flow Rate 2.0 2.0 02/01/19 02/02/19 23:12 04:11 Temp 97.9 97.9 Pulse 74 61 Resp 20 B/P (MAP) 171/72 124/59 (80) Pulse Ox 98 O2 Delivery Nasal Cannula Intake and Output 02/01/19 02/01/19 02/02/19 15:00 23:00 07:00 Output Total 1000 ml Balance -1000 ml CATERINA BAIRES MD February 02, 2019 08:53
[2019-02-02] MEDS: levETIRAcetam 500 MG TABLET PO SCH ×2 (09:13→21:13)
[2019-02-02] MEDS: CLOPIDOGREL BISULFATE 75 MG TABLET PO SCH (09:47)
[2019-02-02] MEDS: CHOLECALCIFEROL (VITAMIN D3) 1,000 UNIT TABLET PO SCH (09:47)
[2019-02-02] MEDS: PARoxetine 20 MG TABLET PO SCH (09:47)
[2019-02-02] MEDS: SENNOSIDES/DOCUSATE 8.6/50MG TABLET. PO SCH ×2 (09:48→21:13)
[2019-02-02] MEDS: ASPIRIN CHEWABLE 81 MG TABLET. PO SCH (09:48)
[2019-02-02] MEDS: amLODIPine BESYLATE 10 MG TABLET PO SCH (09:48)
[2019-02-02] MEDS: TAMSULOSIN 0.4 MG CAP.ER.24H. PO SCH (09:48)
[2019-02-02] MEDS: METOPROLOL SUCC 24HR ER 50 MG TAB.ER.24H. PO SCH (09:48)
[2019-02-02] MEDS: DOCUSATE SODIUM 100 MG CAPSULE. PO SCH ×2 (09:48→21:13)
[2019-02-02] MEDS: HEPARIN for SUB-Q USE 5,000 UNIT/ML VIAL. SQ SCH ×2 (09:53→21:19)
[2019-02-02 11:00] VITALS: BP 137/63
[2019-02-02] MEDS: BUDESONIDE 0.5 MG/2 ML NEBU. NEB SCH ×2 (11:19→20:37)
[2019-02-02 15:00] VITALS: BP 158/45
--- NOTE | 2019-02-02 15:16 | PDOC ---
PROGRESS NOTES Assessment Assessment Non epileptic seizure like episodes. DM. COPD. CHF. BRIAN Cellulitis, LE. Old CVA. Obesity. RECOMMENDATIONS/PLAN: EEG, as out-patient if not done yet. Keppra 500 mg bid x 1 week, then 250 mg bid x 1 week, then stop. Treat medical diseases. FU with PCP. FU with Neurology as needed. HISTORY OF THE PRESENT ILLNESS: This is a 68-year-old male patient who was brought to the ER of [facility] on 01/31/19 for evaluation of recurrent seizures. He has had a total of 7 clonic episodes lasting 1-2 minutes with rapid recovery since 11:30 am and 3 of which were witnessed in the ED. Patient received 10 mg of midazolam in the field. Patient states that in 2014 he had a CVA and began to experience seizures in 2016 for which he was prescribed Keppra after having inpatient evaluation by a neurologist. 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 His most recent hospitalization was November 2018 for seizure like activity. At ER, he was observed upper body shaking from [id number], his eye lids began to flutter, and he exhibited general tremulousness. The patient was responding to questions during this event and following commands such as raising extremities during the neurologic evaluation. The activity subsided in roughly a minute without altered level of consciousness nor postictal state. Patient denies headache, fever, chills, dizziness, or focal neurological deficit at this time. He states that he did not bite his tongue, lip, or cheek and did not lose bowel or bladder continence. No seizure like episodes since 02/01/19. PAST MEDICAL HISTORY Past Medical History Cardiovascular: Other (pericarditis likely from infection per pt prompting pericardial window; chronic lymphedema), CAD, HTN, HLP Pulmonary: COPD, Other (BRIAN) CENTRAL NERVOUS SYSTEM: CVA, Dementia GI: Other (ventral hernia) Heme/Onc: No pertinent hx Hepatobiliary: No pertinent hx Psych: No pertinent hx Musculoskeletal: Osteoarthritis, Other (morbid obesity) Rheumatologic: No pertinent hx Infectious disease: No pertinent hx ENT: No pertinent hx Renal/: No pertinent hx Endocrine: Diabetes (2) Dermatology: Other (foot venous stasis blisters) PAST SURGICAL HISTORY PCI/stent 3 weeks ago Appendectomy, Hernia Repair (9 ventral repairs), Tonsillectomy, Other (pericardial window; LHC) FAMILY HISTORY Heart Disease (mother) SOCIAL HISTORY Social History Smoke: No (quit >30 pk yr) ALCOHOL: none Drugs: None 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 ALLERGY: Reviewed. MEDICATIONS: Refer to [facility] REVIEW OF SYSTEMS: Constitutional: No malnutrition, weight loss, cachexia. Head: No traumatic brain or head injury. Skin: No edema, or rash. Ear: No infection. Eyes: No vision loss, or diplopia. Nose: No bleeding or purulent discharges. Hearing: Hearing decrease. Neck: No injury. Cardiac: CHF Pulmonary: BRIAN. GI: No GI Ulcer, GI bleeding Urinary/genital: UTI. Endocrine: Obesity. Skeletomuscular: No muscular atrophy, deformity. Neurological: see HP. Psychiatric: Denies drug use/abuse. Otherwise, not -pdalg review of systems. PHYSICAL EXAMINATION: General appearance in no acute distress. HEENT: Normocephalic and nontraumatic. Eyes, nose, ears, and throat are unremarkable. Neck is supple. No lymphadenopathy. No Crepitus. Cardiovascular: S1, S2, regular rate and rhythm. Pulmonary: Clear to auscultation bilaterally. Abdomen: Bowel sounds are positive. Extremities: No rash, lesions, or edema. No restriction of range of motion NEUROLOGICAL EXAMINATION: Awake. Oriented to time, place and person, but reaction was slow. PERRL. EOMI. CN: no focal findings. Muscle tone: within normal. Muscle strength: 5- UE, 4- LE DTR: 2 Plantar reflex: Flexor response bilaterally Gait: not examined in bed. Sensory exam: no abnormal findings. No cerebellar signs elicited. F-T-N test accurate. Objective Objective Vital Signs Date Time Temp Pulse Resp B/P (MAP) Pulse Ox O2 Delivery O2 Flow Rate FiO2 02/02/19 11:20 100 Room Air 02/02/19 11:00 98.4 72 17 137/63 (87) 2.0 98.4 Intake and Output0 02/02/19 07:00 Output Total 1000 ml Balance -1000 ml Output Urine Total 1000 ml Vitals Signs Vitals VS - Last 72 Hours, by Label Date Time Temp Pulse Resp B/P (MAP) Pulse Ox O2 Delivery O2 Flow Rate FiO2 02/02/19 11:20 100 Room Air 02/02/19 11:00 98.4 72 17 137/63 (87) 94 Nasal Cannula 2.0 98.4 02/02/19 09:48 61 124/59 02/02/19 09:48 61 124/59 02/02/19 08:00 Nasal Cannula 2.0 02/02/19 07:00 98.1 67 19 162/60 (94) 94 Nasal Cannula 2.0 98.1 02/02/19 04:11 97.9 61 20 124/59 (80) 98 Nasal Cannula 97.9 02/01/19 23:12 74 171/72 02/01/19 23:02 99.0 74 20 171/72 (105) 96 Nasal Cannula 99.0 02/01/19 20:00 Nasal Cannula 2.0 02/01/19 19:50 100 2.0 02/01/19 19:00 97.6 72 20 161/78 (105) 97 Nasal Cannula 97.6 02/01/19 15:00 98.1 69 16 121/39 (66) 94 Nasal Cannula 2.0 98.1 02/01/19 11:00 98.9 110 17 144/72 (96) 97 Room Air 98.9 02/01/19 09:50 65 132/67 02/01/19 09:49 65 132/67 02/01/19 08:00 Nasal Cannula 2.0 Laboratory Laboratory Laboratory Tests Test 02/01/19 17:00 02/01/19 20:09 02/02/19 05:10 02/02/19 07:20 Glucose (Fingerstick) 127 mg/dL (70-99) 141 mg/dL (70-99) 100 mg/dL (70-99) White Blood Count 9.1 x10^3/uL (4.0-11.0) Red Blood Count 3.39 x10^6/uL (4.30-5.70) Hemoglobin 10.4 g/dL (13.0-17.5) Hematocrit 31.5 % (39.0-53.0) Mean Corpuscular Volume 93 fL (79-100) Mean Corpuscular Hemoglobin 31 pg (25-35) Mean Corpuscular Hemoglobin Concent 33 g/dL (31-37) Red Cell Distribution Width 13.7 % (11.5-14.5) Platelet Count 297 x10^3/uL (140-400) Neutrophils (%) (Auto) 60 % (31-73) Lymphocytes (%) (Auto) 27 % (24-48) Monocytes (%) (Auto) 9 % (0-9) Eosinophils (%) (Auto) 4 % (0-3) Basophils (%) (Auto) 1 % (0-3) Neutrophils # (Auto) 5.4 x10^3uL (1.8-7.7) Lymphocytes # (Auto) 2.4 x10^3/uL (1.0-4.8) Monocytes # (Auto) 0.8 x10^3/uL (0.0-1.1) Eosinophils # (Auto) 0.4 x10^3/uL (0.0-0.7) Basophils # (Auto) 0.1 x10^3/uL (0.0-0.2) Sodium Level 142 mmol/L (136-145) Potassium Level 4.5 mmol/L (3.5-5.1) Chloride Level 105 mmol/L (98-107) Carbon Dioxide Level 31 mmol/L (21-32) Anion Gap 6 (6-14) Blood Urea Nitrogen 37 mg/dL (8-26) Creatinine 1.3 mg/dL (0.7-1.3) Estimated GFR (Cockcroft-Gault) 55.1 Glucose Level 113 mg/dL (70-99) Calcium Level 8.8 mg/dL (8.5-10.1) Test 02/02/19 10:57 Glucose (Fingerstick) 134 mg/dL (70-99) Medication Medications Current Medications Insulin Glargine (Lantus) 8 units QHS SQ ; Start 02/02/19 at 21:00 Insulin Glargine (Lantus) 15 units QHS SQ ; Start 02/01/19 at 21:00; Stop 02/01/19 at 21:00; Status DC Insulin Glargine (Lantus) 15 units QHS SQ ; Start 02/02/19 at 21:00; Stop 02/02/19 at 21:00; Status DC Comment Review of Relevant I have reviewed the following items yuliya (where applicable) has been applied. NANCY TINAJERO MD February 02, 2019 15:16
[2019-02-02 19:00] VITALS: BP 166/51
[2019-02-02] MEDS ORDERED: INSULIN GLARGINE 300 UNITS/3 ML INSULN.PEN. SQ SCH ×2 (21:00)
[2019-02-02] MEDS: diphenhydrAMINE HCL 25 MG CAPSULE PO SCH (21:13)
--- NOTE | 2019-02-02 22:26 | NUR ---
Patient's IV came out; he said he rolled over and heard a "pop" then started getting all wet. He really did not want another IV put in because he believes he is discharging home tomorrow. I spoke with Dr. Rapp, and he said it was okay to leave the IV out.
[2019-02-02 23:43] VITALS: BP 157/59
[2019-02-03 03:00] VITALS: BP 165/60
[2019-02-03 07:00] VITALS: BP 191/80
[2019-02-03] MEDS: BUDESONIDE 0.5 MG/2 ML NEBU. NEB SCH ×2 (07:54→19:47)
[2019-02-03] MEDS: INSULIN LISPRO 300 UNITS/3 ML INSULN.PEN. SQ SCH ×3 (08:00→17:00)
--- NOTE | 2019-02-03 08:12 | PDOC ---
PROGRESS NOTES Chief Complaint Chief Complaint A/P: Seizure episode - previously diagnosed with psychogenic nonepileptic seizures. This is almost assuredly 2/2 hypoglycemia this time History of psychogenic nonepileptic seizures - seen at [facility], no organic epilepsy. Has been off keppra for some time. Will consult neurology Diabetic neuropathy - plays a role in his gait Long-standing multifactorial gait disorder - diabetic neuropathy related. PT to see Diabetes - will place on basal bolus plus regimen, Hypoglycemia - D5 overnight, back on insulin in AM Hypertension - cont meds. Check orthostatics and holding parameters CHF - diastolic, does not seem to be in exacerbation, however, his lasix and aldactone have bee held recently. Seen by cards and had recent echo showing grade 1 diastolic dysfunction Alzheimer disease - on aricept. I will hold this in light of his admitting diagnosis of falls. Would be better off this med considering this may be a side effect C[place] on CKD - Baseline cr is 1.2, now is Cr 1.7-->1.5 overnight, likely vasomotor nephropathy. will give some IVF, D5 overnight. 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 Patient received 10 mg of midazolam in the field. Patient states that in 2014 he had a CVA and began to experience seizures in 2017 for which he was prescribed Keppra after having inpatient evaluation by a neurologist. 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 His most recent hospitalization was November of this year for seizure like activity, seen by neurology at that time. Lactate was WNL this time. Patient denies any pain, denies any shortness of breath. He states his legs usually give out and the daughter is always available to help him but yesterday she was not at home. Denies any neck pain. He is morbidly obese EKG - : First degree AV block with FL of 224 ms. Rate of 67. Left axis deviation present. Q waves present in III and aVF. No T wave inversion. No ST segment elevation or depression 02/01: D5 gtt, still had glucose 41. Did have some shaking activity x2 noted by nursing staff x 4 total episodes, was given ativan when the last episode lasted greater than 2 minutes. Lactate was 0.9. Started on Keppra 500mg BID per Neuro Overnight no events, glucose in low 100s. Off D5 now. No further shaking activity. He states he wants to SNF in [place] if possible. Still feeling weak Plan: Consult neurology Poc glucose now and Q4 hours Greatly reduce his lantus to 8units now Vitals Vitals Vital Signs Date Time Temp Pulse Resp B/P (MAP) Pulse Ox O2 Delivery O2 Flow Rate FiO2 02/03/19 07:55 90 Room Air 02/03/19 07:37 2.0 02/03/19 07:00 98.4 64 18 191/80 (117) 98.4 Physical Exam General: Alert, Cooperative, No acute distress Lungs: Clear, Other Abdomen: Normal bowel sounds, Soft, No tenderness, No hepatosplenomegaly, No masses Extremities: No clubbing, No cyanosis, No edema, Normal pulses, No tenderness/swelling Skin: No rashes, No breakdown, No significant lesion Labs LABS Laboratory Tests Test 02/02/19 10:57 02/02/19 14:55 02/02/19 17:01 02/02/19 20:17 Glucose (Fingerstick) 134 mg/dL (70-99) 153 mg/dL (70-99) 167 mg/dL (70-99) 145 mg/dL (70-99) Test 02/03/19 07:52 Glucose (Fingerstick) 103 mg/dL (70-99) Assessment and Plan Assessmemt and Plan Problems Medical Problems: (1) Hypoglycemia Status: Acute (2) Seizure-like activity Status: Acute Comment Review of Relevant I have reviewed the following items yuliya (where applicable) has been applied. Labs Laboratory Tests Test 02/01/19 10:05 02/01/19 10:12 02/01/19 11:17 02/01/19 13:18 Glucose (Fingerstick) 112 mg/dL (70-99) 105 mg/dL (70-99) 126 mg/dL (70-99) Urine Opiates Screen Neg (NEG) Urine Methadone Screen Neg (NEG) Urine Barbiturates Neg (NEG) Urine Phencyclidine Screen Neg (NEG) Urine Amphetamine/Methamphetamine Neg (NEG) Urine Benzodiazepines Screen Pos (NEG) Urine Cocaine Screen Neg (NEG) Urine Cannabinoids Screen Neg (NEG) Urine Ethyl Alcohol Neg (NEG) Test 02/01/19 17:00 02/01/19 20:09 02/01/19 20:40 02/02/19 05:10 Glucose (Fingerstick) 127 mg/dL (70-99) 141 mg/dL (70-99) Nasal Screen MRSA (PCR) Negative (Negative) White Blood Count 9.1 x10^3/uL (4.0-11.0) Red Blood Count 3.39 x10^6/uL (4.30-5.70) Hemoglobin 10.4 g/dL (13.0-17.5) Hematocrit 31.5 % (39.0-53.0) Mean Corpuscular Volume 93 fL (79-100) Mean Corpuscular Hemoglobin 31 pg (25-35) Mean Corpuscular Hemoglobin Concent 33 g/dL (31-37) Red Cell Distribution Width 13.7 % (11.5-14.5) Platelet Count 297 x10^3/uL (140-400) Neutrophils (%) (Auto) 60 % (31-73) Lymphocytes (%) (Auto) 27 % (24-48) Monocytes (%) (Auto) 9 % (0-9) Eosinophils (%) (Auto) 4 % (0-3) Basophils (%) (Auto) 1 % (0-3) Neutrophils # (Auto) 5.4 x10^3uL (1.8-7.7) Lymphocytes # (Auto) 2.4 x10^3/uL (1.0-4.8) Monocytes # (Auto) 0.8 x10^3/uL (0.0-1.1) Eosinophils # (Auto) 0.4 x10^3/uL (0.0-0.7) Basophils # (Auto) 0.1 x10^3/uL (0.0-0.2) Sodium Level 142 mmol/L (136-145) Potassium Level 4.5 mmol/L (3.5-5.1) Chloride Level 105 mmol/L (98-107) Carbon Dioxide Level 31 mmol/L (21-32) Anion Gap 6 (6-14) Blood Urea Nitrogen 37 mg/dL (8-26) Creatinine 1.3 mg/dL (0.7-1.3) Estimated GFR (Cockcroft-Gault) 55.1 Glucose Level 113 mg/dL (70-99) Calcium Level 8.8 mg/dL (8.5-10.1) Test 02/02/19 07:20 02/02/19 10:57 02/02/19 14:55 02/02/19 17:01 Glucose (Fingerstick) 100 mg/dL (70-99) 134 mg/dL (70-99) 153 mg/dL (70-99) 167 mg/dL (70-99) Test 02/02/19 20:17 02/03/19 07:52 Glucose (Fingerstick) 145 mg/dL (70-99) 103 mg/dL (70-99) Laboratory Tests Test 02/02/19 10:57 02/02/19 14:55 02/02/19 17:01 02/02/19 20:17 Glucose (Fingerstick) 134 mg/dL (70-99) 153 mg/dL (70-99) 167 mg/dL (70-99) 145 mg/dL (70-99) Test 02/03/19 07:52 Glucose (Fingerstick) 103 mg/dL (70-99) Medications Current Medications Lorazepam (Ativan Inj) 1 mg 1X ONCE IV Last administered on 01/31/19at 13:43; Start 01/31/19 at 13:00; Stop 01/31/19 at 13:01; Status DC Sodium Chloride 1,000 ml @ 1,000 mls/hr 1X ONCE IV Last administered on 01/31/19at 13:41; Start 01/31/19 at 13:00; Stop 01/31/19 at 13:59; Status DC Dextrose (Dextrose 50%-Water Syringe) 25 gm 1X ONCE IV Last administered on 01/31/19at 14:55; Start 01/31/19 at 15:00; Stop 01/31/19 at 15:01; Status DC Ondansetron HCl (Zofran) 4 mg PRN Q8HRS PRN IV NAUSEA/VOMITING; Start 01/31/19 at 17:30; Stop 02/01/19 at 13:29; Status DC Insulin Human Lispro (HumaLOG) 0-5 UNITS TIDWMEALS SQ ; Start 02/01/19 at 08:00 Dextrose (Dextrose 50%-Water Syringe) 12.5 gm PRN Q15MIN PRN IV SEE COMMENTS Last administered on 02/01/19at 07:06; Start 01/31/19 at 17:30 Dextrose/Sodium Chloride 1,000 ml @ 100 mls/hr Q10H IV Last administered on 02/02/19at 19:33; Start 01/31/19 at 20:17; Stop 02/02/19 at 22:07; Status DC Ondansetron HCl (Zofran) 4 mg PRN Q6HRS PRN IV NAUSEA/VOMITING; Start 01/31/19 at 20:30 Acetaminophen (Tylenol) 650 mg PRN Q6HRS PRN PO Headaches, Temp > 101.5F; Start 01/31/19 at 20:30 Senna/Docusate Sodium (Senna Plus) 1 tab BID PO Last administered on 02/02/19at 21:13; Start 01/31/19 at 21:00 Heparin Sodium (Porcine) (Heparin Sodium) 5,000 unit Q12HR SQ Last administered on 02/02/19at 21:19; Start 01/31/19 at 21:00 Amlodipine Besylate (Norvasc) 10 mg DAILY PO Last administered on 02/02/19at 09:48; Start 02/01/19 at 09:00 Aspirin (Children'S Aspirin) 81 mg DAILY PO Last administered on 02/02/19at 09:48; Start 02/01/19 at 09:00 Cetirizine HCl (ZyrTEC) 10 mg PRN QHS PRN PO ALLERGIES; Start 01/31/19 at 20:30 Vitamin D (Vitamin D3) 1,000 unit DAILY PO Last administered on 02/02/19at 09:47; Start 02/01/19 at 09:00 Clonidine HCl (Catapres) 0.2 mg TID PRN PRN PO high blood pressure Last administered on 02/01/19at 23:12; Start 01/31/19 at 20:30 Clopidogrel Bisulfate (Plavix) 75 mg DAILY PO Last administered on 02/02/19 09:47; Start 02/01/19 at 09:00 Diphenhydramine HCl (Benadryl) 25 mg QHS PO Last administered on 02/02/19at 21:13; Start 01/31/19 at 21:00 Docusate Sodium (Colace) 100 mg BID PO Last administered on 02/02/19 21:13; Start 01/31/19 at 21:00 Insulin Glargine (Lantus) 30 units DAILY SQ ; Start 02/01/19 at 09:00; Stop 02/01/19 at 09:00; Status DC Metoprolol Succinate (Toprol Xl) 50 mg DAILY PO Last administered on 02/02/19at 09:48; Start 02/01/19 at 09:00 Nitroglycerin (Nitrostat) 0.4 mg PRN Q5MIN SL ; Start 01/31/19 at 20:30 Tamsulosin HCl (Flomax) 0.4 mg DAILY PO Last administered on 02/02/19at 09:48; Start 02/01/19 at 09:00 Paroxetine HCl (Paxil) 40 mg DAILY PO Last administered on 02/02/19 09:47; Start 02/01/19 at 09:00 Budesonide (Pulmicort) 0.5 mg RTBID NEB Last administered on 02/03/19 07:54; Start 02/01/19 at 08:00 Levetiracetam (Keppra) 500 mg BID PO Last administered on 02/02/19 21:13; Start 02/01/19 at 09:00 Lorazepam (Ativan Inj) 1 mg PRN Q4HRS PRN IV ANXIETY / AGITATION Last administered on 02/01/19at 13:21; Start 02/01/19 at 07:45; Stop 02/01/19 at 13:46; Status DC Insulin Glargine (Lantus) 15 units QHS SQ ; Start 02/01/19 at 21:00; Stop 02/01/19 at 21:00; Status DC Lorazepam (Ativan Inj) 1 mg PRN Q4HRS PRN IV SEIZURES > 2 MINUTES; Start 02/01/19 at 14:00 Lorazepam (Ativan Inj) 2 mg PRN Q4HRS PRN IV SEIZURES > 2 MINUTES; Start 02/01/19 at 14:00 Insulin Glargine (Lantus) 15 units QHS SQ ; Start 02/02/19 at 21:00; Stop 02/02/19 at 21:00; Status DC Insulin Glargine (Lantus) 8 units QHS SQ Last administered on 02/02/19at 21:20; Start 02/02/19 at 21:00 Active Scripts Active Humalog (Insulin Lispro) 100 Unit/1 Ml Insuln.pen 0 Units SQ TIDWMEALS 14 Days Paroxetine Hcl 20 Mg Tablet 40 Mg PO DAILY 30 Days Reported Flomax (Tamsulosin Hcl) 0.4 Mg Cap.er.24h 0.4 Mg PO DAILY Onglyza (Saxagliptin Hcl) 5 Mg Tablet 2.5 Mg PO DAILY Losartan Potassium 100 Mg Tablet 100 Mg PO DAILY Donepezil Hcl 10 Mg Tablet 10 Mg PO HS Clonidine Hcl 0.2 Mg Tablet 0.2 Mg PO TID PRN PRN Vitamin D3 (Cholecalciferol (Vitamin D3)) 1,000 Unit Tablet 1 Tab PO DAILY Metoprolol Succinate ( Xl ) (Metoprolol Succinate) 100 Mg Tab.er.24h 50 Mg PO DAILY Magnesium Oxide 400 Mg Tablet 1 Tab PO DAILY Gabapentin 600 Mg Tablet 600 Mg PO TID Lantus Solostar (Insulin Glargine,Hum.rec.anlog) 100 Unit/1 Ml Insuln.pen 35 Unit SQ BID Furosemide 80 Mg Tablet 40 Mg PO DAILY Docusate Sodium 100 Mg Capsule 1 Cap PO BID Benadryl (Diphenhydramine Hcl) 25 Mg Capsule 1 Cap PO QHS Budesonide 0.5 Mg/2 Ml Ampul.neb 1 Vial NEB BID Amlodipine Besylate 10 Mg Tablet 10 Mg PO DAILY Albuterol Sulfate Conc Neb Soln (Albuterol Sulfate) 2.5 Mg/0.5 Ml Vial.neb 1 Vial NEB Q6HRS Aspirin 81 Mg Tab.chew 1 Tab PO DAILY NITROGLYCERIN SubLingual (Nitroglycerin) 0.4 Mg Tab.subl 1 Tab SL UD Cetirizine Hcl 10 Mg Tablet 1 Tab PO PRN QHS Omeprazole 20 Mg Capsule.dr 1 Cap PO DAILY Albuterol Sulfate Conc Neb Soln (Albuterol Sulfate) 2.5 Mg/0.5 Ml Vial.neb 3 Mg NEB TID PRN Tessalon Perle (Benzonatate) 100 Mg Capsule 100 Mg PO Q4HRS PRN Clopidogrel (Clopidogrel Bisulfate) 75 Mg Tablet 75 Mg PO DAILY Vitals/I & O Vital Sign - Last 24 Hours 02/02/19 02/02/19 02/02/19 02/02/19 09:48 09:48 11:00 11:20 Temp 98.4 98.4 Pulse 61 61 72 Resp 17 B/P (MAP) 124/59 124/59 137/63 (87) Pulse Ox 94 100 O2 Delivery Nasal Cannula Room Air O2 Flow Rate 2.0 02/02/19 02/02/19 02/02/19 02/02/19 15:00 19:00 20:00 20:39 Temp 98.2 96.6 98.2 96.6 Pulse 72 72 Resp 18 B/P (MAP) 158/45 (82) 166/51 (89) Pulse Ox 96 90 93 O2 Delivery Nasal Cannula Nasal Cannula Nasal Cannula Room Air O2 Flow Rate 2.0 2.0 2.0 02/02/19 02/03/19 02/03/19 02/03/19 23:43 03:00 07:00 07:37 Temp 98.3 98.3 98.4 98.3 98.3 98.4 Pulse 72 71 64 Resp B/P (MAP) 157/59 (91) 165/60 (95) 191/80 (117) Pulse Ox 92 91 90 O2 Delivery Nasal Cannula Nasal Cannula Nasal Cannula Nasal Cannula O2 Flow Rate 2.0 2.0 2.0 2.0 02/03/19 07:55 Pulse Ox 90 O2 Delivery Room Air Intake and Output 02/02/19 02/02/19 02/03/19 15:00 23:00 07:00 Intake Total 1000 ml 250 ml 400 ml Output Total 400 ml 600 ml 1350 ml Balance 600 ml -350 ml -950 ml CATERINA BAIRES MD February 03, 2019 08:12
[2019-02-03] MEDS: PARoxetine 20 MG TABLET PO SCH (08:31)
[2019-02-03] MEDS: CLOPIDOGREL BISULFATE 75 MG TABLET PO SCH (08:31)
[2019-02-03] MEDS: CHOLECALCIFEROL (VITAMIN D3) 1,000 UNIT TABLET PO SCH (08:31)
[2019-02-03] MEDS: ASPIRIN CHEWABLE 81 MG TABLET. PO SCH (08:31)
[2019-02-03] MEDS: levETIRAcetam 500 MG TABLET PO SCH ×2 (08:32→20:53)
[2019-02-03] MEDS: SENNOSIDES/DOCUSATE 8.6/50MG TABLET. PO SCH ×2 (08:32→20:59)
[2019-02-03] MEDS: TAMSULOSIN 0.4 MG CAP.ER.24H. PO SCH (08:32)
[2019-02-03] MEDS: amLODIPine BESYLATE 10 MG TABLET PO SCH (08:32)
[2019-02-03] MEDS: DOCUSATE SODIUM 100 MG CAPSULE. PO SCH ×2 (08:32→20:58)
[2019-02-03] MEDS: cloNIDine HCL 0.2 MG TABLET PO PRN (08:32)
[2019-02-03] MEDS: METOPROLOL SUCC 24HR ER 50 MG TAB.ER.24H. PO SCH (08:32)
[2019-02-03] MEDS: HEPARIN for SUB-Q USE 5,000 UNIT/ML VIAL. SQ SCH ×2 (08:37→20:57)
[2019-02-03 11:00] VITALS: BP 144/67
[2019-02-03 15:00] VITALS: BP 166/73
--- NOTE | 2019-02-03 16:49 | PDOC ---
PROGRESS NOTES Assessment Assessment Non epileptic seizure-like episodes. DM. COPD. CHF. BRIAN Cellulitis, LE. Old CVA. Obesity. RECOMMENDATIONS/PLAN: EEG, as out-patient if not done yet. Keppra 500 mg bid x 1 week, then 250 mg bid x 1 week, then stop. Treat medical diseases. FU with PCP. FU with Neurology as needed. HISTORY OF THE PRESENT ILLNESS: This is a 68-year-old male patient who was brought to the ER of [facility] on 01/31/19 for evaluation of recurrent seizures. He has had a total of 7 clonic episodes lasting 1-2 minutes with rapid recovery since 11:30 am and 3 of which were witnessed in the ED. Patient received 10 mg of midazolam in the field. Patient states that in 2014 he had a CVA and began to experience seizures in 2016 for which he was prescribed Keppra after having inpatient evaluation by a neurologist. 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 His most recent hospitalization was November 2018 for seizure like activity. At ER, he was observed upper body shaking from [id number], his eye lids began to flutter, and he exhibited general tremulousness. The patient was responding to questions during this event and following commands such as raising extremities during the neurologic evaluation. The activity subsided in roughly a minute without altered level of consciousness nor postictal state. Patient denies headache, fever, chills, dizziness, or focal neurological deficit at this time. He states that he did not bite his tongue, lip, or cheek and did not lose bowel or bladder continence. No seizure like episodes since 02/01/19. PAST MEDICAL HISTORY Past Medical History Cardiovascular: Other (pericarditis likely from infection per pt prompting pericardial window; chronic lymphedema), CAD, HTN, HLP Pulmonary: COPD, Other (BRIAN) CENTRAL NERVOUS SYSTEM: CVA, Dementia GI: Other (ventral hernia) Heme/Onc: No pertinent hx Hepatobiliary: No pertinent hx Psych: No pertinent hx Musculoskeletal: Osteoarthritis, Other (morbid obesity) Rheumatologic: No pertinent hx Infectious disease: No pertinent hx ENT: No pertinent hx Renal/: No pertinent hx Endocrine: Diabetes (2) Dermatology: Other (foot venous stasis blisters) PAST SURGICAL HISTORY PCI/stent 3 weeks ago Appendectomy, Hernia Repair (9 ventral repairs), Tonsillectomy, Other (pericardial window; LHC) FAMILY HISTORY Heart Disease (mother) SOCIAL HISTORY Social History Smoke: No (quit >30 pk yr) ALCOHOL: none Drugs: None 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 ALLERGY: Reviewed. MEDICATIONS: Refer to [facility] REVIEW OF SYSTEMS: Constitutional: No malnutrition, weight loss, cachexia. Head: No traumatic brain or head injury. Skin: No edema, or rash. Ear: No infection. Eyes: No vision loss, or diplopia. Nose: No bleeding or purulent discharges. Hearing: Hearing decrease. Neck: No injury. Cardiac: CHF Pulmonary: BRIAN. GI: No GI Ulcer, GI bleeding Urinary/genital: UTI. Endocrine: Obesity. Skeletomuscular: No muscular atrophy, deformity. Neurological: see HP. Psychiatric: Denies drug use/abuse. Otherwise, not [id number] review of systems. PHYSICAL EXAMINATION: General appearance in no acute distress. HEENT: Normocephalic and nontraumatic. Eyes, nose, ears, and throat are unremarkable. Neck is supple. No lymphadenopathy. No Crepitus. Cardiovascular: S1, S2, regular rate and rhythm. Pulmonary: Clear to auscultation bilaterally. Abdomen: Bowel sounds are positive. Extremities: No rash, lesions, or edema. No restriction of range of motion NEUROLOGICAL EXAMINATION: Awake. Oriented to time, place and person, but reaction was slow. PERRL. EOMI. CN: no focal findings. Muscle tone: within normal. Muscle strength: 5- UE, 4- LE DTR: 2 Plantar reflex: Flexor response bilaterally Gait: not examined in bed. Sensory exam: no abnormal findings. No cerebellar signs elicited. F-T-N test fine. Objective Objective Vital Signs Date Time Temp Pulse Resp B/P (MAP) Pulse Ox O2 Delivery O2 Flow Rate FiO2 02/03/19 15:00 97.6 69 18 166/73 (104) 96 Nasal Cannula 2.0 97.6 Intake and Output 02/03/19 06:59 Intake Total 1650 ml Output Total 2350 ml Balance -700 ml Intake Oral 650 ml IV Total 1000 ml Output Urine Total 2350 ml Vitals Signs Vitals VS - Last 72 Hours, by Label Date Time Temp Pulse Resp B/P (MAP) Pulse Ox O2 Delivery O2 Flow Rate FiO2 5/19/19 15:00 97.6 69 18 166/73 (104) 96 Nasal Cannula 2.0 97.6 02/03/19 11:00 98.3 71 18 144/67 (92) 93 Nasal Cannula 2.0 98.3 02/03/19 08:32 64 191/80 02/03/19 08:32 64 191/80 02/03/19 08:32 64 191/80 02/03/19 07:55 90 Room Air 02/03/19 07:37 Nasal Cannula 2.0 02/03/19 07:00 98.4 64 18 191/80 (117) 90 Nasal Cannula 2.0 98.4 02/03/19 03:00 98.3 71 18 165/60 (95) 91 Nasal Cannula 2.0 98.3 02/02/19 23:43 98.3 72 18 157/59 (91) 92 Nasal Cannula 2.0 98.3 02/02/19 20:39 93 Room Air 02/02/19 20:00 Nasal Cannula 2.0 02/02/19 19:00 96.6 72 18 166/51 (89) 90 Nasal Cannula 2.0 96.6 02/02/19 15:00 98.2 72 19 158/45 (82) 96 Nasal Cannula 2.0 98.2 02/02/19 11:20 100 Room Air 02/02/19 11:00 98.4 72 17 137/63 (87) 94 Nasal Cannula 2.0 98.4 02/02/19 09:48 61 124/59 02/02/19 09:48 61 124/59 02/02/19 08:00 Nasal Cannula 2.0 02/02/19 07:00 98.1 67 19 162/60 (94) 94 Nasal Cannula 2.0 98.1 Laboratory Laboratory Laboratory Tests Test 02/02/19 17:01 02/02/19 20:17 02/03/19 07:52 02/03/19 11:02 Glucose (Fingerstick) 167 mg/dL (70-99) 145 mg/dL (70-99) 103 mg/dL (70-99) 159 mg/dL (70-99) Medication Medications Current Medications Insulin Glargine (Lantus) 5 units QHS SQ ; Start 02/03/19 at 21:00 Insulin Glargine (Lantus) 8 units QHS SQ Last administered on 02/02/19at 21:20; Start 02/02/19 at 21:00; Stop 02/03/19 at 08:13; Status DC Insulin Glargine (Lantus) 15 units QHS SQ ; Start 02/02/19 at 21:00; Stop 02/02/19 at 21:00; Status DC Comment Review of Relevant I have reviewed the following items yuliya (where applicable) has been applied. NANCY TINAJERO MD February 03, 2019 16:49
[2019-02-03 19:00] VITALS: BP 171/68
[2019-02-03] MEDS: diphenhydrAMINE HCL 25 MG CAPSULE PO SCH (20:53)
[2019-02-03] MEDS: INSULIN GLARGINE 300 UNITS/3 ML INSULN.PEN. SQ SCH (20:58)
--- NOTE | 2019-02-03 20:59 | NUR ---
Patient's HS dose of Senna and Colace were both held tonight because he had an extra-large, explosive bowel movement just after shift change tonight.
[2019-02-03 23:00] VITALS: BP 121/62
[2019-02-04 03:00] VITALS: BP 161/71
[2019-02-04 07:00] VITALS: BP 156/51
[2019-02-04] MEDS: BUDESONIDE 0.5 MG/2 ML NEBU. NEB SCH ×2 (07:36→19:59)
[2019-02-04] MEDS: INSULIN LISPRO 300 UNITS/3 ML INSULN.PEN. SQ SCH ×3 (08:00→17:00)
[2019-02-04] MEDS: PARoxetine 20 MG TABLET PO SCH (08:34)
[2019-02-04] MEDS: levETIRAcetam 500 MG TABLET PO SCH ×2 (08:34→20:59)
[2019-02-04] MEDS: ASPIRIN CHEWABLE 81 MG TABLET. PO SCH (08:34)
[2019-02-04] MEDS: amLODIPine BESYLATE 10 MG TABLET PO SCH (08:34)
[2019-02-04] MEDS: METOPROLOL SUCC 24HR ER 50 MG TAB.ER.24H. PO SCH (08:34)
[2019-02-04] MEDS: CHOLECALCIFEROL (VITAMIN D3) 1,000 UNIT TABLET PO SCH (08:35)
[2019-02-04] MEDS: TAMSULOSIN 0.4 MG CAP.ER.24H. PO SCH (08:35)
[2019-02-04] MEDS: DOCUSATE SODIUM 100 MG CAPSULE. PO SCH ×2 (08:39→20:58)
[2019-02-04] MEDS: SENNOSIDES/DOCUSATE 8.6/50MG TABLET. PO SCH ×2 (08:39→20:58)
[2019-02-04] MEDS: HEPARIN for SUB-Q USE 5,000 UNIT/ML VIAL. SQ SCH ×2 (08:39→21:08)
--- NOTE | 2019-02-04 09:37 | NUR ---
JANNET following pt. PT/OT recommends SNU. Spoke with Pt at bedside and pt reported he has been staying at [facility] for about a month and plans to return. JANNET spoke with Wili at [facility] and confirmed Pt is LT resident. Wili reported [facility] and [facility] provide skilled services upon [facility]. [employer] SupervisorLucy will fax updates to [facility]. Will continue to follow.
--- NOTE | 2019-02-04 10:44 | PDOC ---
PROGRESS NOTES Chief Complaint Chief Complaint A/P: Seizure episode - previously diagnosed with psychogenic nonepileptic seizures. This is almost assuredly 2/2 hypoglycemia this time History of psychogenic nonepileptic seizures - seen at [place], no organic epilepsy. Has been off keppra for some time. Will consult neurology Diabetic neuropathy - plays a role in his gait Long-standing multifactorial gait disorder - diabetic neuropathy related. PT to see Diabetes - on basal bolus plus regimen, Hypoglycemia - was on D5 now back on insulin Hypertension - cont meds. Check orthostatics and holding parameters CHF - diastolic, does not seem to be in exacerbation, however, his lasix and aldactone have bee held recently. Seen by cards and had recent echo showing grade 1 diastolic dysfunction Alzheimer disease - on aricept. I will hold this in light of his admitting diagnosis of falls. Would be better off this med considering this may be a side effect C[place]AND on CKD - Baseline cr is 1.2, now is Cr 1.7-->1.5 , likely vasomotor nephropathy. will give some IVFt. His [place] may contribute to his hypoglycemia Protein calorie malnutrition - mild, will get range management specialist involved FEN - ADA cardiac diet PPX - heparin FULL CODE Inpatient for recurrent seizure-like episodes at least 2 midnights History of Present Illness History of Present Illness 67 yo male with a history of multiple medical problems including diabetes, hypertension, CHF, kidney disease, dementia, depression, peripheral neuropathy, GERD, CVA, seizures, COPD, DM2 who presented to the ED after he has had a total of 7 clonic episodes lasting 1-2 minutes with rapid recovery since 1130 this morning 3 of which were witnessed in the ED. Patient received 10 mg of midazolam in the field. Patient states that in 2014 he had a CVA and began to experience seizures in 2016 for which he was prescribed Keppra after having inpatient evaluation by a neurologist. 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 His most recent hospitalization was November of this year for seizure like activity, seen by neurology at that time. Lactate was WNL this time. Patient denies any pain, denies any shortness of breath. He states his legs usually give out and the daughter is always available to help him but yesterday she was not at home. Denies any neck pain. He is morbidly obese EKG - : First degree AV block with AL of 224 ms. Rate of 67. Left axis deviation present. Q waves present in III and aVF. No T wave inversion. No ST segment elevation or depression 02/01: D5 gtt, still had glucose 41. Did have some shaking activity x2 noted by nursing staff x 4 total episodes, was given ativan when the last episode lasted greater than 2 minutes. Lactate was 0.9. Started on Keppra 500mg BID per Neuro no events,Off D5 now. No further shaking activity. He states he wants to go to SNF in [place] if possible. Still feeling weak Plan: Consulted neurology Poc glucose now and Q4 hours reduced his lantus to 5 units now Vitals Vitals Vital Signs Date Time Temp Pulse Resp B/P (MAP) Pulse Ox O2 Delivery O2 Flow Rate FiO2 02/04/19 08:34 67 156/51 02/04/19 07:37 96 Room Air 02/04/19 07:00 98.1 16 98.1 02/04/19 03:00 2.0 Physical Exam General: Alert, Cooperative, No acute distress Lungs: Clear, Other Abdomen: Normal bowel sounds, Soft, No tenderness, No hepatosplenomegaly, No masses Extremities: No clubbing, No cyanosis, No edema, Normal pulses, No tenderness/swelling Skin: No rashes, No breakdown, No significant lesion Labs LABS Laboratory Tests Test 02/03/19 11:02 02/03/19 17:49 02/03/19 20:46 Glucose (Fingerstick) 159 mg/dL (70-99) 130 mg/dL (70-99) 135 mg/dL (70-99) Assessment and Plan Assessmemt and Plan Problems Medical Problems: (1) Hypoglycemia Status: Acute (2) Seizure-like activity Status: Acute Comment Review of Relevant I have reviewed the following items yuliya (where applicable) has been applied. Labs Laboratory Tests Test 02/02/19 10:57 02/02/19 14:55 02/02/19 17:01 02/02/19 20:17 Glucose (Fingerstick) 134 mg/dL (70-99) 153 mg/dL (70-99) 167 mg/dL (70-99) 145 mg/dL (70-99) Test 02/03/19 07:52 02/03/19 11:02 02/03/19 17:49 02/03/19 20:46 Glucose (Fingerstick) 103 mg/dL (70-99) 159 mg/dL (70-99) 130 mg/dL (70-99) 135 mg/dL (70-99) Laboratory Tests Test 02/03/19 11:02 02/03/19 17:49 02/03/19 20:46 Glucose (Fingerstick) 159 mg/dL (70-99) 130 mg/dL (70-99) 135 mg/dL (70-99) Medications Current Medications Lorazepam (Ativan Inj) 1 mg 1X ONCE IV Last administered on 01/31/19 13:43; Start 01/31/19 at 13:00; Stop 01/31/19 at 13:01; Status DC Sodium Chloride 1,000 ml @ 1,000 mls/hr 1X ONCE IV Last administered on 01/31/19at 13:41; Start 01/31/19 at 13:00; Stop 01/31/19 at 13:59; Status DC Dextrose (Dextrose 50%-Water Syringe) 25 gm 1X ONCE IV Last administered on 01/31/19at 14:55; Start 01/31/19 at 15:00; Stop 01/31/19 at 15:01; Status DC Ondansetron HCl (Zofran) 4 mg PRN Q8HRS PRN IV NAUSEA/VOMITING; Start 01/31/19 at 17:30; Stop 02/01/19 at 13:29; Status DC Insulin Human Lispro (HumaLOG) 0-5 UNITS TIDWMEALS SQ ; Start 02/01/19 at 08:00 Dextrose (Dextrose 50%-Water Syringe) 12.5 gm PRN Q15MIN PRN IV SEE COMMENTS Last administered on 02/01/19at 07:06; Start 01/31/19 at 17:30 Dextrose/Sodium Chloride 1,000 ml @ 100 mls/hr Q10H IV Last administered on 02/02/19at 19:33; Start 01/31/19 at 20:17; Stop 02/02/19 at 22:07; Status DC Ondansetron HCl (Zofran) 4 mg PRN Q6HRS PRN IV NAUSEA/VOMITING; Start 01/31/19 at 20:30 Acetaminophen (Tylenol) 650 mg PRN Q6HRS PRN PO Headaches, Temp > 101.5F; Start 01/31/19 at 20:30 Senna/Docusate Sodium (Senna Plus) 1 tab BID PO Last administered on 02/03/19 08:32; Start 01/31/19 at 21:00 Heparin Sodium (Porcine) (Heparin Sodium) 5,000 unit Q12HR SQ Last administered on 02/04/19 08:39; Start 01/31/19 at 21:00 Amlodipine Besylate (Norvasc) 10 mg DAILY PO Last administered on 02/04/19 08:34; Start 02/01/19 at 09:00 Aspirin (Children'S Aspirin) 81 mg DAILY PO Last administered on 02/04/19 08: 34; Start 02/01/19 at 09:00 Cetirizine HCl (ZyrTEC) 10 mg PRN QHS PRN PO ALLERGIES; Start 01/31/19 at 20:30 Vitamin D (Vitamin D3) 1,000 unit DAILY PO Last administered on 02/04/19 08:35; Start 02/01/19 at 09:00 Clonidine HCl (Catapres) 0.2 mg TID PRN PRN PO high blood pressure Last administered on 02/03/19 08:32; Start 01/31/19 at 20:30 Clopidogrel Bisulfate (Plavix) 75 mg DAILY PO Last administered on 02/03/19 08:31; Start 02/01/19 at 09:00 Diphenhydramine HCl (Benadryl) 25 mg QHS PO Last administered on 02/03/19 20:53; Start 01/31/19 at 21:00 Docusate Sodium (Colace) 100 mg BID PO Last administered on 02/03/19 08:32; Start 01/31/19 at 21:00 Insulin Glargine (Lantus) 30 units DAILY SQ ; Start 02/01/19 at 09:00; Stop 02/01/19 at 09:00; Status DC Metoprolol Succinate (Toprol Xl) 50 mg DAILY PO Last administered on 02/04/19 08:34; Start 02/01/19 at 09:00 Nitroglycerin (Nitrostat) 0.4 mg PRN Q5MIN SL ; Start 01/31/19 at 20:30 Tamsulosin HCl (Flomax) 0.4 mg DAILY PO Last administered on 02/04/19 08:35; Start 02/01/19 at 09:00 Paroxetine HCl (Paxil) 40 mg DAILY PO Last administered on 02/04/19 08:34; Start 02/01/19 at 09:00 Budesonide (Pulmicort) 0.5 mg RTBID NEB Last administered on 02/04/19 07:36; Start 02/01/19 at 08:00 Levetiracetam (Keppra) 500 mg BID PO Last administered on 02/04/19 08:34; Start 02/01/19 at 09:00 Lorazepam (Ativan Inj) 1 mg PRN Q4HRS PRN IV ANXIETY / AGITATION Last administered on 02/01/19 13:21; Start 02/01/19 at 07:45; Stop 02/01/19 at 13:46; Status DC Insulin Glargine (Lantus) 15 units QHS SQ ; Start 02/01/19 at 21:00; Stop 02/01/19 at 21:00; Status DC Lorazepam (Ativan Inj) 1 mg PRN Q4HRS PRN IV SEIZURES > 2 MINUTES; Start 02/01/19 at 14:00 Lorazepam (Ativan Inj) 2 mg PRN Q4HRS PRN IV SEIZURES > 2 MINUTES; Start 02/01/19 at 14:00 Insulin Glargine (Lantus) 15 units QHS SQ ; Start 02/02/19 at 21:00; Stop 02/02/19 at 21:00; Status DC Insulin Glargine (Lantus) 8 units QHS SQ Last administered on 02/02/19at 21:20; Start 02/02/19 at 21:00; Stop 02/03/19 at 08:13; Status DC Insulin Glargine (Lantus) 5 units QHS SQ Last administered on 02/03/19at 20:58; Start 02/03/19 at 21:00 Active Scripts Active Humalog (Insulin Lispro) 100 Unit/1 Ml Insuln.pen 0 Units SQ TIDWMEALS 14 Days Paroxetine Hcl 20 Mg Tablet 40 Mg PO DAILY 30 Days Reported Flomax (Tamsulosin Hcl) 0.4 Mg Cap.er.24h 0.4 Mg PO DAILY Onglyza (Saxagliptin Hcl) 5 Mg Tablet 2.5 Mg PO DAILY Losartan Potassium 100 Mg Tablet 100 Mg PO DAILY Donepezil Hcl 10 Mg Tablet 10 Mg PO HS Clonidine Hcl 0.2 Mg Tablet 0.2 Mg PO TID PRN PRN Vitamin D3 (Cholecalciferol (Vitamin D3)) 1,000 Unit Tablet 1 Tab PO DAILY Metoprolol Succinate ( Xl ) (Metoprolol Succinate) 100 Mg Tab.er.24h 50 Mg PO DAILY Magnesium Oxide 400 Mg Tablet 1 Tab PO DAILY Gabapentin 600 Mg Tablet 600 Mg PO TID Lantus Solostar (Insulin Glargine,Hum.rec.anlog) 100 Unit/1 Ml Insuln.pen 35 Unit SQ BID Furosemide 80 Mg Tablet 40 Mg PO DAILY Docusate Sodium 100 Mg Capsule 1 Cap PO BID Benadryl (Diphenhydramine Hcl) 25 Mg Capsule 1 Cap PO QHS Budesonide 0.5 Mg/2 Ml Ampul.neb 1 Vial NEB BID Amlodipine Besylate 10 Mg Tablet 10 Mg PO DAILY Albuterol Sulfate Conc Neb Soln (Albuterol Sulfate) 2.5 Mg/0.5 Ml Vial.neb 1 Vial NEB Q6HRS Aspirin 81 Mg Tab.chew 1 Tab PO DAILY NITROGLYCERIN SubLingual (Nitroglycerin) 0.4 Mg Tab.subl 1 Tab SL UD Cetirizine Hcl 10 Mg Tablet 1 Tab PO PRN QHS Omeprazole 20 Mg Capsule.dr 1 Cap PO DAILY Albuterol Sulfate Conc Neb Soln (Albuterol Sulfate) 2.5 Mg/0.5 Ml Vial.neb 3 Mg NEB TID PRN Tessalon Perle (Benzonatate) 100 Mg Capsule 100 Mg PO Q4HRS PRN Clopidogrel (Clopidogrel Bisulfate) 75 Mg Tablet 75 Mg PO DAILY Vitals/I & O Vital Sign - Last 24 Hours 02/03/19 02/03/19 02/03/19 02/03/19 11:00 15:00 19:00 19:48 Temp 98.3 97.6 97.8 98.3 97.6 97.8 Pulse 71 69 71 Resp 18 18 18 B/P (MAP) 144/67 (92) 166/73 (104) 171/68 (102) Pulse Ox 93 96 92 93 O2 Delivery Nasal Cannula Nasal Cannula Nasal Cannula Room Air O2 Flow Rate 2.0 2.0 2.0 5/19/19 5/19/19 5/20/19 5/20/19 20:00 23:00 03:00 07:00 Temp 97.4 97.9 98.1 97.4 97.9 98.1 Pulse 65 98 67 Resp 18 18 16 B/P (MAP) 121/62 (81) 161/71 (101) 156/51 (86) Pulse Ox 93 94 96 O2 Delivery Nasal Cannula Nasal Cannula Nasal Cannula Room Air O2 Flow Rate 2.0 2.0 2.0 02/04/19 02/04/19 02/04/19 07:37 08:34 08:34 Pulse 67 67 B/P (MAP) 156/51 156/51 Pulse Ox 96 O2 Delivery Room Air Intake and Output 02/03/19 02/03/19 02/04/19 15:00 23:00 07:00 Intake Total 180 ml 260 ml 600 ml Output Total 600 ml 300 ml 650 ml Balance -420 ml -40 ml -50 ml HIPOLITO RAMIREZ MD February 04, 2019 10:44
[2019-02-04 11:00] VITALS: BP 157/70
[2019-02-04] MEDS: CLOPIDOGREL BISULFATE 75 MG TABLET PO SCH (12:05)
--- NOTE | 2019-02-04 14:38 | PDOC ---
PROGRESS NOTES Assessment Assessment Non epileptic seizure like episodes. DM. COPD. CHF. BRIAN Cellulitis, LE. Old CVA. Obesity. RECOMMENDATIONS/PLAN: EEG, as out-patient if not done yet. Keppra 500 mg bid x 1 week, then 250 mg bid x 1 week, then stop. Treat medical diseases. FU with PCP. FU with Neurology as needed. HISTORY OF THE PRESENT ILLNESS: This is a 68-year-old male patient who was brought to the ER of [facility] on 01/31/19 for evaluation of recurrent seizures. He has had a total of 7 clonic episodes lasting 1-2 minutes with rapid recovery since 11:30 am and 3 of which were witnessed in the ED. Patient received 10 mg of midazolam in the field. Patient states that in 2014 he had a CVA and began to experience seizures in 2016 for which he was prescribed Keppra after having inpatient evaluation by a neurologist. 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 His most recent hospitalization was November 2018 for seizure like activity. At ER, he was observed upper body shaking from [id number], his eye lids began to flutter, and he exhibited general tremulousness. The patient was responding to questions during this event and following commands such as raising extremities during the neurologic evaluation. The activity subsided in roughly a minute without altered level of consciousness nor postictal state. Patient denies headache, fever, chills, dizziness, or focal neurological deficit at this time. He states that he did not bite his tongue, lip, or cheek and did not lose bowel or bladder continence. No seizure like episodes since 02/01/19. PAST MEDICAL HISTORY Past Medical History Cardiovascular: Other (pericarditis likely from infection per pt prompting pericardial window; chronic lymphedema), CAD, HTN, HLP Pulmonary: COPD, Other (BRIAN) CENTRAL NERVOUS SYSTEM: CVA, Dementia GI: Other (ventral hernia) Heme/Onc: No pertinent hx Hepatobiliary: No pertinent hx Psych: No pertinent hx Musculoskeletal: Osteoarthritis, Other (morbid obesity) Rheumatologic: No pertinent hx Infectious disease: No pertinent hx ENT: No pertinent hx Renal/: No pertinent hx Endocrine: Diabetes (2) Dermatology: Other (foot venous stasis blisters) PAST SURGICAL HISTORY PCI/stent 3 weeks ago Appendectomy, Hernia Repair (9 ventral repairs), Tonsillectomy, Other (pericardial window; LHC) FAMILY HISTORY Heart Disease (mother) SOCIAL HISTORY Social History Smoke: No (quit >30 pk yr) ALCOHOL: none Drugs: None 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 ALLERGY: Reviewed. MEDICATIONS: Refer to [facility] REVIEW OF SYSTEMS: Constitutional: No malnutrition, weight loss, cachexia. Head: No traumatic brain or head injury. Skin: No edema, or rash. Ear: No infection. Eyes: No vision loss, or diplopia. Nose: No bleeding or purulent discharges. Hearing: Hearing decrease. Neck: No injury. Cardiac: CHF Pulmonary: BRIAN. GI: No GI Ulcer, GI bleeding Urinary/genital: UTI. Endocrine: Obesity. Skeletomuscular: No muscular atrophy, deformity. Neurological: see HP. Psychiatric: Denies drug use/abuse. Otherwise, not [id number] review of systems. PHYSICAL EXAMINATION: General appearance in no acute distress. HEENT: Normocephalic and nontraumatic. Eyes, nose, ears, and throat are unremarkable. Neck is supple. No lymphadenopathy. No Crepitus. Cardiovascular: S1, S2, regular rate and rhythm. Pulmonary: Clear to auscultation bilaterally. Abdomen: Bowel sounds are positive. Extremities: No rash, lesions, or edema. No restriction of range of motion NEUROLOGICAL EXAMINATION: Awake. Oriented to time, place and person, but reaction was slow. PERRL. EOMI. CN: no focal findings. Muscle tone: within normal. Muscle strength: 5- UE, 4- LE DTR: 2 Plantar reflex: Flexor response bilaterally Gait: able to walk with a walker. Sensory exam: no abnormal findings. No cerebellar signs elicited. F-T-N test accurate. Objective Objective Vital Signs Date Time Temp Pulse Resp B/P (MAP) Pulse Ox O2 Delivery O2 Flow Rate FiO2 02/04/19 11:00 98.4 68 17 157/70 (99) 98 Room Air 98.4 02/04/19 08:00 2.0 Intake and Output 02/04/19 06:59 Intake Total 1040 ml Output Total 1550 ml Balance -510 ml Intake Oral 640 ml Tube Feeding 400 ml Output Urine Total 1550 ml # Bowel Movements 2 Vitals Signs Vitals VS - Last 72 Hours, by Label Date Time Temp Pulse Resp B/P (MAP) Pulse Ox O2 Delivery O2 Flow Rate FiO2 02/04/19 11:00 98.4 68 17 157/70 (99) 98 Room Air 98.4 02/04/19 08:34 67 156/51 02/04/19 08:34 67 156/51 02/04/19 08:00 Nasal Cannula 2.0 02/04/19 07:37 96 Room Air 02/04/19 07:00 98.1 67 16 156/51 (86) 96 Room Air 98.1 02/04/19 03:00 97.9 98 18 161/71 (101) 94 Nasal Cannula 2.0 97.9 02/03/19 23:00 97.4 65 18 121/62 (81) 93 Nasal Cannula 2.0 97.4 02/03/19 20:00 Nasal Cannula 2.0 02/03/19 19:48 93 Room Air 02/03/19 19:00 97.8 71 18 171/68 (102) 92 Nasal Cannula 2.0 97.8 02/03/19 15:00 97.6 69 18 166/73 (104) 96 Nasal Cannula 2.0 97.6 02/03/19 11:00 98.3 71 18 144/67 (92) 93 Nasal Cannula 2.0 98.3 02/03/19 08:32 64 191/80 02/03/19 08:32 64 191/80 02/03/19 08:32 64 191/80 02/03/19 07:55 90 Room Air 02/03/19 07:37 Nasal Cannula 2.0 02/03/19 07:00 98.4 64 18 191/80 (117) 90 Nasal Cannula 2.0 98.4 Laboratory Laboratory Laboratory Tests Test 02/03/19 17:49 02/03/19 20:46 02/04/19 07:38 02/04/19 10:40 Glucose (Fingerstick) 130 mg/dL (70-99) 135 mg/dL (70-99) 100 mg/dL (70-99) 140 mg/dL (70-99) Medication Medications Current Medications Insulin Glargine (Lantus) 5 units QHS SQ Last administered on 02/03/19at 20:58; Start 02/03/19 at 21:00 Comment Review of Relevant I have reviewed the following items yuliya (where applicable) has been applied. NANCY TINAJERO MD February 04, 2019 14:38
[2019-02-04 15:00] VITALS: BP 152/54
[2019-02-04 19:00] VITALS: BP 163/77
[2019-02-04] MEDS: diphenhydrAMINE HCL 25 MG CAPSULE PO SCH (20:59)
[2019-02-04] MEDS: INSULIN GLARGINE 300 UNITS/3 ML INSULN.PEN. SQ SCH (21:07)
[2019-02-04 23:00] VITALS: BP 183/85
[2019-02-05 03:35] VITALS: BP 165/45
[2019-02-05 07:00] VITALS: BP 180/64
[2019-02-05] MEDS: INSULIN LISPRO 300 UNITS/3 ML INSULN.PEN. SQ SCH ×2 (08:00→12:00)
[2019-02-05] MEDS: BUDESONIDE 0.5 MG/2 ML NEBU. NEB SCH (08:00)
[2019-02-05] MEDS: DOCUSATE SODIUM 100 MG CAPSULE. PO SCH (09:00)
[2019-02-05] MEDS: SENNOSIDES/DOCUSATE 8.6/50MG TABLET. PO SCH (09:00)
[2019-02-05] MEDS: HEPARIN for SUB-Q USE 5,000 UNIT/ML VIAL. SQ SCH (09:00)
[2019-02-05] MEDS: CHOLECALCIFEROL (VITAMIN D3) 1,000 UNIT TABLET PO SCH (09:27)
[2019-02-05] MEDS: PARoxetine 20 MG TABLET PO SCH (09:28)
[2019-02-05] MEDS: ASPIRIN CHEWABLE 81 MG TABLET. PO SCH (09:28)
[2019-02-05] MEDS: METOPROLOL SUCC 24HR ER 50 MG TAB.ER.24H. PO SCH (09:29)
[2019-02-05] MEDS: amLODIPine BESYLATE 10 MG TABLET PO SCH (09:29)
[2019-02-05] MEDS: CLOPIDOGREL BISULFATE 75 MG TABLET PO SCH (09:29)
[2019-02-05] MEDS: TAMSULOSIN 0.4 MG CAP.ER.24H. PO SCH (09:29)
[2019-02-05] MEDS: levETIRAcetam 500 MG TABLET PO SCH (09:29)
--- NOTE | 2019-02-05 09:46 | EEG ---
DATE OF SERVICE: 02/03/2019 EEG NUMBER: [id number]. OBJECTIVE: This is a 68-year-old male patient with history of seizure-like episodes, as non-epileptic seizures. EEG is requested to help rule out epileptic seizure. METHODS: Twenty electrodes were applied according to the international 10-20 electrode placement system. EKG monitoring, hyperventilation, intermittent photic stimulation, monopolar and bipolar montages are routinely utilized. The record was obtained on a digital system with video monitoring. FINDINGS: 1. Background: The patient was recorded in the awake, drowsy, and sleep states. The overall background amplitude is 5-15 microvolts. A posterior dominant rhythm of 6-8 Hz is observed with superimposed slowing in the theta and delta frequencies from time to time. 2. Abnormalities: No specific epileptiform discharge or electrographic seizure is seen. No diffuse slowing. 3. Activation: Hyperventilation was performed with fair efforts and normal response. Intermittent photic stimulation was performed with photic driving. No specific epileptiform discharge or electrographic seizure induced by hyperventilation or intermittent photic stimulation. IMPRESSION: This EEG falls into the abnormal category of the study for the awake, drowsy, and sleep states. The posterior dominant rhythm of 6-8 Hz is slow for age. There is superimposed slowing in the theta and delta frequencies but less than 50% of the time. No focal, lateralizing, specific epileptiform discharge or electrographic seizure is seen. This pattern of EEG may suggest mild encephalopathy. NANCY TINAJERO MD DR: CLARITA/ro JOB#: [id number] / [id number] EDIE
[2019-02-05 11:00] VITALS: BP 173/73
[2019-02-05] MEDS ORDERED: INSU100I13 SQ (11:14)
[2019-02-05] MEDS ORDERED: LEVE500T56 PO ×4 (11:14→11:24)
[2019-02-05 11:33] VITALS: BP 173/73
--- NOTE | 2019-02-05 12:24 | SNU/HH DC ---
DISCHARGE ORDERS DISCHARGE INFORMATION: DISCHARGE DATE: February 05, 2019 FINAL DIAGNOSIS Problems Medical Problems: (1) Hypoglycemia Status: Acute (2) Seizure-like activity Status: Acute CONDITION ON DISCHARGE: Stable CODE STATUS: Code Status: Full MCFP: SNF STAY <30 DAYS: Yes POST DISCHARGE ORDERS: ACTIVITY ORDERS: Activity as tolerated WEIGHT BEARING STATUS: As tolerated DIET AFTER DISCHARGE: ADA WOUND/INCISION CARE: No wound care needed CHECKS AFTER DISCHARGE: CHECKS AFTER DISCHARGE: Check blood press - daily, Check blood sugar, ac/hs, Check your Temp as needed, Weigh Yourself Daily TREATMENT/EQUIPMENT ORDERS: ADAPTIVE EQUIPMENT NEEDED: None Physical Therapy For: Evalulation/Treatment Occupational Therapy For: Evaluation/Treatment Speech Language Pathology For: Evaluation/Treatment DISCHARGE MEDICATIONS: Home Meds Active Scripts Levetiracetam (KEPPRA) 500 Mg Tablet, 1 TAB PO BID for seizure for 7 Days, #14 TAB 3 Refills Prov:HIPOLITO RAMIREZ MD 02/05/19 Levetiracetam (KEPPRA) 500 Mg Tablet, 0.5 TAB PO BID for seizures for 7 Days, #7 TAB 3 Refills Prov:HIPOLITO RAMIREZ MD 02/05/19 Insulin Glargine,Hum.rec.anlog (LANTUS SOLOSTAR) 100 Unit/1 Ml Insuln.pen, 5 UNITS SQ QHS for dm for 30 Days, #30 EACH Prov:HIPOLITO RAMIREZ MD 02/05/19 Insulin Lispro (HUMALOG) 100 Unit/1 Ml Insuln.pen, 0 UNITS SQ TIDWMEALS for DIABETES for 14 Days, #1 EACH Prov:ИРИНА FUNES MD 12/07/18 Paroxetine Hcl (PAROXETINE HCL) 20 Mg Tablet, 40 MG PO DAILY for DEPRESSION for 30 Days, #60 TAB Prov:ИРИНА FUNES MD 12/07/18 Reported Medications Tamsulosin Hcl (FLOMAX) 0.4 Mg Cap.er.24h, 0.4 MG PO DAILY for bph, TAB 12/05/18 Saxagliptin Hcl (ONGLYZA) 5 Mg Tablet, 2.5 MG PO DAILY for diabetes, TAB 12/05/18 Losartan Potassium (LOSARTAN POTASSIUM) 100 Mg Tablet, 100 MG PO DAILY for HYPERTENSION, TAB 12/05/18 Donepezil Hcl (DONEPEZIL HCL) 10 Mg Tablet, 10 MG PO HS for dementia, TAB 3/20/19 Clonidine Hcl (CLONIDINE HCL) 0.2 Mg Tablet, 0.2 MG PO TID PRN PRN for high blood pressure, TAB 12/05/18 Cholecalciferol (Vitamin D3) (VITAMIN D3) 1,000 Unit Tablet, 1 TAB PO DAILY for supplement, #30 TAB 5 Refills 12/05/18 Metoprolol Succinate (METOPROLOL SUCCINATE ( XL )) 100 Mg Tab.er.24h, 50 MG PO DAILY for FOR HYPERTENSION, #30 TAB 0 Refills 12/05/18 Magnesium Oxide (MAGNESIUM OXIDE) 400 Mg Tablet, 1 TAB PO DAILY for replacement preparations, #30 TAB 5 Refills 12/05/18 Gabapentin (GABAPENTIN) 600 Mg Tablet, 600 MG PO TID for NEUROGENIC PAIN, TAB 12/05/18 Furosemide (FUROSEMIDE) 80 Mg Tablet, 40 MG PO DAILY for fluid retention, #180 TAB 3 Refills 04/22/18 Docusate Sodium (DOCUSATE SODIUM) 100 Mg Capsule, 1 CAP PO BID, #30 CAP 04/22/18 Diphenhydramine Hcl (BENADRYL) 25 Mg Capsule, 1 CAP PO QHS, #30 CAP 1 Refill 04/22/18 Budesonide (BUDESONIDE) 0.5 Mg/2 Ml Ampul.neb, 1 VIAL NEB BID, #120 ML 3 Refills 04/22/18 Amlodipine Besylate (AMLODIPINE BESYLATE) 10 Mg Tablet, 10 MG PO DAILY, TAB 04/22/18 Albuterol Sulfate (ALBUTEROL SULFATE CONC NEB SOLN) 2.5 Mg/0.5 Ml Vial.neb, 1 VIAL NEB Q6HRS, #120 VIAL 5 Refills 04/22/18 Aspirin (ASPIRIN) 81 Mg Tab.chew, 1 TAB PO DAILY, #30 TAB 3 Refills 04/22/18 Nitroglycerin (NITROGLYCERIN SubLingual) 0.4 Mg Tab.subl, 1 TAB SL UD, #25 TAB 3 Refills 02/16/18 Cetirizine Hcl (CETIRIZINE HCL) 10 Mg Tablet, 1 TAB PO PRN QHS, #30 TAB 5 Refills 01/28/18 Omeprazole (OMEPRAZOLE) 20 Mg Capsule.dr, 1 CAP PO DAILY, #30 CAP 5 Refills 01/07/18 Albuterol Sulfate (ALBUTEROL SULFATE CONC NEB SOLN) 2.5 Mg/0.5 Ml Vial.neb, 3 MG NEB TID PRN for SHORTNESS OF BREATH, EACH 0 Refills 08/05/17 Benzonatate (TESSALON PERLE) 100 Mg Capsule, 100 MG PO Q4HRS PRN for COUGH, CAP 08/05/17 Clopidogrel Bisulfate (CLOPIDOGREL) 75 Mg Tablet, 75 MG PO DAILY for TO PREVENT BLOOD CLOTS, #30 TAB 0 Refills 04/29/17 Discontinued Reported Medications Insulin Glargine,Hum.rec.anlog (LANTUS SOLOSTAR) 100 Unit/1 Ml Insuln.pen, 35 UNIT SQ BID, #15 ML 3 Refills 04/22/18 Metformin Hcl (METFORMIN HCL) 1,000 Mg Tablet, 500 MG PO BIDWMEALS for high blood sugar, TAB 02/16/18 HIPOLITO RAMIREZ MD February 05, 2019 12:24
--- NOTE | 2019-02-05 12:53 | NUR ---
SW following pt. Orders faxed to [facility] and Pt will transport via facility arranged transport at 1330. Pt aware of plans and agreeable. Discussed with RN and Packet on chart.
--- NOTE | 2019-02-05 13:30 | NUR ---
Discharge Note: MAGDY JACKSON [address] Discharge instructions and discharge home medications reviewed with Other facility and a copy given. All questions have been answered and understanding verbalized. The following instructions and handouts were given: Adult seizure, hypoglycemia. Discontinued lines and drains: Pt had no IV access at time of DC. Patient discharged to [facility], location of origin. Report called to Rosa, return call rec'd regaring EEG. .
--- NOTE | 2019-02-05 13:38 | PDOC3 ---
Discharge Summary Visit Information Date of Admission: January 31, 2019 Date of Discharge: February 05, 2019 Final Diagnosis Problems Medical Problems: (1) Hypoglycemia Status: Acute (2) Seizure-like activity Status: Acute Brief Hospital Course Allergies Allergies Coded Allergies Type Severity Reaction Last Updated Verified Iodinated Contrast- Oral and IV Dye Allergy Intermediate hives 04/23/18 Yes Penicillins Allergy Intermediate "PASSES OUT" 04/22/18 Yes Iasddqw-Nic-Oal Reductase Inhibitor Allergy Intermediate 04/22/18 Yes erythromycin base Allergy Intermediate 04/22/18 Yes iodine Allergy Intermediate 04/22/18 Yes lisinopril Allergy Intermediate 04/22/18 Yes niacin Allergy Intermediate 04/22/18 Yes sertraline Allergy Intermediate 04/22/18 Yes simvastatin Allergy Intermediate 04/22/18 Yes fluvastatin Adverse Reaction Intermediate muscle cramping 04/23/18 Yes pravastatin Adverse Reaction Intermediate muscle cramping 04/23/18 Yes rosuvastatin Adverse Reaction Intermediate muscle cramping 04/23/18 Yes Vital Signs Vital Signs Date Time Temp Pulse Resp B/P (MAP) Pulse Ox O2 Delivery O2 Flow Rate FiO2 02/05/19 11:33 98.4 75 173/73 (106) 95 Nasal Cannula 2.0 98.4 02/05/19 11:00 18 Lab Results Laboratory Tests Test 02/03/19 17:49 02/03/19 20:46 02/04/19 07:38 02/04/19 10:40 Glucose (Fingerstick) 130 mg/dL (70-99) 135 mg/dL (70-99) 100 mg/dL (70-99) 140 mg/dL (70-99) Test 02/04/19 16:58 02/04/19 20:22 02/05/19 07:22 02/05/19 11:15 Glucose (Fingerstick) 124 mg/dL (70-99) 155 mg/dL (70-99) 102 mg/dL (70-99) 128 mg/dL (70-99) Laboratory Tests Test 02/04/19 16:58 02/04/19 20:22 02/05/19 07:22 02/05/19 11:15 Glucose (Fingerstick) 124 mg/dL (70-99) 155 mg/dL (70-99) 102 mg/dL (70-99) 128 mg/dL (70-99) Brief Hospital Course 67 yo male with a history of multiple medical problems including diabetes, hypertension, CHF, kidney disease, dementia, depression, peripheral neuropathy, GERD, CVA, seizures, COPD, DM2 who presented to the ED after he has had a total of 7 clonic episodes lasting 1-2 minutes with rapid recovery since 1130 this morning 3 of which were witnessed in the ED. Patient received 10 mg of midazolam in the field. Patient states that in 2014 he had a CVA and began to experience seizures in 2016 for which he was prescribed Keppra after having inpatient evaluation by a neurologist. 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 His most recent hospitalization was November of this year for seizure like activity, seen by neurology at that time. Lactate was WNL this time. Patient denies any pain, denies any shortness of breath. He states his legs usually give out and the daughter is always available to help him but yesterday she was not at home. Denies any neck pain. He is morbidly obese. EKG - : First degree AV block with MT of 224 ms. Rate of 67. Left axis deviation present. Q waves present in III and aVF. No T wave inversion. No ST segment elevation or depression. patient admitted to a medical floor. was placed on D5 drip given hypogycelmia on 02/01 patient Did have some shaking activity x2 noted by nursing staff x 4 total episodes, was given ativan when the last episode lasted greater than 2 minutes. Lactate was 0.9. Started on Keppra 500mg BID per Neuro. Seizure episode - previously diagnosed with psychogenic nonepileptic seizures. This is almost assuredly 2/2 hypoglycemia this time. Also History of psychogenic nonepileptic seizures - seen at [place], no organic epilepsy. Has been off keppra for some time. neurology consulted and recommended Keppra. 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 Pt followed patient. 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 given some IVF. will need to be followed as outpatient. His [place] may contribute to his hypoglycemia. will plan EEG, as out-patient. also per neuro: Keppra 500 mg bid x 1 week, then 250 mg bid x 1 week, then stop. given hypoglycemia will decrease lantus to 5 units. will need to watch sugars closely as outpatient. patient will be discharged to SNU in stable condition. Discharge Information Condition at Discharge: Improved Follow Up: Weeks (PCP in 2 weeks ) Disposition/Orders: D/C to Another Facility Scheduled Albuterol Sulfate (Albuterol Sulfate Conc Neb Soln) 2.5 Mg/0.5 Ml Vial.neb, 1 VIAL NEB Q6HRS, #120 Ref 5 (Reported) Entered as Reported by: Babs Sullivan RN on 04/22/18257 Amlodipine Besylate (Amlodipine Besylate) 10 Mg Tablet, 10 MG PO DAILY, (Reported) Entered as Reported by: Babs Sullivan RN on 04/22/18257 Last Action: Continued on 01/31/192024 by CATERINA BAIRES MD Aspirin (Aspirin) 81 Mg Tab.chew, 1 TAB PO DAILY, #30 Ref 3 (Reported) Entered as Reported by: Babs Sullivan RN on 04/22/18257 Last Action: Continued on 01/31/192024 by CATERINA BAIRES MD Budesonide (Budesonide) 0.5 Mg/2 Ml Ampul.neb, 1 VIAL NEB BID, #120 Ref 3 (Reported) Entered as Reported by: Babs Sullivan RN on 04/22/18257 Cetirizine Hcl (Cetirizine Hcl) 10 Mg Tablet, 1 TAB PO PRN QHS, #30 Ref 5 (Reported) Entered as Reported by: THADDEUS ZHOU on 01/28/18 1249 Last Action: Continued on 01/31/192024 by CATERINA BAIRES MD Cholecalciferol (Vitamin D3) (Vitamin D3) 1,000 Unit Tablet, 1 TAB PO DAILY for supplement, #30 Ref 5 (Reported) Entered as Reported by: BERTHA WEAVER on 12/05/18 1012 Last Action: Continued on 01/31/192024 by CATERINA BAIRES MD Clopidogrel Bisulfate (Clopidogrel) 75 Mg Tablet, 75 MG PO DAILY for TO PREVENT BLOOD CLOTS, #30 Ref 0 (Reported) Entered as Reported by: Babs Sullivan RN on 04/29/17 2150 Last Action: Continued on 01/31/192024 by CATERINA BIARES MD Diphenhydramine Hcl (Benadryl) 25 Mg Capsule, 1 CAP PO QHS, #30 Ref 1 (Reported) Entered as Reported by: Babs Sullivan RN on 04/22/18257 Last Action: Continued on 01/31/192024 by CATERINA BAIRES MD Docusate Sodium (Docusate Sodium) 100 Mg Capsule, 1 CAP PO BID, #30 (Reported) Entered as Reported by: Babs Sullivan RN on 04/22/18257 Last Action: Continued on 01/31/192024 by CATERINA BAIRES MD Donepezil Hcl (Donepezil Hcl) 10 Mg Tablet, 10 MG PO HS for dementia, (Reported) Entered as Reported by: BERTHA WEAVER on 12/05/18 1035 Furosemide (Furosemide) 80 Mg Tablet, 40 MG PO DAILY for fluid retention, #180 Ref 3 (Reported) Entered as Reported by: Babs Sullivan RN on 04/22/18257 Gabapentin (Gabapentin) 600 Mg Tablet, 600 MG PO TID for NEUROGENIC PAIN, (Reported) Entered as Reported by: BERTHA WEAVER on 12/05/18 1003 Insulin Glargine,Hum.rec.anlog (Lantus Solostar) 100 Unit/1 Ml Insuln.pen, 5 UNITS SQ QHS for dm for 30 Days, #30 Prescribed by: HIPOLITO RAMIREZ MD on 02/05/19 1114 Insulin Lispro (Humalog) 100 Unit/1 Ml Insuln.pen, 0 UNITS SQ TIDWMEALS for DIABETES for 14 Days, #1 Prescribed by: ИРИНА FUNES MD on 12/07/18 1422 Levetiracetam (Keppra) 500 Mg Tablet, 0.5 TAB PO BID for seizures for 7 Days, #7 Ref 3 Prescribed by: HIPOLITO RAMIREZ MD on 02/05/19 1121 Levetiracetam (Keppra) 500 Mg Tablet, 1 TAB PO BID for seizure for 7 Days, #14 Ref 3 Prescribed by: HIPOLITO RAMIREZ MD on 02/05/19 1124 Losartan Potassium (Losartan Potassium) 100 Mg Tablet, 100 MG PO DAILY for HYPERTENSION, (Reported) Entered as Reported by: BERTHA WEAVER on 12/05/18 1035 Magnesium Oxide (Magnesium Oxide) 400 Mg Tablet, 1 TAB PO DAILY for replacement preparations, #30 Ref 5 (Reported) Entered as Reported by: BERTHA WEAVER on 12/05/18 1003 Metoprolol Succinate (Metoprolol Succinate ( Xl )) 100 Mg Tab.er.24h, 50 MG PO DAILY for FOR HYPERTENSION, #30 Ref 0 (Reported) Entered as Reported by: BERTHA WEAVER on 12/05/18 1003 Last Action: Continued on 01/31/192025 by CATERINA BAIRES MD Nitroglycerin (NITROGLYCERIN SubLingual) 0.4 Mg Tab.subl, 1 TAB SL UD, #25 Ref 3 (Reported) Entered as Reported by: ROMARIO SEPULVEDA on 02/16/18 1259 Last Action: Continued on 01/31/192025 by CATERINA BAIRES MD Omeprazole (Omeprazole) 20 Mg Capsule.dr, 1 CAP PO DAILY, #30 Ref 5 (Reported) Entered as Reported by: KINGSLEY CNOWAY RN on 01/07/18 0757 Paroxetine Hcl (Paroxetine Hcl) 20 Mg Tablet, 40 MG PO DAILY for DEPRESSION for 30 Days, #60 Prescribed by: ИРИНА FUNES MD on 12/07/18 1422 Last Action: Converted on 01/31/192025 by CATERINA BAIRES MD Saxagliptin Hcl (Onglyza) 5 Mg Tablet, 2.5 MG PO DAILY for diabetes, (Reported) Entered as Reported by: BERTHA WEAVER on 12/05/18 1035 Tamsulosin Hcl (Flomax) 0.4 Mg Cap.er.24h, 0.4 MG PO DAILY for bph, (Reported) Entered as Reported by: BERTHA WEAVER on 12/05/18 1035 Last Action: Continued on 01/31/192025 by CATERINA BAIRES MD Scheduled PRN Albuterol Sulfate (Albuterol Sulfate Conc Neb Soln) 2.5 Mg/0.5 Ml Vial.neb, 3 MG NEB TID PRN for SHORTNESS OF BREATH, Ref 0 (Reported) Entered as Reported by: CHUYITA HODGES on 08/05/17 1524 Benzonatate (Tessalon Perle) 100 Mg Capsule, 100 MG PO Q4HRS PRN for COUGH, (Reported) Entered as Reported by: CHUYITA HODGES on 08/05/17 1524 Clonidine Hcl (Clonidine Hcl) 0.2 Mg Tablet, 0.2 MG PO TID PRN PRN for high blood pressure, (Reported) Entered as Reported by: BERTHA WEAVER on 12/05/18 1012 Last Action: Continued on 01/31/192024 by CATERINA BAIRES MD Discontinued Medications Insulin Glargine,Hum.rec.anlog (Lantus Solostar) 100 Unit/1 Ml Insuln.pen, 35 UNIT SQ BID, #15 Ref 3 (Reported) Entered as Reported by: Babs Sullivan RN on 04/22/18 0258 Last Action: Reviewed on 02/02/19 0850 by CATERINA BAIRES MD Metformin Hcl (Metformin Hcl) 1,000 Mg Tablet, 500 MG PO BIDWMEALS for high blood sugar, (Reported) Entered as Reported by: ROMARIO SEPULVEDA on 02/16/18 1303 Last Action: Discontinued on 02/02/19 0850 by MD JAMES DARBY MANEESH MD February 05, 2019 13:38
--- NOTE | 2019-02-05 17:39 | PDOC ---
PROGRESS NOTES Assessment Assessment Non epileptic seizure like episodes. DM. COPD. CHF. BRIAN Cellulitis, LE. Old CVA. Obesity. RECOMMENDATIONS/PLAN: Keppra 500 mg bid x 1 week, then 250 mg bid x 1 week, then stop. Treat medical diseases. FU with PCP. FU with Neurology as needed. EEG on 02/03/19: 7-8 Hz/s. No epileptiform discharges. HISTORY OF THE PRESENT ILLNESS: This is a 68-year-old male patient who was brought to the ER of [facility] on 01/31/19 for evaluation of recurrent seizures. He has had a total of 7 clonic episodes lasting 1-2 minutes with rapid recovery since 11:30 am and 3 of which were witnessed in the ED. Patient received 10 mg of midazolam in the field. Patient states that in 2014 he had a CVA and began to experience seizures in 2016 for which he was prescribed Keppra after having inpatient evaluation by a neurologist. 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 His most recent hospitalization was November 2018 for seizure like activity. At ER, he was observed upper body shaking from [id number], his eye lids began to flutter, and he exhibited general tremulousness. The patient was responding to questions during this event and following commands such as raising extremities during the neurologic evaluation. The activity subsided in roughly a minute without altered level of consciousness nor postictal state. Patient denies headache, fever, chills, dizziness, or focal neurological deficit at this time. He states that he did not bite his tongue, lip, or cheek and did not lose bowel or bladder continence. No seizure like episodes since 02/01/19. PAST MEDICAL HISTORY Past Medical History Cardiovascular: Other (pericarditis likely from infection per pt prompting pericardial window; chronic lymphedema), CAD, HTN, HLP Pulmonary: COPD, Other (BRIAN) CENTRAL NERVOUS SYSTEM: CVA, Dementia GI: Other (ventral hernia) Heme/Onc: No pertinent hx Hepatobiliary: No pertinent hx Psych: No pertinent hx Musculoskeletal: Osteoarthritis, Other (morbid obesity) Rheumatologic: No pertinent hx Infectious disease: No pertinent hx ENT: No pertinent hx Renal/: No pertinent hx Endocrine: Diabetes (2) Dermatology: Other (foot venous stasis blisters) PAST SURGICAL HISTORY PCI/stent 3 weeks ago Appendectomy, Hernia Repair (9 ventral repairs), Tonsi llectomy, Other (pericardial window; LHC) FAMILY HISTORY Heart Disease (mother) SOCIAL HISTORY Social History Smoke: No (quit >30 pk yr) ALCOHOL: none Drugs: None 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 ALLERGY: Reviewed. MEDICATIONS: Refer to [facility] REVIEW OF SYSTEMS: Constitutional: No malnutrition, weight loss, cachexia. Head: No traumatic brain or head injury. Skin: No edema, or rash. Ear: No infection. Eyes: No vision loss, or diplopia. Nose: No bleeding or purulent discharges. Hearing: Hearing decrease. Neck: No injury. Cardiac: CHF Pulmonary: BRIAN. GI: No GI Ulcer, GI bleeding Urinary/genital: UTI. Endocrine: Obesity. Skeletomuscular: No muscular atrophy, deformity. Neurological: see HP. Psychiatric: Denies drug use/abuse. Otherwise, not [id number] review of systems. PHYSICAL EXAMINATION: General appearance in no acute distress. HEENT: Normocephalic and nontraumatic. Eyes, nose, ears, and throat are unremarkable. Neck is supple. No lymphadenopathy. No Crepitus. Cardiovascular: S1, S2, regular rate and rhythm. Pulmonary: Clear to auscultation bilaterally. Abdomen: Bowel sounds are positive. Extremities: No rash, lesions, or edema. No restriction of range of motion NEUROLOGICAL EXAMINATION: Awake. Oriented to time, place and person, but reaction was slow. PERRL. EOMI. CN: no focal findings. Muscle tone: within normal. Muscle strength: 5- UE, 4 LE DTR: 2 Plantar reflex: Flexor response bilaterally Gait: able to walk with a walker. Sensory exam: no abnormal findings. No cerebellar signs elicited. F-T-N test accurate. Objective Objective Vital Signs Date Time Temp Pulse Resp B/P (MAP) Pulse Ox O2 Delivery O2 Flow Rate FiO2 02/05/19 11:33 98.4 75 173/73 (106) 95 Nasal Cannula 2.0 98.4 02/05/19 11:00 18 Intake and Output 02/05/19 07:00 Intake Total 0 ml Output Total 1700 ml Balance -1700 ml Intake Oral 0 ml Output Urine Total 1700 ml Vitals Signs Vitals VS - Last 72 Hours, by Label Date Time Temp Pulse Resp B/P (MAP) Pulse Ox O2 Delivery O2 Flow Rate FiO2 02/05/19 11:33 98.4 75 173/73 (106) 95 Nasal Cannula 2.0 98.4 02/05/19 11:00 98.4 75 18 173/73 (106) 95 BiPAP/CPAP 98.4 02/05/19 09:29 79 180/64 02/05/19 09:29 79 180/64 02/05/19 08:00 Nasal Cannula 2.0 02/05/19 08:00 95 Room Air 02/05/19 07:00 98.7 79 19 180/64 (102) 92 BiPAP/CPAP 98.7 02/05/19 03:35 98.0 75 20 165/45 (85) 95 BiPAP/CPAP 98.0 02/04/19 23:00 98.2 69 20 183/85 (117) 94 BiPAP/CPAP 98.2 02/04/19 20:00 95 Room Air 02/04/19 20:00 Nasal Cannula 2.0 02/04/19 19:00 98.1 77 20 163/77 (105) 94 BiPAP/CPAP 98.1 02/04/19 15:00 98.4 67 17 152/54 (86) 98 Room Air 98.4 02/04/19 11:00 98.4 68 17 157/70 (99) 98 Room Air 98.4 02/04/19 08:34 67 156/51 02/04/19 08:34 67 156/51 02/04/19 08:00 Nasal Cannula 2.0 02/04/19 07:37 96 Room Air 02/04/19 07:00 98.1 67 16 156/51 (86) 96 Room Air 98.1 Laboratory Laboratory Laboratory Tests Test 02/04/19 20:22 02/05/19 07:22 02/05/19 11:15 Glucose (Fingerstick) 155 mg/dL (70-99) 102 mg/dL (70-99) 128 mg/dL (70-99) Comment Review of Relevant I have reviewed the following items yuliya (where applicable) has been applied. NANCY TINAJERO MD February 05, 2019 17:39
== END 2019-02-05 13:30 | DRG 638 ==
LOC: ER 12:45 → 5 NORTH 17:00
PROVIDERS: ADMIT Internal Medicine; ATTEND Internal Medicine
PROC: 5A09357 Assistance with Respiratory Ventilation, Less than 24 Consecutive Hours, Continuous Positive Airway Pressure (ICD-10-PCS; principal; 2019-02-04)
PROC: 5A09357 Assistance with Respiratory Ventilation, Less than 24 Consecutive Hours, Continuous Positive Airway Pressure (ICD-10-PCS; 2019-02-04)
DX: E11.649 Type 2 diabetes mellitus with hypoglycemia without coma (principal); E44.1 Mild protein-calorie malnutrition; I13.0 Hypertensive heart and chronic kidney disease with heart failure and stage 1 through stage 4 chronic kidney disease, or unspecified chronic kidney disease; I50.32 Chronic diastolic (congestive) heart failure; E46 Unspecified protein-calorie malnutrition; L03.116 Cellulitis of left lower limb; Z68.43 Body mass index [BMI] 50.0-59.9, adult; N17.0 Acute kidney failure with tubular necrosis; F44.5 Conversion disorder with seizures or convulsions; N18.9 Chronic kidney disease, unspecified; J44.9 Chronic obstructive pulmonary disease, unspecified; E78.00 Pure hypercholesterolemia, unspecified; E11.42 Type 2 diabetes mellitus with diabetic polyneuropathy; I25.10 Atherosclerotic heart disease of native coronary artery without angina pectoris; K21.9 Gastro-esophageal reflux disease without esophagitis; F02.80 Dementia in other diseases classified elsewhere, unspecified severity, without behavioral disturbance, psychotic disturbance, mood disturbance, and anxiety; G62.9 Polyneuropathy, unspecified; F41.9 Anxiety disorder, unspecified; F32.9 Major depressive disorder, single episode, unspecified; E11.22 Type 2 diabetes mellitus with diabetic chronic kidney disease; E78.5 Hyperlipidemia, unspecified; I87.8 Other specified disorders of veins; E66.01 Morbid (severe) obesity due to excess calories; G30.9 Alzheimer's disease, unspecified; G47.33 Obstructive sleep apnea (adult) (pediatric); I44.0 Atrioventricular block, first degree; M19.90 Unspecified osteoarthritis, unspecified site; R26.9 Unspecified abnormalities of gait and mobility; Z86.73 Personal history of transient ischemic attack (TIA), and cerebral infarction without residual deficits; Z82.49 Family history of ischemic heart disease and other diseases of the circulatory system; Z95.5 Presence of coronary angioplasty implant and graft; Z95.1 Presence of aortocoronary bypass graft; Z98.49 Cataract extraction status, unspecified eye; Z79.4 Long term (current) use of insulin; Z88.0 Allergy status to penicillin; Z88.8 Allergy status to other drugs, medicaments and biological substances; Z88.6 Allergy status to analgesic agent; Z88.1 Allergy status to other antibiotic agents; Z91.041 Radiographic dye allergy status; Z83.3 Family history of diabetes mellitus; Z87.891 Personal history of nicotine dependence; Z95.0 Presence of cardiac pacemaker; Z79.899 Other long term (current) drug therapy
CPT/HCPCS: 36415; 70450; 80048; 80053; 80307; 82140; 82553; 82947; 82962; 83605; 84443; 84484; 85025; 85610; 85730; 87641; 93005; 94640; 94760; 95816; 96361; 96365; 96375; 96376; J1644; J1815; J2060; J7030; J7042; J7626; Q0163; 97530; 97535; 99285-25

== ENCOUNTER 2019-03-26 16:37 | Emergency (ER) | payer MEDICARE, OTHER ==
[~2019-03-26] VITALS: Ht 182.9 cm; Wt 176.4 kg
[~2019-03-26 16:37] MED LIST changes: -PANT40TA5 PO; +PANT40TA77 PO
--- NOTE | 2019-03-26 17:32 | PHYS DOC ---
Past Medical History Past Medical History: CHF, COPD, CVA, Diabetes-Type II, High Cholesterol, Heart Disease, Hypertension, [place], Renal Disease, Seizure, Stroke, Other Additional Past Medical Histor: SLEEP APNEA,NEUROPATHY, morbid obesity Past Surgical History: Angioplasty, Appendectomy, Other Additional Past Surgical Histo: HERNIA-MULTIPLE,PERICARDIAL WINDOW,CARDIAC STENTS, PTCA Alcohol Use: Sober Drug Use: None Adult General Chief Complaint Chief Complaint: MECHANICAL FALL HPI HPI Patient is a 68 year old male who presents after falling in the shower at his snf. The patient states that he got up to wipe his behind, and missed the chair and fell. The patient states he had a positive loss of consciousness, per report of nursing staff states he lost consciousness for around 60 seconds. He denies being on blood thinners. Fall occurred at some point this afternoon. The patient states is a concrete floor in the shower he reports 10 out of 10 pain, and states he got nasal fentanyl in route via the ambulance. Patient states he has been having associated symptoms of nausea, neck pain, headache, bilateral lower extremity pain, and pelvic pain. Review of Systems Review of Systems Constitutional: Denies fever or chills [] Eyes: Denies change in visual acuity, redness, or eye pain [] HENT: Denies nasal congestion or sore throat [] Respiratory: Denies cough or shortness of breath [] Cardiovascular: No additional information not addressed in HPI [] GI: Reports nausea, Denies abdominal pain, vomiting, bloody stools or diarrhea [] : Denies dysuria or hematuria [] Musculoskeletal:Reports back pain and lower extremity pain. Is also having neck pain. Integument: Denies rash or skin lesions [] Neurologic: Reports headache, Denies focal weakness or sensory changes [] Endocrine: Denies polyuria or polydipsia [] Complete systems were reviewed and found to be within normal limits, except as documented in this note. Current Medications Current Medications Current Medications Medications (Trade) Dose Ordered Sig/Berna Start Time Stop Time Status Last Admin Dose Admin Morphine Sulfate (Morphine Sulfate) 8 mg 1X ONCE 03/26/19 18:45 03/26/19 18:47 DC 03/26/19 18:52 8 MG Allergies Allergies Allergies Coded Allergies Type Severity Reaction Last Updated Verified Iodinated Contrast- Oral and IV Dye Allergy Intermediate hives 04/23/18 Yes Penicillins Allergy Intermediate "PASSES OUT" 04/22/18 Yes Hypadio-Ult-Ugg Reductase Inhibitor Allergy Intermediate 04/22/18 Yes erythromycin base Allergy Intermediate 04/22/18 Yes iodine Allergy Intermediate 04/22/18 Yes lisinopril Allergy Intermediate 04/22/18 Yes niacin Allergy Intermediate 04/22/18 Yes sertraline Allergy Intermediate 04/22/18 Yes simvastatin Allergy Intermediate 04/22/18 Yes fluvastatin Adverse Reaction Intermediate muscle cramping 04/23/18 Yes pravastatin Adverse Reaction Intermediate muscle cramping 04/23/18 Yes rosuvastatin Adverse Reaction Intermediate muscle cramping 04/23/18 Yes Physical Exam Physical Exam Constitutional: Well developed, well nourished, no acute distress, non-toxic appearance. [] HENT: Normocephalic, atraumatic, bilateral external ears normal, oropharynx moist, no oral exudates, nose normal. [] Eyes: PERRLA, Bilateral pinpoint pupils, EOMI, conjunctiva normal, no discharge. [] Neck: Tenderness Cardiovascular:Heart rate regular rhythm, no murmur [] Lungs & Thorax: Bilateral breath sounds clear to auscultation [] Abdomen: Bowel sounds normal, soft, no tenderness, no masses, no pulsatile masses. [] Skin: Warm, dry, no erythema, no rash. [] Back: Diffuse tenderness, no CVA tenderness. [] Extremities: Diffuse tenderness. Neurologic: Alert and oriented X 3, normal motor function, normal sensory function, no focal deficits noted. [] Psychologic: Affect normal, judgement normal, mood normal. [] Current Patient Data Vital Signs Vital Signs Date Time Temp Pulse Resp B/P (MAP) Pulse Ox O2 Delivery O2 Flow Rate FiO2 03/26/19 18:52 13 99 Room Air 03/26/19 16:50 98.2 69 167/77 (107) 98.2 EKG EKG [] Radiology/Procedures Radiology/Procedures CT Brain, CT Cervical Spine without contrast No intracranial hemorrhage, No acute fracture, Hypertrophic changes in the thoracic spine, No acute fracture, Bulging discs at L3-4, L4-5 with mild lateral recess stenosis, Degenerative disc disease with mild left foraminal stenosis at L5-S1. No acute lumbar fracture. No pelvic fracture. Read by Alex Crowe MD 18:29 Preliminary Reads of Xrays of Bilateral Femurs, Tib/Fib, and Ankles by Dr. Talamantes No suspicious acute fractures. Course & Med Decision Making Course & Med Decision Making Pertinent Labs and Imaging studies reviewed. (See chart for details) Will obtain imaging. Imaging is negative. Will d/c home. Dragon Disclaimer Dragon Disclaimer This electronic medical record was generated, in whole or in part, using a voice recognition dictation system. Departure Departure Impression: Primary Impression: Fall Disposition: HOME, SELF-CARE Condition: STABLE Referrals: UNKNOWN PCP NAME (PCP) Patient Instructions: Concussion and Brain Injury Additional Instructions: Thank you for visiting [facility]. We appreciate you trusting us with your care. If any additional problems come up don't hesitate to return to visit us. Please follow up with your primary care provider so they can plan additional care if needed and know about the problem that you had. If symptoms worsen come back to the Emergency Department. Any concerning symptoms that start such as chest pain, shortness of air, weakness or numbness on one side of the body, running high fevers or any other concerning symptoms return to the ER. Problem Qualifiers Primary Impression: Fall Encounter type: initial encounter Qualified Codes: W19.XXXA - Unspecified fall, initial encounter JOZEF FELDMAN APRN Mar 26, 2019 17:31
[2019-03-26] MEDS ORDERED: MORPHINE SULFATE 4 MG/ML VIAL. IM ONE ×2 (18:45→22:45)
--- NOTE | 2019-03-26 20:41 | RAD ---
CT brain without contrast, CT cervical spine without contrast. HISTORY: Fall, head and neck pain, weakness CT brain CT scan of brain was done without contrast. There is no intracranial hemorrhage or subdural hematoma. There is no mass or shift of the midline. Ventricles are normal in size. An acute CVA is not identified. Sinuses are clear. A skull fracture is not identified. IMPRESSION: 1. No intracranial hemorrhage or acute finding noted. CT cervical spine Axial CT images were obtained to the cervical spine. Sagittal and coronal reconstructed images were reviewed. Thyroid is homogeneous. There is mild carotid artery calcification. There is degenerative disc disease in the cervical spine with hypertrophic spurring. An acute fracture is not identified. IMPRESSION: 1. No acute fracture noted in the cervical spine. PQRS Compliance Statement: One or more of the following individualized dose reduction techniques were utilized for this examination: 1. Automated exposure control 2. Adjustment of the mA and/or kV according to patient size 3. Use of iterative reconstruction technique Electronically signed by: Alex Crowe MD (03/26/2019 6:21 PM) [facility]
--- NOTE | 2019-03-26 20:41 | RAD ---
CT pelvis without contrast. HISTORY: Pelvic pain, fall Axial CT images were obtained to the pelvis. Sagittal and coronal reconstructed images were reviewed. The patient's size creates artifact. There is no pubic ramus fracture or pubic bone fracture. A pelvic fracture is not identified. Sacrum appears intact. A hip fracture is not evident.. The bladder is distended. Bowel pattern of the pelvis is normal. IMPRESSION: 1. No pelvic fracture noted. 2. Distended bladder. PQRS Compliance Statement: One or more of the following individualized dose reduction techniques were utilized for this examination: 1. Automated exposure control 2. Adjustment of the mA and/or kV according to patient size 3. Use of iterative reconstruction technique Electronically signed by: Alex Crowe MD (03/26/2019 6:32 PM) [facility]
--- NOTE | 2019-03-26 20:41 | RAD ---
CT thoracic spine without contrast, CT lumbar spine without contrast. HISTORY: Fall with back pain Axial CT images were obtained through this thoracic spine. There are hypertrophic and degenerative changes. There is no acute fracture. There is mild scarring or atelectasis in the anterior lateral left lower lobe poorly seen at the margin of the study. There is no pleural effusion. There is no fracture noted. There are hypertrophic changes. A focal disc protrusion is not identified. IMPRESSION: 1. Hypertrophic changes in the thoracic spine. 2. No acute fracture. End impression CT lumbar spine Axial CT images were obtained to the lumbar spine. Sagittal and coronal reconstructed images were reviewed. There is no lumbar fracture. There is no focal disc protrusion. There is bulging of the disc at L4-5 and L3-4. The patient's size creates artifact limiting the study. There is lateral recess stenosis and foraminal stenosis on the left at L5-S1. There is degenerative disc disease at L5-S1. IMPRESSION: 1. Bulging discs at L3-4 and L4-5 with mild lateral recess stenosis. 2. Degenerative disc disease with mild left foraminal stenosis at L5-S1. 3. No acute lumbar fracture. PQRS Compliance Statement: One or more of the following individualized dose reduction techniques were utilized for this examination: 1. Automated exposure control 2. Adjustment of the mA and/or kV according to patient size 3. Use of iterative reconstruction technique Electronically signed by: Alex Crowe MD (03/26/2019 6:29 PM) [facility]
[2019-03-26 21:15] VITALS: BP 174/78
--- NOTE | 2019-03-26 23:19 | RAD ---
ANKLE BILAT 2V, TIBIA FIBULA BILAT, FEMUR BILAT Clinical Indication: Fall, pain. Comparison: None. Findings: There is no acute fracture of the left femur. No acute fracture of the right femur. Arterial calcifications are seen. Probable old fracture of the proximal diaphysis of the left fibula. There is faint meniscal chondrocalcinosis bilaterally. No obvious deformity of the knee joints. No acute fracture of the right or left tibia or fibula. There is well-corticated bone fragment at the tip of the right lateral malleolus that may be due to old fracture. Question old fracture of the right posterior malleolus. Large calcaneal bone spurs. No acute fracture is appreciated. Question old fracture of the left posterior malleolus. Large calcaneal bone spurs. No acute fracture is appreciated. There is subcutaneous edema of the bilateral calves. IMPRESSION: No acute fracture. Electronically signed by: Pedro Pablo Dean MD (03/26/2019 11:16 PM) [facility]
== END 2019-03-26 22:48 | disposition home or self-care (01) ==
LOC: ER 16:37
DX: R51 Headache (principal); G89.11 Acute pain due to trauma; M54.2 Cervicalgia; R10.2 Pelvic and perineal pain; M79.605 Pain in left leg; M79.604 Pain in right leg; R53.1 Weakness; M25.572 Pain in left ankle and joints of left foot; M25.571 Pain in right ankle and joints of right foot; M54.6 Pain in thoracic spine; M77.32 Calcaneal spur, left foot; M77.31 Calcaneal spur, right foot; M48.07 Spinal stenosis, lumbosacral region; E11.40 Type 2 diabetes mellitus with diabetic neuropathy, unspecified; I11.0 Hypertensive heart disease with heart failure; I50.9 Heart failure, unspecified; J44.9 Chronic obstructive pulmonary disease, unspecified; E78.00 Pure hypercholesterolemia, unspecified; Z86.73 Personal history of transient ischemic attack (TIA), and cerebral infarction without residual deficits; I25.2 Old myocardial infarction; E66.01 Morbid (severe) obesity due to excess calories; Z68.43 Body mass index [BMI] 50.0-59.9, adult; Z90.89 Acquired absence of other organs; Z95.5 Presence of coronary angioplasty implant and graft; Z88.0 Allergy status to penicillin; Z88.1 Allergy status to other antibiotic agents; Z91.041 Radiographic dye allergy status; Z88.8 Allergy status to other drugs, medicaments and biological substances; W18.2XXA Fall in (into) shower or empty bathtub, initial encounter; Y93.89 Activity, other specified; Y92.128 Other place in nursing home as the place of occurrence of the external cause; Y99.8 Other external cause status
CPT/HCPCS: 70450; 72125; 72128; 72131; 72192; 73590; 73600; 96372; 99284; J2270

== ENCOUNTER 2020-12-22 20:57 | Inpatient (IN) | payer OTHER ==
[~2020-12-22] VITALS: Ht 182.9 cm; Wt 201.0 kg
[2020-12-22 09:30] VITALS: BP 163/60
[~2020-12-22 20:57] MED LIST changes: +AMLO-187 PO; -AMLO10TA8 PO; +CYAN-25 PO; -CYAN10005 PO; -EZET10TA18 PO; +EZET10TA20 PO; -ISOS60TA2 PO; +ISOS60TA55 PO; -MAGN400T3 PO; +MAGN400T5 PO; -OMEP20CA10 PO; +OMEP20CA16 PO; +ONDA-84 PO; -ONDA4TAB11 PO; +POTA20TA4 PO; -POTA20TA82 PO
[2020-12-22] MEDS ORDERED: DULO30CA2 PO (22:01)
[2020-12-22] MEDS ORDERED: PANT40TA77 PO (22:01)
[2020-12-22] MEDS ORDERED: CALC200T3 PO (22:01)
[2020-12-22] MEDS ORDERED: HYDR-2868 PO (22:01)
[2020-12-22] MEDS ORDERED: NYST60PO TP (22:01)
[2020-12-22] MEDS ORDERED: PREG50CA91 PO (22:01)
[2020-12-22] MEDS ORDERED: VENTOLIN HFA18 GM INH (22:01)
[2020-12-22] MEDS ORDERED: POLY2500 PO (22:01)
[2020-12-22] MEDS ORDERED: DILT180C2 PO (22:01)
[2020-12-22] MEDS ORDERED: LEVE750T41 PO (22:01)
[2020-12-22] MEDS ORDERED: INSU100I13 SQ (22:01)
[2020-12-22] MEDS ORDERED: ALIR75PE SQ (22:01)
[2020-12-22] MEDS ORDERED: LOPE2TAB27 PO (22:01)
[2020-12-22] MEDS ORDERED: SPIR100T4 PO (22:01)
[2020-12-22] MEDS ORDERED: MAGN24003 PO (22:01)
[2020-12-22] MEDS ORDERED: BACL10TA PO (22:01)
[2020-12-22] MEDS ORDERED: FENT1PAT91 TD (22:01)
[2020-12-22] MEDS ORDERED: CARV25TA2 PO (22:01)
[2020-12-22] MEDS ORDERED: BUME2TAB3 PO (22:01)
[2020-12-22] MEDS ORDERED: PHEN177S54 MT (22:01)
[2020-12-22] MEDS ORDERED: ONDA4TAB7 PO (22:01)
[2020-12-22] MEDS ORDERED: ISOS30TA19 PO (22:01)
[2020-12-22 22:49] VITALS: BP 160/66
[2020-12-22] MEDS: IV NORMAL SALINE 1000ML BAG 1,000 ML IV SCH (22:57)
[2020-12-23 02:21] VITALS: BP 138/59
[2020-12-23 07:00] VITALS: BP 174/90
--- NOTE | 2020-12-23 07:33 | PDOC1 ---
History and Physical Date of Service: DOS: DATE: 12/23/20 TIME: 07:32 Chief Complaint: Chief Complain: Altered mental status. History of Present Illness: HPI: 70-year-old male with past medical history of CAD, COPD, depression, diabetes mellitus, dyslipidemia, hypertension who presents to [facility] ED after having episode of altered mental status. Patient states that he does has these episodes where he come sleepy and then has a hard time waking up. Patient did tell the nursing staff that this is normal for him but they told him he had to come to the emergency department. Upon my examination after his transfer patient was alert and awake and oriented x2. He did not know where the hospital was and he said that the current year is 2003 and the current president is President Kory. Patient was actually transferred because of an acute renal failure. And wished for nephrology to be consulted. Currently the patient denies any fevers, headaches, chest pain, abdominal pain, dysuria, or bloody stools. Past Medical/Surgical History: PMH/PSH: Past medical and surgical history: CAD, COPD, CVA, depression, diabetes mellitus, dyslipidemia, hypertension, hepatitis, history of CA Appendectomy, CABG Allergies: Allergies: Coded Allergies: Iodinated Contrast Media (Verified Allergy, Intermediate, hives, 04/23/18) Penicillins (Verified Allergy, Intermediate, "PASSES OUT", 04/22/18) Blaqjhx-Mvh-Yys Reductase Inhibitor (Verified Allergy, Intermediate, 04/22/18) erythromycin base (Verified Allergy, Intermediate, 04/22/18) iodine (Verified Allergy, Intermediate, 04/22/18) lisinopril (Verified Allergy, Intermediate, 04/22/18) niacin (Verified Allergy, Intermediate, 04/22/18) sertraline (Verified Allergy, Intermediate, 04/22/18) simvastatin (Verified Allergy, Intermediate, 04/22/18) fluvastatin (Verified Adverse Reaction, Intermediate, muscle cramping, 04/23/18) pravastatin (Verified Adverse Reaction, Intermediate, muscle cramping, 04/23/18) rosuvastatin (Verified Adverse Reaction, Intermediate, muscle cramping, 04/23/18) Family History: Family History: Reviewed with no relevant findings Social History: Social History: Denies alcohol, drug or tobacco abuse Current Medications: Current Medications Current Medications Sodium Chloride 1,000 ml @ 75 mls/hr [id number] IV Last administered on 12/22/20at 22:57; Start 12/22/20 at 22:45 Active Scripts Active Humalog (Insulin Lispro) 100 Unit/1 Ml Insuln.pen 0 Units SQ TIDWMEALS 14 Days Reported Zofran (Ondansetron Hcl) 4 Mg Tablet 4 Mg PO PRN Q8HRS PRN Ventolin Hfa Inhaler (Albuterol Sulfate) 18 Gm Hfa.aer.ad 2 Puff INH PRN Q6HRS PRN Tums (Calcium Carbonate) 200 Mg Tab.chew 1,000 Mg PO PRN Q6HRS PRN Praluent Pen (Alirocumab) 75 Mg/1 Ml Pen.injctr 75 Mg SQ UD Polyethylene Glycol 3350 2,500 Gm Powder 17 Gm PO DAILY Pantoprazole Sodium (Pantoprazole Sodium) 40 Mg Tablet.dr 40 Mg PO DAILYAC Nystop (Nystatin) 60 Gm Powder 1 David TP DAILY Milk Of Magnesia (Magnesium Hydroxide) 2,400 Mg/10 Ml Oral.susp 2,400 Mg PO PRN DAILY PRN Lyrica (Pregabalin) 50 Mg Capsule 50 Mg PO TID Loperamide (Loperamide Hcl) 2 Mg Tablet 4 Mg PO PRN Q2HR PRN Lantus Solostar (Insulin Glargine,Hum.rec.anlog) 100 Unit/1 Ml Insuln.pen 35 Unit SQ BID Keppra (Levetiracetam) 750 Mg Tablet 750 Mg PO DAILY Isosorbide Dinitrate 30 Mg Tablet 20 Mg PO BID Hydralazine Hcl 25 Mg Tablet 25 Mg PO BID DURAGESIC 50mcg/hr (Fentanyl) 1 Each Patch.td72 1 Patch TD Q72H Cymbalta (Duloxetine Hcl) 30 Mg Capsule.dr 30 Mg PO BID Chloraseptic (Phenol) 177 Ml Bokeelia.pump 5 Bokeelia MT PRN Q2HR PRN Carvedilol 25 Mg Tablet 37.5 Mg PO BIDWMEALS Cardizem Cd (Diltiazem Hcl) 180 Mg Cap.er.24h 180 Mg PO DAILY Bumetanide 2 Mg Tablet 6 Mg PO BID Baclofen 10 Mg Tablet 5 Mg PO TID Spironolactone 100 Mg Tablet 100 Mg PO DAILY Flomax (Tamsulosin Hcl) 0.4 Mg Cap.er.24h 0.4 Mg PO DAILY Vitamin D3 (Cholecalciferol (Vitamin D3)) 1,000 Unit Tablet 5,000 Unit PO DAILY Docusate Sodium 100 Mg Capsule 2 Cap PO BID Aspirin 81 Mg Tab.chew 1 Tab PO DAILY NITROGLYCERIN SubLingual (Nitroglycerin) 0.4 Mg Tab.subl 1 Tab SL UD Clopidogrel (Clopidogrel Bisulfate) 75 Mg Tablet 75 Mg PO DAILY ROS: Review of Systems Review of System REVIEW OF SYSTEMS: GENERAL: Denies weakness SKIN: No bruising, hair changes or rashes. EYES: No blurred, double or loss of vision. NOSE AND THROAT: No history of nosebleeds, hoarseness or sore throat. HEART: No history of palpitations, chest pain or shortness of breath on exertion. LUNGS: Denies cough, hemoptysis, wheezing or shortness of breath. GASTROINTESTINAL: Denies changes in appetite, nausea, vomiting, diarrhea or constipation. GENITOURINARY: No history of frequency, urgency, hesitancy or nocturia. NEUROLOGIC: Denies history of numbness, tingling, or tremor. PSYCHIATRIC: No history of panic, anxiety or depression. ENDOCRINE: No history of heat or cold intolerance, polyuria or polydipsia. EXTREMITIES: Denies joint pain, pain on walking or stiffness. Physical Exam: Vital Signs: Vital Signs Date Time Temp Pulse Resp B/P (MAP) Pulse Ox O2 Delivery O2 Flow Rate FiO2 12/23/20 02:21 97.9 76 16 138/59 (85) 99 Nasal Cannula 3.0 97.9 Physcial Exam: GEN: No apparent distress. Alert and oriented HEENT: Normal cephalic, atraumatic, external auditory canals are patent EYES: Extraocular muscles are intact, pupil are equally round and reactive to light and accommodation MUSCULOSKELETAL: Well developed , well nourished, good range of motion ENDOCRINE: No thyromegaly was palpated LYMPHATICS: No cervical chain or axillary nodes were noted HEMATOPOIETIC: No bruising NECK: Supple, no JVD, no thyromegaly was noted LUNGS: Clear to auscultation in all lung wade without rhonchi or wheezing HEART: RRR, S!, S2 present. Peripheral pulses intact, no obvious murmurs noted ABDOMEN: Soft, nontender. Positive bowel sounds, no organomegaly, normal bowel sounds EXTREMITIES: Without clubbing, cyanosis, or edema. Pedal pulses intact. Negative Homans sign NEUROLOGIC: Normal speech and tone. A&O x 3, moves all extremities, no obvious focal deficits PSYCHIATRIC: Normal affect, normal mood. Stable SKIN: No ulcerations or rashes, good skin turgor, no jaundice VASCULAR: Good capillary refill, neurovascular bundle appears to be intact Labs: Labs: Laboratory Tests Test 12/23/20 07:01 Glucose (Fingerstick) 183 mg/dL (70-99) Laboratory Tests Test 12/23/20 07:01 Glucose (Fingerstick) 183 mg/dL (70-99) Images: Images No images to review currently Assessment/Plan Assessment/Plan Acute metabolic encephalopathy, possible toxic due to polypharmacy [place] due to vasomotor nephropathy Acute electrolyte derangementhyperkalemia likely due to renal disease Hyperglycemia Severe protein malnutrition Anemia of kidney disease Bilateral lower extremity lymphedema Morbid obesity History of diabetes mellitus History of hypertension History of COPD No obvious centrally acting medications currently. No obvious signs of infection on physical exam. No fevers or nuchal rigidity. CT head is negative for acute etiology. No history or signs of trauma Pending FeNa calculation for volume depletion Nephrology consult Pending urine toxic drug screen Consider dementia prevention protocol Provide adequate lighting (open curtains during the day, turn the lights off at night) Provide frequent personal contact with family, friends, and staff or TV Encourage early and frequent mobilization Rehab screening ordered IV Haldol as needed for agitation, consider sitter as needed if non-redirectable agitation Avoid physical restraints, catheters or tubes, and benzodiazepines - HOLD on home centrally acting medications following Beer's Criteria list of medications - Continue Fentanyl patch Nutrition consult if there is malnutrition or concern for vitamin deficiencies Continue IV fluids Heparin for DVT prophylaxis Protonix GI prophylaxis ADA diet Full code Discussed with RN and SW Dispo inpatient management as above RUTHIEOA Jaz Larson Justifications for Admission Other Justification ERNESTO CRISOSTOMO MD Dec 23, 2020 07:33
[2020-12-23 08:25] LABS: BASO # 0.1 x10^3/uL (0.0-0.2); BASO % 1 % (0-3); EOS # 0.3 x10^3/uL (0.0-0.7); EOS % 3 % (0-3); HEMATOCRIT 34.5 % (39.0-53.0); HEMOGLOBIN 11.1 g/dL (13.0-17.5); LYMPH # 2.5 x10^3/uL (1.0-4.8); LYMPH % 25 % (24-48); MEAN CORPUSCULAR HEMOGLOBIN 30 pg (25-35); MEAN CORPUSCULAR HGB CONC 32 g/dL (31-37); MEAN CORPUSCULAR VOLUME 93 fL (79-100); MONO # 0.9 x10^3/uL (0.0-1.1); MONO % 9 % (0-9); NEUT # 6.4 x10^3/uL (1.8-7.7); NEUT % 63 % (31-73); PLATELET COUNT 286 x10^3/uL (140-400); RED BLOOD COUNT 3.72 x10^6/uL (4.30-5.70); RED CELL DISTRIBUTION WIDTH 13.3 % (11.5-14.5); WHITE BLOOD COUNT 10.2 x10^3/uL (4.0-11.0)
[2020-12-23 08:46] LABS: ALBUMIN 2.7 g/dL (3.4-5.0); ALBUMIN/GLOBULIN RATIO 0.6 (1.0-1.7); CALCIUM 8.7 mg/dL (8.5-10.1); CREATININE 1.9 mg/dL (0.7-1.3); GFR 35.3; POTASSIUM 5.2 mmol/L (3.5-5.1); TOTAL BILIRUBIN 0.2 mg/dL (0.2-1.0); TOTAL PROTEIN 7.4 g/dL (6.4-8.2)
[2020-12-23 11:00] VITALS: BP 145/64
[2020-12-23] MEDS: IV NORMAL SALINE 1000ML BAG 1,000 ML IV SCH (12:33)
--- NOTE | 2020-12-23 12:58 | PDOC2 ---
CONSULT Date of Consult Date of Consult DATE: 12/23/20 TIME: 12:52 Reason for Consult Reason for Consult: [place] Identification/Chief Complaint Chief Complaint Currently denies any complaints Source Source: Chart review History of Present Illness Reason for Visit: 70-year-old CM with past medical history of CAD, COPD, depression, diabetes mellitus, dyslipidemia, hypertension who presents to [facility] ED after having episode of altered mental status. Patient states that he does has these episodes where he come sleepy and then has a hard time waking up. Patient did tell the nursing staff that this is normal for him but they told him he had to come to the emergency department. He was alert and awake and oriented x2 during my exam, though poor historian .Unable to Obtain any significant details. Denies N/V/D. Denies any CP or SOB, No F/C. Denies any urinary complaints Past Medical History Cardiovascular: CAD, CHF, HTN, [place] Pulmonary: COPD, Other CENTRAL NERVOUS SYSTEM: CVA, Dementia, Periperal neuropathy, Seizure GI: GERD, Other Heme/Onc: No pertinent hx Hepatobiliary: Hep A/B/C Psych: Anxiety, Depression Musculoskeletal: Osteoarthritis Rheumatologic: No pertinent hx Infectious disease: No pertinent hx Renal/: No pertinent hx Endocrine: Diabetes Past Surgical History Past Surgical History: Appendectomy, Cholecystectomy, CABG, Cataract Removal, Hernia Repair, Tonsillectomy, Other Family History Family History: Hypertension Social History ALCOHOL: none Drugs: None Lives: with Family Current Medications Current Medications Current Medications Sodium Chloride 1,000 ml @ 75 mls/hr [id number] IV Last administered on 12/23/20at 12:33; Start 12/22/20 at 22:45 Active Scripts Active Humalog (Insulin Lispro) 100 Unit/1 Ml Insuln.pen 0 Units SQ TIDWMEALS 14 Days Reported Zofran (Ondansetron Hcl) 4 Mg Tablet 4 Mg PO PRN Q8HRS PRN Ventolin Hfa Inhaler (Albuterol Sulfate) 18 Gm Hfa.aer.ad 2 Puff INH PRN Q6HRS PRN Tums (Calcium Carbonate) 200 Mg Tab.chew 1,000 Mg PO PRN Q6HRS PRN Praluent Pen (Alirocumab) 75 Mg/1 Ml Pen.injctr 75 Mg SQ UD Polyethylene Glycol 3350 2,500 Gm Powder 17 Gm PO DAILY Pantoprazole Sodium (Pantoprazole Sodium) 40 Mg Tablet.dr 40 Mg PO DAILYAC Nystop (Nystatin) 60 Gm Powder 1 David TP DAILY Milk Of Magnesia (Magnesium Hydroxide) 2,400 Mg/10 Ml Oral.susp 2,400 Mg PO PRN DAILY PRN Lyrica (Pregabalin) 50 Mg Capsule 50 Mg PO TID Loperamide (Loperamide Hcl) 2 Mg Tablet 4 Mg PO PRN Q2HR PRN Lantus Solostar (Insulin Glargine,Hum.rec.anlog) 100 Unit/1 Ml Insuln.pen 35 Unit SQ BID Keppra (Levetiracetam) 750 Mg Tablet 750 Mg PO DAILY Isosorbide Dinitrate 30 Mg Tablet 20 Mg PO BID Hydralazine Hcl 25 Mg Tablet 25 Mg PO BID DURAGESIC 50mcg/hr (Fentanyl) 1 Each Patch.td72 1 Patch TD Q72H Cymbalta (Duloxetine Hcl) 30 Mg Capsule.dr 30 Mg PO BID Chloraseptic (Phenol) 177 Ml Mcpherson.pump 5 Mcpherson MT PRN Q2HR PRN Carvedilol 25 Mg Tablet 37.5 Mg PO BIDWMEALS Cardizem Cd (Diltiazem Hcl) 180 Mg Cap.er.24h 180 Mg PO DAILY Bumetanide 2 Mg Tablet 6 Mg PO BID Baclofen 10 Mg Tablet 5 Mg PO TID Spironolactone 100 Mg Tablet 100 Mg PO DAILY Flomax (Tamsulosin Hcl) 0.4 Mg Cap.er.24h 0.4 Mg PO DAILY Vitamin D3 (Cholecalciferol (Vitamin D3)) 1,000 Unit Tablet 5,000 Unit PO DAILY Docusate Sodium 100 Mg Capsule 2 Cap PO BID Aspirin 81 Mg Tab.chew 1 Tab PO DAILY NITROGLYCERIN SubLingual (Nitroglycerin) 0.4 Mg Tab.subl 1 Tab SL UD Clopidogrel (Clopidogrel Bisulfate) 75 Mg Tablet 75 Mg PO DAILY Allergies Allergies: Coded Allergies: Iodinated Contrast Media (Verified Allergy, Intermediate, hives, 04/23/18) Penicillins (Verified Allergy, Intermediate, "PASSES OUT", 04/22/18) Xrfziae-Mxc-Pcr Reductase Inhibitor (Verified Allergy, Intermediate, 04/22/18) erythromycin base (Verified Allergy, Intermediate, 04/22/18) iodine (Verified Allergy, Intermediate, 04/22/18) lisinopril (Verified Allergy, Intermediate, 04/22/18) niacin (Verified Allergy, Intermediate, 04/22/18) sertraline (Verified Allergy, Intermediate, 04/22/18) simvastatin (Verified Allergy, Intermediate, 04/22/18) fluvastatin (Verified Adverse Reaction, Intermediate, muscle cramping, 04/23/18) pravastatin (Verified Adverse Reaction, Intermediate, muscle cramping, 04/23/18) rosuvastatin (Verified Adverse Reaction, Intermediate, muscle cramping, 04/23/18) ROS Review of System As per HPI, rest of the ROS is negative Physical Exam Physical Exam General Morbidly obese, NAD HEEN OM moist , On o2 by NC Neck Thick, supple Lungs- decreased at bases due to body habitus, Non labored CV S1S2 Abd Morbidly obese, soft, NT Ext severe Changes of CVI Neuro Grossly normal No CVA or SP tenderness , No Brock Skin No Rash , changes of CVI Vital Signs Vital Signs Date Time Temp Pulse Resp B/P (MAP) Pulse Ox O2 Delivery O2 Flow Rate FiO2 12/23/20 11:00 97.5 107 22 145/64 (91) 95 Nasal Cannula 2.0 97.5 Assessment & Plan [place] - vasomotor nephropathy , Aldactone and Bumex per home med list along with other antiihypertensives . Hold Diuretics . 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 Follows with PCP . Baseline Cr 1.1-1.3 ). 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 UA in past without Micr hematuria. Proteinuria -overt on UA in the past, No quantification. Suspect 2/2 DM HyperKalemia mild , monitor Acute metabolic encephalopathy, possible toxic due to polypharmacy- currently awake Bilateral lower extremity lymphedema Morbid obesity diabetes mellitus - hypertension Labs Labs Laboratory Tests Test 12/23/20 07:01 12/23/20 08:10 12/23/20 10:02 Glucose (Fingerstick) 183 mg/dL (70-99) 168 mg/dL (70-99) White Blood Count 10.2 x10^3/uL (4.0-11.0) Red Blood Count 3.72 x10^6/uL (4.30-5.70) Hemoglobin 11.1 g/dL (13.0-17.5) Hematocrit 34.5 % (39.0-53.0) Mean Corpuscular Volume 93 fL (79-100) Mean Corpuscular Hemoglobin 30 pg (25-35) Mean Corpuscular Hemoglobin Concent 32 g/dL (31-37) Red Cell Distribution Width 13.3 % (11.5-14.5) Platelet Count 286 x10^3/uL (140-400) Neutrophils (%) (Auto) 63 % (31-73) Lymphocytes (%) (Auto) 25 % (24-48) Monocytes (%) (Auto) 9 % (0-9) Eosinophils (%) (Auto) 3 % (0-3) Basophils (%) (Auto) 1 % (0-3) Neutrophils # (Auto) 6.4 x10^3/uL (1.8-7.7) Lymphocytes # (Auto) 2.5 x10^3/uL (1.0-4.8) Monocytes # (Auto) 0.9 x10^3/uL (0.0-1.1) Eosinophils # (Auto) 0.3 x10^3/uL (0.0-0.7) Basophils # (Auto) 0.1 x10^3/uL (0.0-0.2) Sodium Level 143 mmol/L (136-145) Potassium Level 5.2 mmol/L (3.5-5.1) Chloride Level 105 mmol/L (98-107) Carbon Dioxide Level 33 mmol/L (21-32) Anion Gap 5 (6-14) Blood Urea Nitrogen 59 mg/dL (8-26) Creatinine 1.9 mg/dL (0.7-1.3) Estimated GFR (Cockcroft-Gault) 35.3 BUN/Creatinine Ratio 31 (6-20) Glucose Level 164 mg/dL (70-99) Calcium Level 8.7 mg/dL (8.5-10.1) Total Bilirubin 0.2 mg/dL (0.2-1.0) Aspartate Amino Transf (AST/SGOT) 8 U/L (15-37) Alanine Aminotransferase (ALT/SGPT) 12 U/L (16-63) Alkaline Phosphatase 94 U/L (46-116) Total Protein 7.4 g/dL (6.4-8.2) Albumin 2.7 g/dL (3.4-5.0) Albumin/Globulin Ratio 0.6 (1.0-1.7) Laboratory Tests Test 12/23/20 07:01 12/23/20 08:10 12/23/20 10:02 Glucose (Fingerstick) 183 mg/dL (70-99) 168 mg/dL (70-99) White Blood Count 10.2 x10^3/uL (4.0-11.0) Red Blood Count 3.72 x10^6/uL (4.30-5.70) Hemoglobin 11.1 g/dL (13.0-17.5) Hematocrit 34.5 % (39.0-53.0) Mean Corpuscular Volume 93 fL (79-100) Mean Corpuscular Hemoglobin 30 pg (25-35) Mean Corpuscular Hemoglobin Concent 32 g/dL (31-37) Red Cell Distribution Width 13.3 % (11.5-14.5) Platelet Count 286 x10^3/uL (140-400) Neutrophils (%) (Auto) 63 % (31-73) Lymphocytes (%) (Auto) 25 % (24-48) Monocytes (%) (Auto) 9 % (0-9) Eosinophils (%) (Auto) 3 % (0-3) Basophils (%) (Auto) 1 % (0-3) Neutrophils # (Auto) 6.4 x10^3/uL (1.8-7.7) Lymphocytes # (Auto) 2.5 x10^3/uL (1.0-4.8) Monocytes # (Auto) 0.9 x10^3/uL (0.0-1.1) Eosinophils # (Auto) 0.3 x10^3/uL (0.0-0.7) Basophils # (Auto) 0.1 x10^3/uL (0.0-0.2) Sodium Level 143 mmol/L (136-145) Potassium Level 5.2 mmol/L (3.5-5.1) Chloride Level 105 mmol/L (98-107) Carbon Dioxide Level 33 mmol/L (21-32) Anion Gap 5 (6-14) Blood Urea Nitrogen 59 mg/dL (8-26) Creatinine 1.9 mg/dL (0.7-1.3) Estimated GFR (Cockcroft-Gault) 35.3 BUN/Creatinine Ratio 31 (6-20) Glucose Level 164 mg/dL (70-99) Calcium Level 8.7 mg/dL (8.5-10.1) Total Bilirubin 0.2 mg/dL (0.2-1.0) Aspartate Amino Transf (AST/SGOT) 8 U/L (15-37) Alanine Aminotransferase (ALT/SGPT) 12 U/L (16-63) Alkaline Phosphatase 94 U/L (46-116) Total Protein 7.4 g/dL (6.4-8.2) Albumin 2.7 g/dL (3.4-5.0) Albumin/Globulin Ratio 0.6 (1.0-1.7) Review All relevant outside records, renal labs, imaging studies, telemetry/EKG's were reviewed. JASKARAN BRITO MD Dec 23, 2020 12:58
[2020-12-23] MEDS ORDERED: SENNOSIDES 8.6 MG TABLET PO PRN (13:30)
[2020-12-23] MEDS ORDERED: ONDANSETRON PF 4 MG/2 ML VIAL. IVP PRN (13:30)
[2020-12-23] MEDS ORDERED: DEXTROSE 50% 25 GM / 50ML DISP.SYRIN. IV PRN (13:30)
[2020-12-23] MEDS ORDERED: ACETAMINOPHEN 325 MG TABLET. PO PRN (13:30)
[2020-12-23] MEDS ORDERED: DOCUSATE SODIUM 100 MG CAPSULE. PO PRN (13:30)
--- NOTE | 2020-12-23 13:54 | NUR ---
JANNET following for discharge planning. Spoke with RN and reviewed chart. Pt resides in LTC at [facility]. JANNET phoned and faxed clinicals to Sola for coordination of care. Pt on 2l 02 and a Heparin drip. PT/OT to evaluate. Sola stated no COVID swab needed for pt to return to SNU or LTC. JANNET following. Addendum: 12/25/20 at 1136 by JOE POWER Pt discharge back to LTC per chart review. No further needs from this SW.
[2020-12-23] MEDS ORDERED: CALCIUM CARBONATE 500 MG TAB.CHEW PO PRN (14:15)
[2020-12-23] MEDS ORDERED: ALBUTEROL SULFATE 2.5 MG/3 ML NEBU. NEB PRN (14:15)
[2020-12-23 15:00] VITALS: BP 178/67
[2020-12-23] MEDS ORDERED: fentaNYL 50MCG/HR PATCH 1 PATCH PATCH.TD72 TD SCH (15:00)
[2020-12-23] MEDS ORDERED: levETIRAcetam 250 MG TABLET PO SCH (15:00)
[2020-12-23] MEDS: NYSTATIN TOPICAL POWDER 15GM BOTTLE. TP SCH (15:00)
[2020-12-23] MEDS: CLOPIDOGREL BISULFATE 75 MG TABLET PO SCH (15:24)
[2020-12-23] MEDS: PANTOPRAZOLE 40 MG TABLET.DR. PO SCH (15:24)
[2020-12-23] MEDS: TAMSULOSIN 0.4 MG CAP.ER.24H. PO SCH (15:24)
--- NOTE | 2020-12-23 16:50 | NUR ---
Wound Care Pt seen for wound care consultation re: BLE wounds, abdominal wound and pannus wounds. Pt's legs and abdomen are scabbed, no open areas noted, lotion applied to BLE. Pannus folds cleaned and dried, areas yeasty and reddened, with a small area of intertrigo noted, spoke with Dr. Muir and Nystatin powder requested. No other wounds noted on full skin inspection. *Upon changing pt's urine-soiled linens, pt was turned onto side, pt sounded short of air and stated he needed to be turned back. Upon turning pt onto back, pt became unresponsive to shouts and sternal rub, no pulse noted. Code Blue initiated, and upon first compression, pt's eyes opened and pt was then able to respond. Vitals taken, all stable, Dr. Muir and pt's RN Carmen at bedside. Pt began twitching, pt repositioned onto right side, per Dr. Muir's request. RT at bedside for EKG and ABG.
--- NOTE | 2020-12-23 16:53 | NUR ---
Wound care was in changing dressing when pt had a vagal episode and went unresponsive. Wound care called christelle heredia. When floor RN entered room pt had his eyes open and was responding to questions. WoundCare reports did one compression and the pt woke up. Pt on a monitoring and evaluation advisor showing rate in the 90's. Sats 91% on 1 liter, RR 22. Dr Muir at bedside and pt having brief episodes of seizure like activity. Orders received . Addendum: 12/23/20 at 1658 by RAJESH MCCLELLAND RN Amended: Links added.
--- NOTE | 2020-12-23 16:56 | NUR ---
At approx 1640, wound care was in pt's room and code blue was initiated. They reported that they were turning pt and he became unresponsive and lost his pulse. One compression was performed by Terri monotype keyboard operator and pt became responsive. Pt was alert, speaking with wound care. Code blue was cancelled. Maggy Marroquin, ICU broker in charge, and other team members arrived shortly after. Pt then became unresponsive again at approx 1644 and started to convulse for approx 1 minute intermittently. BP 160/102, pulse 88. O2 saturation 90% on 1L NC. Pt placed on R side. Dr. Muir at bedside during seizure activity. Orders received for neurology consult, STAT EKG, Keppra 1 gram x1, and an ABG. Maggy, ICU broker in charge input orders. Dr. Nasrin magallanes. Will await call back. This RN reassessed pt at 1710. Pt A&O to person and place. States "I feel wore out." This RN informed pt that he had seizure activity, pt unable to recall situation. Addendum: 12/23/20 at 1738 by DERRICK KHAN RN Add to previous: seizure precautions in place, 4 bedrails padded.
[2020-12-23] MEDS: INSULIN LISPRO 300 UNITS/3 ML VIAL. SQ SCH (17:00)
[2020-12-23] MEDS ORDERED: levETIRAcetam 1,000 MG in IV DEXTROSE 5% 100ML 100 ML IV ONE (17:00)
--- NOTE | 2020-12-23 17:12 | EKG ---
[facility] [address] [place] [address] Test Date: 2020-12-23 Test Time: 16:00:48 Pat Name: MAGDY JACKSON Department: Room: [facility] Gender: M Activities Counselor: BENNY : 1950 Requested By: ERNESTO CRISOSTOMO Order Number: [id number] Reading MD: Measurements Intervals Andrews Rate: 91 P: 38 ID: [id number] QRS: -35 QRSD: 84 T: 42 QT: 330 QTc: 407 Interpretive Statements SINUS RHYTHM PROLONGED ID INTERVAL ABNORMAL LEFT AXIS DEVIATION R-S TRANSITION ZONE IN V LEADS DISPLACED TO THE LEFT QRS(T) CONTOUR ABNORMALITY CONSISTENT WITH INFERIOR INFARCT PROBABLY OLD ABNORMAL ECG RI6.01 Compared to ECG 02/01/2019 07:18:42 First degree AV block now present Left-axis deviation now present Myocardial infarct finding now present
[2020-12-23 17:23] LABS: BASE EXCESS ABG 2 mmol/L (-3-3); HCO3 ABG 30 mmol/L (21-28); PO2 ABG 61 mmHg (65-108); SAT O2 ABG 91 % (92-99)
[2020-12-23 17:26] LABS: FIO2 ABG 28; PCO2 ABG 62 mmHg (35-46)
--- NOTE | 2020-12-23 17:38 | NUR ---
This RN spoke with Dr. Alexandra by telephone in regards to pt's condition. Updated him of situation. Dr. Alexandra stated he would place orders.
--- NOTE | 2020-12-23 17:39 | NUR ---
This RN notified Dr. Muir of pt's ABG results as follows: pH 7.30, pCO2 61.6, pO2 61.1, HCO3- 30.1. Orders received for bipap at .
[2020-12-23] MEDS: CARVEDILOL 12.5 MG TABLET. PO SCH (17:50)
[2020-12-23 19:00] VITALS: BP 157/72
[2020-12-23] MEDS: levETIRAcetam 500 MG TABLET PO SCH (20:47)
[2020-12-23] MEDS: DULoxetine HCL 30 MG CAPSULE.DR PO SCH (20:47)
[2020-12-23] MEDS: DOCUSATE SODIUM 100 MG CAPSULE. PO SCH (20:47)
[2020-12-23] MEDS: ISOSORBIDE DINITRATE 10 MG TABLET. PO SCH (20:48)
[2020-12-23] MEDS: INSULIN GLARGINE SYRINGE. SQ SCH (20:58)
[2020-12-23] MEDS: HEPARIN for SUB-Q USE 5,000 UNIT/ML VIAL. SQ SCH (20:59)
[2020-12-23 23:00] VITALS: BP 172/68
[2020-12-24] MEDS: IV NORMAL SALINE 1000ML BAG 1,000 ML IV SCH ×2 (01:45→14:45)
[2020-12-24 03:00] VITALS: BP 150/70
[2020-12-24 07:00] VITALS: BP 136/56
--- NOTE | 2020-12-24 07:25 | NUR ---
Notified Dr. Muir and Lard Refiner of pt sliding out of bed when PCT attempted to place bed in sitting position at pt's request.
[2020-12-24] MEDS: PANTOPRAZOLE 40 MG TABLET.DR. PO SCH (07:35)
[2020-12-24] MEDS: CARVEDILOL 12.5 MG TABLET. PO SCH ×2 (07:36→16:57)
[2020-12-24] MEDS: INSULIN LISPRO 300 UNITS/3 ML VIAL. SQ SCH ×3 (08:00→16:56)
[2020-12-24] MEDS: DOCUSATE SODIUM 100 MG CAPSULE. PO SCH (08:44)
[2020-12-24] MEDS: ISOSORBIDE DINITRATE 10 MG TABLET. PO SCH (08:44)
[2020-12-24] MEDS: CLOPIDOGREL BISULFATE 75 MG TABLET PO SCH (08:45)
[2020-12-24] MEDS: NYSTATIN TOPICAL POWDER 15GM BOTTLE. TP SCH (08:45)
[2020-12-24] MEDS: levETIRAcetam 500 MG TABLET PO SCH (08:45)
[2020-12-24] MEDS: DULoxetine HCL 30 MG CAPSULE.DR PO SCH (08:45)
[2020-12-24] MEDS: TAMSULOSIN 0.4 MG CAP.ER.24H. PO SCH (08:45)
[2020-12-24 08:46] LABS: BASO # 0.1 x10^3/uL (0.0-0.2); BASO % 1 % (0-3); EOS # 0.1 x10^3/uL (0.0-0.7); EOS % 1 % (0-3); HEMATOCRIT 32.2 % (39.0-53.0); HEMOGLOBIN 10.6 g/dL (13.0-17.5); LYMPH # 2.1 x10^3/uL (1.0-4.8); LYMPH % 17 % (24-48); MEAN CORPUSCULAR HEMOGLOBIN 30 pg (25-35); MEAN CORPUSCULAR HGB CONC 33 g/dL (31-37); MEAN CORPUSCULAR VOLUME 92 fL (79-100); MONO % 8 % (0-9); NEUT # 9.1 x10^3/uL (1.8-7.7); NEUT % 73 % (31-73); PLATELET COUNT 294 x10^3/uL (140-400); RED CELL DISTRIBUTION WIDTH 13.4 % (11.5-14.5); WHITE BLOOD COUNT 12.5 x10^3/uL (4.0-11.0)
[2020-12-24] MEDS: INSULIN GLARGINE SYRINGE. SQ SCH (08:47)
[2020-12-24] MEDS: HEPARIN for SUB-Q USE 5,000 UNIT/ML VIAL. SQ SCH (08:47)
[2020-12-24 08:50] LABS: CALCIUM 8.6 mg/dL (8.5-10.1); CREATININE 1.5 mg/dL (0.7-1.3); GFR 46.4; MAGNESIUM 2.1 mg/dL (1.8-2.4); PHOSPHORUS 3.1 mg/dL (2.6-4.7); POTASSIUM 4.3 mmol/L (3.5-5.1)
[2020-12-24] MEDS ORDERED: ASPIRIN CHEWABLE 81 MG TABLET. PO SCH (09:00)
[2020-12-24] MEDS ORDERED: CHOLECALCIFEROL (VITAMIN D3) 1,000 UNIT TABLET PO SCH (09:00)
--- NOTE | 2020-12-24 09:48 | PDOC ---
DATE OF SERVICE DATE: 12/24/20 TIME: 09:47 SUBJECTIVE ROS Denies any complaints, intermittent confusion per nursing? baseline dementia OBJECTIVE Vital Signs Vital Signs Date Time Temp Pulse Resp B/P (MAP) Pulse Ox O2 Delivery O2 Flow Rate FiO2 12/24/20 08:45 85 136/56 12/24/20 07:30 Nasal Cannula 1.0 12/24/20 07:00 98.2 20 96 98.2 I & 0 Intake and Output 12/24/20 07:00 Intake Total 1050 ml Output Total 1550 ml Balance -500 ml Intake Oral 150 ml IV Total 900 ml Output Urine Total 1550 ml # Voids 2 PHYSICAL EXAM Physical Exam General Morbidly obese, NAD HEEN OM moist , On o2 by NC Neck Thick, supple Lungs- decreased at bases due to body habitus, Non labored CV S1S2 Abd Morbidly obese, soft, NT Ext severe Changes of CVI Neuro Grossly normal No CVA or SP tenderness , No Brock Skin No Rash , changes of CVI DIAGNOSIS/ASSESSMENT Assessment & Plan [place] - vasomotor nephropathy , Aldactone and Bumex per home med list along with other antiihypertensives . Diuretics held . 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 Follows with PCP . Baseline Cr 1.1-1.3 ). 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 UA in past without Micr hematuria. Proteinuria -overt on UA in the past, No quantification. Suspect 2/2 DM HyperKalemia mild , monitor Acute metabolic encephalopathy, possible toxic due to polypharmacy- currently awake Bilateral lower extremity lymphedema Morbid obesity diabetes mellitus - per primary hypertension- antihypertensives. Diuretics held . Resume based on Clinical status- weight, symptoms, BP and renal function . Defer to PCP after dced COMMENT/RELEVANT DATA Meds Current Medications Medications (Trade) Dose Ordered Sig/Berna Start Time Stop Time Status Last Admin Dose Admin Acetaminophen (Tylenol) 650 mg PRN Q4HRS PRN 12/23/20 13:30 Albuterol Sulfate (Ventolin Neb Soln) 2.5 mg PRN Q6HRS PRN 12/23/20 14:15 Aspirin (Aspirin Chewable) 81 mg DAILY 12/24/20 09:00 12/24/20 08:44 81 MG Calcium Carbonate/ Glycine (Tums) 1,000 mg PRN Q6HRS PRN 12/23/20 14:15 Carvedilol (Coreg) 37.5 mg BIDWMEALS 12/23/20 17:00 12/24/20 07:36 37.5 MG Clopidogrel Bisulfate (Plavix) 75 mg DAILY 12/23/20 15:00 12/24/20 08:45 75 MG Dextrose (Dextrose 50%-Water Syringe) 12.5 gm PRN Q15MIN PRN 12/23/20 13:30 Diltiazem HCl (Cardizem 24hr Cd) 180 mg DAILY 12/23/20 15:00 12/24/20 08:45 180 MG Docusate Sodium (Colace) 200 mg BID 12/23/20 21:00 12/24/20 08:44 200 MG Duloxetine HCl (Cymbalta) 30 mg BID 12/23/20 21:00 12/24/20 08:45 30 MG Fentanyl (Duragesic 50mcg/ Hr Patch) 1 patch Q72H 12/23/20 15:00 12/23/20 15:26 1 PATCH Heparin Sodium (Porcine) (Heparin Sodium) 5,000 unit Q12HR 12/23/20 21:00 12/24/20 08:47 5,000 UNIT Insulin Glargine (Lantus Syringe) 35 unit BID 12/23/20 21:00 12/23/20 20:58 35 UNIT Insulin Human Lispro (HumaLOG) 0-7 UNITS TIDWMEALS 12/23/20 17:00 Isosorbide Dinitrate (Isordil) 20 mg BID 12/23/20 21:00 12/24/20 08:44 20 MG Levetiracetam (Keppra) 500 mg BID 12/23/20 21:00 12/24/20 08:45 500 MG Levetiracetam 1000 mg/Dextrose 110 ml @ 440 mls/hr 1X ONCE 12/23/20 17:00 12/23/20 17:32 DC Lorazepam (Ativan Inj) 2 mg PRN Q4HRS PRN 12/23/20 17:30 Nystatin (Nystop) 1 pat DAILY 12/23/20 15:00 12/24/20 08:45 1 PAT Ondansetron HCl (Zofran) 4 mg PRN Q6HRS PRN 12/23/20 13:30 Pantoprazole Sodium (Protonix) 40 mg DAILYAC 12/23/20 15:00 12/24/20 07:35 40 MG Sennosides (Senna) 17.2 mg PRN BID PRN 12/23/20 13:30 Sodium Chloride 1,000 ml @ 75 mls/hr [id number] 12/22/20 22:45 12/24/20 01:45 75 MLS/HR Tamsulosin HCl (Flomax) 0.4 mg DAILY 12/23/20 15:00 12/24/20 08:45 0.4 MG Vitamin D (Vitamin D3) 5,000 unit DAILY 12/24/20 09:00 12/24/20 08:44 5,000 UNIT Lab Laboratory Tests Test 12/23/20 10:02 12/23/20 16:32 12/23/20 17:05 12/23/20 19:36 Glucose (Fingerstick) 168 mg/dL (70-99) 165 mg/dL (70-99) 154 mg/dL (70-99) O2 Saturation 91 % (92-99) Arterial Blood pH 7.31 (7.35-7.45) Arterial Blood pCO2 at Patient Temp 62 mmHg (35-46) Arterial Blood pO2 at Patient Temp 61 mmHg (65-108) Arterial Blood HCO3 30 mmol/L (21-28) Arterial Blood Base Excess 2 mmol/L (-3-3) FiO2 28 Test 12/24/20 08:20 White Blood Count 12.5 x10^3/uL (4.0-11.0) Red Blood Count 3.50 x10^6/uL (4.30-5.70) Hemoglobin 10.6 g/dL (13.0-17.5) Hematocrit 32.2 % (39.0-53.0) Mean Corpuscular Volume 92 fL (79-100) Mean Corpuscular Hemoglobin 30 pg (25-35) Mean Corpuscular Hemoglobin Concent 33 g/dL (31-37) Red Cell Distribution Width 13.4 % (11.5-14.5) Platelet Count 294 x10^3/uL (140-400) Neutrophils (%) (Auto) 73 % (31-73) Lymphocytes (%) (Auto) 17 % (24-48) Monocytes (%) (Auto) 8 % (0-9) Eosinophils (%) (Auto) 1 % (0-3) Basophils (%) (Auto) 1 % (0-3) Neutrophils # (Auto) 9.1 x10^3/uL (1.8-7.7) Lymphocytes # (Auto) 2.1 x10^3/uL (1.0-4.8) Monocytes # (Auto) 1.0 x10^3/uL (0.0-1.1) Eosinophils # (Auto) 0.1 x10^3/uL (0.0-0.7) Basophils # (Auto) 0.1 x10^3/uL (0.0-0.2) Sodium Level 141 mmol/L (136-145) Potassium Level 4.3 mmol/L (3.5-5.1) Chloride Level 104 mmol/L (98-107) Carbon Dioxide Level 30 mmol/L (21-32) Anion Gap 7 (6-14) Blood Urea Nitrogen 46 mg/dL (8-26) Creatinine 1.5 mg/dL (0.7-1.3) Estimated GFR (Cockcroft-Gault) 46.4 Glucose Level 131 mg/dL (70-99) Calcium Level 8.6 mg/dL (8.5-10.1) Phosphorus Level 3.1 mg/dL (2.6-4.7) Magnesium Level 2.1 mg/dL (1.8-2.4) Results All relevant outside records, renal labs, imaging studies, telemetry/EKG's were reviewed. Justicifation of Admission Dx: Justifications for Admission: Justification of Admission Dx: N/A JASKARAN BRITO MD Dec 24, 2020 09:48
--- NOTE | 2020-12-24 10:56 | PDOC2 ---
NEUROLOGY CONSULT Date of Service DOS: DATE: 12/24/20 TIME: 10:54 Reason for Consult Reason for Consult: Seizures Referring Physician Referring Physician: Dr. Augustin Source Source: Chart review, Patient History of Present Illness History of Present Illness The patient is a 70-year-old right-handed male who presented to the [facility] emergency department on 12/22 with altered mental status and weakness. He claims episodes of getting very sleepy and having a hard time waking up. I spoke to the nurse yesterday after consult was placed late in the afternoon. The patient was having episodes of unresponsiveness and shaking. Review of the chart shows a well-documented history of psychogenic nonepileptic seizures: From my March 28, 2018 consultation: has been evaluated at the MD, [facility], and . Daughter says it he had 24 hour video EEG monitoring and the conclusion was nonepileptic seizure. Nonetheless he is on anticonvulsant. The patient only occasionally has incontinence. Basically he loses consciousness has a little bit of tremulousness, but no full-body convulsions, tongue biting, or prolonged posted the confusion. Often he does have chest pain at the start of these episodes. He has a history of stroke leaving him with leg weakness, diagnosed as a brainstem stroke. There is no history of seizure. He does have a diagnosis of Alzheimer's dementia, early stages. I saw him again in November 2018, again diagnosed psychogenic nonepileptic seizures. Dr. Mcmanus saw him in January 2019, again diagnosed psychogenic nonepileptic seizures. The patient was found to have BUN 56, creatinine 1.8, and was sent here for renal evaluation. His renal status is improving and he has been cleared to return to the custodial. He has been at [facility] for several years. Past Medical History Cardiovascular: CAD, CHF, HTN, HI, Hyperlipidemia Pulmonary: COPD, Other (Obstructive sleep apnea) CENTRAL NERVOUS SYSTEM: CVA, Dementia, Periperal neuropathy, Seizure (Psychogenic nonepileptic seizures), TIA GI: GERD Hepatobiliary: Hep A/B/C Psych: Anxiety, Depression Musculoskeletal: low back pain, Osteoarthritis Renal/: Acute renal failure, Other (Urinary retention) Endocrine: Diabetes, Hypothyroidism Dermatology: Other (Unknown skin cancer) Past Surgical History Past Surgical History: Appendectomy, Cholecystectomy, CABG, Cataract Removal, Hernia Repair, Tonsillectomy, Other (Pericardial window, cardiac catheterization, coronary stent, 9 surgeries for hiatal hernia) Family History Family History: CAD Social History Social History Single, Shinto, refuses blood products, custodial resident, no alcohol or tobacco Current Medications Current Medications Current Medications Sodium Chloride 1,000 ml @ 75 mls/hr [id number] IV Last administered on 12/24/20at 01:45; Start 12/22/20 at 22:45 Sennosides (Senna) 17.2 mg PRN BID PRN PO CONSTIPATION; Start 12/23/20 at 13:30 Docusate Sodium (Colace) 100 mg PRN DAILY PRN PO HARD STOOLS; Start 12/23/20 at 13:30 Ondansetron HCl (Zofran) 4 mg PRN Q6HRS PRN IVP NAUSEA/VOMITING; Start 12/23/20 at 13:30 Insulin Human Lispro (HumaLOG) 0-7 UNITS TIDWMEALS SQ ; Start 12/23/20 at 17:00 Dextrose (Dextrose 50%-Water Syringe) 12.5 gm PRN Q15MIN PRN IV SEE COMMENTS; Start 12/23/20 at 13:30 Acetaminophen (Tylenol) 650 mg PRN Q4HRS PRN PO TEMP OVER 100.4F OR MILD PAIN; Start 12/23/20 at 13:30 Heparin Sodium (Porcine) (Heparin Sodium) 5,000 unit Q12HR SQ Last administered on 12/24/20at 08:47; Start 12/23/20 at 21:00 Aspirin (Aspirin Chewable) 81 mg DAILY PO Last administered on 12/24/20at 08:44; Start 12/24/20 at 09:00 Calcium Carbonate/ Glycine (Tums) 1,000 mg PRN Q6HRS PRN PO INDIGESTION; Start 12/23/20 at 14:15 Vitamin D (Vitamin D3) 5,000 unit DAILY PO Last administered on 12/24/20 08:44; Start 12/24/20 at 09:00 Clopidogrel Bisulfate (Plavix) 75 mg DAILY PO Last administered on 12/24/20 08:45; Start 12/23/20 at 15:00 Diltiazem HCl (Cardizem 24hr Cd) 180 mg DAILY PO Last administered on 12/24/20 08:45; Start 12/23/20 at 15:00 Docusate Sodium (Colace) 200 mg BID PO Last administered on 12/24/20 08:44; Start 12/23/20 at 21:00 Duloxetine HCl (Cymbalta) 30 mg BID PO Last administered on 12/24/20 08:45; Start 12/23/20 at 21:00 Fentanyl (Duragesic 50mcg/ Hr Patch) 1 patch Q72H TD Last administered on 12/23/20 15:26; Start 12/23/20 at 15:00 Nystatin (Nystop) 1 david DAILY TP Last administered on 12/24/20 08:45; Start 12/23/20 at 15:00 Pantoprazole Sodium (Protonix) 40 mg DAILYAC PO Last administered on 12/24/20 07:35; Start 12/23/20 at 15:00 Tamsulosin HCl (Flomax) 0.4 mg DAILY PO Last administered on 12/24/20 08:45; Start 12/23/20 at 15:00 Albuterol Sulfate (Ventolin Neb Soln) 2.5 mg PRN Q6HRS PRN NEB COUGH; Start 12/23/20 at 14:15 Carvedilol (Coreg) 37.5 mg BIDWMEALS PO Last administered on 12/24/20 07:36; Start 12/23/20 at 17:00 Insulin Glargine (Lantus Syringe) 35 unit BID SQ Last administered on 12/23/20 20:58; Start 12/23/20 at 21:00 Isosorbide Dinitrate (Isordil) 20 mg BID PO Last administered on 12/24/20 08:44; Start 12/23/20 at 21:00 Levetiracetam (Keppra) 750 mg DAILY PO Last administered on 12/23/20 15:24; Start 12/23/20 at 15:00; Stop 12/23/20 at 17:32; Status DC Levetiracetam 1000 mg/Dextrose 110 ml @ 440 mls/hr 1X ONCE IV ; Start 12/23/20 at 17:00; Stop 12/23/20 at 17:32; Status DC Levetiracetam (Keppra) 500 mg BID PO Last administered on 4/8/21at 08:45; Start 12/23/20 at 21:00 Lorazepam (Ativan Inj) 2 mg PRN Q4HRS PRN IVP SEE ADMIN INSTRUCTIONS; Start 12/23/20 at 17:30 Active Scripts Active Humalog (Insulin Lispro) 100 Unit/1 Ml Insuln.pen 0 Units SQ TIDWMEALS 14 Days Reported Zofran (Ondansetron Hcl) 4 Mg Tablet 4 Mg PO PRN Q8HRS PRN Ventolin Hfa Inhaler (Albuterol Sulfate) 18 Gm Hfa.aer.ad 2 Puff INH PRN Q6HRS PRN Tums (Calcium Carbonate) 200 Mg Tab.chew 1,000 Mg PO PRN Q6HRS PRN Praluent Pen (Alirocumab) 75 Mg/1 Ml Pen.injctr 75 Mg SQ UD Polyethylene Glycol 3350 2,500 Gm Powder 17 Gm PO DAILY Pantoprazole Sodium (Pantoprazole Sodium) 40 Mg Tablet.dr 40 Mg PO DAILYAC Nystop (Nystatin) 60 Gm Powder 1 David TP DAILY Milk Of Magnesia (Magnesium Hydroxide) 2,400 Mg/10 Ml Oral.susp 2,400 Mg PO PRN DAILY PRN Lyrica (Pregabalin) 50 Mg Capsule 50 Mg PO TID Loperamide (Loperamide Hcl) 2 Mg Tablet 4 Mg PO PRN Q2HR PRN Lantus Solostar (Insulin Glargine,Hum.rec.anlog) 100 Unit/1 Ml Insuln.pen 35 Unit SQ BID Keppra (Levetiracetam) 750 Mg Tablet 750 Mg PO DAILY Isosorbide Dinitrate 30 Mg Tablet 20 Mg PO BID Hydralazine Hcl 25 Mg Tablet 25 Mg PO BID DURAGESIC 50mcg/hr (Fentanyl) 1 Each Patch.td72 1 Patch TD Q72H Cymbalta (Duloxetine Hcl) 30 Mg Capsule.dr 30 Mg PO BID Chloraseptic (Phenol) 177 Ml [place].pump 5 [place] PRN Q2HR PRN Carvedilol 25 Mg Tablet 37.5 Mg PO BIDWMEALS Cardizem Cd (Diltiazem Hcl) 180 Mg Cap.er.24h 180 Mg PO DAILY Bumetanide 2 Mg Tablet 6 Mg PO BID Baclofen 10 Mg Tablet 5 Mg PO TID Spironolactone 100 Mg Tablet 100 Mg PO DAILY Flomax (Tamsulosin Hcl) 0.4 Mg Cap.er.24h 0.4 Mg PO DAILY Vitamin D3 (Cholecalciferol (Vitamin D3)) 1,000 Unit Tablet 5,000 Unit PO DAILY Docusate Sodium 100 Mg Capsule 2 Cap PO BID Aspirin 81 Mg Tab.chew 1 Tab PO DAILY NITROGLYCERIN SubLingual (Nitroglycerin) 0.4 Mg Tab.subl 1 Tab SL UD Clopidogrel (Clopidogrel Bisulfate) 75 Mg Tablet 75 Mg PO DAILY Allergies Allergies: Coded Allergies: Iodinated Contrast Media (Verified Allergy, Intermediate, hives, 04/23/18) Penicillins (Verified Allergy, Intermediate, "PASSES OUT", 04/22/18) [id number] Reductase Inhibitor (Verified Allergy, Intermediate, 04/22/18) erythromycin base (Verified Allergy, Intermediate, 04/22/18) iodine (Verified Allergy, Intermediate, 04/22/18) lisinopril (Verified Allergy, Intermediate, 04/22/18) niacin (Verified Allergy, Intermediate, 04/22/18) sertraline (Verified Allergy, Intermediate, 04/22/18) simvastatin (Verified Allergy, Intermediate, 04/22/18) fluvastatin (Verified Adverse Reaction, Intermediate, muscle cramping, 04/23/18) pravastatin (Verified Adverse Reaction, Intermediate, muscle cramping, 04/23/18) rosuvastatin (Verified Adverse Reaction, Intermediate, muscle cramping, 04/23/18) ROS Review of System Negative for fever, chills, weight loss, shortness of breath, chest pain, indigestion, hematochezia, melena, and dysuria. Full 14-point review of systems is negative. Physical Exam Physical Examination General: Well-developed, well-nourished white male in no acute distress HEENT: Normocephalic andatraumatic. Temporal arteriespulsatile and nontender. Neck: Supple without bruit, no meningismus Musculoskeletal: Stability:see neurologic. Gait exam:see neurologic. Tone:see neurologic.Strength:see neurologic.Legs: Cellulitic changes Neurological: Mental Status:orientation, memory, attention span/concentration, language, fund of knowledge: Knows location, year, does not know name of president, recalls name later. Cranial Nerves:Pupils equal and reactive to light, extraocular movements areintact, visual wade are full to confrontation. Facial sensation is normal. There is no facial asymmetry. Vestibulo-ocular reflex is intact. Palate elevates and tongue protrudes in midline. All other cranial related problems are negative except as mentioned before.Reflexes:0+ and symmetric with flexor plantar responses. Motor:3/5 leg strength, 4/5 arm strength, with normal tone and bulk. Coordination:Finger-nose finger and urya-ac-ybwg testing are normal. Rapid alternating movements and fine finger movements are intact. Gait:not tested. Sensory:stocking loss. Vitals VITALS Vital Signs Date Time Temp Pulse Resp B/P (MAP) Pulse Ox O2 Delivery O2 Flow Rate FiO2 12/24/20 08:45 85 136/56 12/24/20 07:30 Nasal Cannula 1.0 12/24/20 07:00 98.2 20 96 98.2 Labs Labs Laboratory Tests Test 12/23/20 07:01 12/23/20 08:10 12/23/20 10:02 12/23/20 16:32 Glucose (Fingerstick) 183 mg/dL (70-99) 168 mg/dL (70-99) 165 mg/dL (70-99) White Blood Count 10.2 x10^3/uL (4.0-11.0) Red Blood Count 3.72 x10^6/uL (4.30-5.70) Hemoglobin 11.1 g/dL (13.0-17.5) Hematocrit 34.5 % (39.0-53.0) Mean Corpuscular Volume 93 fL (79-100) Mean Corpuscular Hemoglobin 30 pg (25-35) Mean Corpuscular Hemoglobin Concent 32 g/dL (31-37) Red Cell Distribution Width 13.3 % (11.5-14.5) Platelet Count 286 x10^3/uL (140-400) Neutrophils (%) (Auto) 63 % (31-73) Lymphocytes (%) (Auto) 25 % (24-48) Monocytes (%) (Auto) 9 % (0-9) Eosinophils (%) (Auto) 3 % (0-3) Basophils (%) (Auto) 1 % (0-3) Neutrophils # (Auto) 6.4 x10^3/uL (1.8-7.7) Lymphocytes # (Auto) 2.5 x10^3/uL (1.0-4.8) Monocytes # (Auto) 0.9 x10^3/uL (0.0-1.1) Eosinophils # (Auto) 0.3 x10^3/uL (0.0-0.7) Basophils # (Auto) 0.1 x10^3/uL (0.0-0.2) Sodium Level 143 mmol/L (136-145) Potassium Level 5.2 mmol/L (3.5-5.1) Chloride Level 105 mmol/L (98-107) Carbon Dioxide Level 33 mmol/L (21-32) Anion Gap 5 (6-14) Blood Urea Nitrogen 59 mg/dL (8-26) Creatinine 1.9 mg/dL (0.7-1.3) Estimated GFR (Cockcroft-Gault) 35.3 BUN/Creatinine Ratio 31 (6-20) Glucose Level 164 mg/dL (70-99) Calcium Level 8.7 mg/dL (8.5-10.1) Total Bilirubin 0.2 mg/dL (0.2-1.0) Aspartate Amino Transf (AST/SGOT) 8 U/L (15-37) Alanine Aminotransferase (ALT/SGPT) 12 U/L (16-63) Alkaline Phosphatase 94 U/L (46-116) Total Protein 7.4 g/dL (6.4-8.2) Albumin 2.7 g/dL (3.4-5.0) Albumin/Globulin Ratio 0.6 (1.0-1.7) Test 12/23/20 17:05 12/23/20 19:36 12/24/20 08:20 O2 Saturation 91 % (92-99) Arterial Blood pH 7.31 (7.35-7.45) Arterial Blood pCO2 at Patient Temp 62 mmHg (35-46) Arterial Blood pO2 at Patient Temp 61 mmHg (65-108) Arterial Blood HCO3 30 mmol/L (21-28) Arterial Blood Base Excess 2 mmol/L (-3-3) FiO2 28 Glucose (Fingerstick) 154 mg/dL (70-99) White Blood Count 12.5 x10^3/uL (4.0-11.0) Red Blood Count 3.50 x10^6/uL (4.30-5.70) Hemoglobin 10.6 g/dL (13.0-17.5) Hematocrit 32.2 % (39.0-53.0) Mean Corpuscular Volume 92 fL (79-100) Mean Corpuscular Hemoglobin 30 pg (25-35) Mean Corpuscular Hemoglobin Concent 33 g/dL (31-37) Red Cell Distribution Width 13.4 % (11.5-14.5) Platelet Count 294 x10^3/uL (140-400) Neutrophils (%) (Auto) 73 % (31-73) Lymphocytes (%) (Auto) 17 % (24-48) Monocytes (%) (Auto) 8 % (0-9) Eosinophils (%) (Auto) 1 % (0-3) Basophils (%) (Auto) 1 % (0-3) Neutrophils # (Auto) 9.1 x10^3/uL (1.8-7.7) Lymphocytes # (Auto) 2.1 x10^3/uL (1.0-4.8) Monocytes # (Auto) 1.0 x10^3/uL (0.0-1.1) Eosinophils # (Auto) 0.1 x10^3/uL (0.0-0.7) Basophils # (Auto) 0.1 x10^3/uL (0.0-0.2) Sodium Level 141 mmol/L (136-145) Potassium Level 4.3 mmol/L (3.5-5.1) Chloride Level 104 mmol/L (98-107) Carbon Dioxide Level 30 mmol/L (21-32) Anion Gap 7 (6-14) Blood Urea Nitrogen 46 mg/dL (8-26) Creatinine 1.5 mg/dL (0.7-1.3) Estimated GFR (Cockcroft-Gault) 46.4 Glucose Level 131 mg/dL (70-99) Calcium Level 8.6 mg/dL (8.5-10.1) Phosphorus Level 3.1 mg/dL (2.6-4.7) Magnesium Level 2.1 mg/dL (1.8-2.4) Laboratory Tests Test 12/23/20 16:32 12/23/20 17:05 12/23/20 19:36 12/24/20 08:20 Glucose (Fingerstick) 165 mg/dL (70-99) 154 mg/dL (70-99) O2 Saturation 91 % (92-99) Arterial Blood pH 7.31 (7.35-7.45) Arterial Blood pCO2 at Patient Temp 62 mmHg (35-46) Arterial Blood pO2 at Patient Temp 61 mmHg (65-108) Arterial Blood HCO3 30 mmol/L (21-28) Arterial Blood Base Excess 2 mmol/L (-3-3) FiO2 28 White Blood Count 12.5 x10^3/uL (4.0-11.0) Red Blood Count 3.50 x10^6/uL (4.30-5.70) Hemoglobin 10.6 g/dL (13.0-17.5) Hematocrit 32.2 % (39.0-53.0) Mean Corpuscular Volume 92 fL (79-100) Mean Corpuscular Hemoglobin 30 pg (25-35) Mean Corpuscular Hemoglobin Concent 33 g/dL (31-37) Red Cell Distribution Width 13.4 % (11.5-14.5) Platelet Count 294 x10^3/uL (140-400) Neutrophils (%) (Auto) 73 % (31-73) Lymphocytes (%) (Auto) 17 % (24-48) Monocytes (%) (Auto) 8 % (0-9) Eosinophils (%) (Auto) 1 % (0-3) Basophils (%) (Auto) 1 % (0-3) Neutrophils # (Auto) 9.1 x10^3/uL (1.8-7.7) Lymphocytes # (Auto) 2.1 x10^3/uL (1.0-4.8) Monocytes # (Auto) 1.0 x10^3/uL (0.0-1.1) Eosinophils # (Auto) 0.1 x10^3/uL (0.0-0.7) Basophils # (Auto) 0.1 x10^3/uL (0.0-0.2) Sodium Level 141 mmol/L (136-145) Potassium Level 4.3 mmol/L (3.5-5.1) Chloride Level 104 mmol/L (98-107) Carbon Dioxide Level 30 mmol/L (21-32) Anion Gap 7 (6-14) Blood Urea Nitrogen 46 mg/dL (8-26) Creatinine 1.5 mg/dL (0.7-1.3) Estimated GFR (Cockcroft-Gault) 46.4 Glucose Level 131 mg/dL (70-99) Calcium Level 8.6 mg/dL (8.5-10.1) Phosphorus Level 3.1 mg/dL (2.6-4.7) Magnesium Level 2.1 mg/dL (1.8-2.4) Assessment/Plan Assessment/Plan Impression: Psychogenic nonepileptic seizures. When I discussed the diagnosis with the patient he is well aware of it and admits to having stress related seizures so to speak, even though he is amnestic for them Severe diabetic neuropathy Dementia, most likely Alzheimer's Recommendations: He presents on a strange levetiracetam dose of 750 mg daily. I change that to 500 mg twice daily yesterday, but have decided to reduce the dose to 250 mg twice daily. It is possible that he has organic seizures as well, at this low dose should be safe. He has been on the levetiracetam for several years despite both Dr. Sanchez and myself commending its discontinuation several times. Okay to return to custodial. Follow-up with neurology as needed. Thank you for letting me help with the patient's care. ROSA M VASQUEZ MD Dec 24, 2020 10:55
[2020-12-24 11:00] VITALS: BP 131/55
--- NOTE | 2020-12-24 11:24 | PDOC ---
[employer] PROGRESS NOTE Date of Service DOS: DATE: 12/24/20 TIME: 11:21 Chief Complaint Chief Complaint Acute metabolic encephalopathy, possible toxic due to polypharmacy [place] due to vasomotor nephropathy Acute electrolyte derangementhyperkalemia likely due to renal disease Hyperglycemia Severe protein malnutrition Anemia of kidney disease Bilateral lower extremity lymphedema Morbid obesity History of diabetes mellitus History of hypertension History of COPD No obvious centrally acting medications currently. No obvious signs of infection on physical exam. No fevers or nuchal rigidity. CT head is negative for acute etiology. No history or signs of trauma Nephrology consultno HD at this time and will follow renal panel in the a.m. Pending urine toxic drug screen Consider dementia prevention protocol Provide adequate lighting (open curtains during the day, turn the lights off at night) Provide frequent personal contact with family, friends, and staff or TV Encourage early and frequent mobilization Rehab screening ordered IV Haldol as needed for agitation, consider sitter as needed if non-redirectable agitation Avoid physical restraints, catheters or tubes, and benzodiazepines - HOLD on home centrally acting medications following Beer's Criteria list of medications - Continue Fentanyl patch Nutrition consult if there is malnutrition or concern for vitamin deficiencies Continue IV fluids Heparin for DVT prophylaxis Protonix GI prophylaxis ADA diet Full code Discussed with RN and SW Dispo inpatient management as above MARK Larson History of Present Illness History of Present Illness 12/24/2020 No acute events overnight. Patient had a seizure episode yesterday and neurology was consulted. Keppra was changed to twice daily. Need for further recommendations. Will repeat renal panel tomorrow morning. Make sure patient stays on CPAP/BiPAP tonight. Patient's chart, labs, images were reviewed and discussed with RN 70-year-old male with past medical history of CAD, COPD, depression, diabetes mellitus, dyslipidemia, hypertension who presents to [facility] ED after having episode of altered mental status. Patient states that he does has these episo clarence where he come sleepy and then has a hard time waking up. Patient did tell the nursing staff that this is normal for him but they told him he had to come to the emergency department. Upon my examination after his transfer patient was alert and awake and oriented x2. He did not know where the hospital was and he said that the current year is 2003 and the current president is President Kory. Patient was actually transferred because of an acute renal failure. And wished for nephrology to be consulted. Currently the patient denies any fevers, headaches, chest pain, abdominal pain, dysuria, or bloody stools. Vitals/I&O Vitals/I&O: Vital Signs Date Time Temp Pulse Resp B/P (MAP) Pulse Ox O2 Delivery O2 Flow Rate FiO2 12/24/20 08:45 85 136/56 12/24/20 07:30 Nasal Cannula 1.0 12/24/20 07:00 98.2 20 96 98.2 I & O 12/23/20 12/23/20 12/24/20 15:00 23:00 07:00 Intake Total 900 ml 150 ml Output Total 300 ml 600 ml 650 ml Balance 600 ml -450 ml -650 ml Physical Exam Lungs: Clear, Other Labs Labs: Laboratory Tests Test 12/23/20 16:32 12/23/20 17:05 12/23/20 19:36 12/24/20 08:20 Glucose (Fingerstick) 165 mg/dL (70-99) 154 mg/dL (70-99) O2 Saturation 91 % (92-99) Arterial Blood pH 7.31 (7.35-7.45) Arterial Blood pCO2 at Patient Temp 62 mmHg (35-46) Arterial Blood pO2 at Patient Temp 61 mmHg (65-108) Arterial Blood HCO3 30 mmol/L (21-28) Arterial Blood Base Excess 2 mmol/L (-3-3) FiO2 28 White Blood Count 12.5 x10^3/uL (4.0-11.0) Red Blood Count 3.50 x10^6/uL (4.30-5.70) Hemoglobin 10.6 g/dL (13.0-17.5) Hematocrit 32.2 % (39.0-53.0) Mean Corpuscular Volume 92 fL (79-100) Mean Corpuscular Hemoglobin 30 pg (25-35) Mean Corpuscular Hemoglobin Concent 33 g/dL (31-37) Red Cell Distribution Width 13.4 % (11.5-14.5) Platelet Count 294 x10^3/uL (140-400) Neutrophils (%) (Auto) 73 % (31-73) Lymphocytes (%) (Auto) 17 % (24-48) Monocytes (%) (Auto) 8 % (0-9) Eosinophils (%) (Auto) 1 % (0-3) Basophils (%) (Auto) 1 % (0-3) Neutrophils # (Auto) 9.1 x10^3/uL (1.8-7.7) Lymphocytes # (Auto) 2.1 x10^3/uL (1.0-4.8) Monocytes # (Auto) 1.0 x10^3/uL (0.0-1.1) Eosinophils # (Auto) 0.1 x10^3/uL (0.0-0.7) Basophils # (Auto) 0.1 x10^3/uL (0.0-0.2) Sodium Level 141 mmol/L (136-145) Potassium Level 4.3 mmol/L (3.5-5.1) Chloride Level 104 mmol/L (98-107) Carbon Dioxide Level 30 mmol/L (21-32) Anion Gap 7 (6-14) Blood Urea Nitrogen 46 mg/dL (8-26) Creatinine 1.5 mg/dL (0.7-1.3) Estimated GFR (Cockcroft-Gault) 46.4 Glucose Level 131 mg/dL (70-99) Calcium Level 8.6 mg/dL (8.5-10.1) Phosphorus Level 3.1 mg/dL (2.6-4.7) Magnesium Level 2.1 mg/dL (1.8-2.4) Comment Review of Relevant I have reviewed the following items yuliya (where applicable) has been applied. Medications: Current Medications Medications (Trade) Dose Ordered Sig/Berna Route PRN Reason Start Time Stop Time Status Last Admin Dose Admin Heparin Sodium (Porcine) (Heparin Sodium) 5,000 unit Q12HR SQ 12/23/20 21:00 12/24/20 08:47 Aspirin (Aspirin Chewable) 81 mg DAILY PO 12/24/20 09:00 12/24/20 08:44 Vitamin D (Vitamin D3) 5,000 unit DAILY PO 12/24/20 09:00 12/24/20 08:44 Clopidogrel Bisulfate (Plavix) 75 mg DAILY PO 12/23/20 15:00 12/24/20 08:45 Diltiazem HCl (Cardizem 24hr Cd) 180 mg DAILY PO 12/23/20 15:00 12/24/20 08:45 Docusate Sodium (Colace) 200 mg BID PO 12/23/20 21:00 12/24/20 08:44 Duloxetine HCl (Cymbalta) 30 mg BID PO 12/23/20 21:00 12/24/20 08:45 Fentanyl (Duragesic 50mcg/ Hr Patch) 1 patch Q72H TD 12/23/20 15:00 12/23/20 15:26 Nystatin (Nystop) 1 pat DAILY TP 12/23/20 15:00 12/24/20 08:45 Pantoprazole Sodium (Protonix) 40 mg DAILYAC PO 12/23/20 15:00 12/24/20 07:35 Tamsulosin HCl (Flomax) 0.4 mg DAILY PO 12/23/20 15:00 12/24/20 08:45 Carvedilol (Coreg) 37.5 mg BIDWMEALS PO 12/23/20 17:00 12/24/20 07:36 Insulin Glargine (Lantus Syringe) 35 unit BID SQ 12/23/20 21:00 12/23/20 20:58 Isosorbide Dinitrate (Isordil) 20 mg BID PO 12/23/20 21:00 12/24/20 08:44 Levetiracetam (Keppra) 750 mg DAILY PO 12/23/20 15:00 12/23/20 17:32 DC 12/23/20 15:24 Levetiracetam (Keppra) 500 mg BID PO 12/23/20 21:00 12/24/20 08:45 Justifications for Admission Other Justification Acute renal failure and encephalopathy ERNESTO CRISOSTOMO MD Dec 24, 2020 11:23
[2020-12-24] MEDS ORDERED: LEVE500T56 PO (14:28)
--- NOTE | 2020-12-24 14:30 | SNU/HH DC ---
DISCHARGE ORDERS DISCHARGE INFORMATION: DISCHARGE DATE: Dec 24, 2020 CONDITION ON DISCHARGE: Stable CODE STATUS: Code Status: Full POST DISCHARGE ORDERS: ACTIVITY ORDERS: Activity as tolerated WEIGHT BEARING STATUS: Full weight bearing DIET AFTER DISCHARGE: Cardiac WOUND/INCISION CARE: No wound care needed CHECKS AFTER DISCHARGE: CHECKS AFTER DISCHARGE: Check blood press - daily, Check blood sugar, ac/hs, Check your Temp as needed, Weigh Yourself Daily FOLLOW-UP: PHYSICIAN FOLLOW-UP: PCP within 2 weeks of discharge ADDITIONAL FOLLOW-UP: Neurology and Renal as needed LAB ORDERS FOR FOLLOW-UP: CBC, CMP TREATMENT/EQUIPMENT ORDERS: ADAPTIVE EQUIPMENT NEEDED: None RESPIRATORY EQUIPMENT NEEDED: Oxygen Physical Therapy For: Evalulation/Treatment Occupational Therapy For: Evaluation/Treatment Speech Language Pathology For: Swallow Cognition DISCHARGE MEDICATIONS: Home Meds Active Scripts Levetiracetam (KEPPRA) 500 Mg Tablet, 500 MG PO BID for seizures for 30 Days, #60 TAB Prov:ERNESTO CRISOSTOMO MD 12/24/20 Insulin Lispro (HUMALOG) 100 Unit/1 Ml Insuln.pen, 0 UNITS SQ TIDWMEALS for DIABETES for 14 Days, #1 EACH Prov:ИРИНА FUNES MD 12/07/18 Reported Medications Ondansetron Hcl (ZOFRAN) 4 Mg Tablet, 4 MG PO PRN Q8HRS PRN for NAUSEA/VOMITING, TAB 12/22/20 Albuterol Sulfate (VENTOLIN HFA INHALER) 18 Gm Hfa.aer.ad, 2 PUFF INH PRN Q6HRS PRN for COUGH, EACH 0 Refills 12/22/20 Calcium Carbonate (TUMS) 200 Mg Tab.chew, 1000 MG PO PRN Q6HRS PRN for INDIGESTION, TAB.CHEW 12/22/20 Alirocumab (Praluent Pen) 75 Mg/1 Ml Pen.injctr, 75 MG SQ UD for HLD, EACH 12/22/20 Polyethylene Glycol 3350 (POLYETHYLENE GLYCOL 3350) 2,500 Gm Powder, 17 GM PO DAILY for CONSTIPATION, MISC 12/22/20 Pantoprazole Sodium (PANTOPRAZOLE SODIUM ) 40 Mg Tablet.dr, 40 MG PO DAILYAC for GERD, TAB 12/22/20 Nystatin (NYSTOP) 60 Gm Powder, 1 ANDREI TP DAILY for YEAST UNDER ABD FOLD, MISC 12/22/20 Magnesium Hydroxide (MILK OF MAGNESIA) 2,400 Mg/10 Ml Oral.susp, 2400 MG PO PRN DAILY PRN for CONSTIPATION, MISC 12/22/20 Pregabalin (LYRICA) 50 Mg Capsule, 50 MG PO TID for CHRONIC PAIN, CAP 12/22/20 Insulin Glargine,Hum.rec.anlog (LANTUS SOLOSTAR) 100 Unit/1 Ml Insuln.pen, 35 UNIT SQ BID for DM, SYR 12/22/20 Isosorbide Dinitrate (ISOSORBIDE DINITRATE) 30 Mg Tablet, 20 MG PO BID for HTN, TAB 12/22/20 Hydralazine Hcl (HYDRALAZINE HCL) 25 Mg Tablet, 25 MG PO BID for HTN, TAB 12/22/20 Fentanyl (DURAGESIC 50mcg/hr) 1 Each Patch.td72, 1 PATCH TD Q72H for PAIN, PATCH 12/22/20 Duloxetine Hcl (CYMBALTA) 30 Mg Capsule.dr, 30 MG PO BID for DEPRESSION, CAP 12/22/20 Carvedilol (CARVEDILOL) 25 Mg Tablet, 37.5 MG PO BIDWMEALS for CARDIAC, TAB 12/22/20 Diltiazem Hcl (CARDIZEM CD) 180 Mg Cap.er.24h, 180 MG PO DAILY for FOR HYPERTENSION, #30 CAP 0 Refills 12/22/20 Bumetanide (BUMETANIDE) 2 Mg Tablet, 6 MG PO BID for CHF, TAB 12/22/20 Spironolactone (SPIRONOLACTONE) 100 Mg Tablet, 100 MG PO DAILY for CHF, TAB 12/22/20 Tamsulosin Hcl (FLOMAX) 0.4 Mg Cap.er.24h, 0.4 MG PO DAILY for bph, TAB 12/05/18 Cholecalciferol (Vitamin D3) (VITAMIN D3) 1,000 Unit Tablet, 5000 UNIT PO DAILY for supplement, #30 TAB 5 Refills 12/05/18 Docusate Sodium (DOCUSATE SODIUM) 100 Mg Capsule, 2 CAP PO BID for CONSTIPATION, #30 CAP 04/22/18 Aspirin (ASPIRIN) 81 Mg Tab.chew, 1 TAB PO DAILY, #30 TAB 3 Refills 04/22/18 Nitroglycerin (NITROGLYCERIN SubLingual) 0.4 Mg Tab.subl, 1 TAB SL UD for CHEST PAIN, #25 TAB 3 Refills 02/16/18 Clopidogrel Bisulfate (CLOPIDOGREL) 75 Mg Tablet, 75 MG PO DAILY for TO PREVENT BLOOD CLOTS, #30 TAB 0 Refills 04/29/17 Discontinued Reported Medications Loperamide Hcl (LOPERAMIDE) 2 Mg Tablet, 4 MG PO PRN Q2HR PRN for DIARRHEA, TAB 12/22/20 Levetiracetam (KEPPRA) 750 Mg Tablet, 750 MG PO DAILY for SEIZURES, TAB 12/22/20 Phenol (CHLORASEPTIC) 177 Ml [place].pump, 5 SPRAY MT PRN Q2HR PRN for SORE THROAT, SPRAY 12/22/20 Baclofen (BACLOFEN) 10 Mg Tablet, 5 MG PO TID for MUSCLE RELAXER, #30 TAB 0 Refills 12/22/20 ERNESTO CRISOSTOMO MD Dec 24, 2020 14:30
[2020-12-24 15:00] VITALS: BP 152/70
--- NOTE | 2020-12-24 16:41 | NUR ---
This RN gave report to SHAMEKA Mora of [facility] at [phone].
[2020-12-24 16:57] VITALS: BP 152/70
--- NOTE | 2020-12-24 17:12 | NUR ---
Pt left unit at 1710 by stretcher via transportation. Pt's IV previously removed, VSS. Paperwork sent with pt at time of discharge.
[2020-12-24] MEDS ORDERED: levETIRAcetam 500 MG TABLET PO SCH (21:00)
== END 2020-12-24 17:15 | DRG 682 ==
LOC: 6 SOUTH 20:57
PROVIDERS: ADMIT Internal Medicine; ATTEND Internal Medicine
DX: N17.0 Acute kidney failure with tubular necrosis (principal); E43 Unspecified severe protein-calorie malnutrition; G93.41 Metabolic encephalopathy; Z68.44 Body mass index [BMI] 60.0-69.9, adult; E87.5 Hyperkalemia; E11.65 Type 2 diabetes mellitus with hyperglycemia; D64.9 Anemia, unspecified; I89.0 Lymphedema, not elsewhere classified; E66.01 Morbid (severe) obesity due to excess calories; E03.9 Hypothyroidism, unspecified; E11.40 Type 2 diabetes mellitus with diabetic neuropathy, unspecified; E78.5 Hyperlipidemia, unspecified; F02.80 Dementia in other diseases classified elsewhere, unspecified severity, without behavioral disturbance, psychotic disturbance, mood disturbance, and anxiety; F44.5 Conversion disorder with seizures or convulsions; G30.9 Alzheimer's disease, unspecified; I25.10 Atherosclerotic heart disease of native coronary artery without angina pectoris; I25.2 Old myocardial infarction; I50.9 Heart failure, unspecified; J44.9 Chronic obstructive pulmonary disease, unspecified; R32 Unspecified urinary incontinence; Z82.49 Family history of ischemic heart disease and other diseases of the circulatory system; Z86.73 Personal history of transient ischemic attack (TIA), and cerebral infarction without residual deficits; Z95.1 Presence of aortocoronary bypass graft; Z95.5 Presence of coronary angioplasty implant and graft; F32.9 Major depressive disorder, single episode, unspecified; F41.9 Anxiety disorder, unspecified; G47.33 Obstructive sleep apnea (adult) (pediatric); K21.9 Gastro-esophageal reflux disease without esophagitis; M19.90 Unspecified osteoarthritis, unspecified site; Z88.0 Allergy status to penicillin; Z88.8 Allergy status to other drugs, medicaments and biological substances; T50.995A Adverse effect of other drugs, medicaments and biological substances, initial encounter; Y92.89 Other specified places as the place of occurrence of the external cause; Z20.822 Contact with and (suspected) exposure to COVID-19; I12.9 Hypertensive chronic kidney disease with stage 1 through stage 4 chronic kidney disease, or unspecified chronic kidney disease; E11.22 Type 2 diabetes mellitus with diabetic chronic kidney disease; N18.31 Chronic kidney disease, stage 3a
CPT/HCPCS: 36415; 80048; 80053; 82805; 82962; 83735; 84100; 85025; 93005; 94660; J1644; J1815; J7030; U0003; 97530-GP; G0378